=== PATIENT | female | born 1965 | race African-American/Black ===

== ENCOUNTER 2017-06-09 04:22 | Inpatient (IN) | payer MEDICAID ==
[~2017-06-09] VITALS: Ht 149.9 cm; Wt 112.9 kg
[2017-06-09] VITALS (10 sets, daily range): BP systolic 70–147; BP diastolic 43–75
[2017-06-09] MEDS ORDERED: LIPITOR10 MG (04:29)
[2017-06-09] MEDS ORDERED: NORVASC2.5 MG (04:29)
[2017-06-09] MEDS ORDERED: VITAMIN D1000 UNI1 (04:30)
[2017-06-09] MEDS ORDERED: ANTACID325 MG (04:30)
[2017-06-09] MEDS ORDERED: CARVEDILOL12.5 MG (04:30)
[2017-06-09 05:58] LABS: HEMATOCRIT 42.8 % (37.0-47.0); HEMOGLOBIN 13.4 gm/dL (12.0-15.0); MCH 27.1 pg (26.0-34.0); MCHC 31.3 g/dL (28.0-37.0); MCV 86.5 fL (80.0-100.0); MPV 10.3 fl. (7.2-11.1); NUCLEATED RBCS 0 /100WBC; PLATELET COUNT* 228 thou/uL (150-400); RBC 4.95 mil/uL (4.20-5.00); RDW-CV 16.3 % (10.5-14.5); WBC 8.6 thou/uL (4.0-11.0)
[2017-06-09 06:14] LABS: CALCIUM 9.1 mg/dL (8.5-10.1); POTASSIUM 4.9 mmol/L (3.5-5.1)
[2017-06-09 06:18] LABS: ALBUMIN 2.6 g/dL (3.4-5.0); TOTAL BILIRUBIN 0.7 mg/dL (<0.1-1.0); TOTAL PROTEIN 7.5 g/dL (6.4-8.2)
[2017-06-09 06:36] LABS: ABSOLUTE LYMPHOCYTES 1.2 thou/uL (0.8-5.3); ABSOLUTE MONOCYTES 0.5 thou/uL (0.0-1.2); ABSOLUTE NEUTROPHILS 6.9 thou/uL (1.6-8.1); ATYPICAL LYMPHS 8 %
[2017-06-09 06:39] LABS: GIANT PLATELETS OCCASIONAL; LARGE PLATELETS FEW; PLATELET ESTIMATE ADEQUATE
[2017-06-09 06:40] LABS: ANISOCYTOSIS 1+; HYPOCHROMASIA 1+; POLYCHROMASIA 1+; TARGET CELLS 1+
--- NOTE | 2017-06-09 07:37 | NUR ---
pt has given her permission for her cousin, Jaqueline Abernathy and her sister, Yuliet Duran to call and receive any information on the patient throughout her stay.
[2017-06-09 07:38] LABS: PROTIME 9.9 Seconds (9.20-11.50)
--- NOTE | 2017-06-09 08:29 | NUR ---
WHILE FILLING OUT THE SURGERY PRE-OP CHECKLIST AND CHANGING THE PATIENT INTO A GOWN, THE PATIENT REQUESTED TO HAVE HER UNDERWEAR CUT OFF RATHER THAN TO MOVE HER, CAUSING PAIN. THE PATIENT'S UNDERWEAR WAS CUT ON 2 SIDES AND LEFT IN PLACE. AN INCONTINENCE PAD WAS PLACED UNDERNEATH OF THE PATIENT'S BOTTOM THE PATIENT STATED THAT SHE IS INCONTINENT AND WEARS A PAD.
--- NOTE | 2017-06-09 10:40 | NUR ---
1040-RECEIVED PATIENT FROM ER AT THIS TIME. NEPHROLOGY AND PULMONARY COMSULTS CALLED PRIOR TO PATIENTS ARRIVAL. PATIENT IS ALERT AND ORIENTED. PAIN 10/10 IN LLQ. LABORED BREATHING. SAT 100% ON 3L. BP 87/57, PULSE 80. NG CONNECTED TO LIS- NO OUTPUT- PLACEMENT HAS NOT BEEN CONFIRMED BY XRAY- SUCTION OFF FOR NOW UNTIL PLACEMENT CAN BE CONFIRMED. NURSING FIELD REPRESENTATIVE ON UNIT AND NOTIFIED OF PATIENTS STATUS. NURSING FIELD REPRESENTATIVE INFORMED DR. RESENDIZ. I SPOKE WITH NEPHROLOGY WHO ORDERED NS AT 250MLS/HR, TRANSFER TO ICU, CENTRAL LINE PLACEMENT AND WHITTAKER CATHETER.NS INFUSING INTO RIGHT WRIST IV AT 250MLS/HR. WHITTAKER PLACED WITH SMALL RETURN OF YELLOW URINE. NURSING FIELD REPRESENTATIVE SPOKE WITH DR. HAMMONDS WHO ORDERED ABG'S. DR. RESENDIZ REQUESTED PATIENT BE TAKEN TO PACU FOR SURGERY. LEFT MESSAGE FOR PATIENTS SISTER HELADIO PER PATIENTS REQUEST. REPORT TO TARAN IN PACU. ER TO CALL REPORT TO ICU. 1135- PATIENT TRANSFERRED TO PACU
[2017-06-09 11:40] LABS: URINE BILIRUBIN NEGATIVE (Negative); URINE BLOOD TRACE (Negative); URINE CLARITY SL CLOUDY; URINE COLOR YELLOW; URINE GLUCOSE-RANDOM NEGATIVE (Negative); URINE KETONES NEGATIVE (Negative); URINE LEUKOCYTES-REFLEX NEGATIVE (Negative); URINE NITRITE-REFLEX NEGATIVE (Negative); URINE PROTEIN 3+ (Negative); URINE SPECIFIC GRAVITY 1.025 (1.005-1.030); URINE UROBILINOGEN 0.2 E.U./dl (0.2-1.0)
[2017-06-09 11:45] LABS: BE -11.1 mmol/L (-2 to +3); HCO3 15.9 mmol/L (22.0-26.0); PCO2 39.2 mmHg (35.0-45.0); PO2 92.9 mmHg (75.0-100.0)
[2017-06-09 11:46] LABS: SQUAMOUS 4-10 Moderate /LPF (0-3)
[2017-06-09 11:46] LABS: pH 7.225 (7.340-7.450)
[2017-06-09 11:47] LABS: AMORPHOUS URATES Many /LPF (None Seen); BACTERIA-REFLEX 1-9 Few /HPF (None Seen); URINE RBC 3-10 Few /HPF (0-2); URINE WBC-REFLEX 0-5 Rare /HPF (0-5)
[2017-06-09 11:47] LABS: AMP/METHAMP Negative (Negative); BARBITURATES Negative (Negative); BENZODIAZEPINES Negative (Negative); COCAINE Negative (Negative); METHADONE Negative (Negative); OPIATES POSITIVE (Negative); PCP Negative (Negative); THC Negative (Negative)
[2017-06-09 11:48] LABS: COARSE GRANULAR CASTS >10 Many /LPF (None Seen); FINE GRANULAR CASTS >10 Many /LPF (None Seen)
[2017-06-09 12:46] LABS: ABSOLUTE LYMPHOCYTES 0.4 thou/uL (0.8-5.3); ABSOLUTE MONOCYTES 0.8 thou/uL (0.0-1.2); ABSOLUTE NEUTROPHILS 6.1 thou/uL (1.6-8.1); BASOPHILS 0.2 %; HEMATOCRIT 36.7 % (37.0-47.0); HEMOGLOBIN 11.7 gm/dL (12.0-15.0); LYMPHOCYTES 6.1 %; MCH 27.3 pg (26.0-34.0); MCHC 31.9 g/dL (28.0-37.0); MCV 85.6 fL (80.0-100.0); MONOCYTES 11.2 %; MPV 11.1 fl. (7.2-11.1); NUCLEATED RBCS 1 /100WBC; PLATELET COUNT* 209 thou/uL (150-400); POLYS 82.5 %; RBC 4.29 mil/uL (4.20-5.00); RDW-CV 16.4 % (10.5-14.5); WBC 7.3 thou/uL (4.0-11.0)
[2017-06-09 13:11] LABS: CREATININE 5.8 mg/dL (0.6-1.3); POTASSIUM 5.1 mmol/L (3.5-5.1)
[2017-06-09 13:15] LABS: ALBUMIN 1.9 g/dL (3.4-5.0); PHOSPHORUS* 4.6 mg/dL (2.5-4.9); TOTAL BILIRUBIN 1.6 mg/dL (<0.1-1.0); TOTAL PROTEIN 5.7 g/dL (6.4-8.2)
--- NOTE | 2017-06-09 16:09 | EKG ---
[place] [address] ELECTROCARDIOGRAM REPORT Name: WALLY HAYES Room: [address] ADM IN ..#: [id number] Admission: 06/09/17 Attend Phys: Al Francisco, Discharge: Date of : 69 Report #: [id number] THIS REPORT FOR: //name// [facility] ED Test Date: 2017-06-09 Test Time: 04:39:10 Pat Name: WALLY HAYES Department: Room: [facility] Gender: F Landscape Management Technician: HANDY : 1965 Requested By: Louisa Barajas Order Number: [id number] MD: Vito Grove Measurements Intervals [place] Rate: 67 P: 6 RI: 146 QRS: 7 QRSD: 88 T: 172 QT: 414 QTc: 437 Interpretive Statements Sinus rhythm LVH with secondary repolarization abnormality Baseline wander in lead(s) V4,V5 No previous ECG available for comparison Electronically Signed On 06-09-2017 16:09:07 INCIDENT RESPONSE COORDINATOR by Vito Grove [email or web address] <ELECTRONICALLY SIGNED> By: Dennis Grove MD, [facility] 06/09/17 1609 [id number] [id number] Dennis Grove MD, [facility] /EPI
--- NOTE | 2017-06-09 20:02 | NUR ---
PATIENT'S BLOOD PRESSURE IS NOT MAINTAINING, PATIENT NOW REQUIRING 4 PRESSERS MAXED OUT. NG TO LIS, BROWN OUTPUT NOTED. WOUND VAC INTACT. PATIENT ANURIC. LUNGS COARSE AT THE BEGINNING BUT MORE CLEAR TOWARDS END OF SHIFT. FRONT ELEVATOR OPERATOR NOTING SINUS RHYTHM. BOWEL SOUNDS ABSENT. BEDSIDE REPORT GIVEN TO ONCOMING SHIFT.
[2017-06-10] VITALS (32 sets, daily range): BP systolic 75–153; BP diastolic 45–84
[2017-06-10 03:53] LABS: ABSOLUTE LYMPHOCYTES 0.7 thou/uL (0.8-5.3); ABSOLUTE MONOCYTES 0.8 thou/uL (0.0-1.2); ABSOLUTE NEUTROPHILS 14.9 thou/uL (1.6-8.1); BASOPHILS 0.3 %; EOSINOPHILS 0.1 %; HEMATOCRIT 35.8 % (37.0-47.0); HEMOGLOBIN 11.1 gm/dL (12.0-15.0); MCH 26.8 pg (26.0-34.0); MCV 86.6 fL (80.0-100.0); MONOCYTES 4.9 %; MPV 10.5 fl. (7.2-11.1); NUCLEATED RBCS 0 /100WBC; PLATELET COUNT* 224 thou/uL (150-400); POLYS 90.7 %; RBC 4.13 mil/uL (4.20-5.00); RDW-CV 16.4 % (10.5-14.5); WBC 16.5 thou/uL (4.0-11.0)
[2017-06-10 03:54] LABS: URINE BLOOD 2+ (Negative); URINE CLARITY CLEAR; URINE COLOR YELLOW; URINE GLUCOSE-RANDOM NEGATIVE (Negative); URINE KETONES NEGATIVE (Negative); URINE LEUKOCYTES-REFLEX NEGATIVE (Negative); URINE NITRITE-REFLEX NEGATIVE (Negative); URINE PROTEIN 2+ (Negative); URINE SPECIFIC GRAVITY 1.025 (1.005-1.030); URINE UROBILINOGEN 0.2 E.U./dl (0.2-1.0)
[2017-06-10 03:56] LABS: URINE BILIRUBIN 1+ (Negative)
[2017-06-10 03:57] LABS: ICTOTEST (BILI CONFIRMATORY) Negative (Negative)
[2017-06-10 04:22] LABS: ALBUMIN 1.4 g/dL (3.4-5.0); CALCIUM 6.8 mg/dL (8.5-10.1); CREATININE 6.6 mg/dL (0.6-1.3); TOTAL PROTEIN 4.9 g/dL (6.4-8.2)
[2017-06-10 04:25] LABS: BE -16.3 mmol/L (-2 to +3); PCO2 30.8 mmHg (35.0-45.0); PO2 109.8 mmHg (75.0-100.0)
[2017-06-10 04:27] LABS: pH 7.169 (7.340-7.450)
[2017-06-10 04:32] LABS: POTASSIUM 6.2 mmol/L (3.5-5.1)
[2017-06-10 04:58] LABS: BACTERIA-REFLEX >30 Many /HPF (None Seen); COARSE GRANULAR CASTS 0-3 Few /LPF (None Seen); FINE GRANULAR CASTS 0-3 Few /LPF (None Seen); MUCUS 4-6 Moderate strn/LPF (None Seen); SQUAMOUS 0-3 Few /LPF (0-3); URINE WBC-REFLEX 6-15 Few /HPF (0-5); WBC CLUMPS Few (None Seen)
[2017-06-10 04:59] LABS: AMORPHOUS URATES Many /LPF (None Seen)
--- NOTE | 2017-06-10 08:38 | NUR ---
ASSUMED PT CARE AT 1900. PT WAS HYPOTENSIVE AND WAS TITRATED TO MAX DOSE OF LEVOPHED, VASOPRESSIN, EPINEPHRINE, AND DOPAMINE BY 1999. THROUGH THE NIGHT DOPAMINE WAS TITRATED DOWN TO 2MCG/KG/MIN BUT ALL OTHER PRESSORS REMAINED AT MAX DOSE TO MAINTAIN MAP >65 PER ARTERIAL PRESSURE. PT REMAINED AFEBRILE. PT SEDATED ON VENTILATOR, MAINTAINING O2 SAT >92%. MIDLINE ABDOMINAL INCISION WITH WOUND VAC DRAINING SANGUINOUS DRAINAGE, DRESSING INTACT. PT HAS BEEN TURNED Q2HR THROUGHOUT THIS SHIFT EXCEPT EARLY IN THE NIGHT WHEN SHE WAS NOT HEMODYNAMICALLY STABLE ENOUGH TO TOLERATE REPOSITIONING. NEW COLOSTOMY IN LUQ IS DARK RED AND PROTUDING, MINIMAL SANGUINOUS DRAINAGE IN BAG. MULTIPLE ABNORMAL AND CRITICAL LABS WERE COMMUNICATED TO DRS GEM, KULWANT, AND ERASTO THIS AM WITH ORDERS RECEIVED. SPOKE TO PTS SISTER, HELADIO HAYES, THIS AM TO COMMUNICATE PTS CONDITION AND OBTAIN CONSENT FOR PLACEMENT OF TEMPORARY DIALYSIS CATHETER, CONSENT WITNESSED BY GAVIOTA YEUNG RN.
[2017-06-10 10:17] LABS: ALBUMIN 1.4 g/dL (3.4-5.0); CALCIUM 7.2 mg/dL (8.5-10.1); CREATININE 6.9 mg/dL (0.6-1.3); TOTAL PROTEIN 5.2 g/dL (6.4-8.2)
[2017-06-10 10:23] LABS: POTASSIUM 5.1 mmol/L (3.5-5.1)
--- NOTE | 2017-06-10 10:25 | NUR ---
PT HAD EXP LAP YESTERDAY FOR PERFORATED BOWEL, PT HAS WOUND VAC, PLAN TO RETURN TO SURGERY IN A FEW DAYS FOR ANOTHER ABD WASHOUT, POSSIBLE WOUND CLOSURE. PT GETTING TEMPORARY DIALYSIS CATH TODAY TO START DIALYSIS. CASE MGT WILL CONTINUE TO FOLLOW.
[2017-06-10 10:42] LABS: BE -14.2 mmol/L (-2 to +3); HCO3 11.9 mmol/L (22.0-26.0); PCO2 29.3 mmHg (35.0-45.0); PO2 91.9 mmHg (75.0-100.0); pH 7.228 (7.340-7.450)
--- NOTE | 2017-06-10 11:52 | 2DMMODE ---
[place] [address] 2 D/M-MODE ECHOCARDIOGRAM Name: WALLY HAYES Room: [address] IN [facility]#: [id number] Admission: 06/09/17 Attend Phys: Al Gutierrez Discharge: Date of : 69 Date of Service: 06/10/17 1152 Report #: [id number] THIS REPORT FOR: //name// APPROVED REPORT Study performed: 06/10/2017 09:53:29 EXAM: Comprehensive 2D, Doppler, and color-flow Echocardiogram Patient Location: Bedside BSA: 2.03 HR: 82 bpm BP: 114/73 mmHg Other Information Study Quality: Fair Indications Hypotension 2D Dimensions LVEF(%): 76.62 (>50%) IVSd: 8.37 (7-11mm) LVOT Diam: 21.32 (18-24mm) LVDd: 35.11 mm PWd: 9.63 (7-11mm) Ascending Ao: 34.57 (22-36mm) LVDs: 19.53 (25-40mm) Aortic Root: 25.25 mm Hunter's LVEF: 76.62 % Volumes Left Atrial Volume (Systole) LA ESV Index: 17.50 mL/m2 Aortic Valve AoV Peak Michoacano.: 1.19 m/s AO Peak Gr.: 5.69 mmHg LVOT Max P.48 mmHg AO Mean Gr.: 3.15 mmHg LVOT Mean P.10 mmHg LVOT Max V: 0.79 m/s AO V2 VTI: 17.14 cm LVOT Mean V: 0.47 m/s JANIE (VTI): 2.13 cm2 LVOT V1 VTI: 10.22 cm Mitral Valve E/A Ratio: 0.96 MV Decel. Time: 225.84 ms MV E Max Michoacano.: 0.66 m/[place] [address] 2 D/M-MODE ECHOCARDIOGRAM Name: WALLY HAYES Room: [address]#: [id number] Admission: 06/09/17 Attend Phys: Al Gutierrez Discharge: Date of : 69 Date of Service: 06/10/17 1152 Report #: [id number] MV PHT: 65.49 ms MVA (PHT): 3.36 cm2 TDI E/Lateral E': 7.33 E/Medial E': 9.43 Medial E' Michoacano.: 0.07 m/s Lateral E' Michoacano.: 0.09 m/s Pulmonary Valve PV Peak Michoacano.: 1.24 m/s PV Peak Gr.: 6.17 mmHg Tricuspid Valve RAP Estimate: 5.00 mmHg TR Peak Gr.: 35.57 mmHg RVSP: 40.57 mmHg PA Pressure: 40.57 mmHg Left Ventricle The left ventricle is normal size. There is normal LV segmental wall motion. There is normal left ventricular wall thickness. Left ventricular systolic function is normal. The left ventricular ejection fraction is within the normal range. LVEF is 60-65%. The left ventricular diastolic function is normal. Right Ventricle The right ventricle is normal size. The right ventricular systolic function is normal. Atria The left atrium size is normal. The right atrium size is normal. Aortic Valve The aortic valve is normal in structure. No aortic regurgitation is present. There is no aortic valvular stenosis. Mitral Valve The mitral valve is normal in structure. There is no mitral valve regurgitation noted. No evidence of mitral valve stenosis. Tricuspid Valve The tricuspid valve is normal in structure. Trace tricuspid regurgitation. Pulmonic Valve The pulmonary valve is normal in structure. There is no pulmon[place] [address] 2 D/M-MODE ECHOCARDIOGRAM Name: WALLY HAYES Room: [address] IN [facility]#: [id number] Admission: 06/09/17 Attend Phys: Al Gutierrez Discharge: Date of : 69 Date of Service: 06/10/17 1152 Report #: [id number] Great Vessels The aortic root is normal in size. The inferior vena cava is not well visualized. Pericardium There is no pericardial effusion. <Conclusion> Left ventricular systolic function is normal. The left ventricular ejection fraction is within the normal range. <ELECTRONICALLY SIGNED> By: Chilo Angela MD, FACC 06/10/17 1152 1152 115 Chilo Angela MD, FACC /INF
--- NOTE | 2017-06-10 18:47 | NUR ---
ASSUMED CARE OF PATIENT THIS AM WAS ON LEVOPHED, VASOPRESSIN, DOPAMINE AND EPINEPHRINE GTT. SEE TITRATION LOG. REMAINS ON LEVPHED ONLY AT THIS TIME. ART LINE WAS UNUSABLE RESTARTED IN RT WRIST. VAS CATH PLACED IN LT IJ BY DR ACOSTA. TIME OUT DONE PRIOR TO PROCEDURE. PT TOLERATED WELL. WOUND VAC FUNCTIONING WELL.
--- NOTE | 2017-06-10 21:30 | NUR ---
PT AWAKE, ALERT, NODDING HEAD YES/NO FOR SIMPLE QUESTIONS, INCREASED VENTILATOR PRESSURE RETURN, CALLED DR KONG LICENSING SPECIALIST FOR DR CHI UPDATED ON RESTLESSNESS, NEW ORDERS OBTAINED FOR VERSED GTT PER PROTOCOL IV, START DOSAGE AT 3MG/HR, WITH MAX DOSAGE 10MG/HR, WILL FOLLOW ORDERS AND CONTINUE TO MONITOR
[2017-06-11] VITALS (28 sets, daily range): BP systolic 74–197; BP diastolic 40–91
--- NOTE | 2017-06-11 05:00 | NUR ---
REMAINS CRRT DURING NOC, FENTANYL AND VERSED GTT FOR SEDATION EFFECTIVE, PT NODDING HEAD NO WHEN ASKED IF HAVING PAIN THIS AM, VERSED DECREASED DOWN TO 1MG/HR TO MAINTAIN RASS SCORE -1/-2 PER ORDER, NO FURTHER HYPOGLYCEMIA NOTED DURING NOC, D5 0.45% NS CONTINUES TO TRANSFUSE VIA INFUSION PUMP 75CC/HR, DRESSING ABD REMAINS C/D/I, <10CC SEROSANGUINEOUS DRAINAGE NOTED IN LUQ COLOSTOMY BAG, REMAINS OLIGURIC 50CC GAURI URINE WHITTAKER CATHETER, AFEBRILE, NSR TRACING MOCK UP BUILDER, 1:1 RN REMAINS AT BEDSIDE PER CRRT POLICY.
[2017-06-11 06:02] LABS: HCO3 19.7 mmol/L (22.0-26.0); pH 7.369 (7.340-7.450)
[2017-06-11 06:03] LABS: PO2 139.7 mmHg (75.0-100.0)
[2017-06-11 07:06] LABS: HEPATITIS B SURFACE AG Negative (Negative)
--- NOTE | 2017-06-11 07:50 | CON ---
[address] [address] CONSULTATION Name: WALLY HAYES Room: [address] IN [facility]#: [id number] Admission: 06/09/17 Attend Phys: Al Franicsco, Discharge: Date of : 69 Report #: [id number] THIS REPORT FOR: //name// CC: VALERIANO physician/PCP Al Francisco DATE OF SERVICE: 06/10/2017 REQUESTING PHYSICIAN: Al Francisco MD REASON FOR CONSULTATION: Postop ventilator. DISCUSSION: The patient is a 51-year-old woman who presented to the emergency department yesterday. She had pain in her abdomen for the last several days. She had recently been discharged from [facility] where she was treated for hypertensive crisis. Seen in the emergency department, did have some tenderness. Lab did reveal marked elevation in her creatinine and metabolic acidosis. Scans done of her abdomen did reveal changes of bowel obstruction as well as perforation with free air noted. Apparently was placed on the floor. She, however, deteriorated with drop in her blood pressure. Subsequently, she was taken to the operating room. Dr. Stanley operated on her yesterday and was noted to have a perforated bowel (sigmoid) with purulent fluid in her abdominal cavity. Besides washout, a Hima's procedure was done. It was left essentially open with a wound VAC in place. She returned to the intensive care unit on the ventilator. Central line and arterial line have been placed. Initially postop, she did require considerable amount of pressor support, was up to 4 pressors. At the time of my visit this morning, she was down to just dopamine and Levophed. She has been essentially anuric. Renal has been consulted. Dialysis catheter was to be placed. PAST MEDICAL HISTORY: Per the admission records indicate she does have chronic renal failure and hypertension. HOME MEDICATIONS: Apparently were amlodipine, Coreg, sodium bicarbonate twice a day, and vitamin D. SOCIAL HISTORY: She is a nonsmoker. FAMILY HISTORY: Unable to obtain from the patient. REVIEW OF SYSTEMS: Unable to obtain from the patient. PHYSICAL EXAMINATION: GENERAL APPEARANCE: Obese woman. Currently [place]ub[place] [address] CONSULTATION Name: WALLY HAYES Room: [address]#: [id number] Admission: 06/09/17 Attend Phys: Al Francisco, Discharge: Date of : 69 Report #: [id number] saturations are in the high 90s. Also, has an NG tube in place. Right IJ central line and arterial line in place. Some low dose fentanyl infusion going. HEENT: Head is normocephalic. Her eyes do appear fairly prominent, they are taped shut with lubricant. Mucous membranes little dry. NECK: Negative for any JVD. HEART: Regular. It is actually in the 80s. Grade 1/6 systolic murmur. No S3 is heard. LUNGS: Sounds are a little coarse, but generally clear. Excursion is equal. No chest wall abnormalities are noted. ABDOMEN: Obese. Wound VAC in place. Colostomy bag in place. Colby catheter in place with just scant amounts of pale yellow urine. EXTREMITIES: Warm. Pulses are fairly good. NEUROLOGIC: SCDs in place. LABORATORY AND X-RAY FINDINGS: Chest x-ray done this morning does show endotracheal tube in position. She has some atelectatic changes seen in the bases. Arterial blood gas done earlier this morning, she had a pH 7.17, pCO2 of 31, pO2 of 110, bicarbonate of 11 with a saturation of 97%. FIO2 at that time was 70%. She is now down to 60%. Chemistries earlier this morning, sodium 131, potassium 6.2, bicarb of 15, BUN 47, creatinine of 6.6. Total bilirubin 2.0. AST 34. Total protein 4.9 with an albumin of 1.4. Lactic acid 1.5. Coag studies unremarkable. White blood cell count this morning 16,500, hemoglobin 11.1, hematocrit 35.8, and platelets 224,000. HCG was negative. Prealbumin 11.2. One out of two blood cultures sent yesterday are positive for Gram-negative rods. Cultures done on peritoneal fluid are pending. Gram stain did show many white cells, few Gram-negative rods and moderate Gram-positive cocci. Urine culture is pending. IMPRESSION: 1. Postop respiratory failure. She is oxygenating adequately, though she does have increase O2 needs. 2. Septic shock. Status post repair of perforated sigmoid colon with intraabdominal sepsis/peritonitis. Critically ill. However, she is down to 2 pressors from 4. 3. Acute kidney injury superimposed on chronic kidney disease. Unknown what her baseline creatinine is at this time. 4. History of hypertension. 5. Obesity. 6. Protein-calorie malnutrition. 7. Critically ill. Guarded prognosis. RECOMMENDATIONS: 1. Continue ventilatory support. Follow up blood gas pending from this morning, we will make then adjustments as needed. 2. Renal will be seeing. May need dialysis and or filtration given her ongoing acidosis and [place] [address] CONSULTATION Name: WALLY HAYES Room: [address]#: [id number] Admission: 06/09/17 Attend Phys: Al Francisco, Discharge: Date of : 69 Report #: [id number] 3. I will continue the DuoNeb treatments at this time. 4. Continue with broad spectrum antibiotics. 5. No plans for active weaning, though she is more stable. I do note a tentative plan is to have her return to the operating room in several days for additional washout. <ELECTRONICALLY SIGNED> By: Imani Dillard MD 06/11/17 0750 0957 [id number] Dillard MD /nt
--- NOTE | 2017-06-11 07:54 | CON ---
[address] [address] CONSULTATION Name: WALLY HAYES Room: [address] IN [facility]#: [id number] Admission: 06/09/17 Attend Phys: Al Francisco, Discharge: Date of : 69 Report #: [id number] THIS REPORT FOR: //name// CC: VALERIANO physician/PCP Al Francisco DATE OF SERVICE: 06/10/2017 ATTENDING PHYSICIAN: Al Francisco MD. REASON FOR EVALUATION: Septic shock, fecal peritonitis. HISTORY OF PRESENT ILLNESS: Chart reviewed, patient examined. This is a 51-year-old female who is here with some underlying vasculopathy, known hypertension, renal disease, apparently was just discharged from another facility with hypertension and crisis. While there, she developed abdomen related pain. This not only worsened since her discharge, did have associated loose stools and some sweats. She was evaluated and found to be somewhat hemodynamically unstable. CT imaging showed evidence of perforation involving sigmoid diverticulitis, associated free air and underwent emergent surgery, seen postop. She is on pressor support as well as mechanical ventilatory support at this point. Now has associated gram-negative isolated from one of the blood cultures. She has been empirically started on piperacillin-tazobactam as well as metronidazole. Her creatinine is markedly elevated at this point to 6.6 with hyperkalemia. She is to be started on some dialysis. Urinalysis did show moderate pyuria as well. ALLERGIES: None known. CURRENT MEDICATIONS: Include hydrocortisone, pantoprazole, fentanyl, metronidazole, Zosyn. PAST MEDICAL HISTORY: As described above, hypertension, renal disease. SOCIAL HISTORY: Nonsmoker, no ethanol. FAMILY HISTORY: Noncontributory. REVIEW OF SYSTEMS: Not obtainable. PHYSICAL EXAMINATION: GENERAL: She is lying supine. She has multiple tubes in place including ET tube, OG tube, has got a wound VAC in place as well. VITAL SIGNS: Temperature 98.1, pulse 80, respirations 25, blood pressure 114/73. SKIN: Warm, dry[place] [address] CONSULTATION Name: WALLY HAYES Room: [address]#: [id number] Admission: 06/09/17 Attend Phys: Al Francisco, Discharge: Date of : 69 Report #: [id number] HEENT: As noted above. NECK: Supple. LUNGS: A few scattered coarse breath sounds. HEART: Distant, regular. ABDOMEN: Firm, somewhat distended, has a wound VAC in place anteriorly. GENITOURINARY AND RECTAL: Deferred. LABORATORY AND X-RAY DATA: Blood cultures 1/2 with gram-negative rods. Chest x-ray showed some changes in the bases. There is question of pneumonitis versus atelectasis. Urinalysis 6-15 white cells, greater than 30 bacteria. Amylase 150. Electrolytes: Sodium 131, potassium 6.2, chloride 102, bicarbonate is 15, anion gap of 14, BUN and creatinine 47 and 6.6, glucose of 265. LFTs unremarkable with exception total bilirubin of 2.0, albumin 1.4, total protein 4.9. Estimated GFR of 8. Lactic acid of 1.5, prealbumin of 11.2. CBC: White count 16.5, H and H 11.1 and 35.8, platelets of 224. Operative culture is pending. Gram stain showed polymicrobial appearance. ASSESSMENT: Septic shock as a result of colonic perforation involving sigmoid diverticula with diverticulitis. PLAN: We will continue the piperacillin-tazobactam, should give us good coverage, just a matter of supporting her at this point. Will likely need additional surgery based on the available information. Continue to wean off meds as allowed. We will adjust any antibiotics as needed. Certainly at risk for nosocomial related infectious complications, in particular pneumonitis. Thank you, we will follow. <ELECTRONICALLY SIGNED> By: Silverio Schreiber MD 06/11/17 0754 1023 1201Jogarett Schreiber MD /nt
[2017-06-11 09:09] LABS: MCH 68.4 pg (26.0-34.0); MCHC 86.5 g/dL (28.0-37.0); MCV 79.1 fL (80.0-100.0); MPV 9.3 fl. (7.2-11.1); PLATELET COUNT* 278 thou/uL (150-400); RDW-CV 15.5 % (10.5-14.5)
[2017-06-11 09:11] LABS: HEMOGLOBIN 5.9 gm/dL (12.0-15.0)
[2017-06-11 09:12] LABS: HEMATOCRIT 6.8 % (37.0-47.0); RBC 0.86 mil/uL (4.20-5.00)
[2017-06-11 09:23] LABS: SODIUM 132 mmol/L (136-145)
[2017-06-11 09:24] LABS: ANION GAP ND mmol/L (7-16); BUN 32 mg/dL (7-18); CHLORIDE 101 mmol/L (98-107); CO2 ND mmol/L (21-32); POTASSIUM 5.8 mmol/L (3.5-5.1)
[2017-06-11 09:25] LABS: CREATININE 3.6 mg/dL (0.6-1.3); GLUCOSE 79 mg/dL (70-99); SGOT 442 U/L (15-37)
[2017-06-11 09:26] LABS: CALCIUM 7.8 mg/dL (8.5-10.1); MAGNESIUM 1.7 mg/dL (1.8-2.4); TOTAL BILIRUBIN ND mg/dL (<0.1-1.0)
[2017-06-11 09:27] LABS: ALKALINE PHOSPHATASE 54 U/L (46-116)
[2017-06-11 09:29] LABS: SGPT 98 U/L (30-65); TOTAL PROTEIN 6.9 g/dL (6.4-8.2)
[2017-06-11 09:30] LABS: ALBUMIN < 0.6 g/dL (3.4-5.0)
[2017-06-11 09:38] LABS: ABSOLUTE LYMPHOCYTES 2.7 thou/uL (0.8-5.3); ABSOLUTE MONOCYTES 2.1 thou/uL (0.0-1.2); ABSOLUTE NEUTROPHILS 16.2 thou/uL (1.6-8.1); ATYPICAL LYMPHS 2 %; MYELOCYTES 1 %
[2017-06-11 09:39] LABS: PLATELET ESTIMATE ADEQUATE
[2017-06-11 09:40] LABS: TOXIC GRANULATION 1+
[2017-06-11 09:41] LABS: BURR CELLS 1+; HYPOCHROMASIA 2+; LARGE PLATELETS OCCASIONAL; SCHISTOCYTES 1+
[2017-06-11 09:42] LABS: ANISOCYTOSIS 1+; POIKILOCYTOSIS 2+
--- NOTE | 2017-06-11 11:33 | NUR ---
ASSUMED CARE OF PATIENT THIS AM CVVH STOPPED LINE CLOTTED. VS WNL. BLOOD RETURNED. LAB HAVING DIFFICULTY WITH HEMOLIZED SPECIMENS DR RIVERS CONSULTED. SEE HER NOTE. NOW TRANSFUSING 1 UNIT PRBC. HEPARIN HELD THIS AM. CVVH NOT RESTARTED AT THIS TIME PER DR MELCHOR. WILL CONTINUE TO MONITOR.
[2017-06-11 12:54] LABS: BE -10.8 mmol/L (-2 to +3); HCO3 14.9 mmol/L (22.0-26.0); PCO2 32.4 mmHg (35.0-45.0)
[2017-06-11 12:55] LABS: PO2 142.3 mmHg (75.0-100.0); pH 7.281 (7.340-7.450)
[2017-06-11 13:17] LABS: ABSOLUTE BASOPHILS 0.1 thou/uL (0.0-0.2); ABSOLUTE EOSINOPHILS 0.1 thou/uL (0.0-0.7); ABSOLUTE LYMPHOCYTES 1.6 thou/uL (0.8-5.3); ABSOLUTE MONOCYTES 2.8 thou/uL (0.0-1.2); BASOPHILS 0.5 %; EOSINOPHILS 0.3 %; LYMPHOCYTES 6.1 %; MCH 49.6 pg (26.0-34.0); MCHC 56.7 g/dL (28.0-37.0); MCV 87.5 fL (80.0-100.0); MONOCYTES 10.7 %; MPV 9.7 fl. (7.2-11.1); NUCLEATED RBCS 1 /100WBC; PLATELET COUNT* 219 thou/uL (150-400); POLYS 82.4 %; RBC 1.38 mil/uL (4.20-5.00); RDW-CV 17.3 % (10.5-14.5); WBC 26.7 thou/uL (4.0-11.0)
[2017-06-11 13:25] LABS: HEMOGLOBIN 6.8 gm/dL (12.0-15.0)
[2017-06-11 13:49] LABS: DIRECT BILIRUBIN 0.2 mg/dL (<0.1-0.3)
[2017-06-11 13:55] LABS: TOTAL PROTEIN 6.7 g/dL (6.4-8.2)
[2017-06-11 13:57] LABS: ALBUMIN 0.5 g/dL (3.4-5.0)
[2017-06-11 14:13] LABS: TOTAL BILIRUBIN 4.8 mg/dL (<0.1-1.0)
[2017-06-11 16:04] LABS: HEMOGLOBIN 8.2 gm/dL (12.0-15.0); MCH 40.4 pg (26.0-34.0); MCHC 45.9 g/dL (28.0-37.0); MPV 10.7 fl. (7.2-11.1); RBC 2.04 mil/uL (4.20-5.00); RDW-CV 16.1 % (10.5-14.5); WBC 30.6 thou/uL (4.0-11.0)
[2017-06-11 16:06] LABS: HEMATOCRIT 17.9 % (37.0-47.0)
--- NOTE | 2017-06-11 18:40 | NUR ---
PATIENTS BP AND HEART RATE DECREASED RESTARTED LEVO AND DOPAMINE. DR MELCHOR AT BEDSIDE ORDERED CALCIUM GLUCONATE INSULIN AND AMP D50 GIVEN. PATIENT RESTARTED ON CVVH ADJUSTED FLOW RATE CORRECTED LOW EFFLUENT PRESSURE ALARM ALSO ADJUSTED LINES TO REMOVE KINKS. NO TPN AVAILABLE ORDERED. ADDENDUM PRIOR TO ABOVE UNABLE TO OBTAIN BLOOD GLUCOSE PT DIAPHORETIC NURSE CONCERNED ATTEMPTED TO OBTAIN BLOOD GLUCOSE UNABLE TO GET GOOD SPECIMEN FRON FINGER OR ARTLINE. LAB DRAW TOOK ONE HOUR DUE TO HEMOLISIS. PT GIVEN HALF AMP D50 REPORTED TO DR MELCHOR.DPAMINE NOW OFF AND LEVO AT 5MCGS. PT MORE RELAXED EYES VERY DRY APPLIED SALINE GAUZE TO PT EYES. WILL REPORT TONOC NURSE.
[2017-06-11 20:09] LABS: MCH 40.4 pg (26.0-34.0); MCHC 46.4 g/dL (28.0-37.0); MCV 87.1 fL (80.0-100.0); MPV 9.8 fl. (7.2-11.1); RBC 1.7 mil/uL (4.20-5.00); RDW-CV 15.7 % (10.5-14.5); WBC 24.3 thou/uL (4.0-11.0)
[2017-06-11 20:20] LABS: CALCIUM 6.4 mg/dL (8.5-10.1); MAGNESIUM 1.4 mg/dL (1.8-2.4)
[2017-06-11 20:22] LABS: POTASSIUM 3.8 mmol/L (3.5-5.1)
--- NOTE | 2017-06-11 20:32 | NUR ---
LEVOHED GTT TITRATED OFF AT THIS TIME, ARTERIAL B/P 133/75 MAP-94 WITH GOOD PLETH, HR 70
[2017-06-11 20:36] LABS: HEMOGLOBIN 6.9 gm/dL (12.0-15.0)
[2017-06-11 20:37] LABS: HEMATOCRIT 14.8 % (37.0-47.0)
--- NOTE | 2017-06-11 20:45 | NUR ---
CRITICAL HBG 6.9, REQUESTED STAT HBG REDRAW TO VERIFY CRITICAL RESULTS, REDRAWN SERUM HBG 7.5.
[2017-06-11 20:51] LABS: PHOSPHORUS* 4.6 mg/dL (2.5-4.9)
--- NOTE | 2017-06-11 22:27 | NUR ---
HYPOTHERMIC 94.4 AXILLARY, LETHA HUGGER INITIATED, WILL CONTINUE TO MONITOR
[2017-06-11 23:07] LABS: HEMOGLOBIN 6.9 g/dL (11.1-15.9)
[2017-06-12] VITALS (26 sets, daily range): BP systolic 100–136; BP diastolic 63–96
--- NOTE | 2017-06-12 00:15 | NUR ---
THEROMETER UNABLE TO OBTAIN AXILLARY OR ORAL TEMP, REMOVED IN DWELLING CATHETER, REPLACED WITH INDWELLING TEMP PROBE WHITTAKER CATHETER TO MONITOR HYPOTHERMIA, LETHA DWYER REMAINS ON PATIENT, PAGED DR PHAN AT 2359 FOR CORE TEMP 94.5, RECEIVED RETURN CALL, UPDATED HYPOTHERMIC THIS EVENING 94.4 AXILLARY, THERMOMETER UNABLE TO OBTAIN TEMPERTURE, TEMP PROBE PLACED, NO URINE RETURN NOTED WITH NEW WHITTAKER CATHETER PLACED AT THIS TIME, PT HAS BEEN ANURIC-OLIGURIC, BALOON INFLATED 10CC WITHOUT DIFFICULT, TEMP 95.4 CORE WHEN SPOKE WITH DR PHAN ON TELEPHONE, PER DR PHAN CONTINUE LETHA DWYER AND CONTINUE TO MONITOR.
[2017-06-12 00:44] LABS: HEMOGLOBIN 7.5 gm/dL (12.0-15.0); MCH 39.9 pg (26.0-34.0); MCHC 46.7 g/dL (28.0-37.0); MCV 85.5 fL (80.0-100.0); MPV 10.8 fl. (7.2-11.1); RBC 1.89 mil/uL (4.20-5.00); RDW-CV 15.9 % (10.5-14.5); WBC 25.8 thou/uL (4.0-11.0)
[2017-06-12 00:49] LABS: CALCIUM 7.4 mg/dL (8.5-10.1); MAGNESIUM 1.7 mg/dL (1.8-2.4); PHOSPHORUS* 3.8 mg/dL (2.5-4.9)
[2017-06-12 00:54] LABS: HEMATOCRIT 16.1 % (37.0-47.0)
[2017-06-12 04:00] LABS: BE -1.1 mmol/L (-2 to +3); HCO3 24.4 mmol/L (22.0-26.0); PCO2 44.1 mmHg (35.0-45.0); PO2 119.7 mmHg (75.0-100.0)
[2017-06-12 04:43] LABS: HEMOGLOBIN 7.5 gm/dL (12.0-15.0); MCH 38.8 pg (26.0-34.0); MCHC 45.7 g/dL (28.0-37.0); MCV 84.9 fL (80.0-100.0); MPV 10.7 fl. (7.2-11.1); RBC 1.93 mil/uL (4.20-5.00); RDW-CV 16.3 % (10.5-14.5); WBC 28.6 thou/uL (4.0-11.0)
[2017-06-12 05:23] LABS: ALBUMIN 0.9 g/dL (3.4-5.0); ANION GAP 11 mmol/L (7-16); CALCIUM 7.5 mg/dL (8.5-10.1); CHLORIDE 102 mmol/L (98-107); CO2 24 mmol/L (21-32); CREATININE 2.7 mg/dL (0.6-1.3); GLUCOSE 121 mg/dL (70-99); MAGNESIUM 1.7 mg/dL (1.8-2.4); PHOSPHORUS* 3.6 mg/dL (2.5-4.9); SODIUM 137 mmol/L (136-145); TOTAL BILIRUBIN 13.4 mg/dL (<0.1-1.0); TOTAL PROTEIN 5.7 g/dL (6.4-8.2)
[2017-06-12 05:26] LABS: HEMATOCRIT 16.4 % (37.0-47.0)
--- NOTE | 2017-06-12 06:46 | NUR ---
SLOW PROGRESSION TOWARDS GOALS, SEE COMPUTERIZED ASSESSMENT CHARTING FOR FURTHER DETAILS, REMAINS OFF OF VASOPRESSORS DURING NOC, B/P SYSTOLIC ONE-TEENS TO 120S, DYASTOLIC 50'S-60, HR HIGH 60'S TO LOW 80'S NSR TRACING BRICK AND TILE MAKING MACHINE OPERATOR, NO VENTILATOR SETTING CHANGES DURING NOC, LETHA NANDOER IN USE MOST OF NOC RESOLVING HYPOTHERMIA, TEMP 98.1 CORE AT THIS TIME, REMAINS SEDATED ON FENTANYL GTT 100MCG/HR MODERATE SEDATION, CONTINUES ON CRRT FOR ENTIRE SHIFT, ANURIC, <5CC OOZING BLOODY DRAINAGE EMPTIED FROM LUQ COLOSTOMY BAG, TPN INFUSING 40CC/HR VIA INFUSION PUMP. DRESSING ABD REMAINS C/D/I, UPDATED SISTER VIA TELEPHONE POC THIS AM.
[2017-06-12 06:49] LABS: BUN 30 mg/dL (7-18); POTASSIUM 4.3 mmol/L (3.5-5.1); SGOT 847 U/L (15-37)
[2017-06-12 06:50] LABS: SGPT 178 U/L (30-65); TRIGLYCERIDE 196 mg/dL (<150)
[2017-06-12 07:41] LABS: ALKALINE PHOSPHATASE ND U/L (46-116)
[2017-06-12 07:57] LABS: CALCIUM 7.3 mg/dL (8.5-10.1); CREATININE 2.2 mg/dL (0.6-1.3); MAGNESIUM 1.6 mg/dL (1.8-2.4); PHOSPHORUS* 3.1 mg/dL (2.5-4.9)
[2017-06-12 08:03] LABS: APTT 32.4 Seconds (25.0-31.3); INR 1.4; PROTIME 13.4 Seconds (9.20-11.50)
[2017-06-12 08:05] LABS: POTASSIUM 3.9 mmol/L (3.5-5.1)
--- NOTE | 2017-06-12 08:43 | NUR ---
ASSUMED CARE OF PATIENT AFTER RECEIVING BEDSIDE REPORT. PATIENT CURRENTLY ON CRRT, TOLERATING WELL. PATIENT SEDATED AND ON VENTILATOR. WOUND VAC IN PLACE, DARK BLOODY OUTPUT NOTED. PATIENT ADEQUATELY SEDATED ON FENTANYL. PLAN TO RETURN TO OR TODAY, WILL CHECK WITH NEPHROLOGY REGARDING CRRT POSTOP. BEAR HUGGER IN PLACE, PATIENT MAINTAINING ADEQUATE TEMPERATURE. INTELLECTUAL PROPERTY PARALEGAL IN PLACE, NORMAL SINUS RHYTHM NOTED WITH OCCASIONAL PROLONGED P-R INTERVALS. TPN RUNNING, PATIENT TOLERATING WELL. RESTRAINTS IN PLACE FOR SAFETY. WILL CONTINUE TO MONITOR.
--- NOTE | 2017-06-12 10:48 | NUR ---
PT REMAINS ON VENT, ON CRRT. TO RETURN TO O.R. TODAY, POSSIBLE WOUND CLOSURE. NO FAMILY HERE AT THIS TIME. PER NURSING, PT LIVED WITH HER MOTHER AND PROVIDED ASSISTANCE TO HER, MOTHER HAS DEMENTIA. PT HAS MULTIPLE FAMILY MEMBERS WHO HAVE BEEN HERE, CALLING TO CHECK ON HER. NO FAMILY HERE AT THIS TIME. CALLED AND SPOKE WITH SISTER, HELADIO, . HELADIO SAID THAT PT HAS BEEN TO [facility] IN THE PAST AND IS 'GETTING SOME FREE CARE AND MEDS FROM [facility].' HELADIO DOES NOT KNOW IF [facility] HELPED PT START A MEDICAID APPLICATION. PT LIVED WITH MOTHER AND HELPED CARE FOR HER. MOTHER HAD A STROKE SEVERAL YEARS AGO AND HAS SHORT TERM MEMORY LOSS FROM THAT. HELADIO SAID THE MOTHER NEEDS TO BE REMINDED TO TAKE HER MEDS, REMINDED TO DO THINGS, BUT IS ABLE TO BE UP AND ABOUT BY HERSELF. FAMILY IS HELPING TO BE WITH MOTHER NOW. HELADIO PLANS TO CALL THE DOCTOR'S OFFICE ABOUT HOME HEALTH FOR MOTHER, I DISCUSSED PRIVATE DUTY AGENCIES AND E-MAILED HER A PRIVATE DUTY AGENCY LIST. LEFT MY NAME AND PHONE NUMBER WITH SISTER. CASE [facility] WILL CONTINUE TO FOLLOW.
--- NOTE | 2017-06-12 11:44 | NUR ---
PATIENT TAKEN TO SURGERY AT 1115. CRRT STOPPED, BLOOD RETURNED, AND PORTS PACKED WITH HEPARIN. CHEST XRAY TO BE COMPLETED UPON ARRIVAL BACK TO UNIT AND CRRT WILL BE RESTARTED.
--- NOTE | 2017-06-12 13:18 | NUR ---
PATIENT RETURNED FROM OR. NEW WOUND VAC IN PLACE. PATIENT CONTINUES TO BE SEDATED WITH FENTANYL. BLOOD PRESSURE WNL. TEMPERATURE MAINTAINING WITHOUT BEAR HUGGER. CRRT TO BE RESTARTED.
[2017-06-12 13:23] LABS: CALCIUM 7.1 mg/dL (8.5-10.1); CREATININE 2.8 mg/dL (0.6-1.3); MAGNESIUM 1.7 mg/dL (1.8-2.4); POTASSIUM 4.2 mmol/L (3.5-5.1)
[2017-06-12 13:24] LABS: PHOSPHORUS* 3.7 mg/dL (2.5-4.9)
[2017-06-12 14:04] LABS: MCH 35.5 pg (26.0-34.0); MCHC 41.3 g/dL (28.0-37.0); MCV 85.9 fL (80.0-100.0); RBC 1.89 mil/uL (4.20-5.00); RDW-CV 16.4 % (10.5-14.5); WBC 32.1 thou/uL (4.0-11.0)
--- NOTE | 2017-06-12 14:07 | CON ---
[address] [address] CONSULTATION Name: WALLY HAYES Room: [address] IN [facility]#: [id number] Admission: 06/09/17 Attend Phys: Al Francisco, Discharge: Date of : 69 Report #: [id number] THIS REPORT FOR: //name// CC: VALERIANO physician/PCP Al Francisco DATE OF SERVICE: 06/11/2017 REASON FOR CONSULTATION: Anemia. REQUESTING PHYSICIAN: Al Francisco M.D. HISTORY OF PRESENT ILLNESS: The patient is a pleasant 51-year-old woman who was admitted to the hospital with severe abdominal pain. She had a CT scan of abdomen done, which showed perforation of sigmoid, most likely associated with diverticulitis. She underwent surgery. After surgery, she is in intensive care unit, getting treatment for postop care and peritonitis, septic shock. She developed renal failure. She is no CVVHD. She is intubated. On admission, she did not have any hematological abnormalities. She had normal hemoglobin, normal platelets. On 06/10, her CBC showed hemoglobin of 11.1, platelets 224. She is receiving Zosyn and Flagyl, received first Zosyn on . On this morning when the patient had a lab work, she was noticed to have hemolysis. All specimens were hemolyzed. There are various samples taken from venous puncture and arterial puncture, but all of them appear to be hemolyzed. She developed severe anemia. Her hemoglobin 5.9, this could be inaccurate. Hematology consult was requested. The patient is intubated, unable to give me any history. History was taking from nurse. PAST MEDICAL HISTORY: Hypertension, chronic kidney disease. SOCIAL HISTORY: Apparently, does not smoke. This is according to chart review. FAMILY HISTORY: Unable to obtain. REVIEW OF SYSTEMS: Unable to obtain. PHYSICAL EXAMINATION: GENERAL: Reveals female, intubated, sedated. VITAL SIGNS: Blood pressure 130/90, heart rate is 82, temperature 97.6. HEART: Normal S1, S2. LUNGS: Coarse. LOWER EXTREMITIES: No edema. LYMPHATIC: There is no cervical lymphadenopathy. HEMATOLOGIC: There are no obvious signs of bleeding. LABORATORY DATA: Hemoglobin obtained by fingerstick is 5.3, [place] [address] CONSULTATION Name: WALLY HAYES Room: [address]#: [id number] Admission: 06/09/17 Attend Phys: Al Francisco, Discharge: Date of : 69 Report #: [id number] morning 278. Sodium 132, potassium 5.8, creatinine 3.6, BUN 32. Direct bilirubin 2.0. ASSESSMENT AND PLAN: Hemolytic anemia of unclear etiology. I discussed this case with Dr. Antunez. According to pathology reviewed there, there were only +1 schistocytes and CRISSY was apparently negative. I recommend to transfuse 2 units of packed red blood cells. We will type and cross more units, give transfusions as needed. Since the etiology of hemolysis is not clear, I am planning to give 1 dose of Solu-Medrol 120 mg. If she clearly does not have any outer antibodies, we will not give steroids anymore. We will follow her platelets very closely. I am planning to check C6 for the activity, planning to hold dialysis. I discussed this case with Dr. Wright. We will hold dialysis for several hours. We will check H and H after we will hold dialysis. I am planning to ask Dr. Schreiber to change antibiotics, discontinue Zosyn. At this point, most likely cause of hemolysis is probably medication. If she develops hyperkalemia, we will reinitiate hemodialysis again. We will watch platelets very closely to make sure she does not develop thrombocytopenia again. The patient's condition is critical, but we will continue to support with blood transfusion. I am planning to monitor CBC, LDH, LFTs. Thank you very much for allowing me to participate in care of this patient. <ELECTRONICALLY SIGNED> By: Jackie Hylton MD 06/12/17 1407 [id number] [id number] Hylton MD /nt
[2017-06-12 14:10] LABS: HEMATOCRIT 16.3 % (37.0-47.0)
[2017-06-12 14:11] LABS: HEMOGLOBIN 6.7 gm/dL (12.0-15.0)
--- NOTE | 2017-06-12 15:06 | S ---
[place] [address] SURGICAL PATH RPT PROCEDURE Name: WALLY HAYES Room: [address] IN [facility]#: [id number] Admission: 06/09/17 Date of : 69 Discharge: Report #: [id number] Path Case #: [id number] PATHOLOGY REPORT COLLECTION DATE: 06/09/2017 RECEIVED DATE: 06/10/2017 SUBMITTING PHYS: Dr. Melany Stanley OTHER PHYS: Dr. Al Francisco SPECIMEN(S) RECEIVED: A.Sigmoid colon * * * * * * * * * * * * FINAL DIAGNOSIS: Sigmoid colon: - Segment of benign colon with marked diverticular disease including chronic and acute diverticulitis with evidence of perforation including transmural acute inflammation, pericolic abscess associated with vegetable material, and acute serositis. See comment. COMMENT: Per discussion with Dr. Melany Stanley on afternoon of 06/12, the preoperative clinical suspicion, based on imaging studies, was that of perforated small bowel, however an intraoperative finding of perforated sigmoid diverticulitis was found. (GWYN:joe; 06/12/2017) PATHOLOGIST: Clive Antunez M.D. REPORT ELECTRONICALLY SIGNED BY: Clive Antunez M.D. DATE/TIME: 06/12/2017 15:06 * * * * * * * * * * * * GROSS PATHOLOGY: Received in formalin labeled "Wally Hayes, sigmoid colon" and consists of a segment of large intestine measuring 15 cm in length by 1.7 cm in diameter. There is fat and epiploica extending the entire length of specimen. The fat is red-brown with beige exudate identified. The segment is opened longitudinally and the lumen is narrow, measuring 0.8 cm in diameter. The muscularis propria is markedly thickened and ranges from 0.3 cm to 0.8 cm. The mucosa shows increase folds. No mucosal masses are identified. There are several diverticula identified ranging in depth from 0.3 cm to 0.8 cm. An obvious rupture is not identified. Claim Service Representative sections are submitted A1-E6. A1 one surgical margin A2 opposite surgical margin A3-A6 [place] [address] SURGICAL PATH RPT PROCEDURE Name: WALLY HAYES Room: [address] IN [facility]#: [id number] Admission: 06/09/17 Date of : 69 Discharge: Report #: [id number] Path Case #: [id number] (GRIS; 06/11/2017) CLINICAL HISTORY: Abdominal pain, perforated small bowel INITIAL CPT CODE(S): A; 59479 Professional services performed by [facility] at [address] [address] Technical services performed by [facility] at [address] [place] [address], [address], [place] [address]. [facility] [address] [address] PHONE: [phone] DIRECTOR: Chavez Lim M.D. * * * END OF REPORT * * *
[2017-06-12 16:56] LABS: BE -4.8 mmol/L (-2 to +3); HCO3 20.6 mmol/L (22.0-26.0); PCO2 39.4 mmHg (35.0-45.0); PO2 91.1 mmHg (75.0-100.0); pH 7.336 (7.340-7.450)
[2017-06-12 17:27] LABS: HEMATOCRIT 20.5 % (37.0-47.0); HEMOGLOBIN 8.1 gm/dL (12.0-15.0)
[2017-06-12 17:45] LABS: MAGNESIUM 1.6 mg/dL (1.8-2.4)
[2017-06-12 18:01] LABS: CALCIUM 7.1 mg/dL (8.5-10.1); CREATININE 2.1 mg/dL (0.6-1.3); PHOSPHORUS* 3.1 mg/dL (2.5-4.9)
[2017-06-12 19:58] LABS: MAGNESIUM 1.5 mg/dL (1.8-2.4)
[2017-06-12 20:16] LABS: CREATININE 2.2 mg/dL (0.6-1.3); PHOSPHORUS* 2.9 mg/dL (2.5-4.9)
[2017-06-12 20:21] LABS: POTASSIUM 3.6 mmol/L (3.5-5.1)
[2017-06-13] VITALS (24 sets, daily range): BP systolic 101–142; BP diastolic 65–90
[2017-06-13 01:12] LABS: CREATININE 1.9 mg/dL (0.6-1.3); POTASSIUM 4.1 mmol/L (3.5-5.1)
[2017-06-13 01:13] LABS: ALBUMIN 1.2 g/dL (3.4-5.0); CALCIUM 7.4 mg/dL (8.5-10.1); DIRECT BILIRUBIN 8.4 mg/dL (<0.1-0.3); MAGNESIUM 1.7 mg/dL (1.8-2.4); PHOSPHORUS* 2.3 mg/dL (2.5-4.9); TOTAL BILIRUBIN 17.6 mg/dL (<0.1-1.0)
[2017-06-13 04:07] LABS: ABSOLUTE BASOPHILS 0.2 thou/uL (0.0-0.2); ABSOLUTE LYMPHOCYTES 0.6 thou/uL (0.8-5.3); ABSOLUTE NEUTROPHILS 38.1 thou/uL (1.6-8.1); BASOPHILS 0.5 %; EOSINOPHILS 0.1 %; HEMATOCRIT 21.5 % (37.0-47.0); LYMPHOCYTES 1.5 %; MCH 31.6 pg (26.0-34.0); MCHC 37.3 g/dL (28.0-37.0); MCV 84.8 fL (80.0-100.0); MONOCYTES 7.7 %; MPV 10.7 fl. (7.2-11.1); NUCLEATED RBCS 0 /100WBC; PLATELET COUNT* 169 thou/uL (150-400); POLYS 90.2 %; RBC 2.53 mil/uL (4.20-5.00)
[2017-06-13 04:26] LABS: CALCIUM 7.2 mg/dL (8.5-10.1); CREATININE 1.8 mg/dL (0.6-1.3); MAGNESIUM 1.6 mg/dL (1.8-2.4); POTASSIUM 3.9 mmol/L (3.5-5.1)
[2017-06-13 04:56] LABS: ABSOLUTE MONOCYTES 3.2 thou/uL (0.0-1.2); WBC 42.2 thou/uL (4.0-11.0)
--- NOTE | 2017-06-13 06:45 | NUR ---
SLOW PROGRESSION TOWARDS GOALS, SEE COMPUTERIZED ASSESSMENT CHARTING FOR FURTHER DETAILS, FENTANYL 100MCG/HR VIA INFUSION PUMP CONTINUES FOR SEDATION, TPN VIA INFUSION PUMP THROUGH CENTRAL LINE CONTINUES 80CC/HR, NO VENTILATOR SETTING CHANGES DURING NOC BY RT, SCANT AMOUNT BROWN THICK SECRETIONS SUCTIONED VIA INLINE TUBE, COPIOUS AMOUNTS THICK CLEAR/WHITE SECRETIONS VIA ORAL CAVITY, FREQUENT ORAL CARE PROVIDED, MORPHINE 4MG IVP X2 FOR INCREASED GRIMACING, INCREASED RESPERATIONS AND INCREASED PEAK PRESSURE, TOLERATING CRRT ALL SHIFT, LETHA-HUGGER REMAINS IN USE WITH CORE TEMP 98.1 THIS AM, REMAINS ANURIC, NSR TRACING BRAZING FURNACE OPERATOR, SCANT AMOUNT SANGINOUS DRAINAGE WOUND VAC TO MIDLINE ABDOMEN. DRESSING TO ABDOMEN REMAINS C/D/I.
--- NOTE | 2017-06-13 07:37 | NUR ---
ASSUMED CARE OF PATIENT AFTER RECEIVING BEDSIDE REPORT. ASSESSMENT COMPLETED, VSS. PATIENT CONTINUES ON VENTILATOR SEDATED ON FENTANYL. COPIOUS, THICK ORAL SECRETIONS NOTED. SCANT, THICK, BROWN SECRETIONS ON INLINE SUCTIONING. CRRT CONTINUES, ATIENT TOLERATING WEL. BEAR HUGGER IN PLACE TO MAINTAIN TEMPERATURE. WILL CONTINUE TO WORK TOWARDS REDUCING INFECTION AND IMROVING WOUND HEALING. SELF RISING FLOUR MIXER IN PLACE, SINUS RHYTHM NOTED. WILL CONTINUE TO MONITOR.
[2017-06-13 08:09] LABS: BE 1.4 mmol/L (-2 to +3); HCO3 27.1 mmol/L (22.0-26.0); PCO2 49.2 mmHg (35.0-45.0); PO2 96.1 mmHg (75.0-100.0); pH 7.359 (7.340-7.450)
[2017-06-13 08:23] LABS: MAGNESIUM 1.7 mg/dL (1.8-2.4)
[2017-06-13 08:27] LABS: POTASSIUM 3.8 mmol/L (3.5-5.1)
[2017-06-13 08:28] LABS: CALCIUM 7.6 mg/dL (8.5-10.1); CREATININE 1.8 mg/dL (0.6-1.3); PHOSPHORUS* 1.8 mg/dL (2.5-4.9)
[2017-06-13 12:29] LABS: CALCIUM 6.7 mg/dL (8.5-10.1); CREATININE 1.5 mg/dL (0.6-1.3); MAGNESIUM 1.4 mg/dL (1.8-2.4); PHOSPHORUS* 1.2 mg/dL (2.5-4.9)
[2017-06-13 12:30] LABS: POTASSIUM 3.2 mmol/L (3.5-5.1)
[2017-06-13 14:26] LABS: HEMATOCRIT 21.2 % (37.0-47.0); HEMOGLOBIN 7.5 gm/dL (12.0-15.0)
[2017-06-13 16:10] LABS: GLUCOSE 6-P-D 9.9 U/g Hb (4.6-13.5)
[2017-06-13 16:29] LABS: CALCIUM 6.6 mg/dL (8.5-10.1); CREATININE 1.4 mg/dL (0.6-1.3); MAGNESIUM 1.6 mg/dL (1.8-2.4); PHOSPHORUS* 1.1 mg/dL (2.5-4.9)
[2017-06-13 16:31] LABS: POTASSIUM 3.3 mmol/L (3.5-5.1)
--- NOTE | 2017-06-13 18:13 | NUR ---
PATIENT HAD RELATIVELY UNEVENTFUL DAY. PATIENT CONTINUED ON CRRT AND TOLERATED WELL. PATIENT STARTED ON TRICKLE FEEDS, RESIDUAL ONLY 25. ORAL SECRETIONS HAS REDUCED OVER YESTERDAY. PATIENT STILL REQUIRING BEAR HUGGER TO MAINTAIN TEMPERATURE WNL. BLOOD PRESSURE WNL AND SLIGHTLY HYPERTENSIVE NOW. OXYGEN TURNED DOWN TO 30% ON VENTILATOR PER RT. BEDSIDE REPORT TO BE GIVEN TO ONCOMING SHIFT.
[2017-06-13 20:13] LABS: CALCIUM 6.7 mg/dL (8.5-10.1); CREATININE 1.4 mg/dL (0.6-1.3); MAGNESIUM 1.5 mg/dL (1.8-2.4); PHOSPHORUS* 0.9 mg/dL (2.5-4.9); POTASSIUM 3.1 mmol/L (3.5-5.1)
--- NOTE | 2017-06-13 20:34 | NUR ---
CALLED DR WHITLEY BUTTON GRADER FOR DR BLUM, UPDATED POTASSIUM 3.1, PHOS 0.9, AND MAGNESIUM LEVEL 1.6, NEW ORDERS RECEIVED GIVE POTASSIUM PHOS 20MMOL IV NOW X1, MAGNESIUM 2MG IVPB X1 AND CONTINUE TO MONITOR. PT REMAINS ON CONTINUOUS CRRT.
[2017-06-14] VITALS (22 sets, daily range): BP systolic 101–155; BP diastolic 58–92
--- NOTE | 2017-06-14 00:45 | NUR ---
DR MARTINEZ CALLED FOR PT UPDATE, NEW ORDERS RECEIVED FOR SERUM HAPTOGHLOBIN IN AM AND SOLUMEDROL 125MG IVP X1 IF HBG <7 PRETREAMENT FOR X1 UNIT PRBC TRANSFUSION. WILL INITIATE ORDERS.
--- NOTE | 2017-06-14 04:20 | NUR ---
GASTRIC RESIDUAL 580, STOPPED NOVASOURCE RENAL AT 20CC/HR VIA NG, RESTARTED NG TO LIS FOR DECOMPRESSION.
[2017-06-14 05:02] LABS: ABSOLUTE BASOPHILS 0.4 thou/uL (0.0-0.2); ABSOLUTE EOSINOPHILS 0.1 thou/uL (0.0-0.7); ABSOLUTE LYMPHOCYTES 0.9 thou/uL (0.8-5.3); ABSOLUTE NEUTROPHILS 40.5 thou/uL (1.6-8.1); BASOPHILS 0.8 %; EOSINOPHILS 0.3 %; HEMATOCRIT 21.9 % (37.0-47.0); HEMOGLOBIN 7.4 gm/dL (12.0-15.0); LYMPHOCYTES 1.8 %; MCH 28.4 pg (26.0-34.0); MCHC 33.9 g/dL (28.0-37.0); MCV 83.8 fL (80.0-100.0); MONOCYTES 12.6 %; MPV 11.1 fl. (7.2-11.1); NUCLEATED RBCS 0 /100WBC; PLATELET COUNT* 166 thou/uL (150-400); POLYS 84.5 %; RBC 2.62 mil/uL (4.20-5.00); RDW-CV 16.3 % (10.5-14.5)
[2017-06-14 05:03] LABS: BE 1.3 mmol/L (-2 to +3); PCO2 41.4 mmHg (35.0-45.0); PO2 72.9 mmHg (75.0-100.0); pH 7.415 (7.340-7.450)
[2017-06-14 05:20] LABS: CREATININE 1.5 mg/dL (0.6-1.3)
[2017-06-14 05:21] LABS: POTASSIUM 3.9 mmol/L (3.5-5.1)
[2017-06-14 05:41] LABS: WBC 47.9 thou/uL (4.0-11.0)
[2017-06-14 05:46] LABS: DIRECT BILIRUBIN 11.1 mg/dL (<0.1-0.3); TOTAL BILIRUBIN 14.3 mg/dL (<0.1-1.0)
--- NOTE | 2017-06-14 06:26 | NUR ---
SLOW PROGRESSION TOWARDS GOALS, NO CHANGE IN VENTILATOR SETTINGS BY RT DURING NOC, SCANT AMOUNT YELLOW SECRETIONS SUCTIONED OUT OF IN-LINE VIA ET, MODERATE AMOUNT CLEAR SECRETIONS SUCTIONED VIA ORAL CAVITY, DECREASED ORAL SECRETIONS COMPARTED TO 06/13/17 NOC SHIFT, TOLERATING CRRT ALL SHIFT, LETHA-HUGGAR REMAINS IN USE TO MAINTAIN =>96.8 CORE TEMP, NOT TOLERATING TRICKLE NOVASOURCE RENAL TUBE FEEDING AT 20CC/HR VIA TUBE FEEDING PUMP PER NG TUBE, 1100CC GASTRIC RESIDUAL VIA NG LIS AT THIS TIME, SCANT AMOUNT SEROUSANGINOUS DRAINAGE NOTED COLOSTOMY, REMAINS ANURIC, POTASSIUM PHOSPHATE IVPB AND MAGNESIUM IVP ADMINISTERED THIS SHIFT PER ORDER, POTASSIUM SERUM LEVEL FROM 3.1 TO 3.9 THIS AM, AWAITING REPEAT MAGNESIUM AND PHOSPHORUS RESULTS. DRESSING ABDOMEN REMAINS C/D/I. FENTANYL GTT 100MCG/HR EFFECTIVE FOR SEDATION.
[2017-06-14 06:30] LABS: MAGNESIUM 1.8 mg/dL (1.8-2.4); PHOSPHORUS* 1.7 mg/dL (2.5-4.9)
--- NOTE | 2017-06-14 07:24 | NUR ---
ASSUMED CARE OF PATIENT AFTER RECEIVING BEDSIDE REPORT. ASSESSMENT COMPLETED, VSS. PATIENT SEDATED ON VENTILATOR BUT RESPONSIVE TO PAINFUL STIMULI. PATIENT STILL RUNNING CRRT, TOLERATING WELL. PATIENT STILL REQUIRING BEAR HUGGER TO MAINTAIN TEMPERATURE WNL. PATIENT DID NOT TOLERATE TRICKLE FEEDS OVER NIGHT SO NG IS HOOKED UP TO LIS AND IS HAVING OUTPUT. CASTING REPAIRER IN PLACE, SINUS RHYTHM NOTED. WILL CONTINUE TO MONITOR 1:1 PATIENT.
--- NOTE | 2017-06-14 10:04 | NUR ---
PATIENT IS BEING TREATED FOR SEPTIC SHOCK AND PERITONITS, ADDING VANCOMYCIN PER DR. MAURER. PATIENT IS CURRENTLY RECEIVNG CRRT, AND CURRENT LABS INCLUDE WBC=47.9, CR=1.5. PER PHARMACY PROTOCOL, PATIENT WILL RECEIVE A 2G VANCOMYCIN BOLUS, FOLLOWED BY 1G Q12H WHILE RECEIVING CRRT. A TROUGH IS SCHEDULED FOR 06/16 AT 1030 AND PHARMACY WILL FOLLOW.
[2017-06-14 12:31] LABS: HEMATOCRIT 20.9 % (37.0-47.0)
[2017-06-14 12:39] LABS: HEMOGLOBIN 6.8 gm/dL (12.0-15.0)
--- NOTE | 2017-06-14 15:32 | EKG ---
[place] [address] ELECTROCARDIOGRAM REPORT Name: WALLY HAYES Room: [address] ADM IN M.R.#: [id number] Admission: 06/09/17 Attend Phys: Al Francisco, Discharge: Date of : 69 Report #: [id number] THIS REPORT FOR: //name// [facility] Test Date: 2017-06-14 Test Time: 13:49:35 Pat Name: WALLY HAYES Department: Room: [address] Gender: F Asphalt Plant Worker: : 1965 Requested By: Al Francisco Order Number: [id number] King MD: Chilo Angela Measurements Intervals Potter Rate: 80 P: 30 CO: 142 QRS: 9 QRSD: 93 T: 256 QT: 485 QTc: 560 Interpretive Statements Sinus rhythm Nonspecific T abnormalities, diffuse leads Prolonged QT interval Baseline wander in lead(s) V1,V2 Compared to ECG 06/09/2017 04:39:10 t wave changes less prominent Prolonged QT interval now present Left ventricular hypertrophy no longer present Early repolarization no longer present Electronically Signed On 06-14-2017 15:31:52 ARCHITECTURAL DRAFTER by Chilo Angela [email or web address] <ELECTRONICALLY SIGNED> By: Chilo Angela MD, FAC 06/14/17 1531 1349 1349 Chilo Angela MD, FAC /EPI
[2017-06-14 16:17] LABS: HEMATOCRIT 25.5 % (37.0-47.0); HEMOGLOBIN 8.6 gm/dL (12.0-15.0)
--- NOTE | 2017-06-14 18:28 | NUR ---
PATIENT PROGRESSED TOWARDS GOALS TODAY. PATIENT TOLERATED CRRT WELL AND WAS ABLE TO START TAKING FLUID OFF. PATIENT URINATED 20ML OF URINE. PATIENT TOLERATED TURNING WELL. PATIENT MORE RESPONSIVE TO VOICE AND DID SQUEEZE HAND ONE TIME ON COMMAND. TEMPERATURE AND BLOOD PRESSURE MAINTAINING WITHOUT ANY SUPPORTIVE MEASURES. BEDSIDE REPORT TO BE GIVEN TO ONCOMING SHIFT.
[2017-06-14 20:38] LABS: HEMATOCRIT 23.9 % (37.0-47.0); MCH 28.2 pg (26.0-34.0); MCHC 33.5 g/dL (28.0-37.0); MCV 84.4 fL (80.0-100.0); MPV 10.5 fl. (7.2-11.1); RBC 2.83 mil/uL (4.20-5.00); RDW-CV 16.2 % (10.5-14.5); WBC 38.5 thou/uL (4.0-11.0)
[2017-06-14 20:49] LABS: CALCIUM 6.8 mg/dL (8.5-10.1); CREATININE 1.4 mg/dL (0.6-1.3); MAGNESIUM 1.5 mg/dL (1.8-2.4); PHOSPHORUS* 1.9 mg/dL (2.5-4.9); POTASSIUM 3.7 mmol/L (3.5-5.1)
[2017-06-15] VITALS (18 sets, daily range): BP systolic 135–211; BP diastolic 52–109
[2017-06-15 05:36] LABS: HEMATOCRIT 23.4 % (37.0-47.0); MCH 29.4 pg (26.0-34.0); MCHC 34.3 g/dL (28.0-37.0); MCV 85.9 fL (80.0-100.0); MPV 10.5 fl. (7.2-11.1); NUCLEATED RBCS 0 /100WBC; PLATELET COUNT* 124 thou/uL (150-400); RBC 2.73 mil/uL (4.20-5.00); RDW-CV 16.4 % (10.5-14.5); WBC 33.4 thou/uL (4.0-11.0)
[2017-06-15 06:06] LABS: ALBUMIN 1.3 g/dL (3.4-5.0); CALCIUM 6.9 mg/dL (8.5-10.1); CREATININE 1.3 mg/dL (0.6-1.3); MAGNESIUM 1.5 mg/dL (1.8-2.4); TOTAL BILIRUBIN 4.8 mg/dL (<0.1-1.0); TOTAL PROTEIN 4.7 g/dL (6.4-8.2)
[2017-06-15 06:11] LABS: METAMYELOCYTES 8 %
[2017-06-15 06:13] LABS: ABSOLUTE MONOCYTES 2.7 thou/uL (0.0-1.2); ABSOLUTE NEUTROPHILS 29.4 thou/uL (1.6-8.1); ATYPICAL LYMPHS 1 %; BLASTS 1 %; PLATELET ESTIMATE DECREASED
[2017-06-15 06:14] LABS: ANISOCYTOSIS 1+; HYPOCHROMASIA 2+; SCHISTOCYTES Occasional
[2017-06-15 06:22] LABS: POTASSIUM 3.7 mmol/L (3.5-5.1)
--- NOTE | 2017-06-15 06:23 | NUR ---
PT NOT PROGRESSING TOWARD GOALS. PT STILL NOT MAKING URINE. PT BP CONTINUES TO RISE. PT SLEPT THROUGH THE EVENING. THIS NURSE OBSERVED THE PT HAVING TREMORS TO THE RIGHT CATHOLIC.
--- NOTE | 2017-06-15 07:58 | NUR ---
ASSUMED CARE OF PATIENT AFTER RECEIVING BEDSIDE REPORT. ASSESSMENT COMPLETED, VSS. PATIENT IS HYPERTENSIVE THIS MORNING. PATIENT MUCH MORE ALERT AND IS FOLLOWING COMMANDS. PATIENT IS ANSWERING QUESTIONS APPROPRIATELY WITH HEAD NODS AND SHAKES. NG IS HOOKED TO LIS WITH BROWN OUTPUT. CRRT IS CONTINUING TO RUN, PATIENT TOLERATING WEL. SUPERVISOR CAB IN PLACE, SINUS RHYTHM NOTED. METOPROLOL STARTED FOR HYPERTENSION PER DR. PHAN. 1:1 MONITORING. WILL CONTINUE TO MONITOR AND WORK TOWARDS GOALS.
[2017-06-15 09:11] LABS: BE 1.5 mmol/L (-2 to +3); HCO3 25.5 mmol/L (22.0-26.0); PCO2 37.3 mmHg (35.0-45.0); PO2 96.6 mmHg (75.0-100.0); pH 7.452 (7.340-7.450)
[2017-06-16] VITALS (24 sets, daily range): BP systolic 109–172; BP diastolic 57–97
[2017-06-16 04:01] LABS: HEMATOCRIT 24.2 % (37.0-47.0); HEMOGLOBIN 8.3 gm/dL (12.0-15.0); MCH 29.2 pg (26.0-34.0); MCHC 34.2 g/dL (28.0-37.0); MCV 85.3 fL (80.0-100.0); MPV 10.7 fl. (7.2-11.1); RBC 2.84 mil/uL (4.20-5.00); RDW-CV 15.9 % (10.5-14.5)
[2017-06-16 04:13] LABS: WBC 42.9 thou/uL (4.0-11.0)
[2017-06-16 04:17] LABS: CREATININE 1.2 mg/dL (0.6-1.3); MAGNESIUM 1.5 mg/dL (1.8-2.4); POTASSIUM 3.6 mmol/L (3.5-5.1)
[2017-06-16 05:13] LABS: ALBUMIN 1.6 g/dL (3.4-5.0); CALCIUM 7.2 mg/dL (8.5-10.1); TOTAL BILIRUBIN 3.6 mg/dL (<0.1-1.0); TOTAL PROTEIN 4.1 g/dL (6.4-8.2)
--- NOTE | 2017-06-16 05:46 | NUR ---
SLOW PROGRESSION TOWARDS GOALS, TOLERATING AND CONTINUES ON CRRT THROUGHT OUT SHIFT, MAINTAINING TEMP >97 AND <98 CORE TEMP WITHOUT USE OF LETHA-HUGGER DURING NOC, DENIES PAIN OR DISCOMFORT, ABLE TO NOD HEAD YES/NO FOR SIMPLE QUESTIONS, HYDRALAZINE IVP GIVEN Q6H PRN FOR HYPERTENSION, METOPROLOL INCREASED BY DR CRUZ BEGINNING NOC FROM2.5 MG IVP TO 5MG IVP, TPN CONTINUES VIA CENTRAL LINE TO TRANSFUSE BY INFUSION PUMP 80CC/HR, FSBS Q6H WNL, FENTANYL GTT 100MCG/HR VIA INFUSION PUMP ALONG WITH VERSED 3MG IVP GIVEN PRN FOR SEDATION, NSR TRACING FORENSIC DNA ANALYST HR 70'S, MINIMAL SECRETIONS SUCTIONED OUT OF INLINE ET, MINIMAL CLEAR SECRETIONS SUCTIONED ORAL CAVITY, NG TO LIS 175CC GREEN BILE OUT, REMAINS ANURIC, DRESSING ABD REMAINS C/D/I WITHOUT LEAKAGE NOTED TO WOUND VAC.
--- NOTE | 2017-06-16 07:42 | NUR ---
ASSUMED CARE OF PATIENT AFTER RECEIVING BEDSIDE REPORT. ASSESSMENT COMPLETED, VSS. BLOOD PRESSURE MUCH BETTER TODAY. PATIENT RESPONSIVE TO VOICE. PATIENT ANSWERS QUESTIONS APPROPRIATELY WITH HEAD NODS AND SHAKES AND FOLLOWS COMMANDS. CRRT CONTINUES TO RUN, PATIENT TOLERATING WELL. T-TUBE TRIAL PLANNED FOR THIS MORNING. SUMMER INTERN IN PLACE, SINUS RHYTHM NOTED. WILL CONTINUE TO MONITOR.
[2017-06-16 09:25] LABS: BE 1.5 mmol/L (-2 to +3); HCO3 24.5 mmol/L (22.0-26.0); PCO2 32.6 mmHg (35.0-45.0); PO2 94.8 mmHg (75.0-100.0); pH 7.494 (7.340-7.450)
--- NOTE | 2017-06-16 11:10 | NUR ---
VANCOMYCIN PHARMACY TO MANAGE: PATIENT IS BEING TREATED FOR SEPTIC SHOCK AND PERITONITIS. WBC=42.9, SCR=1.2, CRRT, TEMP= 36.1. PATIENT HAS BEEN RECEIVING A MAINTENANCE DOSE OF VANCOMYCIN 1 G IV Q12H WITH A TROUGH GOAL OF 15-20 MCG/ML. A TROUGH WAS DRAWN TODAY WITH A RESULT OF 13 MCG/ML WHICH IS BELOW GOAL. PLAN IS TO INCREASE THE DOSE TO VANCOMYCIN 1.25 G IV Q12H WITH A TROUGH GOAL OF 15-20 MCG/ML. A LEVEL IS ORDERED FOR 06/18 AT 1100. PHARMACY WILL CONTINUE TO FOLLOW AND MONITOR.
[2017-06-16 18:09] LABS: URINE BILIRUBIN NEGATIVE (Negative); URINE BLOOD 3+ (Negative); URINE CLARITY SL CLOUDY; URINE COLOR YELLOW; URINE GLUCOSE-RANDOM NEGATIVE (Negative); URINE KETONES NEGATIVE (Negative); URINE PROTEIN 2+ (Negative); URINE SPECIFIC GRAVITY <= 1.005 (1.005-1.030); URINE UROBILINOGEN 0.2 E.U./dl (0.2-1.0)
[2017-06-16 18:10] LABS: URINE LEUKOCYTES-REFLEX 3+ (Negative); URINE NITRITE-REFLEX POSITIVE (Negative)
[2017-06-16 18:13] LABS: SQUAMOUS 0-3 Few /LPF (0-3); WBC CLUMPS Few (None Seen)
[2017-06-16 18:14] LABS: RENAL EPITHELIAL CELLS 0-3 Few /LPF (None Seen)
[2017-06-16 18:15] LABS: MUCUS 0-3 Light strn/LPF (None Seen); WAXY CAST 0-3 Few /LPF (None Seen)
[2017-06-16 18:16] LABS: AMORPHOUS PHOSPHATES Moderate /LPF (None Seen)
--- NOTE | 2017-06-16 23:29 | NUR ---
MONITOR ALARMING ARTERIAL LINE NOT WORKING, ASSESSED SITE, BLOOD NOTED ON SHEETS, GOWN, AND SITE, ARTERIAL LINE DISLODGED, CHANGED GOWN AND SHEETS, BILAT SOFT WRIST RESTRAINTS CONTINUE TO BE IN USE AND SECURE AT TIME OF INCIDENT, NOTIFIED DR DIAZ HERE ON UNIT TO SEE ANOTHER PATIENT. OKAY TO LEAVE ARTERIAL LINE OUT FOR NOC, DR DIAZ STATES WILL REASSESS SITUATION IN AM TO DECIDE IF NEW ARTERIAL LINE WILL NEED TO BE PLACED.
[2017-06-17] VITALS (11 sets, daily range): BP systolic 94–137; BP diastolic 46–96
[2017-06-17 04:36] LABS: HEMATOCRIT 24.5 % (37.0-47.0); HEMOGLOBIN 8.2 gm/dL (12.0-15.0); MCH 29.1 pg (26.0-34.0); MCHC 33.6 g/dL (28.0-37.0); MCV 86.5 fL (80.0-100.0); MPV 10.7 fl. (7.2-11.1); RBC 2.83 mil/uL (4.20-5.00); RDW-CV 16.3 % (10.5-14.5)
[2017-06-17 05:17] LABS: WBC 41.8 thou/uL (4.0-11.0)
[2017-06-17 05:30] LABS: ALBUMIN 1.4 g/dL (3.4-5.0); CALCIUM 7.3 mg/dL (8.5-10.1); CREATININE 2.4 mg/dL (0.6-1.3); MAGNESIUM 1.5 mg/dL (1.8-2.4); POTASSIUM 3.3 mmol/L (3.5-5.1); TOTAL BILIRUBIN 2.3 mg/dL (<0.1-1.0); TOTAL PROTEIN 4.7 g/dL (6.4-8.2)
--- NOTE | 2017-06-17 06:48 | NUR ---
SLOW PROGRESSION TOWARDS GOALS, NO VENTILATOR CHANGES BY RT DURING NOC, COPIOUS WHITE CLEAR SECRETIONS SUCTIONED ORAL CAVITY AND IN-LINE ET TUBE, TEMP 99.0-100.0 CORE, FAN ON PT TO ASSIST WITH TEMPERATURE CONTROL, FOLLOWING COMMANDS, NODDING HEAD YES/NO FOR SIMPLE QUESTIONS, AGITATED WITH ORAL CARE, EMOTIONAL SUPPORT PROVIDED, TPN CONTINUES TO TRANSFUSE 80CC/HR VIA INFUSION PUMP, NSR TRACING DIRECTOR OF CORPORATE STRATEGY, ANURIC, FENTANYL 75CC/HR VIA INFUSION PUMP FOR SEDATION, DRESSING ABD REMAINS C/D/I, WOUND VAC WITHOUT LEAK.
[2017-06-17 08:52] LABS: BE 0.6 mmol/L (-2 to +3); HCO3 24.5 mmol/L (22.0-26.0); PO2 85.6 mmHg (75.0-100.0)
--- NOTE | 2017-06-17 08:57 | NUR ---
ASSUMED CARE OF PATIENT AFTER RECEIVING BEDSIDE REPORT. ASSESSMENT COMPLETED, VSS. PATIENT FEBRILE. WEANING TRIAL DONE THIS MORNING, ABG WNL FOLLOWING TRIAL. PATIENT FOLLOWING COMMANDS AND APPROPRIATE DURING TRIAL. PATIENT ORIENTED WITH NODDING AND SHAKING HEAD. PATIENT RESTING COMFORTABLY IN BED BUT DOES REPORT ABDOMINAL PAIN. PAIN MEDICATION PROVIDED PER AUG. CLINICAL CARE MANAGER IN PLACE, SINUS RHYTHM NOTED. PATIENT BEING PREPPED FOR HEMODIALYSIS. WILL CONTINUE TO MONITOR.
--- NOTE | 2017-06-17 14:35 | NUR ---
SPOKE WITH SISTER HELADIO AT BEDSIDE. SHE SAID SHE HAS TALKED WITH [employer] ABOUT COMPLETING A MEDICAID APPLICATION AND HAS TALKED WITH [employer] ABOUT APPLYING FOR DISABILITY FOR PATIENT. SHE HAS MY NAME AND PHONE NUMBER IF SHE HAS ANY QUESTIONS. CASE T TO CONTINUE TO FOLLOW.
--- NOTE | 2017-06-17 16:01 | NUR ---
WOUND CARE NOTE: CONSULT RECEIVED FOR BRUISING? DEEP TISSUE INJURY WITH BLISTERS. PATIENT PRESENTS WITH PURPLE/MAROON DISCOLORATION TO THE DISTAL ASPECT OF HER FOREARM. IRREGULARLY SHAPED WITH 3 INTACT SANUINEOUS FILLED BLISTERS. NO DRAINAGE. AREA IS SLIGHTLY MORE FIRM THAN SURROUNDING SKIN. UNSURE OF ETIOLOGY. THERE WAS AN ARTERIAL LINE DISTALLY. RECOMMEND LEAVING OPEN TO AIR UNLESS BLISTERS RUPTURE, THEN PLACE VASELINE GAUZE AND ROLL GAUZE.
--- NOTE | 2017-06-17 19:25 | NUR ---
PATIENT TOLERATED DIALYSIS REMAINS ON VENT. DRESSING CHANGED PACKED WITH GAUZE SURGERY SCHEDULED AT 1500 06/18. CONSENT DONE. SEDATED TO KEEP CALM.
[2017-06-18] VITALS (10 sets, daily range): BP systolic 86–127; BP diastolic 51–80
[2017-06-18 03:12] LABS: HEMATOCRIT 21.6 % (37.0-47.0); HEMOGLOBIN 7.1 gm/dL (12.0-15.0); MCH 28.8 pg (26.0-34.0); MCV 87.4 fL (80.0-100.0); MPV 10.9 fl. (7.2-11.1); RBC 2.47 mil/uL (4.20-5.00); RDW-CV 16.1 % (10.5-14.5); WBC 33.4 thou/uL (4.0-11.0)
[2017-06-18 03:22] LABS: ALBUMIN 1.3 g/dL (3.4-5.0); CALCIUM 6.8 mg/dL (8.5-10.1); MAGNESIUM 1.4 mg/dL (1.8-2.4); POTASSIUM 3.2 mmol/L (3.5-5.1); TOTAL BILIRUBIN 1.9 mg/dL (<0.1-1.0); TOTAL PROTEIN 4.4 g/dL (6.4-8.2)
[2017-06-18 03:26] LABS: CREATININE 3.8 mg/dL (0.6-1.3)
--- NOTE | 2017-06-18 16:18 | NUR ---
PATIENT TO OR. CT OF ABDOMEN AND CHEST DONE. PATIENT TOLERATED WELL.
--- NOTE | 2017-06-18 18:30 | OP ---
[facility] [place] [address] OPERATIVE REPORT Name: WALLY HAYES Room: [address] IN [facility]#: [id number] Admission: 06/09/17 Attend Phys: Al Francisco, Discharge: Date of : 69 Report #: [id number] THIS REPORT FOR: //name// CC: VALERIANO physician/PCP Al Francisco DATE OF SERVICE: 06/12/2017 PREOPERATIVE DIAGNOSES: 1. Perforated diverticulitis. 2. Septic shock. 3. Open abdomen. 4. Protein calorie malnutrition. 5. Severe super-morbid obesity. 6. Chronic renal disease. 7. Multisystem organ failure. 8. Chronic respiratory failure. POSTOPERATIVE DIAGNOSES: 1. Perforated diverticulitis. 2. Septic shock. 3. Open abdomen. 4. Protein calorie malnutrition. 5. Severe super-morbid obesity. 6. Chronic renal disease. 7. Multisystem organ failure. 8. Chronic respiratory failure. PROCEDURE: 1. Re-opening of recent laparotomy area. 2. Peritoneal lavage. 3. Closure of abdominal wall. 4. Placement of wound VAC. ANESTHESIA: GET. SURGEON: Melany Stanley MD COOLING TOWER TECHNICIAN: None. COMPLICATIONS: None. FINDINGS: No hill purulence on this presentation. Small bowel appeared without necrosis or infection at areas of prior concern. DESCRIPTION OF PROCEDURE: The patient was assessed fully with her family [address] [place] [address] OPERATIVE REPORT Name: WALLY HAYES Room: [address] IN [facility]#: [id number] Admission: 06/09/17 Attend Phys: Al Francisco, Discharge: Date of : 69 Report #: [id number] regarding the need to return given open abdomen for washout and possible closure prior to ____ among others. She was taken to the operating room. A timeout was performed, with all in agreement. ABThera wound VAC was removed very carefully from prior placement. I began by irrigating copiously and slowly beginning to take down adhesions between the abdominal wall and small bowel. I continued this dissection process for approximately 30 minutes. I was able to run stent to the small bowel. The 3 areas of prior concern in the small bowel were identified. There was no evidence of necrosis. Appeared to be irritation from the prior likely abscess cavity prior to her non-contained pus. I ran from the ligament of Treitz to the colon and saw no injury. I irrigated it copiously with several liters of warm normal saline. Next, I began my closure. I used PDS from cranial and caudal portions of incision. ____ every several centimeters, I would take a wide [id number] internal retention suture using 0 Prolene. This was able to be done without severe tension on the abdominal wall. The colostomy was identified during this and protected during the closure. I reviewed the colostomy mucosa. It appeared pink and healthy and was patent. I irrigated the wound copiously and then placed a wound VAC, trimmed this first. It did hold good suction. Stoma bag was applied. Sponge, needle and instrument counts were again correct at the end of the case. The patient tolerated well. <ELECTRONICALLY SIGNED> By: Melany Stanley MD 06/18/17 1830 [id number] Stanley MD /nt
--- NOTE | 2017-06-18 18:34 | OP ---
[address] [address] OPERATIVE REPORT Name: WALLY HAYES Room: [address] IN [facility]#: [id number] Admission: 06/09/17 Attend Phys: Al Francisco, Discharge: Date of : 69 Report #: [id number] THIS REPORT FOR: //name// CC: VALERIANO physician/PCP Al Francisco DATE OF SERVICE: 06/09/2017 PREOPERATIVE DIAGNOSES: 1. Perforated bowel. 2. Sigmoid diverticulitis with perforation and Hinchey 3. POSTOPERATIVE DIAGNOSES: 1. Perforated bowel. 2. Sigmoid diverticulitis with perforation and Hinchey 3. SURGEON: Melany Stanley MD. YARN WEIGHER: Garfield Branch DO. PROCEDURES: 1. Exploratory laparotomy. 2. Hima's procedure - sigmoid resection with end colostomy and Hima's pouch. 3. Peritoneal lavage. 4. ABThera wound VAC placement. 5. Splenic flexure takedown. ANESTHESIA: GET. FINDINGS: Purulent peritonitis. SPECIMENS: 1. Wound culture. 2. Sigmoid colon. POSTOPERATIVE PLAN: Return to OR in 2-3 days for potential closure of fascia. DESCRIPTION OF PROCEDURE: Full informed consent was taken preoperatively with the patient including full discussion of risks, benefits, alternatives. She understood risk of bleeding, infection, reoperation, injury to surrounding structures, missed pathology or alternative pathology, anastomotic leak, need for temporary or permanent stoma, hernia abscess, chronic pain and catastrophic complications up to and including cardiopulmonary failure and . The patient understood and wished to proceed. She was taken to the operating room. We prepped and draped in standard sterile supine fashion. Timeout was performed [address] [address] OPERATIVE REPORT Name: WALLY HAYES Room: [address] IN [facility].#: [id number] Admission: 06/09/17 Attend Phys: Al Francisco, Discharge: Date of : 69 Report #: [id number] with all in agreement. Began with midline laparotomy, immediately encountered hill pus within the abdomen. This was cultured, continued suctioning out copious volume of pus. We irrigated with several liters of warm normal saline. There was an abscess cavity in left lower quadrant. This was opened up. I explored the small bowel and ran up from the ligament of Treitz all the way to the cecum. There were 3 areas of bowel which appeared to be inflamed with some chronic separation on top of them. I did not see any perforation or injury at these areas. I milked contents and air passed these areas and there was no evidence of any leak or injury at the small bowel that I could tell. I turned my attention to the sigmoid colon. There was an area of hill perforation with the pus and air when decompressed. Debakey easily slipped through this into the colon confirming perforated diverticulitis. I began my dissection and scored it along the white line of Toldt this up and easily pulled away from the pelvic sidewall. I noticed given that this was really in the left colon or the very proximal sigmoid. I knew that to make an end colostomy, I would need a significant length. I therefore took down the splenic flexure. I opened up in the lesser sac the transverse colon away from the omentum. I continued dissecting until I got to the splenocolic ligament. This was taken down with combination of cautery and . This gave substantial length; therefore, I selected my point of transection beneath the area of perforation. I selected very distal sigmoid colon to the rectum to allow adequate length to allow better dissection for a potential future reversal. This was divided with the TA stapler and a stitch of Prolene was placed through the staple line for her to aid future identification. The LigaSure was used to take down the remaining mesentery just beneath the colon up to the splenic flexure. I got pass a point of my intended transection. Next, I pulled the fascia and dermis medially using Kochers. I made a cruciate in the left upper quadrant within the rectus where I intended the rectus to be based on palpation, used cautery to dissect down. I made a cruciate in the fascia bluntly entered through 3 fingerbreadths. An Singh wound protector was placed through this and the colon brought up through the subcutaneous tissue and fat. Singh was cut and removed. This was amputated to the point of intended colostomy and sent to pathology. Next, I continued my irrigation irrigating several liters of fluid of warm normal saline. Omentum was placed back over the small bowel. I did place a stitch of Prolene in cranial and caudal portions of fascia to prevent additional retraction. The ABThera wound VAC was selected and placed in the abdomen trimming the edges first and closing the skin partially with 0 PDS from cranial and caudal over the ABThera. It did hold good suction. I selected this because I did want to reinspect the small bowel given some severe irritation to make sure this did not progress to full thickness necrosis, prior to definitive abdominal closure as well as to irrigate additionally to best prevent the [address] [address] OPERATIVE REPORT Name: FREDDYWALLY Mary Yamini Room: [address] IN [facility]#: [id number] Admission: 06/09/17 Attend Phys: Al Francisco, Discharge: Date of : 69 Report #: [id number] chances of interloop abscesses. This patient tolerated it well. Sponge, needle, instrument counts were correct at the end of the case. <ELECTRONICALLY SIGNED> By: Melany Stanley MD 06/18/17 1834 [id number] Stanley MD /nt
[2017-06-19] VITALS (23 sets, daily range): BP systolic 68–134; BP diastolic 41–76
[2017-06-19 05:19] LABS: BE -2.9 mmol/L (-2 to +3); HCO3 21.2 mmol/L (22.0-26.0); PCO2 34.2 mmHg (35.0-45.0); PO2 66.2 mmHg (75.0-100.0); pH 7.411 (7.340-7.450)
[2017-06-19 05:59] LABS: MCH 28.4 pg (26.0-34.0); MCHC 32.2 g/dL (28.0-37.0); MCV 88.1 fL (80.0-100.0); MPV 11.2 fl. (7.2-11.1); RBC 2.24 mil/uL (4.20-5.00); RDW-CV 16.7 % (10.5-14.5); WBC 30.9 thou/uL (4.0-11.0)
[2017-06-19 06:09] LABS: HEMATOCRIT 19.8 % (37.0-47.0); HEMOGLOBIN 6.4 gm/dL (12.0-15.0)
[2017-06-19 06:42] LABS: ALBUMIN 1.5 g/dL (3.4-5.0); CALCIUM 7.1 mg/dL (8.5-10.1); CREATININE 4.6 mg/dL (0.6-1.3); MAGNESIUM 1.4 mg/dL (1.8-2.4); POTASSIUM 3.9 mmol/L (3.5-5.1); TOTAL BILIRUBIN 1.5 mg/dL (<0.1-1.0); TOTAL PROTEIN 4.7 g/dL (6.4-8.2)
--- NOTE | 2017-06-19 10:02 | NUR ---
ASSUMED CARE OF PATIENT AFTER RECEIVING BEDSIDE REPORT. ASSESSMENT COMPLETED, VSS. PATIENT FEBRILE. CATHETER FLUSHED PER DR. RESENDIZ, PATIENT PRODUCED 10ML OF URINE. PATIENT SEDATED, WILL WORK TOWARDS GOAL OF STOPPING VERSED. TRICKLE FEEDS TO BE STARTED TO SEE IF PATIENT CAN TOLERATE. WOUND VAC FUNCTIONING WELL. UNIT OF BLOOD TRANSFUSIN. CANDY PACKER IN PLACE, SINUS RHYTHM NOTED. WILL CONTINUE TO MONITOR.
[2017-06-19 11:36] LABS: HEMATOCRIT 25.8 % (37.0-47.0)
[2017-06-19 11:37] LABS: HEMOGLOBIN 8.4 gm/dL (12.0-15.0)
[2017-06-20] VITALS (23 sets, daily range): BP systolic 90–130; BP diastolic 51–75
[2017-06-20 04:09] LABS: HEMATOCRIT 22.6 % (37.0-47.0); HEMOGLOBIN 7.4 gm/dL (12.0-15.0); MCH 28.9 pg (26.0-34.0); MCHC 32.9 g/dL (28.0-37.0); MPV 11.3 fl. (7.2-11.1); NUCLEATED RBCS 0 /100WBC; PLATELET COUNT* 213 thou/uL (150-400); RBC 2.57 mil/uL (4.20-5.00); RDW-CV 15.8 % (10.5-14.5); WBC 29.3 thou/uL (4.0-11.0)
[2017-06-20 04:47] LABS: ALBUMIN 1.5 g/dL (3.4-5.0); CALCIUM 7.5 mg/dL (8.5-10.1); CREATININE 4.8 mg/dL (0.6-1.3); MAGNESIUM 1.6 mg/dL (1.8-2.4); POTASSIUM 3.8 mmol/L (3.5-5.1); TOTAL BILIRUBIN 1.6 mg/dL (<0.1-1.0); TOTAL PROTEIN 5.1 g/dL (6.4-8.2)
[2017-06-20 05:18] LABS: ABSOLUTE LYMPHOCYTES 1.8 thou/uL (0.8-5.3); ABSOLUTE MONOCYTES 1.2 thou/uL (0.0-1.2); ABSOLUTE NEUTROPHILS 26.4 thou/uL (1.6-8.1); ANISOCYTOSIS 1+; PLATELET ESTIMATE ADEQUATE; POIKILOCYTOSIS 1+
[2017-06-20 05:19] LABS: TOXIC GRANULATION Occasional
--- NOTE | 2017-06-20 08:09 | NUR ---
Pt was on TF at 10 ml/hr. Residual check at 1999 yielded 135 mls. TF held, and PEG tube placed on low intermittent suction. Absent bowel sounds. Pt suctioned frequently via ET suction, but also for copious amount of oral secretions. Irrigated guthrie with 50 ml NS. No urine output for shift. VSS, BP 90s-120s/50s-60s. Will continue to monitor.
[2017-06-20 08:42] LABS: BE 0.1 mmol/L (-2 to +3); HCO3 24.6 mmol/L (22.0-26.0); PCO2 39.5 mmHg (35.0-45.0); PO2 69.2 mmHg (75.0-100.0); pH 7.413 (7.340-7.450)
--- NOTE | 2017-06-20 10:01 | NUR ---
VANCOMYCIN PHARMACY TO MANAGE: PATIENT IS BEING TREATED FOR SEPTIC SHOCK AND PERITONITIS. WBC= 29.3, SCR=4.8, RECEIVING DIALYSIS (NO SET SCHEDULE YET), TEMP= 38.1. PATIENT HAS BEEN RECEIVING VANCOMYCIN 1 G AFTER DIALYSIS. A RANDOM WAS DRAWN TODAY WITH A RESULT OF 39 MCG/ML WHICH IS ABOVE GOAL OF 15-20 MCG/ML. PLAN IS TO HOLD DOSE AFTER DIALYSIS TODAY AND DRAW ANOTHER RANDOM LEVEL TOMORROW 06/21 AT 0800. PHARMACY WILL CONTINUE TO FOLLOW AND MONITOR.
--- NOTE | 2017-06-20 11:28 | NUR ---
ASSUMED CARE OF PATIENT AFTER RECEIVING BEDSIDE REPORT. ASSESSMENT COMPLETED. PATIENT REMAINS FEBRILE. NAVA REA TOOK OVER CARE DURING OTHER EVENT IN ICU. RN RESUMED CARE FOLLOWING EVENT. PATIENT ON HEMODIALYSIS AND TOLERATING WELL. PATIENT STARTED ON VERSED GTT TO AIDE IN SEDATION. CARDIAC MONITORING IN PLACE, SINUS RHYTHM NOTED. ANURIC AT THIS TIME. WILL CONTINUE TO MONITOR.
--- NOTE | 2017-06-20 18:40 | NUR ---
PATIENT MORE BRONCHOSPASTIC THROUGHOUT SHIFT. SEDATION INCREASED PER DR. HAMMONDS. PATIENT RESPONSIVE TO INCREASED SEDATION BUT IS STILL STRUGGLING WITH BRONCHOSPASM WHEN STIMULATED. PATIENT REMAINS FEBRILE. PATIENT'S FAMILY VOICED CONCERN ABOUT OVERALL PROGNOSIS, CONCERNS RELAYED TO DR. AGUILAR. BEDSIDE REPORT TO BE GIVEN TO ONCOMING SHIFT.
[2017-06-21] VITALS (22 sets, daily range): BP systolic 103–143; BP diastolic 57–109
[2017-06-21 04:41] LABS: BE 0.6 mmol/L (-2 to +3); HCO3 25.2 mmol/L (22.0-26.0); PCO2 40.6 mmHg (35.0-45.0); PO2 70.6 mmHg (75.0-100.0); pH 7.411 (7.340-7.450)
[2017-06-21 05:39] LABS: HEMATOCRIT 21.2 % (37.0-47.0); MCH 28.4 pg (26.0-34.0); MCHC 31.6 g/dL (28.0-37.0); MCV 89.9 fL (80.0-100.0); MPV 11.2 fl. (7.2-11.1); RBC 2.36 mil/uL (4.20-5.00); RDW-CV 16.2 % (10.5-14.5); WBC 20.4 thou/uL (4.0-11.0)
[2017-06-21 05:52] LABS: HEMOGLOBIN 6.7 gm/dL (12.0-15.0)
[2017-06-21 05:53] LABS: ALBUMIN 1.4 g/dL (3.4-5.0); CALCIUM 7.6 mg/dL (8.5-10.1); CREATININE 4.6 mg/dL (0.6-1.3); MAGNESIUM 1.6 mg/dL (1.8-2.4); POTASSIUM 4.1 mmol/L (3.5-5.1); TOTAL BILIRUBIN 1.4 mg/dL (<0.1-1.0); TOTAL PROTEIN 5.1 g/dL (6.4-8.2)
--- NOTE | 2017-06-21 09:16 | NUR ---
VANCOMYCIN PHARMACY TO MANAGE: PATIENT IS BEING TREATED FOR SEPTIC SHOCK AND PERITONITIS. WBC=20.4, SCR=4.6, DIALYSIS (NO SET SCHEDULE), TEMP=38.4. DOSING HAS BEEN HELD FOR 24 HOURS DUE TO HIGH RANDOM LEVEL OF 39 MCG/ML ON 06/20. A 48 HOUR RANDOM LEVEL WAS DRAWN TODAY WITH A RESULT OF 28 MCG/ML WHICH IS STILL ABOVE GOAL OF 15-20 MCG/ML. PLAN IS TO HOLD DOSING UNTIL LEVEL IS LESS THAN 20 MCG/ML THEN WILL RESUME DOSING. LEVEL IS ORDERED FOR 06/22 AT 0800. PHARMACY WILL CONTINUE TO FOLLOW AND MONITOR.
--- NOTE | 2017-06-21 12:41 | NUR ---
NURSING ASKED EARLIER ABOUT LTAC FOR PT, SHE WILL NEED TRACH. PT IS SELF PAY, PT'S FAMILY HAS APPLIED FOR MEDICAID FOR HER, WILL CONTACT LTACS NEXT WEEK TO SEE HOW FAR ALONG IN THE MEDICAID APPLICATION THE PT NEEDS TO BE BEFORE THEY COULD ACCEPT HER. PT REMAINS ON VENT, HAS BEEN TOLERATING HEMODIALYSIS, WILL TRY TRICKLE TUBE FEEDS AGAIN TODAY.
--- NOTE | 2017-06-21 12:45 | NUR ---
WOUND NURSE: PATIENT SEEN FOR FOLLOW UP ASSESSMENT OF LEFT FOREARM LESION. PRESENTS A T SHAPED RUPTURED BULLA AND THE AFFECTED AREA MEASURING 8.5 X 8.5 CM AND IS CLOSED WITH LOOSE LAYER OF PURPLISH EPIDERMIS, BUT DOES HAVE AN ERODED AREA MEASURING 1.5 X 1.5 X 0.1 CM. EXPOSED TISSUE UNDERNEATH PRESENTS VERY PALE -- NEARLY WHITE IN COLOR. THERE IS A SMALL AMOUNT OF SEROUS DRAINAGE NOTED FROM THE WOUND. CLEANSED WITH WOUND CLEANSER AND GAUZE. APPLIED OPTIFOAM GENTLE AG TO THE LESION, THEN WRAPED WITH 3 INCH CONFORMING ROLL GAUZE, THEN SECURED WITH PAPER TAPE. PLAN FOR DRESSING TO BE CHANGED EVERY 3 TO 4 DAYS UNTILL HEALED. PATIENT WAS NOT RESONSIVE AT TIME OF THE ASSESSMENT.
[2017-06-21 18:33] LABS: HEMOGLOBIN 8.1 gm/dL (12.0-15.0)
[2017-06-22] VITALS (24 sets, daily range): BP systolic 93–1132; BP diastolic 42–102
--- NOTE | 2017-06-22 00:47 | NUR ---
PT RECIEVED BATH, HAIR WASHED AND BRAIDED. ALL DRESSING CHANGED. DURING BATH NOTICED SOME SKIN RUBS(ABRASION) UNDER BOTH BREASTS. PIC TAKEN AND INTRA DRY PLACED IN THOSE AREAS. SCOLOPINE PATCH PLACED BEHIND R EAR FOR SECRETIONS.
--- NOTE | 2017-06-22 00:51 | NUR ---
CHECKED RESIDUAL FROM TUBE FEEDING AMT WAS 360ML. TURNED OFF FEEDING X2 HRS. WILL RESTART FEEDING AT 0230
[2017-06-22 03:31] LABS: ALBUMIN 1.3 g/dL (3.4-5.0); CALCIUM 7.7 mg/dL (8.5-10.1); POTASSIUM 4.4 mmol/L (3.5-5.1); TOTAL BILIRUBIN 1.3 mg/dL (<0.1-1.0); TOTAL PROTEIN 5.1 g/dL (6.4-8.2)
[2017-06-22 03:33] LABS: CREATININE 6.4 mg/dL (0.6-1.3)
--- NOTE | 2017-06-22 04:28 | NUR ---
MINIMAL PROGRESSION TOWARDS GOALS. ASSESSMENT AND VS OBTAINED, SEE CHARTING. FIRER LOW PRESSURE ON AND TRACING SR. PT REMAINS ON VENT ON ORDERED SETTINGS. PT HAS HAD ALOT OF SECRETIONS UNTIL THE SCOPOLOMINE PATCH WAS PLACED. WASH CLOTH PLACED OVER EYES DUE TO THE SCLERA EDEMA. DROPS HAVE BEEN PLACED IN EYES Q2H.NG AT 59CM AND HAS NOVA SOURCE RENAL RUNNING AT 10ML AN HR. TURNED IT OFF FOR A HIGH RESIDUAL. AND STARTED BACK UP AT 0400. MAX TEMP 102.0, ASKED PLACED BEHIND NECK. L TEMP DIALYSIS DRESSING CHANGED. R TUNNELED TICC LINE R SUBCLAVIAN DRESSING WAS CHANGED. PT REMAINS ON VERSED AND FENTANYL GTTS.
--- NOTE | 2017-06-22 05:33 | NUR ---
NG PLACED TO 64CM. CONFIRMED WITH KUB
--- NOTE | 2017-06-22 09:25 | NUR ---
PATIENT RECEIVING VANCOMYCIN FOR THE TREATMENT OF SEPTIC SHOCK AND PERITONITIS PER DR. MAURER. A RANDOM LEVEL ON 06/20 YIELDED A RESULT OF 39, SO DOSING WAS HELD. ANOTHER RANDOM LEVEL DRAWN 06/21 WAS 28, AND DOSING CONTINUED TO BE HELD. THE LEVEL DRAWN 06/22 WAS 22. ALTHOUGH STILL ABOVE THE GOAL RANGE OF 15-20 MCG/ML, VANCOMYCIN WILL BE RESUMED AT A LOWER DOSE OF 500MG DAILY. THE PATIENT IS STILL RECEIVING DIALYSIS WITH NO PLANNED SCHEDULE. A TROUGH HAS BEEN SCHEDULED FOR 06/25 PRIOR TO DIALYSIS. PHARMACY WILL CONTINUE TO FOLLOW AND ADJUST NECESSARY.
--- NOTE | 2017-06-22 15:41 | NUR ---
TUBE FEEDING STOPPED DUE TO EXCESSIVE RESIDUALS. TPN STOPPED PER NEPHROLOGY UNTIL DIALYSIS IS RESUMED. TEMP DIALYSIS CATHETER EXCHANGED OUT AT NOON TODAY TO RESUME DIALYSIS TODAY.
--- NOTE | 2017-06-22 18:32 | NUR ---
PT TOLERATED DIALYSIS WITHOUT DIFFICULTY TODAY. WILL PLAN FOR ANOTHER SESSION TOMORROW. PT UNABLE TO COMPLETE WEANING TRIAL TODAY. WILL ATTEMPT A SEDATION VACATION AGAIN IN THE MORNING BUT SHE IS NOT TOLERATING AT THIS TIME.
--- NOTE | 2017-06-22 19:08 | NUR ---
assumed patient care at 1900. Report received from day nurse. Labs, IV meds and plan of care reviewed.
[2017-06-23] VITALS (19 sets, daily range): BP systolic 99–141; BP diastolic 46–83
--- NOTE | 2017-06-23 00:01 | NUR ---
PATIENT REMAINS SEDATED, ON VENTILATOR. SKIN CARE PROVIDED. ORAL CARE PROVIDED. REMAINS ON INTERMITTENT SUCTION. NURSING ASSESSMENT COMPLETED DOCUMENTED. REPORT GIVEN TO JEAN RN AT 0010
--- NOTE | 2017-06-23 00:30 | NUR ---
RESUMED CARE OF PT. PT WAS PLACED ON A SPECIALTY BED THAT GIVES THE PT MORE SUPPORT AND IS ABLE TO TURN PT.
[2017-06-23 04:27] LABS: MCH 30.2 pg (26.0-34.0); MCHC 34.2 g/dL (28.0-37.0); MCV 88.3 fL (80.0-100.0); MPV 10.3 fl. (7.2-11.1); RBC 2.25 mil/uL (4.20-5.00); RDW-CV 15.4 % (10.5-14.5); WBC 10.1 thou/uL (4.0-11.0)
[2017-06-23 04:31] LABS: BE -1.2 mmol/L (-2 to +3); HCO3 23.2 mmol/L (22.0-26.0); PCO2 37.4 mmHg (35.0-45.0); PO2 65.5 mmHg (75.0-100.0); pH 7.411 (7.340-7.450)
[2017-06-23 04:35] LABS: HEMATOCRIT 19.8 % (37.0-47.0); HEMOGLOBIN 6.8 gm/dL (12.0-15.0)
[2017-06-23 04:42] LABS: ALBUMIN 1.2 g/dL (3.4-5.0); CALCIUM 7.7 mg/dL (8.5-10.1); CREATININE 5.7 mg/dL (0.6-1.3); MAGNESIUM 1.5 mg/dL (1.8-2.4); POTASSIUM 4.1 mmol/L (3.5-5.1); TOTAL BILIRUBIN 1.1 mg/dL (<0.1-1.0); TOTAL PROTEIN 4.9 g/dL (6.4-8.2)
--- NOTE | 2017-06-23 05:35 | NUR ---
MINIMAL PROGRESSION TOWARDS GOALS. ASSESSMENT AND VS OBTAINED, SEE CHARTING. BLIND AIDE ON AND TRACING SR. PT REMAINS SEDATED WITH ORDERED MEDS. SEE CHARTING FOR VENT SETTINGS. THERE HAVE BEEN LESS SECRETIONS SINCE PLACING THAT SCOPOLAMINE PATCH. PT REMAINS VERY EDEMATOUS AND IS RECIEVING HEMODIALYSIS. URINE OUT PUT WAS 15 ML OF BROWN COLORED URINE. HBG WAS 6.8 RECIEVED ORDERS FOR I UNIT TO BE TRANSFUSED. AWAITING LAB TO CALL. PT WAS PLACED IN A SPECIALTY BED AND HAS BEEN TURNED EVERY TWO HOURS. PV WAS LACED IN R HAND FOR THE TRANSFUSION SINCE THE CENTRAL LINE IS DBL LUMEN
--- NOTE | 2017-06-23 13:06 | NUR ---
ASSUMED CARE OF PATIENT THIS AM ON DIALYSIS ONE UNIT PRBCS INFUSED. SEDATION OFF AT THIS TTIME FOR TIRAL.
--- NOTE | 2017-06-23 19:27 | NUR ---
PATIENT DID NOT TOLERATE WEANING TRIAL AFTER 2 HOURS OFF SEDATION. RESP RATE INCREASED. PLACED BACK ON VENT PROGRESSING SLOWLY.
[2017-06-24] VITALS (17 sets, daily range): BP systolic 112–139; BP diastolic 54–78
--- NOTE | 2017-06-24 00:10 | NUR ---
GIVEN PT BATH AND NOTICED THAT THE BINDER HAD MADE MORE ABRASION LIKE SORES ON THE PT'S SIDE ABD AND ON HER LOWER BACK. ALL NEW AND OLD WOUNDS PIC WERE TAKEN, SEE CHART FOR NEW WOUNDS
--- NOTE | 2017-06-24 04:14 | NUR ---
FENTANYL AND VERSED GTTS TURNED OFF FOR SEDATION TRIALS.
--- NOTE | 2017-06-24 05:01 | NUR ---
WOUND NOTE- WOUND OTHER 1- UNDERNEATH L BREAST. CAUSED FROM THE RUBBING OF THE ABD BINDER. CLEANED WITH WOUND CLEANSER AND INTRA DRY PLACED. WOUND OTHER 2-UNDERNEATH R BREAST. CAUSED FROM THE RUBBING OF THE ABD BINDER. CLEANED WITH WOUND CLEANSER AND INTR DRY PLACED. WOUND OTHER 3- L FOREARM. WAS CAUSED FROM THE BP CUFF, VASALINE GAUZE AND GAUZE WRAPPED AROUND FOREARM WOUND OTHER 4- L FOREARM/HAND. CAUSED FROM THE BP CUFF. VASALINE GAUZE AND GAUZE WRAPPED AROUND IT. WOUND OTHER 5- R SIDE OF ABD. CAUSED FROM THE FRICTION OF THE ABD BINDER CLEANED WITH WOUND CLEANSER AND LENY. WOUND OTHER 6- SKIN TEAR ON THE L SIDE OF NECK FROM THE TEGADERM PLACED OVER THE DIALYSIS PORT. WOUND CLEANSER AND 2X2 GAUZE TAPED OVER IT. WOUND PRESSURE 1- MID BACK. CAUSED FROM THE FRICTION FROM THE ABD BINDER. CLEANED WITH WOUND CLEANSER AND PLACED AN ISLAND DRESSING
--- NOTE | 2017-06-24 05:46 | NUR ---
ASSESSMENT AND VS OBTAINED, SEE CHARTING. SURVEY WORKER ON AND TRACING SR. WHEN PT CARE IS BEING DONE PT'S RESP WILL JUMP UP INTO THE HIGH 40'S. PT DOES HAVE SOME BRONCHO SPASMS AND RT HAS AN ORDER FOR LIDOCAINE Q3H. PT REMAINED SEDATED ON FENTANYL AND VERSED GTT FOR SEDATION UNTIL 0400 FOR A SEDATION VACATION AND WEANING TRIAL. VENT SETTINGS REMAIN ORDERED. NOVASOURCE RENAL INFUSING INTO THE NG AT 10ML/HR. EARLIER IN THE SHIFT THE RESIDUAL WAS 185, TUBE FEEDIG WAS STOPPED FOR 2HOURS AND RESTARTED. WET WASH CLOTH KEPT ON PT'S EYES TO HELP KEEP THE EDEMA FROM DRYING UP. WOUND VAC CANISTER WAS REPLACED. COLOSTOMY WAS FLUSHED. NOTED ALL WOUNDS AND PICS TAKEN.
--- NOTE | 2017-06-24 06:33 | NUR ---
CHECKED RESIDUAL AT THERE WAS 250ML. TUBE FEEDING STOPPED AT THIS TIME. WILL DISCUSS WITH
[2017-06-24 08:30] LABS: CALCIUM 7.5 mg/dL (8.5-10.1); CREATININE 5.1 mg/dL (0.6-1.3); PHOSPHORUS* 3.5 mg/dL (2.5-4.9); POTASSIUM 3.7 mmol/L (3.5-5.1)
--- NOTE | 2017-06-24 10:14 | NUR ---
PATIENT CARE ASSUMED AT 0700. PATIENT REMAINS ON VENTILATOR. SEDATION OFF UPON ASSUMING CARE. PER RECREATION FACILITIES SUPERVISOR REPORT, NO TRIAL WAS COMPLETED THIS AM, PATIENT WAS UNABLE TO FOLLOW COMMANDS. NEPHROLOGY DOES NOT WANT TO DIALYZE PATIENT TODAY AFTER LABS COMPLETED. PER SURGERY PATIENT WILL HAVE CT ABDOMEN PELVIS WITHOUT CONTRAST TODAY. FAMILY UPDATED ON PLAN OF CARE AND STATES THEY WILL SEE PATIENT TODAY. WILL CONTINUE WITH CURRENT PLAN OF CARE.
--- NOTE | 2017-06-24 17:43 | NUR ---
PATIENT REMAINED VENTED WITH NO SEDATION THROUGHOUT SHIFT. ALL REFLEXES INTACT, BUT DOES NOT MAKE ANY PURPOSEFUL SPONTANEOUS MOVEMENT. VITALS REMAINED WNL ON VENT AT 30% FIO2. IN ANTONY BED, TURNED Q2H. NOTED SKIN BREAKDOWN FROM ABDOMINAL BINDER. DRESSINGS C/D/I. INNER DRI IN BILATERAL BREASTS. TPN INFUSING PER AUG. RESIDUALS FROM NG REMAINED HIGH THROGHOUT SHIFT, TUBE FEEDING CONTUING TO BE HELD. CT HEAD/CHEST/ABD/PEVLIS COMPLETED TODAY. SEE RESULTS. EEG COMPLETED PER NEUROLOGY PATIENT HAS BEEN OFF SEDATION. NEPHROLOGY DECIDED NOT TO DIALYZE TODAY, BUT PATIENT WILL RESUME TX TOMORROW. ONLY 10ML URINE OUTPUT NOTED THIS SHIFT.
[2017-06-25] VITALS (16 sets, daily range): BP systolic 115–168; BP diastolic 60–94
[2017-06-25 03:07] LABS: HEMATOCRIT 25.2 % (37.0-47.0); HEMOGLOBIN 8.7 gm/dL (12.0-15.0); MCH 30.4 pg (26.0-34.0); MCHC 34.5 g/dL (28.0-37.0); MCV 88.1 fL (80.0-100.0); MPV 9.9 fl. (7.2-11.1); RBC 2.86 mil/uL (4.20-5.00); RDW-CV 15.3 % (10.5-14.5); WBC 9.1 thou/uL (4.0-11.0)
[2017-06-25 03:17] LABS: ALBUMIN 1.4 g/dL (3.4-5.0); MAGNESIUM 1.7 mg/dL (1.8-2.4); POTASSIUM 3.5 mmol/L (3.5-5.1); TOTAL PROTEIN 5.3 g/dL (6.4-8.2)
[2017-06-25 03:20] LABS: CREATININE 6.8 mg/dL (0.6-1.3)
--- NOTE | 2017-06-25 06:36 | NUR ---
PT MINIMALLY RESPONSIVE, NO SEDATION GIVEN THIS SHIFT. PT WILL GRIMACE TO PAINFUL STIMULI BUT EXHIBITS NO PURPOSEFUL MOVEMENT. VSS. SCLERAL AND CONJUNCTIVAL EDEMA TREATED WITH FREQUENT EYE OINTMENT APPLICATIONS. COLOSTOMY PRODUCING DARK GREEN/BROWN LIQUID STOOL, STOMA PROTRUDING AND APPROPRIATE. MIDLINE ABDOMINAL INCISION WITH WOUND VAC DRESSING INTACT, MINIMAL OUTPUT. COMPLETE BED BATH GIVEN AND WOUND CARE PROVIDED TO ALL WOUNDS. PT TURNED Q2HR THROUGHOUT THE SHIFT WITH USE OF BARIATRIC BED WITH TURN ASSIST. TPN INFUSING ORDERED.
--- NOTE | 2017-06-25 09:21 | NUR ---
RE:PHARMACY TO MANAGE VANCOMYCIN (ACUTE POST OP RESPIRITORY FAILURE DAY 17, SEPTIC SHOCK, PNEUMONITIS) LABS: WBC=9.1, SCR=6.8, TMAX=37.6. PATIENT IS CURRENTLY RECIEVING VANCOMYCIN 500MG DAILY AFTER DIALYSIS. DIALYSIS SCHEUDLE HAS NOT BEEN DETERMINED AT THIS TIME. VANCOMYCIN LEVEL PRIOR TO TODAYS DIALYSIS WAS 20MCG/ML. NO CHANGES WILL BE MADE AT THIS TIME. ANOTHER LEVEL WILL BE DRAWN 06/28/17 PRIOR TO DIALYSIS D/T PREVIOUS HIGH LEVELS AND DIALYSIS SCHEDULE NOT YET DETERMINED. PHARMACY WILL CONTINUE TO FOLLOW. THANK YOU.
--- NOTE | 2017-06-25 11:00 | NUR ---
PT REMAINS ON VENT, TPN, NO SEDATION SINCE YESTERDAY. PT NEEDS A TRACH. PER NURSING, DR. GILL ROUNDED THIS WEEKEND BUT WILL DISCUSS WITH DR. RESENDIZ. NO FAMILY IN THE ROOM AT THIS TIME. CASE MGT TO CONTINUE TO FOLLOW.
[2017-06-26] VITALS (24 sets, daily range): BP systolic 119–166; BP diastolic 63–103
[2017-06-26 04:20] LABS: BE 1.2 mmol/L (-2 to +3); HCO3 24.8 mmol/L (22.0-26.0); PCO2 35.1 mmHg (35.0-45.0); PO2 88.8 mmHg (75.0-100.0); pH 7.467 (7.340-7.450)
[2017-06-26 05:31] LABS: HEMATOCRIT 24.3 % (37.0-47.0); HEMOGLOBIN 8.3 gm/dL (12.0-15.0); MCH 30.1 pg (26.0-34.0); MCHC 34.1 g/dL (28.0-37.0); MCV 88.3 fL (80.0-100.0); MPV 10.2 fl. (7.2-11.1); RBC 2.75 mil/uL (4.20-5.00); RDW-CV 15.5 % (10.5-14.5); WBC 7.5 thou/uL (4.0-11.0)
[2017-06-26 05:37] LABS: ALBUMIN 1.3 g/dL (3.4-5.0); CALCIUM 7.8 mg/dL (8.5-10.1); CREATININE 5.9 mg/dL (0.6-1.3); MAGNESIUM 1.7 mg/dL (1.8-2.4); POTASSIUM 3.4 mmol/L (3.5-5.1); TOTAL BILIRUBIN 0.9 mg/dL (<0.1-1.0); TOTAL PROTEIN 5.3 g/dL (6.4-8.2)
--- NOTE | 2017-06-26 08:16 | NUR ---
PATIENT CARE ASSUMED AT 0700. DIALYSIS NURSE PRESENT TO HOOK PATIENT UP TO HEMODIAYLSIS UPON ASSUMING CARE. TRACING NSR ON LEAD APPLICATIONS DEVELOPER. NORMOTENSIVE UPON ASSUMING CARE, BUT BPS SLIGHTLY ELEVATED NOW PATIENT IS BECOMING RESTLESS. NOTED TO HAVE BEEN OFF SEDATION SINCE 06/24/17 AT 0400. FENTANYL GTT STARTED AT 25 MCG/HR TO ATTEMPT TO PROMOTE COMFORT. CURRENTLY 99.7 DEGREES FARENHEIT CORE TEMP. HOLDING MEDICATIONS UNTIL AFTER DIALYSIS. PATIENT TO HAVE TRACH AND PEG PLACED TODAY PER SURGERY. SISTER CALLED AND UPDATED ON PLAN OF CARE BY [facility] NURSE. CONSENTS OBTAINED WITH NOC AND DAY SHIFT NURSE AT THAT TIME. WILL CONTINUE WITH CURRENT PLAN OF CARE.
--- NOTE | 2017-06-26 09:11 | EEG ---
[address] [address] EEG STUDY REPORT Name: WALLY HAYES Room: [address] IN [facility]#: [id number] Admission: 06/09/17 Attend Phys: Al Francisco, Discharge: Date of : 69 Report #: [id number] THIS REPORT FOR: //name// CC: VALERIANO physician/PCP Al Francisco DATE OF SERVICE: 06/24/2017 This patient is being evaluated for unresponsiveness. EEG was done by placing the electrodes by standard 10/20 system of electrode placement. Both referential and sequential montages were used for recording. Background activity in this patient's EEG is about 7 Hz and 30 microvolts. It is a slow activity throughout the record. Photic stimulation was unremarkable. Throughout the record, no active epileptiform activity was noticed. IMPRESSION: This is an abnormal EEG, which would be consistent with the diagnosis of encephalopathy. No active epileptiform activity was noticed. Finding is nonspecific, therefore clinical correlation is recommended. Thank you very much for this referral. <ELECTRONICALLY SIGNED> By: Tnony Rose MD 06/26/17 0911 1731 [id number] Rose MD /nt
--- NOTE | 2017-06-26 09:11 | CON ---
[address] [address] CONSULTATION Name: WALLY HAYES Room: [address] IN [facility]#: [id number] Admission: 06/09/17 Attend Phys: Al Francisco, Discharge: Date of : 69 Report #: [id number] THIS REPORT FOR: //name// CC: VALERIANO physician/PCP Al Francisco DATE OF SERVICE: 06/23/2017 HISTORY OF PRESENT ILLNESS: This is a 51-year-old female patient who was partly seen yesterday and partly seen today. She was referred to evaluate the patient for any neurological etiology for the patient's altered mental status. I talked to the nurses looking after this patient and looks like this patient is admitted with massive sepsis. She is being followed by multiple physicians and she is still febrile. She also has run into multiple metabolic disturbances with a GFR of only 5.7. Last hemoglobin was 6.8. She needs to be sedated because otherwise she becomes restless. REVIEW OF SYSTEMS: Pretty extensive in this patient. As I understand, this patient has sepsis from GI symptoms and she has continued to be critically ill. I reviewed part of the notes, which is in the chart, but I do not have all the history in this patient because I cannot talk to anybody. She had a kidney problem. She had a dialysis catheter put in yesterday as I understand. Nobody is here to provide any history, but the record indicates she does have a history of hypertension. Record indicate past medical history is also positive for renal disease. SOCIAL HISTORY: She has no tobacco or alcohol abuse. PHYSICAL EXAMINATION: Is very limited. She has no response of any kind, but she is sedated. Her pupils are pinpoint and nonreactive. Reflexes are absent. She had no meningeal sign. The best I can tell, she is an obese individual. It is not possible to tell about other examination, she is intubated. Nurses tell me that she had been pretty unstable. IMPRESSION: This patient appeared to be very encephalopathic because of multiple systemic problems. I do not know how much workup is possible in this patient because nurses tell me she has been unstable. I will talk to you and it will be desirable to get a CAT scan done sometime in this patient if she is stable. RECOMMENDATIONS: I will get an EEG done and then only address further question in this patient after talking to you to see if further workup is even [place] [address] CONSULTATION Name: WALLY HAYES Room: [address]#: [id number] Admission: 06/09/17 Attend Phys: Al Francisco, Discharge: Date of : 69 Report #: [id number] Thank you very much for this referral. <ELECTRONICALLY SIGNED> By: Tonny Rose MD 06/26/17 0911 1702 [id number] kaushal Linder
--- NOTE | 2017-06-26 10:00 | NUR ---
SPOKE WITH PETER AT [facility], THEY ARE UNABLE TO TAKE ANY PTS THAT ARE MEDICAID PENDING, AND PER THEIR CORPORATE OFFICE ARE VERY LIMITED IN THE NUMBER OF ACTIVE MEDICAID PTS THEY CAN ACCEPT EACH MONTH, 'OUR FEW MEDICAID SPOTS ARE ALMOST ALWAYS TAKEN UP BY PTS THAT ARE AT [facility], SINCE THAT IS WHERE WE ARE LOCATED.' SPOKE WITH ISABEL AT [facility], SHE SAID THEY ARE UNABLE TO ACCEPT ANY MEDICAID PENDING PTS. ONCE PT'S MEDICAID IS ACTIVE, WE CAN SEND A REFERRAL. SHE DIDN'T KNOW IF THEY HAD THE ABILITY TO PLACE A PEG TUBE AT [facility] OR IF ONE WOULD HAVE TO BE PLACED BEFORE THEY COULD ACCEPT A PT. SHE WILL CHECK AND CALL ME BACK. NURSING NOTIFIED. PT IS TO HAVE A TRACH PLACED TODAY. PT IS GETTING HEMODIALYSIS NOW.
--- NOTE | 2017-06-26 11:42 | NUR ---
PATIENT COMPLETED DIALYSIS AT 1050. ALL MORNING MEDICATIONS ADMINISTERED. 2GM MAGNESIUM NOTED AND ADMINISTERED PER NEPHROLOGY. ORDERS TO DISCONTINUE WHITTAKER NOTED, WILL DISCONTINUE AFTER SURGERY. PATIENT HAS COPIOUS SECRETIONS. SUCTIONED FREQUENTLY THIS MORNING BY NURSING. ABLE TO DECREASE TEMPERATURE TO 99.7, BUT HAS INCREASED AGAIN TO 100.4. FAN IN PLACE WITH MINIMAL SHEETS. TPN INFUSING PER ORDERS. FENTANYL GTT STARTED FOR INCREASED RESTLESSNESS AT 50 MCG/HR. NOW CALM, BUT HAS FREQUENT COUGH. AWAITING LIDOCAINE FROM PHARMACY FOR ET TUBE. RT NOTIFIED. WILL CONTINUE WITH PLAN OF CARE.
--- NOTE | 2017-06-26 12:59 | OP ---
[address] [address] OPERATIVE REPORT Name: WALLY HAYES Room: [address] IN [facility]#: [id number] Admission: 06/09/17 Attend Phys: Al Francisco, Discharge: Date of : 69 Report #: [id number] THIS REPORT FOR: //name// CC: [facility] physician/PCP Al Francisco DATE OF SERVICE: 06/18/2017 POSTOPERATIVE DIAGNOSES: 1. Perforated diverticulitis. 2. Septic shock. 3. Multisystem organ failure. 4. Respiratory failure. 5. Super morbid obesity - body mass index 60. 6. Open abdomen - fascial dehiscence. POSTOPERATIVE DIAGNOSES: 1. Perforated diverticulitis. 2. Septic shock. 3. Multisystem organ failure. 4. Respiratory failure. 5. Super morbid obesity - body mass index 60. 6. Open abdomen - fascial dehiscence. PROCEDURE: Reopening of recent laparotomy with fascial closure and placement of biologic mesh as well as superficial wound VAC. SURGEON: Melany Stanley MD. LOGISTIC SPECIALIST: Sheng Cespedes D.O. ESTIMATED BLOOD LOSS: 15. COMPLICATIONS: None. SPECIMENS: Abdominal fluid culture. COMPLICATIONS: None. ANESTHESIA: GET. INDICATIONS: This is a 51-year-old female who had delayed presentation to our ER at [facility] with perforated diverticulitis, already in septic shock, multisystem organ failure at the time of arrival. She was taken emergently into the OR for Hima's procedure, she was left open with plans for return to the OR for abdominal repeat washout and reexploration. We were close to taking her [address] [address] OPERATIVE REPORT Name: FREDDYWALLY Yamini Room: [address] IN [facility].#: [id number] Admission: 06/09/17 Attend Phys: Al Francisco, Discharge: Date of : 69 Report #: [id number] off the vent and upon viewing her wound and fascia given her super morbid obesity and very poor wound healing, I chose to do tightened closure and placed biologic mesh prior to extubation to decrease chances of long-term chronic hernia or abdominal evisceration. She was taken to the OR. A timeout was performed with all in agreement, we prepped and draped in standard sterile fashion. I began by irrigating the wound copiously with warm normal saline. Some stitches were noted to have a split in the middle and knots were intact. I used scissors to remove these and extend cranially. I left the bottom portion intact. Omentum was replaced back down given that this was approximately 2 weeks following her prior surgery, I did not wish to run the bowel and risk fistula creation. Fluid appeared serosanguineous, culture was taken; however, we suctioned out all 4 quadrants and only returned clear fluid. I irrigated again with warm normal saline and suctioned back clear fluid. Next, viewing her muscle layers again given her BMI of 60, I did have some concerns about long-term hernia formation; therefore, we did close the superior portion with standard looped 0 PDS; however, in addition, I placed internal retention sutures with a bolster at two places through the fascia, this cannot be placed through the skin externally as she had too much adipose tissue here for a full-thickness stitch placement using the largest needle size available. After closing the fascia, which did come together without tension, I did select 10 x 16 biologic mesh. This was anchored every 2 cm portion around the incision in overlay fashion. Subcutaneous tissue and fat had to be cleared away from the fascia prior to performing this using cautery, and of course, the smooth side was down, inspected and appeared to lay down nicely. We irrigated the wound copiously. VAC sponge was trimmed to fit and achieved good suction. Stoma was protected during this portion of the procedure. Digital exam through the stoma was patent. A stoma bag was applied. Sponge, needle, instrument counts were correct at the end of the case. The patient tolerated well. POSTOPERATIVE PLAN: Internal retention sutures to stay in place; however, bolsters to be trimmed off in 1 week. There was an opening left on the sidewall where these were still exposed for access at the bedside. I did discuss with family the possibility that the patient would not tolerate bedside removal and that she could need sedation or a trip to the OR for that portion. However, I anticipated we can remove these two bolsters at bedside. <ELECTRONICALLY SIGNED> By: Melany Stanley MD 06/26/17 1259 [id number] Juno Stanley MD /leticia
--- NOTE | 2017-06-26 13:36 | NUR ---
PATIENT AWAITING PACU STAFF TO TRANSPORT HER TO PRE-OP. REPORT GIVEN TO NAVA BLISS. ALL QUESTIONS ANSWERED.
--- NOTE | 2017-06-26 15:44 | NUR ---
PATIENT TO SURGERY FAMILY IN WAITING RM REPORT GIVEN TO OR CREW AND DR SAUNDERS.
--- NOTE | 2017-06-26 17:32 | NUR ---
ASSUMED CARE OF PATIENT RETURNED FROM OR. TRACH SITE DRY PT CALM AFTER SEDATION WILL CONTINUE TO MONITOR.
[2017-06-27] VITALS (17 sets, daily range): BP systolic 123–144; BP diastolic 69–92
[2017-06-27 03:22] LABS: HEMOGLOBIN 7.9 gm/dL (12.0-15.0); MCH 30.7 pg (26.0-34.0); MCHC 34.6 g/dL (28.0-37.0); MCV 88.8 fL (80.0-100.0); MPV 9.8 fl. (7.2-11.1); RBC 2.59 mil/uL (4.20-5.00); RDW-CV 15.8 % (10.5-14.5); WBC 8.2 thou/uL (4.0-11.0)
[2017-06-27 03:34] LABS: ALBUMIN 1.4 g/dL (3.4-5.0); CALCIUM 7.8 mg/dL (8.5-10.1); MAGNESIUM 1.9 mg/dL (1.8-2.4); POTASSIUM 3.5 mmol/L (3.5-5.1); TOTAL PROTEIN 5.4 g/dL (6.4-8.2)
--- NOTE | 2017-06-27 19:31 | NUR ---
patient remains on vent, gave report to noc nurse.
[2017-06-28] VITALS (24 sets, daily range): BP systolic 99–131; BP diastolic 52–78
[2017-06-28 02:08] LABS: ADENOVIRUS Negative (Negative); INFLUENZA A Negative (Negative); INFLUENZA B Negative (Negative); METAPNEUMOVIRUS Negative (Negative); PARAINFLUENZA 1 Negative (Negative); PARAINFLUENZA 2 Negative (Negative); PARAINFLUENZA 3 Negative (Negative); RHINOVIRUS Negative (Negative); RSV A Negative (Negative); RSV B Negative (Negative)
[2017-06-28 05:23] LABS: HEMATOCRIT 22.2 % (37.0-47.0); HEMOGLOBIN 7.8 gm/dL (12.0-15.0); MCH 30.8 pg (26.0-34.0); MCHC 34.9 g/dL (28.0-37.0); MCV 88.3 fL (80.0-100.0); MPV 10.4 fl. (7.2-11.1); RBC 2.52 mil/uL (4.20-5.00); RDW-CV 15.9 % (10.5-14.5)
[2017-06-28 05:45] LABS: CALCIUM 7.7 mg/dL (8.5-10.1); CREATININE 4.4 mg/dL (0.6-1.3); MAGNESIUM 1.9 mg/dL (1.8-2.4); POTASSIUM 3.6 mmol/L (3.5-5.1)
--- NOTE | 2017-06-28 07:45 | NUR ---
PT REMIANS VENTED AND ON SEDATION MEDS. TUBE FEEDING INFUSING AT 10 ML/HR.WOUND VAC IN USE. SURGERY HAD PREVIOUSLY ROUNDED ON PT. DIALYSIS NURSE IN ROOM PT TO RECIEVE DIALYSIS.
--- NOTE | 2017-06-28 08:08 | NUR ---
VANCOMYCIN PHARMACY TO MANAGE: PATIENT IS BEING TREATED FOR INTRA-ABDOMINAL SEPSIS AND PNEUMONITIS. WBC= 13, SCR= 4.4, ON DIALYSIS, AND TEMP=38.3. PATIENT HAS BEEN RECEIVING A MAINTENANCE DOSE OF VANCOMYCIN 500 MG AFTER DIALYSIS. A LEVEL WAS DRAWN APPROPRIATELY WITH A RESULT OF 19 MCG/ML WHICH IS WITHIN GOAL OF 15-20 MCG/ML. PLAN IS TO CONTINUE WITH CURRENT DOSE OF VANCOMYCIN 500 MG IV AFTER DIALYSIS. PHARMACY WILL CONTINUE TO FOLLOW AND MONITOR.
--- NOTE | 2017-06-28 10:30 | NUR ---
Pt remains on vent, getting hemodialysis. Pt not a candidate yet for LTAC due to her self pay status. Medicaid application has been turned in, will check with [employer] next week to check on progress of Medicaid application.
--- NOTE | 2017-06-28 19:00 | NUR ---
PT TURNED THROUGH SHIFT. PT TUBE FEEDING TURNED UP TO 30 ML.THREE FAMILY MEMBERS HERE TO SEE PT.PLASTIC VAPOR LOCK REMAINS IN USE OVER PTS EYES AND FOREHEAD. SRUGERY HERE TWICE AND CHANGED ABD DRAIN SPONGE. PT REMAINS ANURIC. PT DIALIZED EARLIER WITH 3 LITERS REMOVED. PT NOT PROGRESSING TOWARDS GOALS.
[2017-06-29] VITALS (15 sets, daily range): BP systolic 124–166; BP diastolic 70–92
[2017-06-29 05:57] LABS: HEMATOCRIT 22.1 % (37.0-47.0); HEMOGLOBIN 7.4 gm/dL (12.0-15.0); MCH 29.8 pg (26.0-34.0); MCHC 33.4 g/dL (28.0-37.0); MCV 89.3 fL (80.0-100.0); MPV 10.6 fl. (7.2-11.1); RBC 2.47 mil/uL (4.20-5.00); RDW-CV 15.8 % (10.5-14.5); WBC 14.8 thou/uL (4.0-11.0)
[2017-06-29 06:30] LABS: ALBUMIN 2.1 g/dL (3.4-5.0); CALCIUM 7.9 mg/dL (8.5-10.1); CREATININE 4.1 mg/dL (0.6-1.3); POTASSIUM 4.4 mmol/L (3.5-5.1); TOTAL BILIRUBIN 0.9 mg/dL (<0.1-1.0); TOTAL PROTEIN 6.2 g/dL (6.4-8.2)
--- NOTE | 2017-06-29 08:47 | NUR ---
PT REMAINS SEDATED ON VENTILATOR. TRACHEOSTOMY SUTURES IN PLACE, SEROSANGUINOUS DRAINAGE GENTLY CLEANED. COPIOUS ORAL AND NASAL SECRETIONS. COMPLETE BED BATH GIVEN AND ALL DRESSINGS CHANGED, WOUND CARE PROVIDED. TPN INFUSING ORDERED. VSS. TF RESIDUALS AT 2000, 0000, AND 0400 REMAINED 360ML. TF WAS TURNED OFF AT 2000 AND RESIDUAL WAS DISCARDED AFTER 0400 CHECK, NG FLUSHED WITH 30ML WATER FOR PATENCY. DR PHAN ON UNIT EARLY THIS AM AND NOTIFIED, ORDER RECEIVED. TF REMAINS OFF AT THIS TIME. BEDSIDE REPORT GIVEN TO ONCOMING NURSE.
--- NOTE | 2017-06-29 17:53 | NUR ---
MINIMAL PROGRESSION TOWARDS GOALS. ASSESSMENT AND VS OBTAINED, SEE CHARTING. MARKET RESEARCH COORDINATOR ON AND TRACING SR. ORDERED VENT SETTINGS. PT REMAINS SEDATED WITH FENTANYL AND VERSED. TRACH 8.0 SHILEY WAS CHANGED AND AREA AND CLEANED. COLOSTOMY HAD A GOOD OUT PUT SEE I AND O.
--- NOTE | 2017-06-29 18:03 | NUR ---
TRICKLE FEEDS OF NOVASOURCE RENAL STATED AT A RATE OF 10ML/HR.
[2017-06-30] VITALS (15 sets, daily range): BP systolic 138–164; BP diastolic 78–97
--- NOTE | 2017-06-30 07:36 | NUR ---
PATIENT SLOWLY PROGRESSING TOWARDS. REMAINS SR. BP, RR, O2 WNL. PT HAS CONTINUES LARGE AMOUNTS OF SECRETIONS, SUCTIONED FREQUENTLY. NG CAME OUT AROUND 0200. PLACED NEW ONE AND CONFIRMED PLACEMENT IN RIGHT NARE TAPED AT 60. TRICKLE FEEDS RUNNING @ 10 TOLERATING WELL. SEDATED ON VERSED, FENTANYL. TPN RUNNING. RECEIVED FULL BATH AND BED CHANGE. TRACHEOSTOMY WAS CLEANED AND CHANGED. WILL CONTINUE TO MONITOR CLOSELY. BED IN LOWEST POSITION. ORAL CARE GIVEN Q2H AND FREQUENT SUCTIONING ADMINISTERED.
--- NOTE | 2017-06-30 08:50 | NUR ---
PATIENT CARE ASSUMED AT 0700. PATIENT SEDATED ON VENTILATOR VIA TRACH. TRACING NSR ON MONITOR. VITAL SIGNS WNL. AFEBRILE. REVIEW ASSESSMENT FOR MORE INFORMATION. GOALS FOR TODAY ARE TO MAINTAIN NORMAL VITAL SIGNS, MAINTAIN AIRWAY, MAINTAIN HEMODYNAMIC STABILITY, PASSIVE RANGE OF MOTION, MAINTAIN SKIN INTEGRITY, MONITOR WOUND VAC AND PROMOTE WOUND HEALING, MANAGE INTAKE AND OUTPUT, MONITOR LABS, AND INCREASE NUTRITION PER TUBE FEEDINGS.
[2017-06-30 09:58] LABS: HEMATOCRIT 21.8 % (37.0-47.0); HEMOGLOBIN 7.2 gm/dL (12.0-15.0); MCH 29.6 pg (26.0-34.0); MCV 89.6 fL (80.0-100.0); MPV 10.8 fl. (7.2-11.1); RBC 2.43 mil/uL (4.20-5.00); RDW-CV 15.7 % (10.5-14.5); WBC 16.9 thou/uL (4.0-11.0)
[2017-06-30 10:05] LABS: CALCIUM 7.6 mg/dL (8.5-10.1); CREATININE 3.9 mg/dL (0.6-1.3); MAGNESIUM 1.8 mg/dL (1.8-2.4)
--- NOTE | 2017-06-30 17:40 | NUR ---
PATIENT SLOWLY PROGRESSING TOWARDS GOALS. VENT SETTINGS CHANGED BY DR CHI. INCREASED TIDAL VOLUME TO 550 IN ATTEMPT TO DECREASE RESPIRATIONS. PATIENT RESPIRATIONS HAVE BEEN IN 20S THROUGHOUT REMAINDER OF SHIFT. O2 AT 100%. SEDATION BEING WEANED OFF PER PULMONOLGY. ORDERS TO WEAN OFF VERSED TODAY, BUT TO KEEP FENTANYL UNTIL REASSESSED BY PULMONOLOGY TOMORROW. TRACH INNER CANNULA AND TIES CHANGED THIS SHFIT. PATIENT HAD COPIOUS SECRETIONS REQURING FREQUENT SUCTIONING THROUGHOUT SHIFT. NO DIALYSIS TODER PER NEPHROLOGY. NO URINE OUTPUT THIS SHIFT. TRICKLE FEEDS HELD FOR 4 HOURS FOR RESIDUAL OF 200. LAST RESIDUAL 145, TUBE FEEDINGS RESTARTED AT 10 ML/HR. REMAINS ON TPN. BLOOD SUGARS HAVE BEEN ELEVATED THIS SHIFT. INCREASED INSULIN SLIDING SCALE TO MODERATE DOSE. MAY REQUIRE FURTHER INCREASE ON NEXT DOSE. PATIENT OTHERWISE HAD NO CHANGE IN ASSESSMENT. FAMILY UPDATED ON PLAN OF CARE TODAY.
[2017-07-01] VITALS (20 sets, daily range): BP systolic 112–165; BP diastolic 62–99
[2017-07-01 03:59] LABS: CALCIUM 8.1 mg/dL (8.5-10.1); CREATININE 5.5 mg/dL (0.6-1.3); MAGNESIUM 1.9 mg/dL (1.8-2.4); PHOSPHORUS* 4.1 mg/dL (2.5-4.9)
--- NOTE | 2017-07-01 05:47 | NUR ---
PATIENT HAD MINIMAL PROGRESSION DURING SHIFT. HEMODYNAMICALLY STABLE HR, RR, BP ALL WNL. NSR. CONTINUES TO HAVE EXTENSIVE SECRETIONS, CONSISTENT ORAL CARE GIVEN. FULL BED BATH AND LINENS CHANGE DONE. PT ON FENTANYL GTT, TPN. TUBE FEEDS WHERE STOPPED D/T INCREASE IN RESIDUAL. WILL CONTINUE TO MONITOR CLOSELY.
--- NOTE | 2017-07-01 08:52 | NUR ---
4277 ASSUMED CARE OF PATIENT. SEE DOCUMENTED ASSESSMENT AND WOUND DOCUMENTATION. PT ON VENT WITH FENTANYL ONLY SEDATION. BRISK WITHDRAWAL TO PAIN.
--- NOTE | 2017-07-01 10:25 | NUR ---
ABDOMINAL DRESSING CHANGED BY SURGERY AND RECONNECTED TO WOUND VAC
--- NOTE | 2017-07-01 13:52 | NUR ---
PATIENT NOW ON HEMODIALYSIS
--- NOTE | 2017-07-01 17:20 | NUR ---
PATIENT PROGRESSING TOWARDS GOALS. WOUND VAC DRESSING CHANGED TODATY. WOUND CARE CHARTED. FENTANYL TITRATED DOWN TO 75 MCG/HOUR. PATIENT LESS RESTLESS AFTER HEMODIALYSIS WHICH REMOVED 3LITERS FLUID. TRICKLE FEEDS RESUMED. SPOKE WITH SISTER ON PHONE.
[2017-07-02] VITALS (21 sets, daily range): BP systolic 110–156; BP diastolic 9–90
[2017-07-02 04:33] LABS: HEMATOCRIT 22.5 % (37.0-47.0); HEMOGLOBIN 7.5 gm/dL (12.0-15.0); MCH 29.5 pg (26.0-34.0); MCHC 33.6 g/dL (28.0-37.0); MCV 87.9 fL (80.0-100.0); MPV 10.5 fl. (7.2-11.1); NUCLEATED RBCS 0 /100WBC; RBC 2.56 mil/uL (4.20-5.00); RDW-CV 14.9 % (10.5-14.5); WBC 14.5 thou/uL (4.0-11.0)
[2017-07-02 04:42] LABS: PLATELET COUNT* 339 thou/uL (150-400)
[2017-07-02 05:00] LABS: ALBUMIN 2.1 g/dL (3.4-5.0); CALCIUM 7.9 mg/dL (8.5-10.1); MAGNESIUM 1.9 mg/dL (1.8-2.4); PHOSPHORUS* 4.9 mg/dL (2.5-4.9); POTASSIUM 3.8 mmol/L (3.5-5.1); TOTAL BILIRUBIN 0.8 mg/dL (<0.1-1.0); TOTAL PROTEIN 5.3 g/dL (6.4-8.2)
[2017-07-02 05:11] LABS: CREATININE 6.8 mg/dL (0.6-1.3)
[2017-07-02 05:23] LABS: ABSOLUTE LYMPHOCYTES 1.2 thou/uL (0.8-5.3); ABSOLUTE MONOCYTES 1.2 thou/uL (0.0-1.2); ABSOLUTE NEUTROPHILS 12.2 thou/uL (1.6-8.1); ANISOCYTOSIS 1+; PLATELET ESTIMATE ADEQUATE; POIKILOCYTOSIS 1+
--- NOTE | 2017-07-02 06:50 | NUR ---
PT. PROGRESSING TOWARDS GOALS. TRACH REMAINS IN PLACE WITH VENT. TUBE FEEDING REMAINS AT 10CC/HR, LAST RESIDUAL 15CC. SINUS RHYTHM. COMPLETE BED BATH GIVEN, WILL CONTINUE TO MONITOR.
--- NOTE | 2017-07-02 08:34 | NUR ---
4064 ASSUMED CARE OF PATIENT. PLEASE SEE DOCUMENTED ASSESSMENT. PT IS RESTFUL ON VENT BUT ROUSES EASILY. LOCALIZES PAIN. DOES NOT FOLLOW COMMANDS BUT CLOSES MOUTH ABRUPTLY WHEN ASKED TO OPEN IT WIDE.
--- NOTE | 2017-07-02 17:11 | NUR ---
SPOKE WITH SISTER HELADIO AT BEDSIDE EARLIER, SHE HAD QUESTIONS ON PAPERWORK SHE GOT FROM [employer] ON PT'S DISABILITY APPLICATION. WILL CALL [employer] TOMORROW TO SEE IF THEY CAN ASSIST WITH COMPLETION OF APPLICATION.
--- NOTE | 2017-07-02 18:29 | NUR ---
MINIMAL PROGRESSION TOWARDS GOALS. REMAINS ON FANTANYL GTT FOR PAIN CONTROL. TUBE FEEDING ADVANCED TO 40 ML/HOUR. WOUND CARE CHARTED. SISTER VISITED AND SPOKE WITH LOCKSTITCH SLEEVE SETTER. CHE IS FOR VENT WEANING TRIAL TOMORROW
[2017-07-03] VITALS (17 sets, daily range): BP systolic 97–153; BP diastolic 43–93
[2017-07-03 04:15] LABS: HEMATOCRIT 22.3 % (37.0-47.0); HEMOGLOBIN 7.6 gm/dL (12.0-15.0); MCH 29.9 pg (26.0-34.0); MCHC 34.2 g/dL (28.0-37.0); MCV 87.3 fL (80.0-100.0); MPV 9.9 fl. (7.2-11.1); RBC 2.56 mil/uL (4.20-5.00); WBC 19.3 thou/uL (4.0-11.0)
[2017-07-03 04:27] LABS: CALCIUM 8.4 mg/dL (8.5-10.1); CREATININE 8.1 mg/dL (0.6-1.3); MAGNESIUM 1.9 mg/dL (1.8-2.4); POTASSIUM 4.2 mmol/L (3.5-5.1)
--- NOTE | 2017-07-03 05:25 | NUR ---
PATIENT SLOWLY PROGRESSING. CURRENTLY RR, HR, BP, O2 ARE WNL. TURNED OFF TUBE FEEDS @ 22OO D/T RESIDUALS OVER 500. RESTARTED FEEDS AROUND 0400. TPN IS D/C. FENTANYL WAS TITRATED UP D/T INCREASE AGGITATION AND CONTINUOUS BREATHING OVER VENT, RR 30-40'S, TACHYCARDIC. WILL CONTINE TO TITRATE SEDATION DOWN FOR WEANING TRIAL IN A.M. PT HAD URINE OUTPUT AROUND 200. AFEBRILE, COMPLETE BATH GIVEN W/ BEDDING SHEETS CHANGED. CONTINUOUS POSITIONAL CHANGES AND ORAL CARE GIVEN. WILL CONTINUE TO MONITOR CLOSELY.
--- NOTE | 2017-07-03 07:55 | NUR ---
ASSUMED CARE OF PATIENT AFTER RECEIVING BEDSIDE REPORT. ASSESSMENT COMPLETED, VSS. PATIENT RESTING COMFORTABLY IN BED. NOC RN ATTEMPTED TO TITRATE SEDATION DOWN BUT PATIENT DID NOT TOLERATE TITRATION. DIALYSIS BEGINNING THIS AM. PATIENT CURRENTLY ON MENSES. TRACKWALKER IN PLACE, SINUS RHYTHM NOTED. WILL CONTINUE TO MONITOR.
[2017-07-03 09:41] LABS: URINE BILIRUBIN NEGATIVE (Negative); URINE BLOOD 3+ (Negative); URINE CLARITY CLEAR; URINE COLOR YELLOW; URINE GLUCOSE-RANDOM NEGATIVE (Negative); URINE KETONES NEGATIVE (Negative); URINE LEUKOCYTES-REFLEX 1+ (Negative); URINE NITRITE-REFLEX NEGATIVE (Negative); URINE PROTEIN 2+ (Negative); URINE UROBILINOGEN 0.2 E.U./dl (0.2-1.0)
[2017-07-03 09:50] LABS: BACTERIA-REFLEX 1-9 Few /HPF (None Seen); COARSE GRANULAR CASTS 0-3 Few /LPF (None Seen); CRYSTALS None Seen /LPF (None Seen); HYALINE CASTS 0-3 Few /LPF (None Seen); MUCUS 0-3 Light strn/LPF (None Seen); SQUAMOUS 0-3 Few /LPF (0-3); URINE RBC 3-10 Few /HPF (0-2); URINE WBC-REFLEX 0-5 Rare /HPF (0-5)
--- NOTE | 2017-07-03 10:47 | OP ---
[facility] [address] [place] [address] OPERATIVE REPORT Name: WALLY HAYES Room: [address] IN [facility]#: [id number] Admission: 06/09/17 Attend Phys: Al Francisco, Discharge: Date of : 69 Report #: [id number] THIS REPORT FOR: //name// CC: [facility] physician/PCP Al Francisco DICTATED BY: Garfield Branch DO DATE OF SERVICE: 06/26/2017 DICTATED BY: This is Dr. Garfield Branch dictating for Dr. Melany Stanley. PREOPERATIVE DIAGNOSES: Sepsis; Hinchey III perforated diverticulitis, status post Hima's with ostomy, status post abdominal washout and wound VAC; acute renal failure and prolonged intubation, requiring tracheostomy. POSTOPERATIVE DIAGNOSES: Sepsis; Hinchey III perforated diverticulitis, status post Hima's with ostomy, status post abdominal washout and wound VAC; acute renal failure and prolonged intubation, requiring tracheostomy. SURGEON: Melany Stanley M.D. and Heidi Gaston DO. ASSISTANTS: Garfield Branch DO, PGY-1. OPERATION PERFORMED: Tracheostomy, removal of retention sutures and wound VAC placement. ANESTHESIA: General and local. ESTIMATED BLOOD LOSS: 3 mL. SPECIMENS: No specimens removed. COMPLICATIONS. No complications. TECHNIQUE AND PROCEDURE PERFORMED: Open tracheostomy. DESCRIPTION OF PROCEDURE: After informed consent was obtained from the patient's family, they were made aware of procedure, alternatives, risks and possible complications, were fully discussed prior to surgery. The patient's family voiced understanding of these risks and agreed to proceed with surgery. The patient was taken directly from the ICU to the operating room. The patient was then transferred to the OR table, placed in supine position with shoulder roll. SCDs were in place and the neck was prepped and draped in sterile fashion. Timeout was performed prior to incision. A vertical incision was then made inferior to the thyroid cartilage in the avascular [place] [address] OPERATIVE REPORT Name: WALLY HAYES Room: [address] IN [facility]#: [id number] Admission: 06/09/17 Attend Phys: Al Francisco, Discharge: Date of : 69 Report #: [id number] until the isthmus of the thyroid was located. The isthmus was then ligated and tied off and retracted superolaterally. Next, using continued blunt dissection with peanuts and finger, fibrous tissue was displaced allowing proper visualization of the cricoid cartilage. Next, thyroid hook was used to elevate the trachea in order to make a transverse incision along the third and fourth rings of the cricoid cartilage. [place] were then used to extend the incision inferiorly and 2-0 Prolene stay sutures were placed on the left and right sides of the trachea. Next, tracheal extension work instructor was introduced and tracheostomy incision increased to make room for the 8 regular trach tube. Then the endotracheal tube balloon was deflated. This was done prior to making the tracheal incision. At this time, we visualized the deflated balloon and endotracheal tube, which was slowly removed by anesthesia. Once the endotracheal tube was above the laryngeal folds, we advanced the 8 regular tracheostomy tube into the trachea. Balloon was inflated and reattached to ventilator. At this time, tidal volumes were found to be the same as what they were previously before removing the endotracheal tube. The trach tube was then sutured in four places using 0 silk and skin incision was closed using 0 Prolene and 0 silk sutures. Trach tube was then fastened in place using the collar provided in the kit. Chest x-ray was then ordered to verify proper placement in that there was no complication from the procedure. Next, we turned our attention to the abdomen. The wound VAC was removed and retention sutures were removed as well. There was no note of any infection or complication from the wound VAC or abdominal incision or biologic mesh. Wound VAC was replaced with a new one and placed to suction. The patient tolerated this procedure well and was transferred back to the ICU in guarded, but stable condition. <ELECTRONICALLY SIGNED> By: Melany Stanley MD 07/03/17 1047 [id number] Juno Stanley MD /leticia
--- NOTE | 2017-07-03 17:27 | NUR ---
PATIENT TOLERATED HEMODYALISIS WELL TODAY. PATIENT STILL PRODUCING COPIOUS, THICK SECRETIONS. PATIENT AFEBRILE. NO MAJOR CHANGES IN STATUS FROM THIS MORNING. BEDSIDE REPORT TO BE GIVEN TO ONCOMING SHIFT.
[2017-07-04] VITALS (20 sets, daily range): BP systolic 96–150; BP diastolic 49–85
[2017-07-04 05:30] LABS: MCHC 33.6 g/dL (28.0-37.0); MCV 86.3 fL (80.0-100.0); MPV 9.9 fl. (7.2-11.1); RBC 2.17 mil/uL (4.20-5.00); RDW-CV 14.7 % (10.5-14.5); WBC 17.1 thou/uL (4.0-11.0)
[2017-07-04 05:33] LABS: HEMATOCRIT 18.7 % (37.0-47.0); HEMOGLOBIN 6.3 gm/dL (12.0-15.0)
[2017-07-04 05:47] LABS: ALBUMIN 1.9 g/dL (3.4-5.0); CALCIUM 8.5 mg/dL (8.5-10.1); MAGNESIUM 1.9 mg/dL (1.8-2.4); POTASSIUM 3.9 mmol/L (3.5-5.1); TOTAL BILIRUBIN 0.7 mg/dL (<0.1-1.0); TOTAL PROTEIN 5.3 g/dL (6.4-8.2)
[2017-07-04 05:50] LABS: CREATININE 6.2 mg/dL (0.6-1.3)
--- NOTE | 2017-07-04 06:30 | NUR ---
PATIENT IS CURRENTLY HEMODYNAMICALLY STABLE. BP HAVE BEEN RUNNING LOW. CRITICAL H &H. WAS PAGED BUT HAS NOT CALLED BACK. PT CONTINUES TO HAVE LARGE SECRETIONS. FULL BED BATH GIVEN AND WOUND DRESSING CHANGES DONE. WOUNDS ARE HEALING. OSTOMY BAG WAS CLEANED AND CHANGED. HELD BP MEDICATION D/T LOW BP. MOVED PT TO LOW DOSE INSULIN. TOLERATED TUBE FEEDS WELL WILL CONTINUE TO INCREASE TO MEET GOALS. WILL CONTINUE TO MONITOR CLOSELY.
[2017-07-04 07:36] LABS: HEMATOCRIT 18.4 % (37.0-47.0); HEMOGLOBIN 6.3 gm/dL (12.0-15.0)
--- NOTE | 2017-07-04 07:46 | NUR ---
ASSUMED CARE OF PATIENT AFTER RECEIVING BEDSIDE REPORT. ASSESSMENT COMPLETED, VSS. PATIENT NOTED TO HAVE CRITICAL HEMOGLOBIN, ACTIVE BLEEDING PROTOCOL ORDERED. BLOOD TRANSFUSION WILL BE ADMINISTERED WHEN READY. PATIENT IS NOTED TO BE ON MENSES AND BLOODY OUTPUT NOTED IN WOUND VAC. TEACHERS' ASSISTANT IN PLACE, SINUS RHYTHM NOTED. WILL CONTINUE TO MONITOR.
[2017-07-04 15:52] LABS: HEMATOCRIT 26.1 % (37.0-47.0)
[2017-07-04 15:53] LABS: HEMOGLOBIN 8.9 gm/dL (12.0-15.0)
--- NOTE | 2017-07-04 18:08 | NUR ---
PATIENT RESTING COMFORTABLY IN BED. PATIENT TOLERATED DIALYSIS WELL. PATIENT NOTED TO HAVE SEIZURE LIKE ACTIVITY. DR. AGUILAR NOTIFIED, EEG OBTAINED. PATIENT AFEBRILE THIS SHIFT. DIALYSIS CATHETER IS NO LONGER FUNCTIONAL. IR ORDER OBTAINED. BEDSIDE REPORT TO BE GIVEN TO ONCOMING SHIFT.
[2017-07-05] VITALS (12 sets, daily range): BP systolic 87–125; BP diastolic 44–98
[2017-07-05 04:15] LABS: HEMATOCRIT 24.1 % (37.0-47.0); HEMOGLOBIN 8.3 gm/dL (12.0-15.0); MCH 29.6 pg (26.0-34.0); MCHC 34.5 g/dL (28.0-37.0); MPV 9.8 fl. (7.2-11.1); RBC 2.81 mil/uL (4.20-5.00); RDW-CV 14.8 % (10.5-14.5); WBC 18.2 thou/uL (4.0-11.0)
[2017-07-05 04:39] LABS: ALBUMIN 2.2 g/dL (3.4-5.0); CALCIUM 8.8 mg/dL (8.5-10.1); CREATININE 5.8 mg/dL (0.6-1.3); MAGNESIUM 2.1 mg/dL (1.8-2.4); POTASSIUM 4.3 mmol/L (3.5-5.1); TOTAL BILIRUBIN 0.9 mg/dL (<0.1-1.0); TOTAL PROTEIN 6.1 g/dL (6.4-8.2)
--- NOTE | 2017-07-05 18:48 | NUR ---
PATIENT LINE CHANGED AND AND DIALYSIS CATH CHANGED. DIALYSIS DONE. TRACH CARE DONE. REMOVED TEMP DIALYSIS CATH. DISCUSSED WITH PT SISTER TO COME IN AM TO SEE PHHYSICIANS, PROGRESSING
--- NOTE | 2017-07-05 20:00 | NUR ---
INITAL ASSESMENT COMPLETED AT 1900. PT NON RESPONSIVE, CONTINUED ON VENTILATOR PER TRACHEOSTOMY. PT ON SPECIALTY BED WITH AUTO ROTATION. ORAL CARE DONE. NO SIGNS OF PAIN OR DISCOMFORT.
[2017-07-06] VITALS (18 sets, daily range): BP systolic 93–173; BP diastolic 48–130
[2017-07-06 06:22] LABS: HEMATOCRIT 21.6 % (37.0-47.0); HEMOGLOBIN 7.3 gm/dL (12.0-15.0); MCH 29.7 pg (26.0-34.0); MCHC 33.8 g/dL (28.0-37.0); MCV 87.9 fL (80.0-100.0); MPV 9.4 fl. (7.2-11.1); RBC 2.46 mil/uL (4.20-5.00); RDW-CV 14.8 % (10.5-14.5); WBC 11.8 thou/uL (4.0-11.0)
[2017-07-06 06:27] LABS: CREATININE 4.9 mg/dL (0.6-1.3); POTASSIUM 3.7 mmol/L (3.5-5.1)
[2017-07-07] VITALS (16 sets, daily range): BP systolic 106–173; BP diastolic 64–105
[2017-07-07 03:45] LABS: HEMATOCRIT 25.3 % (37.0-47.0); HEMOGLOBIN 8.5 gm/dL (12.0-15.0); MCH 29.3 pg (26.0-34.0); MCHC 33.6 g/dL (28.0-37.0); MCV 87.3 fL (80.0-100.0); MPV 9.3 fl. (7.2-11.1); NUCLEATED RBCS 0 /100WBC; PLATELET COUNT* 317 thou/uL (150-400); RDW-CV 14.9 % (10.5-14.5); WBC 13.7 thou/uL (4.0-11.0)
[2017-07-07 04:19] LABS: ALBUMIN 2.2 g/dL (3.4-5.0); CALCIUM 9.1 mg/dL (8.5-10.1); CREATININE 4.2 mg/dL (0.6-1.3); MAGNESIUM 1.9 mg/dL (1.8-2.4); PHOSPHORUS* 4.4 mg/dL (2.5-4.9); POTASSIUM 3.9 mmol/L (3.5-5.1); TOTAL BILIRUBIN 0.9 mg/dL (<0.1-1.0); TOTAL PROTEIN 6.3 g/dL (6.4-8.2)
[2017-07-07 06:25] LABS: ABSOLUTE LYMPHOCYTES 0.8 thou/uL (0.8-5.3); ABSOLUTE MONOCYTES 1.2 thou/uL (0.0-1.2); ABSOLUTE NEUTROPHILS 11.6 thou/uL (1.6-8.1); PLATELET ESTIMATE ADEQUATE
[2017-07-07 06:26] LABS: ANISOCYTOSIS 1+
[2017-07-07 13:18] LABS: BE 2.4 mmol/L (-2 to +3); HCO3 26.3 mmol/L (22.0-26.0); PCO2 38.3 mmHg (35.0-45.0); PO2 92.2 mmHg (75.0-100.0); pH 7.454 (7.340-7.450)
[2017-07-07 14:53] LABS: URINE BLOOD 3+ (Negative); URINE CLARITY CLOUDY; URINE COLOR BROWN; URINE GLUCOSE-RANDOM NEGATIVE (Negative); URINE KETONES TRACE (Negative); URINE PROTEIN 3+ (Negative)
[2017-07-07 15:02] LABS: ICTOTEST (BILI CONFIRMATORY) Negative (Negative); URINE BILIRUBIN 2+ (Negative); URINE LEUKOCYTES-REFLEX 3+ (Negative); URINE NITRITE-REFLEX POSITIVE (Negative)
[2017-07-07 15:27] LABS: SQUAMOUS 0-3 Few /LPF (0-3)
[2017-07-07 15:28] LABS: CASTS None Seen /LPF (None Seen); CRYSTALS None Seen /LPF (None Seen); URINE RBC >20 Many /HPF (0-2); URINE WBC-REFLEX >25 Many /HPF (0-5); YEAST-REFLEX Present (None Seen)
--- NOTE | 2017-07-07 18:46 | NUR ---
PATIENT REMAINS ON VENT APPEARS TO RESPOND SMILES WHEN GIVEN TRACH CARE, CONTINUES TO COUGH TRACH CARE DONE. SMALL AMOUNTS OF SECRETIONS.
[2017-07-08] VITALS (22 sets, daily range): BP systolic 97–135; BP diastolic 54–90
[2017-07-08 04:16] LABS: MCH 29.8 pg (26.0-34.0); MCHC 33.3 g/dL (28.0-37.0); MCV 89.5 fL (80.0-100.0); MPV 9.8 fl. (7.2-11.1); RBC 2.69 mil/uL (4.20-5.00); RDW-CV 14.8 % (10.5-14.5); WBC 15.1 thou/uL (4.0-11.0)
[2017-07-08 04:32] LABS: ALBUMIN 2.2 g/dL (3.4-5.0); CALCIUM 9.1 mg/dL (8.5-10.1); PHOSPHORUS* 4.4 mg/dL (2.5-4.9); POTASSIUM 4.5 mmol/L (3.5-5.1)
[2017-07-08 04:47] LABS: CREATININE 6.8 mg/dL (0.6-1.3)
--- NOTE | 2017-07-08 07:41 | NUR ---
ASSUMED CARE OF PATIENT AFTER RECIEVING BEDSIDE REPORT. ASSESSMENT COMPLETED, VSS. PATIENT RESTING IN BED. PATIENT FOLLOWS COMMANDS DURING ORAL CARE BUT NO OTHER PURPOSEFUL MOVEMENTS NOTED. PATIENT IS FEBRILE. LUNG SOUNDS ARE WORSE THAN PREVIOUS ASSESSMENT A FEW DAYS AGO. HIDE GRADER IN PLACE, SINUS RHYTHM NOTED. BED ALARM ON. WILL CONTINUE TO MONITOR.
--- NOTE | 2017-07-08 18:00 | NUR ---
PATIENT DID WELL THROUGHOUT SHIFT WITH LITTLE ADANCEMENT TOWARDS GOALS. PATIENT BEGAN COUGHING THIS AFTERNOON AND CONTINUED TO COUGH OFF AND ON DESPITE MEDICATIONS, SUCTIONING, AND TRACH CARE. PATIENT TOLERATED DIALYSIS WELL. PATIENT FEBRILE THIS MORNING BUT AFEBRILE AT PRESENT. PATIENT TO CT, TOLERATED WELL. DOBHOFF HAD TO BE REPLACED THIS SHIFT. BEDSIDE REPORT TO BE GIVEN TO ONCOMING SHIFT.
[2017-07-09] VITALS (24 sets, daily range): BP systolic 79–120; BP diastolic 46–74
[2017-07-09 05:12] LABS: HEMATOCRIT 24.4 % (37.0-47.0); HEMOGLOBIN 8.3 gm/dL (12.0-15.0); MCH 29.8 pg (26.0-34.0); MCHC 33.8 g/dL (28.0-37.0); MCV 88.1 fL (80.0-100.0); MPV 9.9 fl. (7.2-11.1); RBC 2.77 mil/uL (4.20-5.00); RDW-CV 14.7 % (10.5-14.5); WBC 19.4 thou/uL (4.0-11.0)
[2017-07-09 05:24] LABS: MAGNESIUM 1.9 mg/dL (1.8-2.4); PHOSPHORUS* 3.7 mg/dL (2.5-4.9); POTASSIUM 3.9 mmol/L (3.5-5.1)
[2017-07-09 05:33] LABS: CREATININE 4.8 mg/dL (0.6-1.3)
--- NOTE | 2017-07-09 07:17 | NUR ---
ASSUMED CARE OF PATIENT AFTER RECEIVING BEDSIDE REPORT. ASSESSMENT COMPLETED, VSS. PATIENT RESTING COMFORTABLY IN BED WITH NOTICBLY LESS COUGHING THAN PREVIOUS SHIFT. WILL WORK TOWARDS A GOAL OF BEING MORE ALERT AND INCREASING ACTIVITY. SURVEILLANCE CAMERA TECHNICIAN IN PLACE, SINUS RHYTHM NOTED. BED ALARM ON. WILL CONTINUE TO MONITOR.
--- NOTE | 2017-07-09 17:36 | NUR ---
PATIENT DID WELL WITH A REDUCTION IN COUGHING TODAY. PATIENT WAS PLACED BACK ON FENTANYL GTT, TOLERATING WELL. PATIENT STILL ARROUSABLE TO NAME AND TOUCH. PATIENT HAD ONE EPISODE OF EMESIS TODAY, ZOFRAN GIVEN PER MAR. PATIENT HAD 30ML OF URINE OUTPUT TODAY. NO DIALYSIS TODAY BUT WILL DIALYZE TOMORROW. BEDSIDE REPORT TO BE GIVEN TO ONCOMING SHIFT.
[2017-07-10] VITALS (15 sets, daily range): BP systolic 83–113; BP diastolic 40–77
[2017-07-10 04:13] LABS: HEMATOCRIT 24.5 % (37.0-47.0); HEMOGLOBIN 8.1 gm/dL (12.0-15.0); MCH 29.3 pg (26.0-34.0); MCHC 32.9 g/dL (28.0-37.0); MPV 9.8 fl. (7.2-11.1); RBC 2.75 mil/uL (4.20-5.00); RDW-CV 14.7 % (10.5-14.5); WBC 15.2 thou/uL (4.0-11.0)
[2017-07-10 04:21] LABS: ALBUMIN 1.9 g/dL (3.4-5.0); CALCIUM 9.3 mg/dL (8.5-10.1); MAGNESIUM 2.1 mg/dL (1.8-2.4); PHOSPHORUS* 4.6 mg/dL (2.5-4.9); POTASSIUM 4.1 mmol/L (3.5-5.1)
[2017-07-10 04:23] LABS: CREATININE 6.6 mg/dL (0.6-1.3)
--- NOTE | 2017-07-10 10:30 | NUR ---
PT REMAINS ON VENT IN ICU. NO FAMILY HERE AT THIS TIME. ASSISTED SISTER IN COMPLETING ONE [employer] APPLICATION FORM LAST WEEK, DR. AGUILAR SIGNED A PHYSICIAN STATEMENT FOR [employer] ON SATURDAY AND THAT WAS LEFT IN THE ROOM FOR THE SISTER TO TANNING SALON ATTENDANT. CONTINUE TO CHECK WITH [employer] ON PROGRESS OF MEDICAID APPLICATION/ APPROVAL.
--- NOTE | 2017-07-10 19:12 | NUR ---
PATIENT STILL COUGHING TOLERATED DIALYSIS. CHANGED OSTOMY GASKET. PROGRESSING
[2017-07-11] VITALS (19 sets, daily range): BP systolic 81–146; BP diastolic 40–89
--- NOTE | 2017-07-11 07:36 | NUR ---
ASSUMED CARE OF PATIENT AFTER RECEIVING BEDSIDE REPORT. ASSESSMENT COMPLETED, VSS. PATIENT DOES NOT APPEAR IN ANY DISTRESS. PATIENT WILL OPEN EYES AND MOUTH TO COMMAND BUT NO OTHER PURPOSEFUL MOVEMENTS. WILL CONTINUE TO WORK TOWARDS FINDING PLACEMENT. HAT FINISHING MATERIALS PREPARER IN PLACE, SINUS RHYTHM NOTED. WILL CONTINUE TO MONITOR.
[2017-07-11 22:09] LABS: HEPATITIS B SURFACE AG Negative (Negative)
[2017-07-12] VITALS (21 sets, daily range): BP systolic 92–134; BP diastolic 53–97
[2017-07-12 04:37] LABS: HEMATOCRIT 22.5 % (37.0-47.0); HEMOGLOBIN 7.6 gm/dL (12.0-15.0); MCHC 33.9 g/dL (28.0-37.0); MCV 88.6 fL (80.0-100.0); MPV 10.2 fl. (7.2-11.1); RBC 2.54 mil/uL (4.20-5.00); RDW-CV 14.6 % (10.5-14.5); WBC 12.3 thou/uL (4.0-11.0)
[2017-07-12 04:50] LABS: CALCIUM 9.1 mg/dL (8.5-10.1); CREATININE 5.9 mg/dL (0.6-1.3); POTASSIUM 4.3 mmol/L (3.5-5.1)
--- NOTE | 2017-07-12 05:43 | NUR ---
PT PROGRESSING TOWARD GOALS. PT REMAINS IN STABLE CONDITION, HEMODYNAMICALLY STABLE. PT CONTINUES TO HAVE COUGHING FITS WITH COPIOUS AMOUNTS OF MUCUS COMING FROM THE TRACH SITE.
--- NOTE | 2017-07-12 07:46 | NUR ---
ASSUMED CARE OF PATIENT AFTER RECEIVING BEDSIDE REPORT. ASSESSMENT COMPLETED, VSS. PATIENT RESTING COMFORTABLY IN BED. T-TUBE TRIAL PLANNED FOR 0900. VERY LITTLE URINE NOTED BUT LESS BLOODY THAN YESTERDAY. TUBE FEEDING RUNNING, PATIENT TOLERATING WELL. GARAGE CONSTRUCTION EQUIPMENT MECHANIC IN PLACE, SINUS RHYTHM NOTED. WILL CONTINUE TO MONITOR.
--- NOTE | 2017-07-12 17:41 | NUR ---
PATIENT RESTED WELL THROUGHOUT SHIFT. PATIENT DID NOT COUGH MUCH PREVIOUSLY SHIFTS. PATIENT TOLERATED PASSIVE ROM WELL. PATIENT DOES GRIMACE WITH MOVEMENT AND TURNING. ADEQUATE OUTPUT IN COLOSTOMY. URINE OUTPUT REMAINS LOW. BEDSIDE REPORT TO BE GIVEN TO ONCOMING SHIFT.
[2017-07-13] VITALS (14 sets, daily range): BP systolic 91–129; BP diastolic 44–79
--- NOTE | 2017-07-13 04:55 | NUR ---
PATIENT SLOWLY PROGRESSING TOWARDS GOALS. NO ACUTE CHANGES OVER NIGHT. ON FENTANYL GTT. PT ABLE TO FOLLOW COMMANDS, OPENS EYES AND MOUTH WHEN ASKED. ORAL CARE AND POSITIONAL CHANGES DONE CONSISTENTLY. BP RUNNING ON THE LOWER END. NSR, O2 100. FULL BED BATH GIVEN. WILL CONTINUE TO MONITOR CLOSELY.
[2017-07-13 05:38] LABS: HEMATOCRIT 20.6 % (37.0-47.0); MCH 29.9 pg (26.0-34.0); MCV 88.1 fL (80.0-100.0); RBC 2.33 mil/uL (4.20-5.00); RDW-CV 14.4 % (10.5-14.5); WBC 9.8 thou/uL (4.0-11.0)
[2017-07-13 05:58] LABS: ALBUMIN 1.8 g/dL (3.4-5.0); CALCIUM 9.2 mg/dL (8.5-10.1); MAGNESIUM 2.2 mg/dL (1.8-2.4); POTASSIUM 4.7 mmol/L (3.5-5.1); TOTAL BILIRUBIN 1.2 mg/dL (<0.1-1.0); TOTAL PROTEIN 5.8 g/dL (6.4-8.2)
[2017-07-13 05:59] LABS: CREATININE 7.4 mg/dL (0.6-1.3)
--- NOTE | 2017-07-13 18:02 | NUR ---
PATIENT SLOWLY PROGRESSING TOWARDS GOALS. VENT RATE SETTING DECREASED TO 12 BY RT THIS SHIFT. PATIENT TOLERATING WELL. FENTANYL TITRATED TO 50 MCG/HR THIS SHIFT. MORE ALERT AND REPSONSIVE. FOLLOWS COMMANDS, ATTEMPTS TO MOUTH WORDS. BUT APPEARS COMFORTABLE, COUGHING DECREASED THIS SHIFT. COPIOUS ORAL SECRETIONS, BUT SEEMS LESS THIS SHIFT. REQUIRES FREQUENT SUCTION, BUT LESS IN THE LAST 4 HOURS. [place]HOU[place] AYAN CARE GIVEN THIS SHIFT. CATHETER FLUSHED WITH 10ML PER ORDERS. 60 ML OUTPUT SUBTRACT 10 FOR FLUSH = 50ML URINE OUTPUT. DIALYSIS COMPLETED TODAY WITH 2L FLUID OFF, BLOOD TRANSFUSED DURING DIALYSIS PER DR BLUM. PENDING LAB DRAW FOR POST H&H AT THIS TIME. FAIMLY PRESENT AND UPDATED BY SURGEONS TODAY. WOUND VAC REMAINS IN PLACE FUNCTIONING ADEQUATELY. COLOSTOMY REMAINS IN PLACE, STOMA RED, MODERATE LIQUID STOOL. NO CARES REQUIRED. DRESSINGS CHANGED PER ORDERS, REFER TO CHARTING. NEW INNER DRI PLACED TODAY IN BILATERAL BREASTS FOR MOISTURE. NO NEW CONCERNS AT THIS TIME.
[2017-07-13 19:11] LABS: HEMATOCRIT 24.3 % (37.0-47.0); HEMOGLOBIN 8.4 gm/dL (12.0-15.0)
[2017-07-14] VITALS (25 sets, daily range): BP systolic 72–133; BP diastolic 31–80
--- NOTE | 2017-07-14 00:15 | NUR ---
PT IS HYPOTENSIVE, SEE VS. PT WAS ON R SIDE, PLACED PT SEMI FOWLERS NO CHANGE. PLACED BP CUFF ON L LOWER ARM AND BP IS STILL HYPOTENSIVE. PAGED DR CRUZ. RECIEVED ORDERS FOR NS 1000 ML W/O, 2 BLD CX AND LACTIC ACID. PT IS A DIALYSIS PT NEPRO, DR WAN WAS PAGED. AWAITING FOR A CALL BACK
--- NOTE | 2017-07-14 01:16 | NUR ---
SPOKE WITH DR WAN AND SHE WAS OK WITH DR LUANN BERG.
[2017-07-14 01:29] LABS: HEMATOCRIT 24.7 % (37.0-47.0); HEMOGLOBIN 8.4 gm/dL (12.0-15.0); MCH 30.2 pg (26.0-34.0); MCHC 34.1 g/dL (28.0-37.0); MCV 88.6 fL (80.0-100.0); MPV 9.6 fl. (7.2-11.1); NUCLEATED RBCS 0 /100WBC; PLATELET COUNT* 158 thou/uL (150-400); RBC 2.79 mil/uL (4.20-5.00); RDW-CV 14.1 % (10.5-14.5); WBC 9.5 thou/uL (4.0-11.0)
[2017-07-14 01:37] LABS: ALBUMIN 1.9 g/dL (3.4-5.0); CALCIUM 9.1 mg/dL (8.5-10.1); MAGNESIUM 1.9 mg/dL (1.8-2.4); PHOSPHORUS* 3.8 mg/dL (2.5-4.9); POTASSIUM 3.9 mmol/L (3.5-5.1); TOTAL BILIRUBIN 1.3 mg/dL (<0.1-1.0); TOTAL PROTEIN 6.2 g/dL (6.4-8.2)
[2017-07-14 01:39] LABS: CREATININE 4.4 mg/dL (0.6-1.3)
--- NOTE | 2017-07-14 03:15 | NUR ---
PT'S BP CONTINUES TO LOW AFTER THE NS BOLUS. STARTED LEVOPHED, SEE MED TITRATION FOR RATES.
[2017-07-14 03:30] LABS: ABSOLUTE LYMPHOCYTES 0.7 thou/uL (0.8-5.3); ABSOLUTE MONOCYTES 0.8 thou/uL (0.0-1.2); ABSOLUTE NEUTROPHILS 8.1 thou/uL (1.6-8.1); PLATELET ESTIMATE ADEQUATE
[2017-07-14 03:31] LABS: ANISOCYTOSIS 1+; TOXIC GRANULATION 1+
--- NOTE | 2017-07-14 06:38 | NUR ---
MINIMAL PROGRESSION TOWARDS GOALS. ASSESSMENT AND VS OBTAINED, SEE CHARTING. CUTTER HOT KNIFE ON AND TRACING SR/ST. BP SOFT STARTED AROUND 0000 RECIEVED ORDERS FOR LEVOPHED, SEE MED TITRATION FOR SETTINGS. HAVE TURNED OFF THE LEVOPHED TWICE AND BOTH TIMWS PT'S BP HAS DROPPED 80/40 MAP 50. PT HAS BEEN POSITIONED WITH WEDGES. TRACH CARE WAS DONE. PT HAS A LOT OF THICK CLEAR SECRETIONS. PT DID FOLLOW COMMANDS AND TRACE WITH HER EYES.
[2017-07-14 09:17] LABS: BE -2.1 mmol/L (-2 to +3); HCO3 20.1 mmol/L (22.0-26.0); PCO2 25.3 mmHg (35.0-45.0); pH 7.519 (7.340-7.450)
--- NOTE | 2017-07-14 18:58 | NUR ---
PT ALERT AND TRACING WITH HER EYES. SHE IS FOLLOWING COMMANDS AND TRYING TO ANSWER QUESTIONS. FENTANYL DRIP TURNED DOWN TO 25MCG/HOUR. PT DOES NOT COMPLAIN OF ANY PAIN WHEN ASKED. ASSESSMENT CHARTED. VSS. LEVOPHED DRIP TURNED OFF EARLY THIS MORNING. Q2H TURNS TO MAINTAIN SKIN INTEGRITY. TUBE FEEDINGS GOING WELL.
[2017-07-15] VITALS (21 sets, daily range): BP systolic 118–160; BP diastolic 63–110
[2017-07-15 04:01] LABS: ABSOLUTE LYMPHOCYTES 0.8 thou/uL (0.8-5.3); ABSOLUTE MONOCYTES 0.7 thou/uL (0.0-1.2); ABSOLUTE NEUTROPHILS 4.7 thou/uL (1.6-8.1); BASOPHILS 0.3 %; HEMATOCRIT 20.5 % (37.0-47.0); HEMOGLOBIN 7.1 gm/dL (12.0-15.0); LYMPHOCYTES 12.4 %; MCH 30.7 pg (26.0-34.0); MCHC 34.7 g/dL (28.0-37.0); MCV 88.4 fL (80.0-100.0); MONOCYTES 11.2 %; MPV 8.7 fl. (7.2-11.1); NUCLEATED RBCS 0 /100WBC; PLATELET COUNT* 173 thou/uL (150-400); POLYS 76.1 %; RBC 2.32 mil/uL (4.20-5.00); RDW-CV 14.3 % (10.5-14.5); WBC 6.1 thou/uL (4.0-11.0)
[2017-07-15 04:16] LABS: CALCIUM 9.1 mg/dL (8.5-10.1); PHOSPHORUS* 3.5 mg/dL (2.5-4.9); POTASSIUM 3.4 mmol/L (3.5-5.1)
[2017-07-15 04:18] LABS: CREATININE 5.9 mg/dL (0.6-1.3)
--- NOTE | 2017-07-15 05:53 | NUR ---
PROGRESSION TOWARDS GOALS. ASSESSMENT AND VS OBTAINED, SEE CHART. BUSINESS DEVELOPMENT RECRUITER ON AND TRACING SR. 8 SHILEY WAS CHANGED AND CLEANED THERE WAS A LOT OF SECRETIONS FROM IT. PT REMAINS ON VENT AT ORDERED SETTINGS.DOBOFF REMAINS IN AND NOVASOURSE RENAL INFUSING AT 50ML/HR WITH NO RESIDUALS TONIGHT. PT IS VERY ALERT, TRACKS YOU YOU WALK BY. PT ALSO TRIES TO SPEAK. PICS OF ALL WOUNDS WERE DONE.
--- NOTE | 2017-07-15 10:10 | NUR ---
INTERDISICPLINARY ROUNDS: PT REMAINS ON VENT BUT SEDAITON OFF PER NAVA CANALES. SHE ASKED ABOUT CM CHECKING WITH PT RE: DPOA. CM MET WITH PT, SHE HAD JUST BEEN SUCTIONED. PT NOT ABLE TO MOUTH OR NOD HEAD TO QUESTIONS. NOT APPROPRIATE TO COMPLETE DPOA AT THIS TIME. WILL FOLLOW
[2017-07-15 12:32] LABS: URINE BLOOD 3+ (Negative); URINE CLARITY SL CLOUDY; URINE COLOR YELLOW; URINE GLUCOSE-RANDOM NEGATIVE (Negative); URINE KETONES TRACE (Negative); URINE NITRITE-REFLEX NEGATIVE (Negative); URINE PROTEIN 3+ (Negative); URINE SPECIFIC GRAVITY 1.025 (1.005-1.030); URINE UROBILINOGEN 0.2 E.U./dl (0.2-1.0)
[2017-07-15 12:35] LABS: URINE BILIRUBIN 1+ (Negative); URINE LEUKOCYTES-REFLEX 2+ (Negative)
[2017-07-15 12:36] LABS: ICTOTEST (BILI CONFIRMATORY) Positive (Negative)
[2017-07-15 12:38] LABS: BACTERIA-REFLEX >30 Many /HPF (None Seen); CASTS None Seen /LPF (None Seen); CRYSTALS None Seen /LPF (None Seen); MUCUS 0-3 Light strn/LPF (None Seen); SQUAMOUS 0-3 Few /LPF (0-3); URINE WBC-REFLEX >25 Many /HPF (0-5); YEAST-REFLEX Present (None Seen)
[2017-07-15 14:03] LABS: HEMATOCRIT 25.2 % (37.0-47.0); HEMOGLOBIN 8.7 gm/dL (12.0-15.0)
--- NOTE | 2017-07-15 18:55 | NUR ---
PATIENT OFF ALL SEDATION TODAY. PATIENT HAD T-TUBE TRIAL FOR ONE HOUR. PATIENT DID WELL. PATIENT COMPLAINED OF PAIN AT TRACH SITE AND LEFT ARM. PRN FENTANYL GIVEN FOR PAIN CONTROL. PATIENT VERY APPORPRIATE AND ORIENTED. BEDSIDE REPORT TO BE GIVEN TO ONCOMING SHIFT.
[2017-07-16] VITALS (15 sets, daily range): BP systolic 123–151; BP diastolic 68–106
[2017-07-16 04:59] LABS: ABSOLUTE LYMPHOCYTES 0.8 thou/uL (0.8-5.3); ABSOLUTE MONOCYTES 0.8 thou/uL (0.0-1.2); ABSOLUTE NEUTROPHILS 5.6 thou/uL (1.6-8.1); BASOPHILS 0.3 %; HEMATOCRIT 24.2 % (37.0-47.0); HEMOGLOBIN 8.1 gm/dL (12.0-15.0); LYMPHOCYTES 10.8 %; MCH 29.5 pg (26.0-34.0); MCHC 33.4 g/dL (28.0-37.0); MCV 88.4 fL (80.0-100.0); MONOCYTES 10.8 %; MPV 8.2 fl. (7.2-11.1); NUCLEATED RBCS 0 /100WBC; PLATELET COUNT* 209 thou/uL (150-400); POLYS 78.1 %; RBC 2.74 mil/uL (4.20-5.00); RDW-CV 14.4 % (10.5-14.5); WBC 7.1 thou/uL (4.0-11.0)
[2017-07-16 05:20] LABS: ALBUMIN 3.5 g/dL (3.4-5.0); CALCIUM 9.5 mg/dL (8.5-10.1); CREATININE 6.8 mg/dL (0.6-1.3); PHOSPHORUS* 2.8 mg/dL (2.5-4.9); POTASSIUM 3.2 mmol/L (3.5-5.1); TOTAL BILIRUBIN 1.2 mg/dL (<0.1-1.0); TOTAL PROTEIN 6.4 g/dL (6.4-8.2)
--- NOTE | 2017-07-16 06:17 | NUR ---
SLOW PROGRESSION TOWARDS GOALS, SEE COMPUTERIZED ASSESSMENT DOCUMENTATION FOR FURTHER DETAILS, FENTANYL 50MCG IVP GIVEN X1 FOR GRIMACING AND SHAKING HEAD YES, WHEN ASKED IF HAVING PAIN AND WANTED PAIN MEDICATION, FENTANYL EFFECTIVE PER PT NOTED PT DECREASED GRIMACING AND NODS HEAD NO, WHEN REASSESSED FOR PAIN, NO CHANGE IN VENTILATOR SETTINGS BY RT DURING SHIFT, TRACH CARE DONE, NEW TRACH TIE APPLIED, TOLERATING TUBE FEEDING 50CC/HR VIA TUBE FEEDING PUMP AND DOBHOFF PER ORDER, WHITTAKER CATHETER PATENT TO DD, IRRIGATED WHITTAKER CATHETER PER ORDER X1 60CC STERILE SALINE, BED IN LOW AND LOCKED POSITON.
--- NOTE | 2017-07-16 10:20 | NUR ---
CARE ASSUMED AT 0700. PATIENT VERY ALERT. ABLE TO APPROPRIATELY SHAKE HEAD YES/NO TO QUESTIONS. WEANING TRIAL THIS AM PER RESPIRATORY. TRIALS CHANGED TO BID BY DR LAKE. PATIENT CARE TRANSFERED TO NAVA LENTZ AT 1020.
--- NOTE | 2017-07-16 18:40 | NUR ---
ASSUMED CARE OF PT AROUND 1200. ASSESSMENT CHARTED. AFEBRILE. SMALL URINE OUTPUT. TUBE FEEDINGS INFUSING. TOLERATED TRIAL WELL TODAY. FAMILY UPDATED ON PLAN OF CARE.
[2017-07-17] VITALS (13 sets, daily range): BP systolic 122–162; BP diastolic 71–100
[2017-07-17 06:05] LABS: HEMOGLOBIN 8.5 gm/dL (12.0-15.0); MCH 30.2 pg (26.0-34.0); MCHC 34.2 g/dL (28.0-37.0); MCV 88.2 fL (80.0-100.0); MPV 7.9 fl. (7.2-11.1); NUCLEATED RBCS 0 /100WBC; PLATELET COUNT* 281 thou/uL (150-400); RBC 2.83 mil/uL (4.20-5.00); WBC 7.8 thou/uL (4.0-11.0)
[2017-07-17 06:16] LABS: ALBUMIN 3.7 g/dL (3.4-5.0); CALCIUM 9.5 mg/dL (8.5-10.1); MAGNESIUM 1.9 mg/dL (1.8-2.4); POTASSIUM 3.6 mmol/L (3.5-5.1); TOTAL PROTEIN 6.9 g/dL (6.4-8.2)
[2017-07-17 06:17] LABS: CREATININE 3.8 mg/dL (0.6-1.3)
[2017-07-17 07:14] LABS: ABSOLUTE LYMPHOCYTES 0.5 thou/uL (0.8-5.3); ABSOLUTE MONOCYTES 0.9 thou/uL (0.0-1.2); ABSOLUTE NEUTROPHILS 6.4 thou/uL (1.6-8.1); PLATELET ESTIMATE ADEQUATE
--- NOTE | 2017-07-17 18:06 | NUR ---
PT SOMEWHAT PROGRESSING TOWARDS GOALS. LOW OUTPUT. VITALS STABLE. TOLERATED TTT TODAY. FAMILY UPDATED ON PLAN OF CARE.
--- NOTE | 2017-07-17 20:00 | NUR ---
ASSESSMENT AND VS OBTAINED, SEE CHARTING. ERISA ATTORNEY ON AND TRACING SR. TOOK OFF RESTRAINTS TO WATCH PT AND SEE IF SHE COULD PULL ON ANYTHING.
[2017-07-18] VITALS (21 sets, daily range): BP systolic 103–145; BP diastolic 65–97
--- NOTE | 2017-07-18 01:42 | NUR ---
GAVE PT A BATH. THE DRESSING ON HER BACK WAS FROM SATURDAY NIGHT WHEN I GAVE HER A BATH. ALL WOUNDS CLEANED AND REDRESSED. PT HAS A LOT OF FLAKING OF THE SKIN. PT ALSO, HAS A PIN POINT RASH ON BODY.
[2017-07-18 02:55] LABS: ABSOLUTE LYMPHOCYTES 0.9 thou/uL (0.8-5.3); ABSOLUTE MONOCYTES 1.2 thou/uL (0.0-1.2); ABSOLUTE NEUTROPHILS 5.3 thou/uL (1.6-8.1); BASOPHILS 0.4 %; HEMATOCRIT 24.4 % (37.0-47.0); HEMOGLOBIN 8.3 gm/dL (12.0-15.0); LYMPHOCYTES 12.6 %; MCH 30.7 pg (26.0-34.0); MCHC 34.1 g/dL (28.0-37.0); MONOCYTES 16.1 %; MPV 8.3 fl. (7.2-11.1); NUCLEATED RBCS 0 /100WBC; PLATELET COUNT* 310 thou/uL (150-400); POLYS 70.9 %; RBC 2.71 mil/uL (4.20-5.00); RDW-CV 13.9 % (10.5-14.5); WBC 7.5 thou/uL (4.0-11.0)
[2017-07-18 03:21] LABS: ALBUMIN 3.4 g/dL (3.4-5.0); CALCIUM 9.6 mg/dL (8.5-10.1); POTASSIUM 3.7 mmol/L (3.5-5.1); TOTAL BILIRUBIN 1.1 mg/dL (<0.1-1.0); TOTAL PROTEIN 6.6 g/dL (6.4-8.2)
[2017-07-18 03:23] LABS: CREATININE 5.1 mg/dL (0.6-1.3)
--- NOTE | 2017-07-18 06:18 | NUR ---
ASSUMED PATIENT CARE AT 0300. VITAL SIGNS REMAIN STABLE. MEDICATIONS GIVEN PER ORDER. WHITTAKER CATH IN PLACE AND DRAING SMALL AMOUNTS OF VERY DARK YELLOW URINE. NO SIGNS OF PAIN OR DISTRESS NOTED. IV PATENT TO MEDICATION ADMINISTRATION. TUBE FEEDING RUNNING PER ORDER. SPOKE WITH SISTER ON THE PHONE THIS AM. STATES THAT SHE WILL BE UP HERE TODAY AND SHE IS CURIOUS ABOUT HOW THE WEANING TRIALS ARE GOING.
--- NOTE | 2017-07-18 07:48 | NUR ---
ASSUMED CARE OF PATIENT AFTER RECEIVING BEDSIDE REPORT. PATIENT IS RESTING COMFORTABLY. PATIENT DENIES COMPLAINTS AND CONCERNS. PATIENT IS OUT OF RESTRAINTS AND APPROPRIATE. PATIENT AFEBRILE. FRANCHISE BROKER IN PLACE, SINUS RHYTHM NOTED. WILL CONTINUE TO MONITOR.
--- NOTE | 2017-07-18 20:26 | NUR ---
PATIENT PULLED OUT DARCIE AT APPROX 1845. NEW ONE PLACED TO BE 65 AT LIP. CONFIRMED PLACEMENT WITH X-RAY. TUBE EEDING RESTARTED.
[2017-07-19] VITALS (20 sets, daily range): BP systolic 113–146; BP diastolic 67–95
[2017-07-19 04:25] LABS: ABSOLUTE LYMPHOCYTES 1.1 thou/uL (0.8-5.3); ABSOLUTE MONOCYTES 1.3 thou/uL (0.0-1.2); ABSOLUTE NEUTROPHILS 5.5 thou/uL (1.6-8.1); BASOPHILS 0.2 %; HEMATOCRIT 25.7 % (37.0-47.0); HEMOGLOBIN 8.6 gm/dL (12.0-15.0); LYMPHOCYTES 13.9 %; MCH 30.3 pg (26.0-34.0); MCHC 33.4 g/dL (28.0-37.0); MCV 90.8 fL (80.0-100.0); MONOCYTES 16.3 %; MPV 8.3 fl. (7.2-11.1); NUCLEATED RBCS 0 /100WBC; PLATELET COUNT* 380 thou/uL (150-400); POLYS 69.6 %; RBC 2.83 mil/uL (4.20-5.00); RDW-CV 14.5 % (10.5-14.5); WBC 7.8 thou/uL (4.0-11.0)
[2017-07-19 04:33] LABS: ALBUMIN 3.3 g/dL (3.4-5.0); CALCIUM 9.5 mg/dL (8.5-10.1); POTASSIUM 4.3 mmol/L (3.5-5.1); TOTAL BILIRUBIN 0.9 mg/dL (<0.1-1.0); TOTAL PROTEIN 6.7 g/dL (6.4-8.2)
[2017-07-19 05:02] LABS: CREATININE 3.8 mg/dL (0.6-1.3)
--- NOTE | 2017-07-19 06:40 | NUR ---
ASSUMED PATIENT CARE AT 1900. ALETA CARLI CHAN PLACED. 65M AT LIP. PATIENT ALERT TO SELF, PLACE AND SITUATION. ABLE TO MANAGE SUCTION INDEPENDENTLY. BATH GIVEN. NO COMPLAINTS OF PAIN. SINCE MANAGING OWN SUCTION, TRACH HAS NOT DISCONNECTED MUCH. VITAL SIGNS REMAIN STABLE THROUGH THE NIGHT. SKIN UNDER BREASTS HAS HEALED. WOUND VAC INTACT. DRESSING TO INCISION C/D/I. DRESSING ON BILATERAL BUTTOCKS C/D/I. MEDICATIONS GIVEN PER AUG. BED TURNS PATIENT.
--- NOTE | 2017-07-19 08:04 | NUR ---
ASSUMED CARE OF PATIENT AFTER RECEIVING BEDSIDE REPORT. ASSESSMENT COMPLETED, VSS. PATIENT IS MUCH MORE ALERT AND ORIENTED TODAY. PATIENT ABLE TO COMMUNICATE AND PERFORM SOME SELF CARE. PATIENT ADVISED TO DO ACTIVE ROM IN BED. WEANING TRIAL THIS MORNING. PATIENT DENIES CONCERNS OR COMPLAINTS. COAL PIPELINE OPERATOR IN PLACE, SINUS RHYTHM NOTED. CALL LIGHT WITHIN REACH, USE REINFORCED. WILL CONTINUE TO MONITOR.
--- NOTE | 2017-07-19 11:00 | NUR ---
PT REMAINS ON VENT. IS MUCH MORE ALERT, FOLLOWING COMMANDS, ABLE TO ORALLY SUCTION HERSELF. PT RECEIVED PAIN MEDICATION EARLIER, DR HIGUERA DOING WOUND VAC CHANGE. SPOKE WITH SISTER ON THE PHONE, SHE WILL BE HERE THIS AFTERNOON. DISCUSSED WITH NURSING, WILL SEE IF PT IS ALERT ENOUGH TO SIGN A POWER OF MEAT PUMPER FOR HEALTH CARE WHEN SISTER IS HERE.
--- NOTE | 2017-07-19 11:20 | NUR ---
Nutrition: TF stock is ordered. Will be delivered Saturday, 07/22. Novasource Renal ready to hang can be substituted for Novasource Renal in 237mL cartons, and decanted into feeding bag until new stock arrives Saturday.
--- NOTE | 2017-07-19 17:06 | NUR ---
NURSE AND I SPOKE WITH PT. PT ALERT AND ABLE TO ANSWER YES/NO QUESTIONS, ABLE TO IDENTIFY HER SISTER WHO IS IN THE ROOM, AND ABLE TO CONFIRM THAT SHE WANTS HER SISTER TO BE HER DPOA FOR HEALTH CARE. ADVANCE DIRECTIVE COMPLETED, PT ABLE TO MAKE AN X FOR HER NAME AND WITNESSED BY TWO NURSES. COPY PLACED ON THE CHART, ORIGINAL AND ADDITIONAL COPIES GIVEN TO THE SISTER.
--- NOTE | 2017-07-19 17:39 | NUR ---
PATIENT PROGRESSING WELL TOWARDS GOALS. PATIENT PARTICIPATED IN OCCUPATIONAL THERAPY. PATIENT REMAINED ON SIMV THROUGHOUT SHIFT AND TOLERATED WELL. PATIENT COMPLETED 45 MINUTE WEANING TRIAL, TOLERATED WELL BUT WAS TACHYPNEIC. PATIENT WAS AFEBROLE THROUGHOUT SHIFT. WHITTAKER CATHETER WAS REMOVED PER SURGERY. PATIENT MORE ALERT AND BETTER AT COMMUNICATION TODAY. WILL GIVE ONCOMING SHIFT BEDSIDE REPORT.
[2017-07-20] VITALS (22 sets, daily range): BP systolic 92–130; BP diastolic 47–88
[2017-07-20 03:15] LABS: ABSOLUTE LYMPHOCYTES 1.2 thou/uL (0.8-5.3); NUCLEATED RBCS 0 /100WBC
[2017-07-20 03:23] LABS: ALBUMIN 3.3 g/dL (3.4-5.0); POTASSIUM 4.7 mmol/L (3.5-5.1); TOTAL BILIRUBIN 1.1 mg/dL (<0.1-1.0); TOTAL PROTEIN 6.8 g/dL (6.4-8.2)
[2017-07-20 03:30] LABS: CREATININE 5.5 mg/dL (0.6-1.3)
[2017-07-20 03:35] LABS: ABSOLUTE MONOCYTES 1.6 thou/uL (0.0-1.2); ABSOLUTE NEUTROPHILS 7.6 thou/uL (1.6-8.1); BASOPHILS 0.2 %; HEMATOCRIT 25.7 % (37.0-47.0); HEMOGLOBIN 8.7 gm/dL (12.0-15.0); LYMPHOCYTES 11.8 %; MCH 30.6 pg (26.0-34.0); MCHC 33.8 g/dL (28.0-37.0); MCV 90.5 fL (80.0-100.0); MONOCYTES 15.3 %; MPV 8.2 fl. (7.2-11.1); PLATELET COUNT* 404 thou/uL (150-400); POLYS 72.7 %; RBC 2.83 mil/uL (4.20-5.00); RDW-CV 14.7 % (10.5-14.5); WBC 10.4 thou/uL (4.0-11.0)
[2017-07-20 06:22] LABS: URINE BLOOD 3+ (Negative); URINE CLARITY TURBID; URINE COLOR BROWN; URINE GLUCOSE-RANDOM 1+ (Negative); URINE KETONES 1+ (Negative); URINE PROTEIN 3+ (Negative); URINE SPECIFIC GRAVITY 1.015 (1.005-1.030)
[2017-07-20 06:32] LABS: URINE BILIRUBIN 3+ (Negative); URINE LEUKOCYTES-REFLEX 3+ (Negative); URINE NITRITE-REFLEX POSITIVE (Negative)
[2017-07-20 06:34] LABS: ICTOTEST (BILI CONFIRMATORY) Negative (Negative)
[2017-07-20 06:38] LABS: CASTS None Seen /LPF (None Seen); CRYSTALS None Seen /LPF (None Seen); SQUAMOUS 0-3 Few /LPF (0-3); URINE RBC >20 Many /HPF (0-2); URINE WBC-REFLEX >25 Many /HPF (0-5)
--- NOTE | 2017-07-20 07:17 | NUR ---
PROGRESSING TOWARD GOALS. PT REMAINS STABLE ON VENT, O2 SAT >90%. SHILEY, DRESSING, AND TRACH TIES CHANGED, SITE HEALING WELL. COLOSTOMY DRAINING LIGHT BROWN LIQUID STOOL, STOMA PROTRUDING APPROPRIATELY. WOUND VAC TO MID ABDOMIN INTACT. COMPLETE BED BATH GIVEN AND DRESSINGS TO BACK AND BUTTOCK CHANGED, WOUND CARE PROVIDED. TUBE FEED INFUSING AT 50ML/HR ORDERED, RESIDUALS 0ML Q4HR THROUGH THE NIGHT. NO WHITTAKER, PT VOIDED SMALL UNMEASURABLE AMOUNT INTO BEDDING PRIOR TO BATH. PT WAS STRAIGHT CATHED AT 0600 TO OBTAIN URINE SPECIMEN ORDERED. PT FOLLOWS COMMANDS AND IS ABLE TO SUCTION AND SWAB HER OWN MOUTH WITH MINIMAL ASSISTANCE. CALL LIGHT WITHIN REACH.
--- NOTE | 2017-07-20 07:38 | NUR ---
ASSUMED CARE OF PATIENT AFTER RECEIVING BEDSIDE REPORT. PATIENT IS RESTING COMFORTABLY IN BED. PATIENT DENIES COMPLAINTS AND CONCERNS. NO CHANGES NOTED. PATIENT PLACED ON SIMV MODE FOR DAYSHIFT. RETAIL EVENT ASSISTANT IN PLACE, SINUS RHYTHM NOTED. WILL CONTINUE WORKING TOWARDS GOALS OF INCREASED MOVEMENT AND DECREASED DEPENEDENCY OF VENTILATOR. WILL CONTINUE TO MONITOR.
--- NOTE | 2017-07-20 17:37 | NUR ---
PATIENT TOLERATED SIMV FOR 5 HOURS. PATIENT WAS TOO WORN OUT TO COMPLETE FULL SHIFT. PATIENT WAS UNABLE TO PARTICIPATE IN PT DUE TO EXHAUSTION. PATIENT RESTED COMFORTABLY BACK ON AC MODE. PATIENT FEBRILE THIS EVENING, TYLENOL PROVIDED. BEDSIDE REPORT TO BE GIVEN TO ONCOMING SHIFT.
[2017-07-21] VITALS (25 sets, daily range): BP systolic 72–135; BP diastolic 45–85
[2017-07-21 05:37] LABS: HEMOGLOBIN 7.8 gm/dL (12.0-15.0); MCH 30.2 pg (26.0-34.0); MCHC 33.7 g/dL (28.0-37.0); MCV 89.5 fL (80.0-100.0); MPV 8.4 fl. (7.2-11.1); NUCLEATED RBCS 0 /100WBC; PLATELET COUNT* 383 thou/uL (150-400); RBC 2.57 mil/uL (4.20-5.00); RDW-CV 14.8 % (10.5-14.5); WBC 12.5 thou/uL (4.0-11.0)
[2017-07-21 06:04] LABS: CALCIUM 9.4 mg/dL (8.5-10.1); POTASSIUM 4.6 mmol/L (3.5-5.1); TOTAL BILIRUBIN 0.9 mg/dL (<0.1-1.0); TOTAL PROTEIN 6.7 g/dL (6.4-8.2)
[2017-07-21 06:05] LABS: CREATININE 3.9 mg/dL (0.6-1.3)
--- NOTE | 2017-07-21 06:43 | NUR ---
PT NOT PROGRESSING TOWARD GOALS. PT WAS PLACED ON LEVO DURING THE EVENING FOR LOW BP. PT RUNNING A TEMP OF 102. TEMP IS CURRING RUNNING 100.1
--- NOTE | 2017-07-21 07:16 | NUR ---
ASSUMED CARE OF PATIENT AFTER RECEIVING BEDSIDE REPORT. PATIENT RESTING COMFORTABLY IN BED. PATIENT DENIES COMPLAINTS AND CONCERNS. PATIENT MORE ALERT TODAY. GOAL IS TO GO LONGER ON SIMV MODE AND PARTICIPATE IN THERAPIES. PATIENT TOLERATING TUBE FEEDING. SUPERVISOR SLEEPING BAG DEPARTMENT NOTED INCREASED GAS IN COLOSTOMY POUCH. PATIENT ON LEVOPHED. DAY RN STOPPED AT BEGINNING OF SHIFT. AIR BRAKE OPERATOR ON, SINUS RHYTHM NOTED. CALL LIGHT WITHIN REACH, USE REINFORCED. WILL CONTINUE TO MONITOR.
[2017-07-21 07:34] LABS: ABSOLUTE LYMPHOCYTES 0.4 thou/uL (0.8-5.3); ABSOLUTE MONOCYTES 0.5 thou/uL (0.0-1.2); ABSOLUTE NEUTROPHILS 11.6 thou/uL (1.6-8.1); METAMYELOCYTES 2 %; PLATELET ESTIMATE ADEQUATE
[2017-07-21 15:22] LABS: HEMATOCRIT 24.8 % (37.0-47.0); HEMOGLOBIN 8.4 gm/dL (12.0-15.0)
--- NOTE | 2017-07-21 18:05 | NUR ---
PATIENT WAS VERY TIRED TODAY STILL. PATIENT TO CT FOR CT OF THE HEAD. PATIENT TOLERATED WELL. PATIENT REAMINED AFEBRILE THROUGHOUT SHIFT. PATIENT REMAINED ANURIC TODAY WITH THE INITIAL BLADDER SCAN SHOWING >234 BUT WHEN STRAIGHT CATHED THERE WAS NO URINE BACK, THE 1800 BLADDER SCAN SHOWED NO URINE. PATIENT RECEIVED ONE UNIT OF BLOOD FOR SYMPTOMATIC ANEMIA, PATIENT'S BLOOD PRESSURE RETURNED BACK TO NORMAL LIMITS WITH THAT UNIT. BEDSIDE REPORT TO BE GIVEN TO ONCOMING SHIFT.
[2017-07-22] VITALS (15 sets, daily range): BP systolic 98–123; BP diastolic 41–80
[2017-07-22 04:54] LABS: ABSOLUTE BASOPHILS 0.2 thou/uL (0.0-0.2); ABSOLUTE LYMPHOCYTES 1.2 thou/uL (0.8-5.3); ABSOLUTE MONOCYTES 1.2 thou/uL (0.0-1.2); ABSOLUTE NEUTROPHILS 8.9 thou/uL (1.6-8.1); BASOPHILS 1.7 %; HEMATOCRIT 26.5 % (37.0-47.0); HEMOGLOBIN 8.8 gm/dL (12.0-15.0); LYMPHOCYTES 10.7 %; MCH 28.9 pg (26.0-34.0); MCHC 33.4 g/dL (28.0-37.0); MCV 86.4 fL (80.0-100.0); MONOCYTES 10.3 %; MPV 8.3 fl. (7.2-11.1); NUCLEATED RBCS 0 /100WBC; PLATELET COUNT* 342 thou/uL (150-400); POLYS 77.3 %; RBC 3.06 mil/uL (4.20-5.00); RDW-CV 14.4 % (10.5-14.5); WBC 11.5 thou/uL (4.0-11.0)
[2017-07-22 05:18] LABS: ALBUMIN 2.9 g/dL (3.4-5.0); CALCIUM 9.6 mg/dL (8.5-10.1); POTASSIUM 4.7 mmol/L (3.5-5.1); TOTAL PROTEIN 6.6 g/dL (6.4-8.2)
[2017-07-22 05:20] LABS: CREATININE 5.4 mg/dL (0.6-1.3)
--- NOTE | 2017-07-22 07:00 | NUR ---
PT REMAINS STABLE ON VENT. PT HAS DENIED PAIN THIS SHIFT BY SHAKING HER HEAD WHEN ASKED. VSS. COMPLETE BED BATH GIVEN, WOUND CARE PROVIDED AND DRESSING CHANGED. PT IS TOLERATING TUBE FEED WITH Q4HR RESIDUALS NO >15ML. NO STRAIGHT CATH DONE THIS SHIFT Q6HR BLADDER SCAN DID NOT EXCEED 40ML. PT HAS BEEN TURNED Q2HR THROUGHOUT THE SHIFT. CALL LIGHT WITHIN REACH.
--- NOTE | 2017-07-22 09:58 | NUR ---
PATIENT CARE ASSUMED AT 0700. PATIENT AWAKE UPON ENTERING ROOM. REFER TO ASSESSMENT AND VITALS. PLACED ON SIMV WITH PRESSURE SUPPORT BY RT ON DAY SHIFT TOLERATED. PATIENT AT THIS TIME TOELRATING SETTING. WILL CONTINUE WITH CURRENT PLAN OF CARE.
--- NOTE | 2017-07-22 18:25 | NUR ---
PATIENT REMAINS STABLE AT THIS TIME. REFER TO ASSESSMENT AND VITALS. COARSE LUNG SOUNDS THIS MORNING IMPROVED. NOW DIMINISHED THROUGHOUT. SATS 100% THROUGHOUT SHIFT. TOLERATED SIMV MODE ALL DAY. 1 HOUR CPAP TRIAL THIS AFTERNOON, PATIENT ALSO TOLERATED WELL. PATIENT WORKED WITH PT, SAT ON EDGE OF BED FOR 3.5 MINUTES AND THEN BECAME WORN OUT. SURGEONS CHANGED WOUND VAC DRESSING TODAY. OSTOMY 2 PIECE APPLIANCE CHANGED AT THAT TIME. INNER TRACH CANNULA CHANGED PER ORDERS. DURING SURGEON VISIT AT LATER TIME, OUTER CANNULA OUT FROM SKIN ABOUT 1 INCH. SURGEONS MANIPULATED AND TIGHTENED TRACH TIES. AFTER 30 MINUTES, OUTERCANNULA OUT FROM SKIN ABOUT 1 INCH WELL. ADJUSTED TIES ONE MORE TIME WITH HELP FROM RT, AND HAS REMAINED IN PLACE SINCE. PATIENT SHAKES HEAD NO TO PAIN. SHAKES HEAD NO TO FURTHER NEEDS AT THIS TIME.
[2017-07-23] VITALS (17 sets, daily range): BP systolic 95–142; BP diastolic 52–98
[2017-07-23 04:52] LABS: ALBUMIN 2.8 g/dL (3.4-5.0); CALCIUM 9.3 mg/dL (8.5-10.1); PHOSPHORUS* 5.1 mg/dL (2.5-4.9); POTASSIUM 4.4 mmol/L (3.5-5.1)
[2017-07-23 04:53] LABS: CREATININE 6.7 mg/dL (0.6-1.3)
--- NOTE | 2017-07-23 06:52 | NUR ---
ON 07/16/17 AT 0400 AND 0600 PT CARES PROVIDED INCLUIDING: PT MOUTH SWABBED, SUCTIONED, WITH CHAP STICK TO BILAT LIPS APPLIED, REPOSITIONED FOR COMFORT AND TO PREVENT SKIN BREAKDOWN, AND BILAT WRIST RESTRAINTS CHECKED AND REPOSITIONED PER POLICY
--- NOTE | 2017-07-23 07:19 | NUR ---
PT REMAINS STABLE, NO SIGNIFICANT CHANGES IN CONDITION THIS SHIFT. TF INFUSING AT 50ML/HR, TOLERATING WELL. COMPLETE BED BATH GIVEN, DRESSINGS WERE C/D/I FROM 07/22 AND WERE LEFT IN PLACE. SHILEY AND TRACH DRESSING REPLACED. PT IS ALERT AND COOPERATIVE, FOLLOWS COMMANDS AND ABLE TO COMMUNICATE VIA NODDING AND SHAKING HEAD. TURNED Q2HR THROUGHOUT THE SHIFT. PT SUCTIONS MOUTH INDEPENDENTLY. CALL LIGHT WITHIN REACH.
--- NOTE | 2017-07-23 07:38 | NUR ---
4244 assumed care of patient. see documented assessment.titrated to room air with sat of 91%
--- NOTE | 2017-07-23 12:00 | NUR ---
[employer] CONTINUES TO FOLLOW TO ASSIST WITH MEDICAID APPLICATION. CHELA FROM [employer] HERE TODAY TO HAVE PATIENT SIGN SOME ADDITIONAL FORMS, AUTHORIZING [employer] TO WORK ON PT'S BEHALF. PT ALERT AND ABLE TO MAKE A JORGE ON THE FORMS FOR HER SIGNATURE.
--- NOTE | 2017-07-23 13:40 | NUR ---
RE: VANCOMYCIN DOSING. SPOKE WITH DR. MAURER DR. LEVIN HAD RESTARTED VANCOMYCIN OVER THE WEEKEND & PHARMACY HAD SIGNED OFF DOSING DUE TO EARLY ADJUSTMENT. PT RECEIVING DIALYSIS TREATMENT TODAY, HAD VANCOMYCIN LEVEL OF 32 (DRAWN PRIOR TO DOSING TODAY). DR. MAURER STATES PHARMACY TO CONTINUE DOSING. WILL HOLD DOSE UNTIL AFTER NEXT DIALYSIS TREATMENT. WILL DRAW REPEAT VANCOMYCIN LEVEL PRIOR TO ANY DIALYSIS (IF APPLICABLE) ON 07/26/17. WILL FOLLOW. THANK YOU.
--- NOTE | 2017-07-23 16:20 | NUR ---
DOBHOFF FLUSHES WITH DIFFICULTY. ABLE TO HEAR AIR IN ABD WITH BOLUS..WILL CONTINUE TO FLUSH.TF ON HOLD RIGHT NOW
--- NOTE | 2017-07-23 17:36 | NUR ---
BLADDER SCANNED FOR ZERO ML. HAVE CHANGED AYAN PAD FOR SMALL AMOUNT LIQUID,NO BLOOD
--- NOTE | 2017-07-23 18:07 | NUR ---
PATIENT IS PROGRESSING TOWARDS GOALS. DIALYZED TODAY. DANGLED AT EDGE OF BED WITH THERAPY. ON SIMV PER VENT AND NOW ON SECOND WEANING TRIAL. DOBHOFF REPLACED AND RESULTS OF KUB PENDING
[2017-07-24] VITALS (20 sets, daily range): BP systolic 97–147; BP diastolic 42–99
[2017-07-24 04:30] LABS: HEMATOCRIT 24.6 % (37.0-47.0); HEMOGLOBIN 8.6 gm/dL (12.0-15.0); MCH 30.4 pg (26.0-34.0); MCHC 35.2 g/dL (28.0-37.0); MCV 86.3 fL (80.0-100.0); MPV 8.7 fl. (7.2-11.1); RBC 2.85 mil/uL (4.20-5.00); RDW-CV 14.5 % (10.5-14.5); WBC 10.6 thou/uL (4.0-11.0)
[2017-07-24 04:39] LABS: CALCIUM 9.7 mg/dL (8.5-10.1); MAGNESIUM 1.9 mg/dL (1.8-2.4)
[2017-07-24 04:43] LABS: CREATININE 4.1 mg/dL (0.6-1.3)
--- NOTE | 2017-07-24 09:09 | NUR ---
ASSUMED CARE OF PATIENT AFTER RECEIVING BEDSIDE REPORT. PATIENT APPROPRIATE BUT WITHDRAWN. FOUR H AGENT IN PLACE, SINUS RHYTHM NOTED. PATIENT REMAINS ANURIC. BED ALARM ON. CALL LIGHT WITHIN REACH, USE REINFORCED. ACTIVE ROM ENCOURAGED. WILL CONTINUE TO MONITOR
--- NOTE | 2017-07-24 17:47 | NUR ---
PATIENT RESTED OFF AND ON THROUGHOUT SHIFT. PATIENT ABLE TO SIT AT THE SIDE OF THE BED WITH THERAPY. PATIENT VISIBLY FRUSTRATED TODAY. PATIENT DENIES PAIN OR CONCERNS. PATIENT REMAINS ANURIC. PATIENT CONTINUES TO SLOWLY PROGRESS TOWARDS GOALS. BEDSIDE REPORT TO BE GIVEN TO ONCOMING SHIFT.
--- NOTE | 2017-07-24 21:12 | NUR ---
PT. TRIALING RIGHT NOW, TOLERATING WELL.
--- NOTE | 2017-07-24 21:53 | NUR ---
CALL SENT OUT TO DR. RABAGO REGARDING PT'S PROGRESSION TOWARDS GOALS. PT. HAS DONE WELL ON ALL TRIALS. RT, FAUSTO, DISCUSSED WITH DR. RABAGO OPTION OF TRACH SHIELD [employer] DEAN AND VENTILATOR PRN. DR. RABAGO AGREED. PT. ON TRACH SHIELD 40% AT THIS TIME.
[2017-07-24 22:51] LABS: BE 2.2 mmol/L (-2 to +3); HCO3 26.9 mmol/L (22.0-26.0); PCO2 42.6 mmHg (35.0-45.0); pH 7.419 (7.340-7.450)
[2017-07-24 22:52] LABS: PO2 155.7 mmHg (75.0-100.0)
[2017-07-25] VITALS (18 sets, daily range): BP systolic 108–171; BP diastolic 69–97
--- NOTE | 2017-07-25 01:29 | NUR ---
PT PLACED ON TS AT 2140 ON 07/25/[address] RABAGO. ABG WAS DRAWN 1 HOUR AFTER BEING ON TS PT ABG NORMAL DECREASED FIO2 TO 35% . PT TO GO BACK ON VENT IF PT VITALS START TO DETERIATE.
--- NOTE | 2017-07-25 03:22 | NUR ---
PT. TOLERATING TRACH SHIELD WELL. VITAL SIGNS IMPROVED. RESPIRATORY RATE DECREASED, NOW WITHIN NORMAL LIMITS. WILL CONTINUE TO MONITOR.
[2017-07-25 04:28] LABS: ALBUMIN 2.8 g/dL (3.4-5.0); CALCIUM 9.6 mg/dL (8.5-10.1); POTASSIUM 3.8 mmol/L (3.5-5.1); TOTAL BILIRUBIN 0.9 mg/dL (<0.1-1.0); TOTAL PROTEIN 6.7 g/dL (6.4-8.2)
[2017-07-25 04:43] LABS: CREATININE 5.5 mg/dL (0.6-1.3)
--- NOTE | 2017-07-25 11:18 | NUR ---
PT NOW ON TRACH SHIELD AND DOING WELL. PT REMAINS ALERT. PT WORKING WITH P.T. AND O.T., HAS BEEN ABLE TO SIT ON SIDE OF BED.
--- NOTE | 2017-07-26 00:32 | NUR ---
PATIENT TRANSFERED TO UNIT FROM ICU. TRANSFERRED IN BED, HOB AT 30 DEGREES, TF RUNNING AT 50 ML PER HOUR. ON AIR MATTRESS, RECEIVED PATIENT WITH DRESSING TO BACK, DRSG CHANGED. PATIENT TRACH SUCTIONED BY RESP. TURN EVERY 2 HOURS, CONT. OXYGEN AT 28 PERCENT. WILL CONT. TO MONITOR AIRWAY. NO NON-VERBAL INDICATORS OF PAIN. WILL PROCEED WITH CURRENT PLAN OF CARE AT THIS TIME.
[2017-07-26 04:00] VITALS: BP 140/116
[2017-07-26 05:33] LABS: ABSOLUTE LYMPHOCYTES 1.3 thou/uL (0.8-5.3); ABSOLUTE MONOCYTES 1.4 thou/uL (0.0-1.2); ABSOLUTE NEUTROPHILS 9.7 thou/uL (1.6-8.1); BASOPHILS 0.3 %; HEMATOCRIT 24.9 % (37.0-47.0); HEMOGLOBIN 8.6 gm/dL (12.0-15.0); LYMPHOCYTES 10.7 %; MCH 30.9 pg (26.0-34.0); MCHC 34.7 g/dL (28.0-37.0); MCV 88.9 fL (80.0-100.0); MPV 9.5 fl. (7.2-11.1); NUCLEATED RBCS 0 /100WBC; PLATELET COUNT* 328 thou/uL (150-400); RDW-CV 14.2 % (10.5-14.5); WBC 12.4 thou/uL (4.0-11.0)
[2017-07-26 06:01] LABS: CALCIUM 9.9 mg/dL (8.5-10.1); POTASSIUM 3.9 mmol/L (3.5-5.1); TOTAL BILIRUBIN 0.8 mg/dL (<0.1-1.0); TOTAL PROTEIN 7.1 g/dL (6.4-8.2)
[2017-07-26 06:06] LABS: CREATININE 3.6 mg/dL (0.6-1.3)
[2017-07-26 08:00] VITALS: BP 116/72
[2017-07-26 12:01] VITALS: BP 112/72
--- NOTE | 2017-07-26 14:35 | NUR ---
ASSUMED CARE OF PT AT 0730. PT RESTING IN BED. PT ALERT AND AWAKE. PT RESPONDS TO YES/NO QUESTIONS BY NODDING HEAD. PT IN CONTACT ISOLATION FOR VRE IN URINE. PT TRACING SR ON THE SASH FINISHER. TRACH SHIELD IN PLACE-28% 02. CONTINUOUS PULSE OX IN PLACE-100% SATURATION. PT SUCTIONED THROUGHOUT SHIFT FOR COMFORT. PT HAS COUGH WITH CLEAR THICK SPUTUM. PT SUCTIONS MOUTH PRN FOR COMFORT WHEN COUGHING. OSTOMY TO DEPENDENT DRAINAGE WITH LIGHT BROWN STOOL. PT BLADDER SCANNED WITH 118. NO NEED TO STRAIGHT CATH AT THIS TIME. DOBHOFF IN PLACE WITH NOVASOURCE RUNNING AT 50ML/HR. PT IS DIALYSIS PT. DIALYSIS CATHETER IN PLACE TO RIGHT CHEST. RIGHT SUBCLAVIAN TRIPLE LUMEN CVC IN PLACE SL. WOUND VAC IN PLACE TO ABDOMEN- MIDLINE. PT GOAL FOR TODAY IS TO WORK WITH PT AND OT, INCREASE STRENGTH AND ENDURANCE AND MONITOR OXYGENATION. AM ASSESSMENT CHARTED. MEDICATIONS PER MAR CRUSHED AND ADMINISTERED PER DOBHOFF. PT REPOSITIONED EVERY 2 HOURS FOR COMFORT. PT IN BARIATRIC BED. HOURLY ROUNDING OBSERVED. BED IN LOW POSITION. BED ALARM IN PLACE. FALL PRECAUTIONS IN PLACE. CALL LIGHT WITHIN REACH. WILL CONTINUE PLAN OF CARE.
[2017-07-26 15:30] VITALS: BP 111/77
--- NOTE | 2017-07-26 18:32 | NUR ---
NO ACUTE CHANGES THROUGHOUT SHIFT. REFER TO CHARTING. PT GOT TO EDGE OF BED WITH PHYSICAL AND OCCUPATIONAL THERAPY TODAY. TOLERATED FAIR. PT CONTINUES TO BE ALERT AND AWAKE THROUGHOUT SHIFT. PT NODS WHEN ASKED YES/NO QUESTIONS. FAMILY AT BEDSIDE THROGUHOUT SHIFT. PT CONTINUES TO TRACE SR ON THE PLASTIC SURGERY TECHNICIAN. TRACH SHIELD IN PLACE. CONTINUOUS PULSE OX IN PLACE. SAT 100%. PT SUCTIONED THROUGHOUT SHIFT. PT IN CONTACT ISOLATION FOR VRE IN URINE. PT OLIGURIC. DIALYSIS PT. PT BLADDER SCANNED Q6H. LAST BLADDER SCANNED AT 1800 WITH 135. OSTOMY TO DEPENDET DRAINAGE. DOBHOFF WITH NOVA SOURCE INFUSING AT 50ML/HR. WOUND VAC IN PLACE. PT HAD TEMPERATURE OF 100.0 THIS AFTERNOON. TYLENOL GIVEN PER TUBE. RE CHECK 98.7. PT SLOWLY PROGRESSING TOWARDS GOALS. MEDICATIONS PER MAR CRUSHED AND ADMINISTERED PER DOBHOFF. PT REPOSITIONED EVERY 2 HOURS FOR COMFORT. HOURLY ROUNDING OBSERVED. BED IN LOW POSITION. BED ALARM IN PLACE. FALL PRECAUTIONS IN PLACE. CALL LIGHT WITHIN REACH. WILL CONTINUE PLAN OF CARE.
[2017-07-26 20:00] VITALS: BP 126/87
[2017-07-27 00:19] VITALS: BP 130/78
[2017-07-27 04:29] VITALS: BP 129/77
--- NOTE | 2017-07-27 05:29 | NUR ---
PT CARE ASSUMED AFTER REPORT. ASSESSMENT COMPLETE. SR/BBB ON MONITOR. TRACH WITH O2. PT SUCTIONS SELF.CONTINUOUS PULSE OX. COLOSTOMY WITH LIQUID STOOL. NG TUBE WITH CONTINUOUS FEEDING. MEDICATIONS GIVEN PER NG TUBE. DIALYSIS PORT WITH DRESSING C/D/I. R CHEST ACCESS FLUSHING AND DRAWS BLOOD WELL. WOUND VAC TO MIDLINE ABD INCISION. CONTACT PRECAUTIONS IN PLACE. PT UNABLE TO VERBALIZE OR WRITE NEEDS. CAN SHAKE HER HEAD YES AND NO. DENIES PAIN. CALL LIGHT IN REACH. BED IN LOWEST POSITION. SLOW TO PROGRESS TOWARDS GOALS.
[2017-07-27 06:38] LABS: CALCIUM 9.5 mg/dL (8.5-10.1); PHOSPHORUS* 5.1 mg/dL (2.5-4.9); POTASSIUM 4.2 mmol/L (3.5-5.1)
[2017-07-27 06:39] LABS: CREATININE 5.2 mg/dL (0.6-1.3)
[2017-07-27 08:30] VITALS: BP 163/93
[2017-07-27 11:18] LABS: HCO3 25.3 mmol/L (22.0-26.0); PCO2 39.1 mmHg (35.0-45.0); PO2 99.8 mmHg (75.0-100.0); pH 7.429 (7.340-7.450)
--- NOTE | 2017-07-27 18:21 | NUR ---
ASSUMED PT CARE AT 0700 PT IS ALERT AND ORIENTED PT HAS A TRACH CAN NOT TALK USES BODY LANGUAGE TO COMMUNICATE PT SHOWS NO SIGNS OF PAIN PT IS ON A TRACH SHIELD NO SIGNS OF SOA, PT IS BED REST PT ON BARIATRIC BED TURNED Q 2 HOURS, PT IS SR ON THE MONITOR PT WENT TO DIALYSIS AROUND NOON, PT CAME BACK FROM DIALYSIS AROUND 1600 PT BLADDER SCANNED PT ON CONTINOUS TUBE FEEDINGS THROUGH NASAL GASTRIC TUBE PT HAS WOUND VAC ON AT 125, PT IS NPO, PT HAS COLOSTOMY, PT HAS PICC LINE AND RIGHT CHEST PORT FOR DIALYSIS, WILL CONTINUE TO MONITOR
[2017-07-27 19:40] VITALS: BP 136/89
[2017-07-28 00:13] VITALS: BP 127/89
[2017-07-28 04:03] VITALS: BP 132/77
--- NOTE | 2017-07-28 04:42 | NUR ---
ASSUMED CARE AT 1940, ASSESSMENT CHARTED. PATIENT RESTING IN BED. NON-VERBAL, ABLE TO SHAKE HEAD YES/NO TO MAKE NEEDS KNOWN. RT AT BEDSIDE DOING TRACH CARES. PATIENT TURNED AND REPOSITIONED IN BED WITH WEDGES. REMAINS NPO. ORAL CARE Q2H. REFUSING SCD'S. BED ALARM ON. WILL MONITOR.
--- NOTE | 2017-07-28 06:00 | NUR ---
PATIENT BLADDER SCANNED AT 0600, SHOWING 348ML URINE. UNABLE TO STRAIGHT CATH. ABLE TO PLACE WHITTAKER TO DD, LIGHT YELLOW URINE NOTED OUT WITH LARGE AMOUNTS OF SEDIMENT. DR. CRUZ NOTIFIED, ORDERS OKAY TO LEAVE WHITTAKER TO DD TO SEND A UA. REPORT GIVEN TO ONCOMING NURSE. WILL MONITOR.
[2017-07-28 09:00] VITALS: BP 103/69
--- NOTE | 2017-07-28 13:39 | NUR ---
ASSUMED PT CARE AT 0700 PT IS ALERT AND ORIENTED X 4 PT DENIES PAIN OR SOA PT IS ON TRACH SHIELD PT HAS CONTINOUS PULSE OX SATS ARE ABOVE 90, PT IS ON A BARIATRIC BED, PT HAS A NG TUBE WITH CONTINOUS TUBE FEEDING, PT IS SR ON THE MONITOR, PT HAS A WHITTAKER PT IS BLADDER SCANNED Q 6 HOURS PT WORKED WITH PHYSICAL THERAPY SAT ON SIDE OF THE BED PT HAS WOUND VAC AT 125, PT HAS WOUND ON THE LEFT BACK SIDE HAS DRESSING IN PLACE, PT HAS COLOSTOMY WITH GOOD OUTPUT, SURGERY SAW PT NO INTERVENTION AT THIS TIME ORDERED FOR PT TO SEE SPEECH FOR TALKING TRACH EVALUATION, PT IS TURNED Q 2 HOURS WILL CONTINUE TO MONITOR
[2017-07-28 15:36] LABS: URINE BLOOD 3+ (Negative); URINE CLARITY SL CLOUDY; URINE COLOR YELLOW; URINE GLUCOSE-RANDOM NEGATIVE (Negative); URINE KETONES TRACE (Negative); URINE LEUKOCYTES-REFLEX TRACE (Negative); URINE NITRITE-REFLEX NEGATIVE (Negative); URINE PROTEIN 3+ (Negative); URINE UROBILINOGEN 0.2 E.U./dl (0.2-1.0)
[2017-07-28 15:38] LABS: ICTOTEST (BILI CONFIRMATORY) Negative (Negative); URINE BILIRUBIN 2+ (Negative)
[2017-07-28 15:40] LABS: CASTS None Seen /LPF (None Seen); CRYSTALS None Seen /LPF (None Seen); SQUAMOUS NONE SEEN /LPF (0-3)
[2017-07-28 15:41] LABS: URINE RBC >20 Many /HPF (0-2); URINE WBC-REFLEX >25 Many /HPF (0-5)
[2017-07-28 15:42] LABS: BACTERIA-REFLEX 1-9 Few /HPF (None Seen)
[2017-07-28 16:00] VITALS: BP 112/76
[2017-07-28 20:00] VITALS: BP 147/83
[2017-07-29 00:15] VITALS: BP 117/82
[2017-07-29 04:00] VITALS: BP 129/90
--- NOTE | 2017-07-29 05:18 | NUR ---
ASSUMED CARE AT 1999, ASSESSMENT CHARTED. PATIENT NON-VERBAL, RESTING IN BED. PATIENT TURNED AND REPOSITIONED IN BED Q2H WITH WEDGES, REFUSING TO ELEVATE HEELS OFF BED. REMAINS NPO, ORAL CARE Q2H. REMAINS IN ISOLATION FOR VRE URINE. BED ALARM ON. CALL LIGHT WITHIN REACH, ENCOURAGED TO CALL FOR NEEDS.
[2017-07-29 07:58] VITALS: BP 125/85
--- NOTE | 2017-07-29 08:14 | NUR ---
REPORT GIVEN TO ONCOMING NURSE.
--- NOTE | 2017-07-29 09:31 | NUR ---
Spoke with Elfego at [facility], Pt's MAHIN hipolito is currently with the [facility] for their review. Per Elfego, the state is requesting more information concerning Pt's disability, [facility] to continue to work with Pt and family to provided needed information. Following.
--- NOTE | 2017-07-29 10:15 | NUR ---
ASSUMED CARE OF PT THIS AM AROUND 714- CARDIAC MONIOTR IN PLACE ORDERED, TRACING SR- UPON ASSESSMENT PT NOTED TO BE RESTING IN BED, EYES OPENED- REPONDS BY SHAKING HEAD YES OR NO, NON-VERBAL WITH NOTED TRACH IN PLACE- PT ALERT- WHITTAKER IN PLACE D/D CLEAR GAURI URINE, OLIGURIA NOTED-COLOSTOLY NOTED TO LLQ WITH SOFT YELLOW STOOL NOTED- BED REST IN PLACE WITH Q 2HOUR TURNS- LOW AIR LOSS MATTRESS NOTED INDICATED- VSS, O2 SAT 98% WITH TRACH MASK IN PLACE AT 5L-28%; CONTINUIOUS PULSE OX IN PLACE INDICATED- ABDOMEN FIRM/ROUND/NON-TEDNER, BS ACTIVE- WOUND VAC IN PLACE TO MID ABDOMEN PRESCRIBED- RIGHT UPPER CHEST DOUBLE LUMEN PICC NOTED INTACT- DIALYSIS PORT NOTED TO RIGHT UPPER CHEST WELL, DRESSING C/D/I- IV DIFLUCAN GIVEN THIS AM, NO ADVERSE REACTIONS TO NOTE- BS MONITORED ORDERED-TF IN PLACE AND INFUSING PER DUBHOFF PRESCIBED AT 50ML/HR, PT TOLERATING WELL- DRESSING IN PLACE TO LEFT SIDE- INNER DRY TO BREST AND ABDOMINAL FOLDS INDICATED- PT/OT IN WORKING WITH PT THIS AM, PT TOLERATING WELL- PT DENIES ANY C/O PAIN/DISCOMFORT AT THIS TIME- CALL LIGHT AND PERSOANL BELONGINGS WITH IN REACH- HOURLY ROUNDS IN PLACE R/T SAFETY/NEEDS- ALL NEEDS MET AT THIS TIME- WCTM
[2017-07-29 12:02] VITALS: BP 131/94
[2017-07-29 16:55] LABS: BE 2.3 mmol/L (-2 to +3); HCO3 26.7 mmol/L (22.0-26.0); PCO2 40.5 mmHg (35.0-45.0); PO2 89.4 mmHg (75.0-100.0); pH 7.437 (7.340-7.450)
--- NOTE | 2017-07-29 17:14 | NUR ---
PHYSICAIN HERE TO CHANGE WOUND VAC THIS SHIFT, WITH FEW SUTURES REPORTED TO BE PLACED TO UPPER WOUND AND LOWER WOUND WITH VAC REPLACED- ORDERS NOTED FOR PT TO BE TRANSFERED TO ROOM 305- REPORT CALLED TO JUDE RN AT 1627 WITH ALL QUESTIONS AND CONCERNS ADDRESSED PRIOR TO D/C-TRACH INNER CANULA CHANGED WITH DRESSING CHANGE PRIOR TO TRANSFER, AREA CLEANED INDICATED- PT TRANSFERED WITH BELONGINGS TO ROOM 205- PT SET UP WITH CALL LIGHT AND PERSONAL BELONGINGS WTIH IN REACH- TF IN PLACE AND RUNNING INDICATED-SUCTION IN PLACE- PT TRANSFERED TO ROOM 305 WITH NO PROBLEMS NOTED @ 1720
--- NOTE | 2017-07-29 19:32 | NUR ---
PATIENT CAME UP FROM TELE THIS AFTERNOON. VITAL SIGNS STABLE ON 5 LITERS OF OXYGEN THROUGH TRACH SHIELD. CONTINOUS PULSE OXIMETER IN PLACE. PATIENT SUCTIONS MOUTH WITH YANKER. CALL LIGHT IS IN REACH, TRYING TO COMMUNICATE NEEEDS IS DIFFICULT SINCE PATIENT IS NON VERBAL DUE TO TRACH. PICTURE PAPERS TAKEN IN ROOM TO TRY AND HELP.
[2017-07-29 20:00] VITALS: BP 135/83
[2017-07-29 23:37] VITALS: BP 124/82
[2017-07-30 04:00] VITALS: BP 128/78
--- NOTE | 2017-07-30 04:49 | NUR ---
THIS NURSE ASSUMES CAR OF PT 07/29/17 AT 1930, PT IS ALERT, NONVERBAL, DOES SHAKE HEAD TO INDICATE YES OR NO ANSWERS, PT DENIES PAIN THROUGHOUT THIS SHIFT, PTS LUNGS CTA, PT DOES HAVE PRODUCTIVE COUTH WITH THICK WHITE SECRETIONS, ENDOTRACHEAL SUCTIONING NEEDED INTERMITTENTLY, WND VAC TO ABD IN TACT WITH NO LEAKAGE NOTED, PT CONTINUES TO RECEIVE TUBE FEEDING TOLERATES WELLL, PT IS WEAK X ALL EXTREMITIES, NEW SKIN TEAR TO LEFT UPPER ABD NOTED, AREA CLENSED AND DRESSING APPLIED, PT RESTING IN BED WITH EYES CLOSED, SATS 100 % ON 5L PER TRACH SHIELD, PT PROGRESSING TOWARDS GOALS
[2017-07-30 05:00] LABS: ALBUMIN 3.1 g/dL (3.4-5.0); CALCIUM 10.2 mg/dL (8.5-10.1); POTASSIUM 4.4 mmol/L (3.5-5.1); TOTAL BILIRUBIN 0.9 mg/dL (<0.1-1.0); TOTAL PROTEIN 7.6 g/dL (6.4-8.2)
[2017-07-30 05:03] LABS: HEMATOCRIT 24.3 % (37.0-47.0); HEMOGLOBIN 8.3 gm/dL (12.0-15.0); MCH 30.4 pg (26.0-34.0); MCHC 34.3 g/dL (28.0-37.0); MCV 88.6 fL (80.0-100.0); MPV 9.2 fl. (7.2-11.1); RBC 2.74 mil/uL (4.20-5.00); RDW-CV 14.6 % (10.5-14.5); WBC 13.1 thou/uL (4.0-11.0)
[2017-07-30 08:00] VITALS: BP 110/64
[2017-07-30 08:44] VITALS: BP 121/67
[2017-07-30 15:10] VITALS: BP 110/64
[2017-07-31] VITALS (7 sets, daily range): BP systolic 108–166; BP diastolic 60–80
--- NOTE | 2017-07-31 18:02 | NUR ---
PATIENT RESTING IN BED. PATIENT DENIES ANY CURRENT NEEDS. PATIENT HAD TRACH CARE THIS AM WITH INNER CANNULA CHANGE AND DEEP SUCTION X 1. PATIENT HAS PRODUCTIVE COUGH WITH COPIOUS WHITE MUCOUS THROUGH TRACH SITE. SUCTION AT BEDSIDE. PATIENT IS NPO WITH TUBE FEED AT 50ML/HR, NEW BAG AND TUBING HUNG THIS AFTERNOON. PATIENT WORKED WITH PT/OT THIS AFTERNOON. CALL LIGHT WITHIN REACH. WILL CONTINUE TO MONITOR.
[2017-08-01] VITALS: BP 116/75
[2017-08-01 04:18] VITALS: BP 120/71
[2017-08-01 04:40] LABS: HEMATOCRIT 23.2 % (37.0-47.0); HEMOGLOBIN 7.9 gm/dL (12.0-15.0); MCH 29.9 pg (26.0-34.0); MCHC 33.9 g/dL (28.0-37.0); MCV 88.3 fL (80.0-100.0); MPV 8.7 fl. (7.2-11.1); RBC 2.62 mil/uL (4.20-5.00); RDW-CV 14.2 % (10.5-14.5); WBC 12.8 thou/uL (4.0-11.0)
[2017-08-01 04:47] LABS: CALCIUM 10.1 mg/dL (8.5-10.1); CREATININE 6.2 mg/dL (0.6-1.3); MAGNESIUM 2.2 mg/dL (1.8-2.4); POTASSIUM 4.1 mmol/L (3.5-5.1)
--- NOTE | 2017-08-01 05:43 | NUR ---
PT SLEPT ON AND OFF THIS SHIFT. ASSESSMENT DOCUMENTED. MEDS GIVEN PER E-MAR. TICC PATENT, DOBB DUSTIN PATENT, FEEDING INFUSING AND WATER BOLUSES GIVEN. PT TURNED Q2H, AND REQUESTED BY PT. TRACH CARE DONE. ORAL CARE GIVEN. NO CONCERNS AT THIS TIME, WILL CONTINUE TO MONITOR.
[2017-08-01 08:35] VITALS: BP 125/85
--- NOTE | 2017-08-01 15:04 | NUR ---
MALDONADO spoke with Jeanie from [employer] who provided update that Medicaid status is still pending and that they have expidited the application...the latest was still that they were reviewing/receiving the most recently requested medical records regarding pt disability. MALDONADO called and spoke with Michelle from [facility] and she explained that they still will not consider acceptance prior to pt's Medicaid being active. MALDONADO faxed referral/initial information to fax number [phone] for review/pending to at least begin the process of referral. SW also to provide info to [facility] who also cannot accept until Medicaid status is active. SW to continue to follow to assist with safe dc planning.
[2017-08-01 15:55] VITALS: BP 113/63
--- NOTE | 2017-08-01 17:32 | NUR ---
PATIENT HAS BEEN ALERT TODAY, UNABLE TO DETERMINE ORIENTATION. PATIENT HAS NO COMPLAINTS OF PAIN TODAY. DOBHOFF TUBE WAS CLOGGED THIS MORNING SO NO MEDS WERE GIVEN THIS MORNING. VITAL SIGNS HAVE BEEN STABLE WITH 5 LITERS OF OXYGEN THROUGH TRACH SHIELD. CALL LIGHT IS IN REACH AND FREQUENT CHECKS. WILL CONTINUE TO MONITOR.
[2017-08-01 19:50] VITALS: BP 107/70
[2017-08-02] VITALS (7 sets, daily range): BP systolic 104–137; BP diastolic 66–75
[2017-08-02 04:10] LABS: CALCIUM 10.1 mg/dL (8.5-10.1)
[2017-08-02 04:12] LABS: CREATININE 4.2 mg/dL (0.6-1.3)
--- NOTE | 2017-08-02 05:11 | NUR ---
PT SLEPT ON AND OFF THORUGH NIGHT. ASSESSMENT DOCUMENTED. MEDS GIVEN PER E-MAR. DOBB DUSTIN PATENT, TUBE FEEDING RUNNING. ORAL CARE DONE. SUBCLAVIAN LINE PATENT. PT REPOSITIONED THROUGH SHIFT. TRACH CARE DONE. PT HAD NO REPORTS OF PAIN. NO CONCERNS AT THIS TIME, WILL CONTINUE TO MONITOR.
--- NOTE | 2017-08-02 14:47 | NUR ---
ASSUMED CARES OF PT AT BEDSIDE REPORT AT 0700. PT IN BED, BED IN LOW AND LOCKED POSITION, BED ALARM ON FOR FALL PRECAUTION SAFETY. FALL PRECAUTIONS IN PLACE. CALL BUTTON AND PERSONAL ITEMS IN REACH. PT ALERT, DROWSEY BUT RESPONDS WITH NODDING HEAD AND HAND GESTURES. PT RESPONDS APPROPRIATELY TO NURSE QUESTIONS. VSS ON 5L TRACH SHIELD, AFEBRILE, SKIN DRY BUT INTACT. AIR BED FUNCTIONING. LCTAB/DIMINISHED, HRRR PER AUSCULTATION. ABD MIDLINE INCISION INTACT, WOUND VAC IN PLACE AND WORKING NEEDED. MEPILEX DRESSINGS VIEWED AND ONE CHANGED R/T SEEPING. LOTION APPLIED TO SKIN. TICC AND DIALYSIS CATH ON RIGHT SIDE PATENT WITH FLUIDS INFUSING. TUBE FEEDING IN PLACE AT 50 ML HR. HOURLY ROUNDING AND Q2 TURNS CONTINUE, ACCU CHECKS CONTINUE. DOBHOFF PATENT WITH FEEDING INFUSING. TRACH SHIELD IN PLACE, OCC. SUCTION OF SPUTUM COUGHED UP REQUIRED. BATH GIVEN PER NURSING STUDENTS AND INSTRUCTOR. COLOSTOMY PATENT, LIGHT BROWN/YELLOW FECES/SOFT PRESENT. SHALLOW RESPIRATIONS, NON LABORED. SPUTUM WHITE, FOAMY, MINIMAL. PT STABLE AT THIS TIME, CARES CONTINUE. WILL CONTINUE TO MONITOR PT PROGRESS AND STATUS. PULSES WNL RADIAL AND PEDAL.
--- NOTE | 2017-08-02 20:34 | NUR ---
REPORT TO COMBINATION WELDER APPRENTICE FOR CONTINUED CARES. PT REMAINS STABLE. NG TUBE FEEDING CONTINUES. FALL PRECAUTIONS REMAIN IN PLACE. HOURLY ROUNDING, ACCU CHECKS AND Q2 TURNS COMPLETED. PT PROGRESSING TOWARDS GOAL.
[2017-08-03 00:05] VITALS: BP 133/81
[2017-08-03 03:56] VITALS: BP 116/78
[2017-08-03 04:50] LABS: CALCIUM 10.3 mg/dL (8.5-10.1); MAGNESIUM 2.3 mg/dL (1.8-2.4); POTASSIUM 4.3 mmol/L (3.5-5.1)
[2017-08-03 04:51] LABS: CREATININE 5.9 mg/dL (0.6-1.3)
--- NOTE | 2017-08-03 07:43 | NUR ---
PT SLEPT ON AND OFF THIS SHIFT. ASSESSMENT DOCUMENTED. MEDS GIVEN PER E-AUG. SUBCLAVIAN LINE PATENT. ORAL CARE AND TRACH CARE DONE THIS SHIFT. PT REPORTED NO PAIN. TUBE FEEDING RUNNING. WOUND VAC IN PLACE. NO ACUTE EVENTS THIS SHIFT.
[2017-08-03 08:30] VITALS: BP 108/76
[2017-08-03 12:12] VITALS: BP 121/77
[2017-08-03 16:00] VITALS: BP 109/72
--- NOTE | 2017-08-03 17:09 | NUR ---
ASSUMED CARES OF PT AT 0700. PT IN BED, BED IN LOW AND LOCKED POSITION, CALL BUTTON AND PERSONAL ITEMS IN PT REACH. WOUND VAC IN PLACE AND ACTIVE, TRACH CLEANED AND DRESSING CHANGED, COLOSTOMY PATENT WITH LIGHT BROWN/YELLOW BOWEL, SOFT. TUBE FEED INFUSING AT 50 ML/HR. MEDS ADMINISTERED TROUGH NG. MIDLINE SURGICAL WOUND WELL APPROXIMATED, NO S/S OF INFECTION. DRESSINGS/MEPILEX CHANGED ON BACK WOUNDS, NO S/S OF INFECTION. SKIN LOTIONED TWO TIMES THIS SHIFT. DIALYSIS REMOVED 2L THIS MORNING. HOURLY ROUNDING, ACCU CHECKS AND Q2 TURNS COMPLETED. TICC LINE PATENT TO FLUSH AND BLOOD DRAW. VSS ON 5L O2 TRACH SHIELD. PT PROGRESSING TOWARDS GOAL. PAIN MED GIVEN AND PT NODS TO INDICATE PAIN MED HELPED, PRESENTLY PT STATES SHE IS NOT IN PAIN WITH WORD SHEETS AND POINTING. WILL CONTINUE TO MONITOR PT STATUS.
[2017-08-03 20:00] VITALS: BP 120/75
--- NOTE | 2017-08-03 20:19 | NUR ---
PT REMAINS STABLE AT SHIFT CHANGE, REPORT TO POKER ROOM MANAGER FOR CONTINUED CARES. PT AWAKE AT 1900, SEMI HATHAWAY POSITION WATCHING TV. HANDS AND FEET HAD LARGE AMOUNTS OF LOTION APPLIED WITH HAND AND FEET MASSAGE PER NURSE X2 THIS SHIFT. SKIN VISUALLY LOOKS BETTER. PT PROGRESSING TOWARDS GOAL.
[2017-08-04 00:29] VITALS: BP 80/48
[2017-08-04 03:57] LABS: HEMATOCRIT 24.6 % (37.0-47.0); HEMOGLOBIN 8.4 gm/dL (12.0-15.0); MCH 30.5 pg (26.0-34.0); MCHC 34.4 g/dL (28.0-37.0); MCV 88.9 fL (80.0-100.0); MPV 8.7 fl. (7.2-11.1); RBC 2.76 mil/uL (4.20-5.00); RDW-CV 14.4 % (10.5-14.5); WBC 12.8 thou/uL (4.0-11.0)
[2017-08-04 04:03] VITALS: BP 97/60
[2017-08-04 04:08] LABS: CALCIUM 10.4 mg/dL (8.5-10.1); MAGNESIUM 2.2 mg/dL (1.8-2.4); POTASSIUM 4.1 mmol/L (3.5-5.1)
[2017-08-04 04:09] LABS: CREATININE 4.5 mg/dL (0.6-1.3)
--- NOTE | 2017-08-04 05:04 | NUR ---
UP MOST OF THE NIGHT, NEW IV PLACED TICC LINE WAS OUT AT START OF THE NIGHT, TRACH CARE DONE, PT TURNED PER COMFORT, WOUND VAC AND COLOSTOMY INTACT, TUBE FEEDING RUNNING, PRN PAIN MEDICATION GIVEN LAST NIGHT FOR GENERAL PAIN, CALL LIGHT IN REACH, USES PAPERS TO COMMUNICATE, WILL CONTINUE TO MONITOR
[2017-08-04 08:00] VITALS: BP 112/71
[2017-08-04 12:16] VITALS: BP 84/53
[2017-08-04 15:15] VITALS: BP 112/69
--- NOTE | 2017-08-04 18:58 | NUR ---
RESUMED CARE THIS AM. A/O X 3, COMMUNICATES USING ALPHABET, TURNED FREQUENTLY SIDE TO SIDE, PHOTO OF WOUNDS IN CHART. TRACH CARE PERFORMED, SKIN CARE PROVIDED, KAYLEY MEDS AND TF WITHOUT COMPLAINT. CALL LIGHT IN REACH, CONT POC.
[2017-08-04 20:30] VITALS: BP 114/72
[2017-08-05] VITALS: BP 88/56
[2017-08-05 03:36] VITALS: BP 103/57
--- NOTE | 2017-08-05 05:22 | NUR ---
PT SLEPT ON AND OFF THROUGH NIGHT. ASSESSMENT DOCUMENTED. MEDS GIVEN PER PER E-MAR. PT REPORTED PAIN IN HER LEFT TOE/LEG, PAIN MEDS GIVEN PER E-MAR WITH RELEIF. TRACH CARE DONE THIS SHIFT. TUBE FEED RUNNING.
[2017-08-05 06:12] LABS: CALCIUM 10.5 mg/dL (8.5-10.1); POTASSIUM 5.1 mmol/L (3.5-5.1)
[2017-08-05 06:13] LABS: CREATININE 6.4 mg/dL (0.6-1.3)
[2017-08-05 08:00] VITALS: BP 98/58
[2017-08-05 12:00] VITALS: BP 153/72
[2017-08-05 16:00] VITALS: BP 116/72
--- NOTE | 2017-08-05 20:02 | NUR ---
I ASSUMED CARE OF THE PATIENT AT 0700. SHE IS ALERT AND ORIENTED X4, BUT IS NON VERBAL D/T A TRACH. BED IS IN THE LOW LOCKED POSITION AND CALL LIGHT IS IN REACH. HOURLY ROUNDING WAS COMPLETED, PATIENT NEEDS WERE MET, AND PAIN WAS DENIED. WOUNDVAC WAS CHANGED BY MARLON AT THE BEDSIDE. ISOLATION WAS MAINTAINED FOR VRE IN THE URINE. SHE DID NOT PRODUCE URINE TODAY AND HAD A FULL COLOSTOMY BAG THAT WAS CHANGED. FAMILY CAME TO VISIT. TUBE FEEDINGS WERE CONTINUES AND MEDS WERE GIVEN PER PEG TUBE. SHE IS SR/ST ON THE MONITOR. PATIENT WAS SUCTIONED NEEDED DURING THE SHIFT. DIALYSIS IS SCHEDULED . WILL CONTINUE TO MONITOR. PATIENT WAS ALSO TURNED EVERY TWO HOURS.
[2017-08-05 20:45] VITALS: BP 123/70
[2017-08-06] VITALS: BP 94/60
[2017-08-06 04:00] VITALS: BP 106/69
[2017-08-06 07:30] VITALS: BP 109/75
--- NOTE | 2017-08-06 08:14 | NUR ---
PT SLEPT ON AND OFF THROUGH NIGHT. ASSESSMENT DOCUMENTED. MEDS GIVEN PER E-AUG. PT REPORTED NO PAIN. IV PATENT. EAGLE CLOGGED THIS AM, TRIED UNCLOGGING WITH STACEY WITH NO SUCCESS. ASKED RESIDENT FOR ORDERS FOR MEDS TO UNCLOG, AWAITING ORDERS. PATIENT TURNED Q2H. PT INCONTINENT OF URINE SEVERAL TIMES THIS SHIFT. TRACH CARE DONE. COLOSTOMY BAG CHANGED THIS SHIFT. REPORT GIVEN TO ONCOMING RN.
--- NOTE | 2017-08-06 16:02 | NUR ---
PATIENT HAD DIALYSIS THIS AM, 2.5L REMOVED. PATIENT BP 87/53 AND HR 117 AFTERWARDS, DR. AGUILAR NOTIFIED BUT NO NEW ORDERS RECEIVED. TRACH CARE PERFORMED BY STUDENT AND INSTRUCTED. DRESSINGS CHANGED TO LEFT SIDE OF ABD/BACK. TURN Q2. TUBE FEEDING REMAINS INFUSING, TUBE FEEDING ON HOLD FOR SHORT TIME THIS AM DUE TO TUBE CLOGGING. COMMERCIAL CRABBER REMAINS IN PLACE. WOUND VAC TO ABD DRAINING WITHOUT DIFFICULTY.
[2017-08-07] VITALS: BP 115/71
[2017-08-07 02:07] LABS: HEPATITIS B SURFACE AG Negative (Negative)
[2017-08-07 04:00] VITALS: BP 107/57
--- NOTE | 2017-08-07 05:33 | NUR ---
PATIENT SLEPT OFF AND ON THROUGH THE NIGHT. TUBE FEEDING CONTINUE AT 50 ML/HR. PATIENT HAD NO COMPLAINTS OF PAIN. PATIENT WAS TURNED EVERY TWO HOURS. WILL CONTINUE TO MONITOR.
[2017-08-07 07:36] VITALS: BP 107/75
[2017-08-07 11:46] VITALS: BP 127/72
[2017-08-07 11:53] VITALS: BP 111/76
[2017-08-07 14:48] VITALS: BP 100/59
--- NOTE | 2017-08-07 17:06 | NUR ---
PATIENT UP TO CHAIR VIA LAISHA LIFT FOR APPROX 4 HOURS, WORKED WITH PT. TUBE FEEDING REMAINS INFUSING AT 50MLS/HR WITHOUT DIFFICULTY. SPOKE WITH DR. RABAGO THIS AM AND PLANS TO REMOVE TRACH AND REPLACE WITH SMALLER SIZE FOR SPEAKING VALVE TRAINING. FAMILY AND PATIENT INFORMED OF PLAN OF CARE. TRACH SUCTIONED TIMES 1 THIS SHIFT PER PATIENT REQUEST. TURNED Q2, PATIENT REFUSES PILLOW UNDER HEELS AT TIMES. MEPILEX REPLACED TO BACK PER PROTOCOL.
[2017-08-08 00:30] VITALS: BP 122/81
[2017-08-08 02:06] LABS: KAPPA FREE LIGHT CHAINS 246.3 mg/L (3.3-19.4); LAMBDA FREE LIGHT CHAINS 213.7 mg/L (5.7-26.3)
[2017-08-08 04:07] VITALS: BP 131/76
--- NOTE | 2017-08-08 05:59 | NUR ---
PATIENT AWAKE OFF AND ON DURING THIS SHIFT. PT WATCHING TV WHILE AWAKE. PT USES CALL LIGHT APPROPRIATELY AND IS ABLE TO USE FLIP CHART TO MAKE NEEDS KNOWN. PT WITH TESSIO CATH IN RT UPPER CHEST. PT HAS PATENT SALINE LOCK IN LT FOREARM. PT WITH TWO PIECE COLOSTOMY BAG, INTACT, WITH MINIMAL THICK LIGHT BROWN STOOL. PT HAS WOUND VAC RUNNING AT 125; BLACK GRANULATED DSG ON MIDLINE INCISION INTACT. PT WITH DOBHOFF IN RT NARE WITH FEEDINGS AT 50ML/HR. PT TOLERATING WELL. PT WITH TRACH AT 5LITERS OF O2. PT ABLE TO SUCTION HERSELF PRN. DSG AROUND TRACH AND INNER CANNULA CHANGED AT BEGINNING OF SHIFT. PT TURNED Q2H AND MORE OFTEN IF PATIENT CALLS. PT SR ON OBJECTIVE C DEVELOPER. FREQUENTLY USED ITEMS AND CALL LIGHT WITHIN REACH. SIDERAILS UPX4. PT REMAINS IN CONATACT ISOLATION. WILL CONTINUE TO MONITOR.
[2017-08-08 08:10] LABS: M-SPIKE Not Observed g/dL (Not Observed)
[2017-08-08 08:17] LABS: CALCIUM 10.4 mg/dL (8.5-10.1); CREATININE 5.1 mg/dL (0.6-1.3); MAGNESIUM 2.5 mg/dL (1.8-2.4); POTASSIUM 3.7 mmol/L (3.5-5.1)
--- NOTE | 2017-08-08 15:20 | NUR ---
CHECKED WITH [facility] RE: MEDICAID STATUS. IS STILL PENDING
[2017-08-08 15:41] VITALS: BP 105/58
--- NOTE | 2017-08-08 18:09 | NUR ---
PATIENT HAS BEEN ALERT AND ORIENTED TODAY, VERY PLEASANT. HAD ISSUES WITH TUBE FEEDING TODAY BUT WAS ABLE TO RESOLVE. ABDOMINAL INCISION SUTURED SHUT TODAY AT BEDSIDE. PATIENT HAD SOME COMPLAINTS OF PAIN THAT WAS CONTROLLED WELL WITH IV AND ORAL PAIN MEDICAIONS. VITAL SIGNS STABLE ON 5 LITERS OF OXYGEN THROUGH TRACH MASK. BED BATH AND SKIN GIVEN THIS EVENING. PATIENT WILL NEED TUBE FEEDING SHUT OFF IN THE MORNING FOR TRACH CHANGES. WILL PASS ON IN REPORT. CALL LIGHT IS IN REACH, WILL CONTINUE TO MONITOR.
[2017-08-09 00:23] VITALS: BP 108/89
[2017-08-09 04:30] LABS: HEMATOCRIT 27.7 % (37.0-47.0); HEMOGLOBIN 9.4 gm/dL (12.0-15.0); MCH 30.1 pg (26.0-34.0); MCHC 33.7 g/dL (28.0-37.0); MCV 89.3 fL (80.0-100.0); MPV 9.1 fl. (7.2-11.1); RBC 3.11 mil/uL (4.20-5.00); RDW-CV 15.2 % (10.5-14.5); WBC 19.3 thou/uL (4.0-11.0)
[2017-08-09 05:03] LABS: ALBUMIN 3.6 g/dL (3.4-5.0); CALCIUM 11.2 mg/dL (8.5-10.1); CREATININE 4.7 mg/dL (0.6-1.3); MAGNESIUM 2.4 mg/dL (1.8-2.4); POTASSIUM 4.4 mmol/L (3.5-5.1); TOTAL BILIRUBIN 0.8 mg/dL (<0.1-1.0); TOTAL PROTEIN 9.2 g/dL (6.4-8.2)
--- NOTE | 2017-08-09 06:21 | NUR ---
PATIENT SLEPT OFF AND ON DURING THIS SHIFT. PT REPOSITIONED Q2H PER PROTOCAL AND MORE FREQUENTLY PER PT REQUEST. PT WITH TRACH SHIELD WITH 5LITERS OF O2. PT WITH SUCTION NEARBY IF NEEDED. RT IN ROOM THIS AM AND DEEP SUCTIONED PT. PT WITH WOUND VAC TO MIDLINE; DSG C/D/I. PT INCONTINENT OF SMALL AMOUNT OF URINE X1. PT WITH COLOSTOMY WITH MINIMAL AMOUNT OF LIGHT BROWN STOOL OUT. COLOSTOMY C/D/I. FEEDINGS THROUGH DOBHOFF STOPPED AT [address] ORDER. DOBHOFF FLUSHED WITH WARM WATER. FREQUENTLY USED ITEMS AND CALL LIGHT WITHIN REACH. SIDERAILS UPX4. PT REMAINS IN ISOLATION. WILL CONTINUE TO MONITOR.
[2017-08-09 07:50] VITALS: BP 118/79
[2017-08-09 08:18] VITALS: BP 118/79
[2017-08-09 15:40] VITALS: BP 70/43
--- NOTE | 2017-08-09 18:17 | NUR ---
PATIENT IS ALERT TODAY VERY PLEASANT. HAS APPEARED UNCOMFORTABLE THIS AFTERNOON, PAIN MEDICATION GIVEN. TRACH CHANGED BY PROVIDER TODAY AND SPEECH WORKED WITH PATIENT WITH SPEAKING VALVE. BLOOD PRESSURE LOW THIS EVENING SO A BOLUS IS RUNNING NOW. FEEDING IS GOING AT 50 AN HOUR. COLOSTOMY IS DRAINING WELL. IV IN LEFT HAND WORKS WELL. CALL LIGHT IS IN REACH, WILL CONTINUE TO MONITOR.
[2017-08-09 20:04] VITALS: BP 83/48
[2017-08-10] VITALS: BP 92/60
[2017-08-10 05:31] LABS: HEMATOCRIT 23.1 % (37.0-47.0); MCHC 34.5 g/dL (28.0-37.0); MPV 9.3 fl. (7.2-11.1); NUCLEATED RBCS 0 /100WBC; PLATELET COUNT* 358 thou/uL (150-400); RBC 2.57 mil/uL (4.20-5.00); RDW-CV 15.1 % (10.5-14.5); WBC 15.1 thou/uL (4.0-11.0)
--- NOTE | 2017-08-10 05:55 | NUR ---
PATIENT SLEPT PART OF THE NIGHT. TUBE FEEDING REMAINS AT 50 ML/HR. PATIENT HAD NO COMPLAINTS OF PAIN. IV REMAINS SALINE LOCKED. BP IS BETTER AFTER BOLUS WAS GIVEN YESTERDAY. PATIENT HAS BEEN TURNED ABOUT EVERY TWO HOURS. WILL CONTINUE TO MONITOR.
[2017-08-10 06:14] LABS: ALBUMIN 3.1 g/dL (3.4-5.0); ALKALINE PHOSPHATASE 260 U/L (46-116); ANION GAP 17 mmol/L (7-16); BUN 81 mg/dL (7-18); CALCIUM 10.6 mg/dL (8.5-10.1); CHLORIDE 92 mmol/L (98-107); CHOLESTEROL 200 mg/dL (<200); CO2 26 mmol/L (21-32); GLUCOSE 129 mg/dL (70-99); HDL CHOLESTEROL 37 mg/dL (>40); MAGNESIUM 2.2 mg/dL (1.8-2.4); SGOT 21 U/L (15-37); SGPT 49 U/L (30-65); SODIUM 135 mmol/L (136-145); TC:HDL 5.4 Ratio (Not establshd); TOTAL BILIRUBIN 0.7 mg/dL (<0.1-1.0); TOTAL PROTEIN 8.1 g/dL (6.4-8.2); TRIGLYCERIDE 473 mg/dL (<150); VLDL 95 mg/dL (<40)
[2017-08-10 06:22] LABS: CREATININE 6.4 mg/dL (0.6-1.3); SERUM ASSESSMENT Gross Lipemia
[2017-08-10 06:23] LABS: LDL CHOLESTEROL ND mg/dL (<100)
[2017-08-10 06:42] LABS: ABSOLUTE LYMPHOCYTES 0.8 thou/uL (0.8-5.3); ABSOLUTE NEUTROPHILS 12.4 thou/uL (1.6-8.1); ANISOCYTOSIS 1+; HYPOCHROMASIA 2+; PLATELET ESTIMATE INCREASED
[2017-08-10 07:30] VITALS: BP 105/61
[2017-08-10 16:20] VITALS: BP 87/55
--- NOTE | 2017-08-10 17:38 | NUR ---
PATIENT A&OX4, ON 5L O2 VIA TRACHE MASK, IV LEFT WRIST SALINE LOCK. UP TO CHAIR WITH THERAPY, USING LAISHA LIFT. C/O HEADACHE, MEDICATION GIVEN. FEEDING TUBE RUNNING AT THIS TIME. NO OTHER CONCERNS AT THIS TIME. APPROPRIATE AND COOPORATIVE WITH CARE.
[2017-08-11] VITALS: BP 111/57
[2017-08-11 05:19] LABS: ALBUMIN 4.1 g/dL (3.4-5.0); CALCIUM 10.9 mg/dL (8.5-10.1); POTASSIUM 4.3 mmol/L (3.5-5.1); TOTAL BILIRUBIN 0.8 mg/dL (<0.1-1.0); TOTAL PROTEIN 8.5 g/dL (6.4-8.2)
[2017-08-11 05:20] LABS: CREATININE 3.8 mg/dL (0.6-1.3)
--- NOTE | 2017-08-11 05:59 | NUR ---
PATIENT SLEPT PART OF THE NIGHT. IV REMAINS SALINE LOCKED. INNER CANNULA WAS CHANGED AND TRACH CARE WAS DONE THIS MORNING. PATIENT HAD NO COMPLAINTS OF PAIN. TUBE FEEDING CONTINUES AT 50 ML/HR. WILL CONTINUE TO MONITOR.
[2017-08-11 07:45] VITALS: BP 113/65
--- NOTE | 2017-08-11 16:14 | NUR ---
PATIENT A&O TO SELF. ABLE TO ANSWER QUESTIONS APPROPRIATELY AND CALL OUT APPROPRATELY. ON 5L O2 VIA TRACH MASK. SUCTIONING Q2-4 HOURS. IV LEFT HAND SALINE LOCK. COLOSTOMY IN PLACE. TUBE FEEDING CHANGED TODAY, X RAY PLACEMENT GOOD. TRACH CANULA CHANGED TODAY. NO C/O PAIN/N/V. NO OTHER CONCERS AT THIS TIME. APPROPRATE AND COOPORATIVE WITH CARE.
[2017-08-11 16:34] VITALS: BP 81/47
[2017-08-11 23:37] VITALS: BP 88/65
--- NOTE | 2017-08-12 05:33 | NUR ---
PATIENT SLEPT PART OF THE NIGHT. IV REMAINS SALINE LOCKED. PATIENT WAS SUCTIONED NEEDED. WOUND VAC DRESSING WAS REINFORCED AND REMAINS INPLACE. TUBE FEEDING CONTINUES AT 50 ML/HR/. PATIENT WAS REPOSITIONED FREQUENTLY THIS SHIFT. WILL CONTINUE TO MONITOR.
[2017-08-12 05:53] LABS: ALBUMIN 3.7 g/dL (3.4-5.0); CALCIUM 10.5 mg/dL (8.5-10.1); POTASSIUM 4.4 mmol/L (3.5-5.1); TOTAL BILIRUBIN 0.8 mg/dL (<0.1-1.0); TOTAL PROTEIN 7.8 g/dL (6.4-8.2)
[2017-08-12 12:14] VITALS: BP 86/49
[2017-08-12 16:10] VITALS: BP 108/68
--- NOTE | 2017-08-12 17:29 | NUR ---
PATIENT HAS BEEN ALERT TODAY AND PLEASANT. ABLE TO HAVE SPEAKING VALVE ON TRACH WITH 3 LITERS OF OXYGEN RUNNING THROUGH NASAL CANNULA. SPEAKS WELL THROUGH VALVE. WAS ABLE TO HAVE WOUND VAC REMOVED TODAY BY SURGERY, INCISION IS HEALING WELL. VITAL SIGNS STABLE, BLOOD PRESSURE IS A LITTLE LOW SO MEDS HELD. CALL LIGHT IS IN REACH, WILL CONTINUE TO MONITOR.
[2017-08-13] VITALS: BP 117/77
--- NOTE | 2017-08-13 04:20 | NUR ---
PATIENT SLEPT WELL DURING THIS SHIFT; PT ALSO WATCHED TV. PT WITH SPEAK VALVE AND ABLE TO MAKE NEEDS KNOWN. PT WITH O2 @ 3 LITERS PER NASAL CANNULA; SATS AT 100%. PT REFUSED TURNS ON OCCASSION; EDUCATION GIVEN ON IMPORTANCE OF TURNING. PT WITH MEPILEX ON LOWER BACK FOR SKIN BREAKDOWN. PT ALSO HAS AN AREA OF BREAKDOWN ON BUTTOCKS. PT WITH MIDLINE ABDOMINAL INCISION COVERED WITH ABD'S. BOTTOM OF INCISION WITH ONE INCH AREA OF BLOOD; AREA REINFORCED WITH 4X4'S AND TAPE. COLOSTOMY BAG CHANGED DURING THIS SHIFT. STOMA IS PINK AND PROTRUDING APPOX 1/2" AND SKIN IMMEDIATELY SURROUNDING STOMA SLIGHTLY PINK. PT WITH VERY SOFT UNFORMED YELLOW/BROWN STOOL. PT DENIES PAIN ON THIS SHIFT. DOBHOFF IN LT NARE WITH NEW STAT LOCK PLACED. FEEDINGS INFUSING AT 50ML/HR. SALINE LOCK IN LT WRIST PATENT. FREQUENTLY USED ITEMS AND CALL LIGHT WITHIN REACH. SIDERAILS UP X4. PT REMAINS IN CONTACT ISOLATION. WILL CONTINUE TO MONITOR.
[2017-08-13 04:47] LABS: HEMOGLOBIN 7.9 gm/dL (12.0-15.0); MCH 30.8 pg (26.0-34.0); MCHC 34.3 g/dL (28.0-37.0); MCV 89.7 fL (80.0-100.0); MPV 9.1 fl. (7.2-11.1); NUCLEATED RBCS 0 /100WBC; PLATELET COUNT* 347 thou/uL (150-400); RBC 2.57 mil/uL (4.20-5.00); RDW-CV 15.4 % (10.5-14.5); WBC 14.1 thou/uL (4.0-11.0)
[2017-08-13 05:05] LABS: ALBUMIN 3.2 g/dL (3.4-5.0); CALCIUM 10.8 mg/dL (8.5-10.1); POTASSIUM 4.1 mmol/L (3.5-5.1); TOTAL BILIRUBIN 0.8 mg/dL (<0.1-1.0); TOTAL PROTEIN 7.5 g/dL (6.4-8.2)
[2017-08-13 05:06] LABS: CREATININE 7.7 mg/dL (0.6-1.3)
[2017-08-13 06:10] LABS: ABSOLUTE EOSINOPHILS 0.1 thou/uL (0.0-0.7); ABSOLUTE LYMPHOCYTES 1.4 thou/uL (0.8-5.3); ABSOLUTE MONOCYTES 0.6 thou/uL (0.0-1.2); ANISOCYTOSIS 1+; PLATELET ESTIMATE ADEQUATE; POIKILOCYTOSIS 1+; POLYCHROMASIA 1+
[2017-08-13 11:20] VITALS: BP 107/61
--- NOTE | 2017-08-13 12:06 | NUR ---
MALDONADO called and faxed referral to [facility] [phone] f [phone] to explore the possibility of pt being able to transition to LTC facility with dialysis located in the facility. [facility] option continues to be pending as Medicaid is pending. MALDONADO called pt sister Yuliet to discuss possible dc options and Yuliet was in the middle of another call at the moment and she said she would return SW call later. SW to continue to follow to assist with safe dc planning.
[2017-08-13 12:30] VITALS: BP 111/69
[2017-08-13 15:58] VITALS: BP 99/71
--- NOTE | 2017-08-13 18:47 | NUR ---
PATIENT RESTING IN BED. PATIENT HAS TOLERATED [facility] CHOPPED DIET AND THIN LIQUIDS. DOBHOFF REMOVED AND TUBE FEEDING STOPPED. PATIENT IS ON ROOM AIR. PATIENT HAS TRACH WITH SPEAKING VALVE AND IS COMMUNICATING WELL. PATIENT IS SLOW TO ANSWER QUESTIONS BUT IS ALERT AND ORIENTED. PATIENT ABDOMINAL WOUND DEHISCIENCED THIS AFTERNOON. DR RESENDIZ NOTIFIED AND STITCHES REMOVED AND WET TO DRY DRESSING PLACED. PATIENT GIVEN PAIN PILL X 1 THIS AFTERNOON AFTER DRESSING CHANGE. PATIENT DENIES ANY NEEDS AT THIS TIME. CALL LIGHT WITHIN REACH. WILL CONTINUE TO MONITOR.
[2017-08-14] VITALS: BP 91/57
[2017-08-14 07:40] VITALS: BP 113/62
--- NOTE | 2017-08-14 11:22 | NUR ---
SW followed up with [facility] admissions who rejected referral due to the inability to meet the needs of trach care at their facility. SW to continue to follow up with Medicaid pending status, and [facility] as well as consider [facility].
[2017-08-14 17:02] VITALS: BP 98/64
--- NOTE | 2017-08-14 20:03 | NUR ---
PATIENT RESTING IN BED. PATIENT WAS UP TO CHAIR THIS AFTERNOON WITH THERAPY. PATIENT WAS UP WITH MAX ASSIST OF 2 WITH GAIT BELT. PATIENT HAS BEEN TOLERATING REGULAR DIET BUT HAS POOR APPETITE. PATIENT HAS WOUND VAC ON TO ABDOMINAL WOUND. PATIENT DENIES ANY NEEDS AT THIS TIME. CALL LIGHT WITHIN REACH. WILL CONTINUE TO MONITOR.
[2017-08-14 21:00] VITALS: BP 103/51
[2017-08-15 03:59] LABS: HEMATOCRIT 27.3 % (37.0-47.0); HEMOGLOBIN 9.2 gm/dL (12.0-15.0); MCH 30.1 pg (26.0-34.0); MCHC 33.8 g/dL (28.0-37.0); MCV 89.1 fL (80.0-100.0); MPV 9.2 fl. (7.2-11.1); RBC 3.07 mil/uL (4.20-5.00); RDW-CV 15.6 % (10.5-14.5); WBC 16.2 thou/uL (4.0-11.0)
[2017-08-15 04:04] LABS: CALCIUM 10.8 mg/dL (8.5-10.1); CREATININE 6.8 mg/dL (0.6-1.3); MAGNESIUM 2.3 mg/dL (1.8-2.4); POTASSIUM 4.2 mmol/L (3.5-5.1)
--- NOTE | 2017-08-15 05:43 | NUR ---
PATIENT AWAKE FIRST HALF OF THE NIGHT THEN SLEPT MORE TOWARDS MORNING. PT WITH WOUND VAC OVER MIDLINE INCISION. WOUND VAC DSG INTACT WITH NO AIR LEAKS. PT HAS ABDOMINAL BINDER BUT IS REFUSING TO WEAR IT. ENCOURAGEMENT AND EDUCATION GIVEN ON IT'S IMPORTANCE. PT HAS COLOSTOMY WITH YELLOW/BROWN OUTPUT; INTACT. PT WITH SPEAK VALVE IN TRACH. PT ABLE TO MAKE NEEDS KNOWN. PT'S SPEAK VALVE REMOVED AT HS AND WILL BE PUT BACK IN WHEN SHE WAKES. PT OFFERED TO BE REPOSITOINED Q2H BUT WOULD REFUSE AT TIMES. FREQUENTLY USED ITEMS AND CALL LIGHT WITHIN REACH. SIDERAILS UPX4. PT REMAINS IN CONTACT ISOLATION. WILL CONTINUE TO MONITOR.
--- NOTE | 2017-08-15 11:53 | NUR ---
PATIENT JUST FINISHED DIALYSIS IN ROOM. PATIENT STATES HAVING ABDOMINAL AND CHEST PAIN. VITALS CHARTED. DR AGUILAR NOTIFIED OF CHEST PAIN FOR FURTHER ORDERS. SPOKE WITH DR AGUILAR AND ORDERS NOTED FOR EKG AND SERIAL TROPONINS.
[2017-08-15 11:56] VITALS: BP 100/64
[2017-08-15 16:00] VITALS: BP 101/58
--- NOTE | 2017-08-15 16:30 | NUR ---
MALDONADO called and followed up with [facility] who still has the referral that MALDONADO sent on 08/01 however the answer remains that they are unable to accept prior to pt Medicaid approval. No response yet from Medicaid or [employer] who continues to help check status and process Medicaid application. MALDONADO spoke with pt sister Yuliet yesterday and she reported that she worked to provide pt certificate which should arrive today. MALDONADO sent referral to [facility] and received call back from [facility] who said that they are considering the referral and will visit pt on site tomorrow. MALDONADO to continue to follow to assist with finalizing safe dc plans.
--- NOTE | 2017-08-15 17:19 | EKG ---
[place] [address] ELECTROCARDIOGRAM REPORT Name: WALLY HAYES Room: [address] ADM IN .R.#: [id number] Admission: 06/09/17 Attend Phys: Al Francisco, Discharge: Date of : 69 Report #: [id number] THIS REPORT FOR: //name// [facility] Test Date: 2017-08-15 Test Time: 12:18:00 Pat Name: WALLY HAYES Department: Room: [address] Gender: F Electrolysis Investigator: MAIRA : [id number] Requested By: Jonathan Crump Order Number: [id number] King MD: Ernesto Espinal Measurements Intervals Clarence Rate: 115 P: 35 AL: 126 QRS: -10 QRSD: 114 T: 143 QT: 350 QTc: 484 Interpretive Statements Sinus tachycardia LVH with IVCD and secondary repol abnrm Borderline prolonged QT interval Compared to ECG 06/14/2017 13:49:35 Intraventricular conduction delay now present Left ventricular hypertrophy now present Early repolarization now present Sinus rhythm no longer present T-wave abnormality no longer present Electronically Signed On 08-15-2017 17:18:59 MANAGER INTEL by Ernesto Espinal [email or web address] <ELECTRONICALLY SIGNED> By: Ernesto Espinal MD, FACC 08/15/17 1718 1218 1218 Ernesto Espinal MD, FACC /EPI
--- NOTE | 2017-08-15 18:26 | NUR ---
PT HAD HEMODIALYSIS COMPLETED AND RAN FOR 3 HOURS. PT C/O NAUSEA DURING DIALYSIS, BREAKFAST HELD. PT C/O PAIN IN ABDOMEN AND CHEST THAT WAS SHARP ON A SCALE OF 5/10. DOCTOR NOTIFIED OF CHEST PAIN, STAT EKG ORDERED, NEGATIVE FINDINGS. LABS DRAWN, TROPONIN <0.06. PORTABLE CHEST X-RAY ORDERED FOR 08/16/17. TRACH CARE PROVIDED, NEW CANNULA INSERTED, DEEP SUCTIONED, PT HANDLED SUCIONING WELL. GOOD COUGH EFFORT AFTER SUCTIONING. NEW STRAP FOR TRACH APPLIED, AROUND TRACH CLEANED WITH SOAP AND WATER, PHOEBE SPONGE APPLIED. PT APPLY TO BREATHE AND SPEAK WITH EASE AFTER CARE. PT HAD WHITE, THICK MUCUS AROUND OLD CANNULA AND MINIMAL MUCUS WITH DEEP SUCTIONING. 2 PASSES MADE WITH SUCTIONING. PT HAS A WOUND VAC, KEPT IN PLACE. PT REFUSED ABD BINDER. MEPIPLEX ADDED TO TWO WOUNDS ON THE LEFT HIP AND THE RIGHT BUTTOCK WOUND OPEN TO AIR. COLOSTOMY INTACT WITH MODERATE LIGHT BROWN AND LOOSE DRAINAGE. POWER WENT OUT AND BED HAD LOST SOME AIR, PLUGS WERE MOVED AROUND TO FIX THIS ISSUE, PT IS ON Q2 TURN BUT REFUSES, PREFERS TO HAVE PILLOWS OR WEDGES TO CHANGE POSITION. FALL RISK PRECAUTIONS IN PLACE. WILL CONTINUE TO MONITOR.
--- NOTE | 2017-08-15 19:02 | NUR ---
I HAVE READ AND REVIEWED THE DOCUMENTATION BY BLANCA BRIDGES, STUDENT NURSE AND AGREE WITH THE ABOVE DOCUMENTATION AND INTERVENTIONS.
[2017-08-15 19:30] VITALS: BP 84/60
[2017-08-16] VITALS: BP 92/56
--- NOTE | 2017-08-16 06:52 | NUR ---
PT AWAKE MOST OF SHIFT. ASSESSMENT DOCUMENTED. MEDS GIVEN PER E-AUG. IV PATENT. NO REPORTS OF PAIN OR NAUSEA. PT REPOSITIONED THROUGH SHIFT. WOUND VAC IN PLACE. TRACH SIGHT CLEAN. COLOSTOMY DRAINING ADEQUETLY. NO CONCERNS AT THIS TIME.
[2017-08-16 08:14] VITALS: BP 98/63
--- NOTE | 2017-08-16 11:31 | NUR ---
MALDONADO followed up with Martha who was helping in admission at [facility] yesterday and she still plans to visit pt today. MALDONADO reported to Martha that pt has had trach for at least 6 weeks which was criteria to be met. MALDONADO also shared that pt needed the wound vac to be placed again. Pt possibly not medically ready to dc today according to team. MALDONADO called and left a message with Jeanie from [facility] [phone] to inquire if all they and Medicaid are waiting on is the certificate. MALDONADO spoke with pt sister Yuliet and provided update about pending status of [facility] and Yuliet shared that she still has not received the certificate and she plans to track whether or not it is lost in the mail. MALDONADO to continue to follow to assist with safe dc planning.
--- NOTE | 2017-08-16 17:58 | NUR ---
PT IS ALERT AND ORIENTED X 4. PT C/O OF PAIN ON RT SIDE OF ABDOMEN, RELEIVED WITH HYDROCODONE AND REPOSITIONING WITH TWO PILLOWS ON RT SIDE. PT UP WUITH LAISHA LIFT TO CHAIR FOR A WHILE. TRACH CHANGED, PT HANDLED WELL. NO SUCTIONING NEEDED. [facility] CAME AND RECEIVED INFORMATION ON PT FOR POSSIBLE LOCATION IN THEIR FACILITY. WILL DISCUSS WITH CASE MANAGEMENT ABOUT PROGRESS. WOUND ON ABDOMEN CHANGED BY SURGICAL TEAM. WOUND VAC IN PLACE. PICTURES OF WOUND TAKEN. CULTURE RETRIEVED FROM WOUND. SOME BACTERIA SHOWED ON WOUND CULTURE, CIPROFLOXACIN PO WAS ORDERED. AND ADMINISTERED. COLOSTOMY INTACT. FALL RISK PRECAUTIONS IN PLACE. WILL CONTINUE TO MONITOR.
--- NOTE | 2017-08-16 18:48 | NUR ---
I HAVE READ AND REVIEWED THE DOCUMENTATION BY BLANCA BRIDGES, STUDENT NURSE AND AGREE WITH THE ABOVE DOCUMENTATION AND DOCUMENTED INTERVENTIONS.
[2017-08-16 20:00] VITALS: BP 108/55
--- NOTE | 2017-08-17 05:05 | NUR ---
PT SLEPT AT INTERVALS DURING THE NIGHT, TRACH CARE DONE, COLOSTOMY IN PLACE, TURNED PER PT REQUEST/COMFORT, REFUSES SOME TURNS, USES SPEAKING VALVE, PRN PAIN MED ONE TIME, CALL LIGHT IN REACH, WILL CONTINUE TO MONITOR
[2017-08-17 08:00] VITALS: BP 98/56
[2017-08-17 09:19] LABS: CALCIUM 9.8 mg/dL (8.5-10.1); MAGNESIUM 2.2 mg/dL (1.8-2.4); PHOSPHORUS* 4.2 mg/dL (2.5-4.9); POTASSIUM 3.5 mmol/L (3.5-5.1)
[2017-08-17 09:20] LABS: CREATININE 4.3 mg/dL (0.6-1.3)
--- NOTE | 2017-08-17 16:01 | NUR ---
PATIENT HAD DIALYSIS THIS AM. ORDERS FOR PATIENT TO HAVE MIDODRINE PRIOR TO DIAYLSIS ON FROM DR. KING. PRN VICODIN GIVEN FOR PAIN IN FEET. PATIENT REFUSING TO TURN SIDE TO SIDE, REQUESTS PILLOWS TO BE PLACED UNDER BOTH HIPS. PATIENT C/O BURNING AND ITCHING IN VAGINAL AREA, ONE TIME DOSE OF FLUCONAZOLE GIVEN PER ORDERS. FAMILY HERE AT BEDSIDE. PATIENT TOOK PILLS AND DIET IN WITHOUT DIFFICULTY. WOUND VAC REMAINS IN PLACE TO ABD MIDLINE, DRAINING WITHOUT DIFFICULTY.
[2017-08-17 18:00] VITALS: BP 106/65
[2017-08-17 19:45] VITALS: BP 101/64
--- NOTE | 2017-08-18 05:16 | NUR ---
PT SLEPT AT INTERVALS DURING THE NIGHT, IV SALINE LOCKED, ROOM AIR, TRACH CARE DONE, TURNED PER COMFORT, REFUSES MOST TURNS, COLOSTOMY IN PLACE, DIALYSIS CATH INTACT, DENIED PAIN, CALL LIGHT IN REACH, WILL CONTINUE TO MONITOR
[2017-08-18 08:00] VITALS: BP 98/54
[2017-08-18 15:38] VITALS: BP 100/64
--- NOTE | 2017-08-18 16:12 | NUR ---
PATIENT REFUSING TO TURN THIS SHIFT, PILLOWS PLACED UNDER PATIENT HIPS NEFTALI PER PATIENT REQUEST. MEPILEX TO BACK WOUND CHANGED AND PHOTO TAKEN PER PROTOCOL. PATIENT EATING ROUGHLY 25 TO 50% OF MEALS. DR. NICHOLSON CONSULTED FOR TOE NAILS, PATIENT WAS SEEN THIS AM AND TOE NAILS CUT.
--- NOTE | 2017-08-18 20:00 | NUR ---
INNER CANULA CHANGED AND TRACH CARE PER RT
[2017-08-19 01:00] VITALS: BP 95/59
[2017-08-19 04:14] LABS: ALBUMIN 2.9 g/dL (3.4-5.0); POTASSIUM 4.1 mmol/L (3.5-5.1)
--- NOTE | 2017-08-19 05:16 | NUR ---
PT AWAKE AND DIFFICULTY GETTING COMFORTABLE, CO ITCHING TO BACK. TURNED AND REPOSITIONED FOR COMFORT, LOTION APPLIED TO BODY, BACK MASSAGED FOR COMFORT. COLOSTOMY WITH OUTPUT BROWN MUSHY STOOL. RT TX GIVEN ORDERED. AM LABS DRAWN. ABLE TO USE CALL LITE AND MAKE NEEDS KNOWN. TAKES PILLS WHOLE WITH WATER, SPEAKING VALVE ON. NO IV. REMAINS ON BARIATRIC AIR BED. WOUND VAC ON AND OPERATING TO ABDOMEN. R CHEST TESSIO INTACT. MEPILEX CDI TO LBACK. REMAINS ON CONTACT ISOLATION.
[2017-08-19 08:25] VITALS: BP 88/54
--- NOTE | 2017-08-19 10:32 | NUR ---
SW received message back from Jeanie Carmona with [employer] stating that pt's Medicaid application is still pending. SW to continue to follow up with safe dc planning; placement possible at [facility], their admissions to follow up with SW, otherwise, continuing to wait on Medicaid to be active and then possibility for [facility].
[2017-08-19 10:58] LABS: HEMATOCRIT 23.2 % (37.0-47.0); HEMOGLOBIN 7.6 gm/dL (12.0-15.0); MCH 30.1 pg (26.0-34.0); MCHC 32.9 g/dL (28.0-37.0); MCV 91.5 fL (80.0-100.0); MPV 8.8 fl. (7.2-11.1); NUCLEATED RBCS 0 /100WBC; PLATELET COUNT* 301 thou/uL (150-400); RBC 2.54 mil/uL (4.20-5.00); RDW-CV 16.5 % (10.5-14.5)
[2017-08-19 11:14] LABS: ABSOLUTE LYMPHOCYTES 1.9 thou/uL (0.8-5.3); ABSOLUTE MONOCYTES 1.2 thou/uL (0.0-1.2); ABSOLUTE NEUTROPHILS 7.9 thou/uL (1.6-8.1); PLATELET ESTIMATE ADEQUATE
[2017-08-19 11:15] LABS: ANISOCYTOSIS 1+; HYPOCHROMASIA 2+
[2017-08-19 16:00] VITALS: BP 107/70
--- NOTE | 2017-08-19 19:22 | NUR ---
PATIENT HAS BEEN A/O X 4 THIS SHIFT. MEDICATED FOR PAIN X 1 TODAY WITH WOUND VAC CHANGE BY SURGERY. PATIENT CONTINUES WITH TRACH WITH SPEAKING VALVE IN PLACE. PATIENT'S APPETITE SLOWLY IMPROVING, OFFERED SUPPLEMENTS. PATIENT CONTINUES ON ORAL ANTIBIOTICS. HAD VEIN MAPPING COMPLETED THIS SHIFT, VASC CONSULT NOTED. PATIENT REFUSING MOST TURNS, WILL ALLOW PILLOWS UNDER LEFT/RIGHT BUTTOCKS WHILE IN BED. REFUSING TO HAVE HEELS ELEVATED. PATIENT'S COLOSTOMY INTACT WITH SOFT BROWN STOOL. PATIENT INCONTINENT OF URINE X 1 THIS SHIFT. REMAINS IN ISOLATION. CALL LIGHT WITHIN REACH. WILL CONTINUE WITH PLAN OF CARE.
[2017-08-19 23:49] VITALS: BP 113/58
--- NOTE | 2017-08-20 05:49 | NUR ---
PT SLEPT FAIRLY WELL OVERNIGHT. RECEIVED MELATONIN AT HS AND BENADRYL FOR ITCHING WITH GOOD RESULT. INCONTINENT SMALL AMOUNT OF URINE. WOUND VAC TO ABD ON AND OPERATING. TRACHEOSTOMY WITH SPEAKING VALVE. R CHEST TESSIO-TO HAVE DIALYSIS THIS MORNING. NO IV ACCESS. ABLE TO USE CALL LITE AND MAKE NEEDS KNOWN. REMAINS ON CONTACT ISOLATION. COLOSTOMY WITH BROWN MUSHY BM. NO LABS THIS MORNING. REMAINS ON BARIATRIC AIR BED. RT TX GIVEN ORDERED. TAKES PILLS WHOLE WITH WATER. PO ABX GIVEN.
[2017-08-20 07:45] VITALS: BP 96/53
--- NOTE | 2017-08-20 14:05 | NUR ---
MALDONADO received call from Anastasia at [facility] who said referral is pending due to continuation of pending Medicaid status. MALDONADO called and spoke with Bonny from admissions at [facility] who said that they are still considering but would not be able to meet needs of trach right now so they would most likely be able to move referral to next step in process if pt trach was removed. MALDONADO faxed updated information to [facility]. MALDONADO called pt sister Yuliet to provide update and ask about whereabouts of pt certificate however Yuliet did not answer so SW left message requesting call back. SW to continue to follow to assist with safe dc planning.
[2017-08-20 16:00] VITALS: BP 95/61
--- NOTE | 2017-08-20 16:33 | NUR ---
PATIENT REPOSITIONED IN BED THIS SHIFT. DIALYSIS THIS AM. NO COMPLAINTS OF PAIN. TRACH CANNULA CHANGED PER PROTOCOL. PT WORKED WITH PATIENT TODAY. WOUND VAC REMAINS IN PLACE TO ABD, NO DIFFICULTY NOTED WHILE DRAINING.
[2017-08-21 00:21] VITALS: BP 109/66
--- NOTE | 2017-08-21 05:50 | NUR ---
PT SLEPT WELL AFTER RECEIVING MELATONIN AT HS. COLOSTOMY WITH MUSHY BROWN STOOL. R TESSIO. TRACH WITH SPEAKING VALVE. ROOM AIR, RT TX GIVEN ORDERED. NO LABS THIS MORNING. ON BARIATRIC AIR BED, TURNED AND REPOSITIONED PT WOULD ALLOW. ABD WOUND VAC ON AND OPERATING. REMAINS ON CONTACT ISOLATION. CM ASSISTING WITH INSURANCE. ABLE TO USE CALL LITE AND MAKE NEEDS KNOWN.
[2017-08-21 08:00] VITALS: BP 118/72
[2017-08-21 16:51] VITALS: BP 111/55
--- NOTE | 2017-08-21 17:27 | NUR ---
RECEIVED CALL FROM [facility]. SHE STATED THAT THEY COULD NOT ACCEPT PT WITH A 'NEW' TRACH REMOVAL. SUGGESTED WE CONSIDER LTAC
--- NOTE | 2017-08-21 18:03 | NUR ---
RESUMED CARE THIS AM. A/O X 4, DENIES PAIN, DEPENDENT ON STAFF FOR BED MOBILITY, TRANSFERS, MOST ADL, ABLE TO FEED SELF WITH SETUP. UP TO CHAIR FOR 2.5 HOURS THIS AFTERNOON, MAKING SLOW PROGRESS TOWARD GOALS. TRACH CARE COMPLETE WITH RT ASSIST, COLOSTOMY WITH SOFT BROWN STOOL, WOUND VAC SECURE, SEROSANGUINOUS DRAINAGE IN SMALL AMT. INCONTINENT OF URINE, KAYLEY DIET WELL, COMPLIANT WITH CARES AND MEDICATION. TURNED FREQUENTLY THROUGHOUT THE SHIFT, CALL LIGHT IN REACH, CONT POC.
[2017-08-22] VITALS: BP 107/57
[2017-08-22 05:11] LABS: ALBUMIN 2.7 g/dL (3.4-5.0); CALCIUM 9.9 mg/dL (8.5-10.1); CREATININE 6.2 mg/dL (0.6-1.3); PHOSPHORUS* 2.8 mg/dL (2.5-4.9); POTASSIUM 4.3 mmol/L (3.5-5.1)
[2017-08-22 05:17] LABS: CALCIUM 9.7 mg/dL (8.5-10.1); CREATININE 6.4 mg/dL (0.6-1.3); MAGNESIUM 1.9 mg/dL (1.8-2.4); POTASSIUM 4.5 mmol/L (3.5-5.1)
--- NOTE | 2017-08-22 06:12 | NUR ---
PATIENT SLEPT PART OF THE NIGHT. PATIENT WAS SUCTIONED ONCE THIS MORNING AND TRACH CARE WAS DONE AND INNER CANNULA WAS CHANGED. PATIENT WAS REPOSTIONED NEEDED PER REQUEST. PATIENT HAD NO COMPLAINTS OF PAIN. WILL CONTINUE TO MONITOR.
[2017-08-22 07:30] VITALS: BP 102/64
--- NOTE | 2017-08-22 16:15 | NUR ---
SURGERY REMOVED TRACH THIS AFTERNOON MEPILEX PLACED OVER STOMA AND CHANGED WOUND VAC DRESSING, SUTURED UP WOUND TO ABD MIDLINE. COLOSTOMY BAG CHANGED THIS SHIFT. DIALYSIS THIS AM. PATIENT REPOSITIONED WITH PILLOWS, REFUSED TURNING. PATIENT TO HAVE DIALYSIS FISTULA PLACED NEXT SATURDAY.
[2017-08-22 16:22] VITALS: BP 91/57
[2017-08-22 20:00] VITALS: BP 116/69
[2017-08-22 23:44] VITALS: BP 114/61
--- NOTE | 2017-08-23 05:06 | NUR ---
PT SLEPT SOUNDLY MOST OF THE NIGHT, COLOSTOMY IN PLACE, DRESSING OVER TRACH SITE, ROOM AIR, ADJUSTED IN BED PER COMFORT, CALL LIGHT IN REACH, CALL LIGHT IN REACH, WILL CONTINUE TO MONITOR
[2017-08-23 07:55] VITALS: BP 106/65
--- NOTE | 2017-08-23 16:14 | NUR ---
PATIENT A&OX4, ROOM AIR, NO IV ACCESS. Q2 TURN. C/O PAIN IN BOTTOM, RELIEF WITH MEDICATION. NO OTHER CONCERNS AT THIS TIME. EATING ORALLY WITH NO ISSUES. APPROPRIATE AND COOPORATIVE WITH CARE.
[2017-08-23 20:00] VITALS: BP 118/67
--- NOTE | 2017-08-24 06:12 | NUR ---
ASSUMED PATIENT CARE AT 1900. PATIENT ALERT AND ORIENTED TIMES FOUR. TRACH SITE COVERED WITH MEPILEX AT THIS TIME. NO IV SITE. WHITTAKER CATH PATENT TO DEPENDENT DRAINAGE. COLOSTOMY SITE PINK AND WELL FORMED. OSTOMY DRAINING WELL. SKIN INTACT. WOUND VAC IN PLACE OVER MIDLINE INCISION. NO COMPLAINTS OF PAIN OR DISCOMFORT NOTED AT THIS TIME. HOURLY ROUNDING AND SALES ASSOCIATE FISHING COMPLETED DOCUMENTED. FALL RISK AND RIGHT ARM PRECAUTIONS IN PLACE.
[2017-08-24 07:30] VITALS: BP 111/75
[2017-08-24 11:36] LABS: ALBUMIN 2.6 g/dL (3.4-5.0); CALCIUM 10.5 mg/dL (8.5-10.1); CREATININE 6.4 mg/dL (0.6-1.3); POTASSIUM 4.3 mmol/L (3.5-5.1); TOTAL BILIRUBIN 0.7 mg/dL (<0.1-1.0)
--- NOTE | 2017-08-24 16:11 | NUR ---
PATIENT A&OX4, ROOM AIR, NO IV ACCESS AT THIS TIME. PATIENT WORKING WITH THERAPY WITH TRANSFERS AND AMBULATION. USING LAISHA LIFT FOR TRANSFERS AT THIS TIME. NO C/O PAIN/N/V. DIALYSIS TODAY, TOOK 1L OFF. NO OTHER CONCERNS AT THIS TIME. APPROPRIATE AND COOPORATIVE WITH CARE.
[2017-08-24 23:31] VITALS: BP 106/64
--- NOTE | 2017-08-25 05:25 | NUR ---
PATIENT SLEPT PART OF THE NIGHT. PATIENT VOICED NO COMPLAINTS OF PAIN. WOUND VAC REMAINS INTACT TO ABDOMEN. PATIENT WAS GIVEN MELATONIN AND BEDADRYL FOR SLEEP. WILL CONTINUE TO MONITOR.
[2017-08-25 07:35] VITALS: BP 119/72
--- NOTE | 2017-08-25 16:07 | NUR ---
PATIENT A&OX4, ROOM AIR, NO IV ACCESS AT THIS TIME. UP WITH THERAPY WITH MAX ASSISTX2-3. NURSING USING LAISHA LIFT FOR TRANSFERS. NO C/O PAIN/N/V. NO OTHER CONCERNS AT THIS TIME. APPROPRAITE AND COOPORATIVE WITH CARE.
[2017-08-25 16:27] VITALS: BP 111/70
[2017-08-26 00:05] VITALS: BP 131/75
--- NOTE | 2017-08-26 06:09 | NUR ---
PATIENT SLEPT MOST OF THE NIGHT. WOUND VAC REMAINS INTACT TO ABDOMEN. PATIENT HAS NO COMPLAINTS OF PAIN. WILL CONTINUE TO MONITOR.
[2017-08-26 08:40] VITALS: BP 107/62
--- NOTE | 2017-08-26 13:52 | NUR ---
SW received message from [employer]'s Jeanie [employer] that was unable to be opened and message was sent back from of issue and asking to relay information differently so we could receive communication. SW called [employer] and left a message on Jeanie's voicemail since she did not answer. SW called [employer] main line again and asked to speak with someone and no one was available so again a message was left requesting a call back. SW to fax updated information to [facility] and [facility] and SW will follow up with their admissions by phone. SW called [facility] and spoke with Veronica in admissions who stated that they do not have any LTC beds available and even if so, referral could not be accepted due to they are unable to accept [place] medicaid, being in [place]. SW to continue to follow to assist with safe dc planning; pending a placement acceptance.
[2017-08-26 16:00] VITALS: BP 125/71
--- NOTE | 2017-08-26 19:27 | NUR ---
PATIENT HAS BEEN A/O X 4 THIS SHIFT. HAS DENIED PAIN. RIGHT TESSIO IN PLACE, RIGHT LIMB ALERT FOR FISTULA CREATION ON SATURDAY. WOUND VAC IN PLACE TO MIDLINE ABDOMEN, NO ALARMS NOTED THIS SHIFT. PATIENT TURNED WHEN ALLOWED, REFUSED TO HAVE HEELS ELEVATED. BATH COMPLETED THIS SHIFT AND ROUTINE SKIN CARE COMPLETED. COLOSTOMY INTACT HAS SOFT, MUSHY STOOL. NO URINE OUTPUT THIS SHIFT. APPETITE FAIR. UPDATED SISTER ON PLAN OF CARE. REMAINS IN CONTACT ISOLATION. HOURLY ROUNDING COMPLETED. CALL LIGHT WITHIN REACH. WILL CONTINUE WITH PLAN OF CARE.
[2017-08-26 23:55] VITALS: BP 115/76
[2017-08-27 00:03] VITALS: BP 115/76
[2017-08-27 04:47] LABS: INR 1.1; PROTIME 10.7 Seconds (9.20-11.50)
[2017-08-27 04:56] LABS: HEMATOCRIT 24.1 % (37.0-47.0); MCH 29.3 pg (26.0-34.0); MCHC 33.1 g/dL (28.0-37.0); MCV 88.4 fL (80.0-100.0); MPV 7.5 fl. (7.2-11.1); RBC 2.73 mil/uL (4.20-5.00); RDW-CV 17.2 % (10.5-14.5); WBC 8.1 thou/uL (4.0-11.0)
[2017-08-27 05:02] LABS: ALBUMIN 2.4 g/dL (3.4-5.0); CALCIUM 10.5 mg/dL (8.5-10.1); POTASSIUM 4.4 mmol/L (3.5-5.1); TOTAL BILIRUBIN 0.7 mg/dL (<0.1-1.0); TOTAL PROTEIN 6.6 g/dL (6.4-8.2)
--- NOTE | 2017-08-27 05:30 | NUR ---
PT SLEPT WELL AFTER RECEIVING HS SLEEP MED. COLOSTOMY WITH MUSHY BROWN STOOL. WOUND VAC ON AND OPERATING TO ABD. R CHEST TESSIO. R LIMB ALERT, TO HAVE AV FISTULA PLACED THIS AFTERNOON. HAS BEEN NPO SINCE MIDNIGHT FOR FISTULA SURGERY. AM LABS DRAWN. LWRIST MICHAEL IV. TO HAVE DIALYSIS THIS MORNING AT BEDSIDE. PT ASSISTED TO TURN AND REPOSITION SHE WOULD ALLOW OVERNIGHT. REMAINS BARIATRIC AIR BED. ABLE TO USE CALL LITE AND MAKE NEEDS KNOWN. REMAINS ON CONTACT ISOLATION FOR VRE.
[2017-08-27 07:25] VITALS: BP 108/69
--- NOTE | 2017-08-27 13:19 | NUR ---
PATIENT TAKEN TO PACU AT THIS TIME VIA BED. CHART SENT WITH PACU PERSONNEL.
[2017-08-27 17:30] VITALS: BP 102/68
--- NOTE | 2017-08-27 18:32 | NUR ---
PATIENT RETURNED FROM SURGERY AT 1730. RIGHT LIMB ALERT REMAINS IN PLACE. PATIENT DENIES PAIN. RIGHT FISTULA SITE ASSESSED WITH RECOVERY NURSE. VITALS STABLE. CAPNO IN PLACE ON ROOM AIR. FAMILY AT [facility]. HAD DIALYSIS THIS AM PRIOR TO SURGERY, REMOVED 700ML OFF. RIGHT TESSIO REMAINS IN PLACE. REMAINS IN CONTACT ISOLATION. CALL LIGHT WITHIN REACH. WILL CONTINUE WITH PLAN OF CARE.
[2017-08-27 20:00] VITALS: BP 108/60
--- NOTE | 2017-08-27 23:00 | NUR ---
ASSUMED CARE OF PT FROM GHAZAL VICK. PT INCONTINET SMALL AMOUNT URINE, AYAN CARE GIVEN AND BARRIER CREAM APPLIED. REPOSITIONED FOR COMFORT. R AV FISTULA WITH +BRUIT THRILL, R ARM ELEVATED ON PILLOW. CAPNO MONITOR ON AND OPERATING WITHOUT ALARM. WOUND VAC ON AND OPERATING TO ABDOMEN. SCDS ON BLE. LWRIST SL IV. PT REQUESTING MELATONIN AND BENADRYL FOR SLEEP. MEPILEX CDI TO TRACH SITE, BUTTOCK AND BACK. ABLE TO USE CALL LITE AND MAKE NEEDS KNOWN. REMAINS ON CONTACT ISOLATION.
[2017-08-28] VITALS: BP 116/72
--- NOTE | 2017-08-28 05:54 | NUR ---
PT SLEPT WELL AFTER SLEEP MEDS. CAPNO ON AND OPERATING, ALARMING FEW TIMES DUE TO CANNULA OUT OF POSITION. R ARM ELEVATED ON PILLOW, AV FISTUAL +_BRUIT THRILL. DENIES NEED FOR PAIN MED. TURNED AND REPOSITIONED PT WOULD ALLOW. WOUND VAC ON AND OPERATING ABD INCISION. CALL LITE IN EASY REACH.
[2017-08-28 07:45] VITALS: BP 116/75
--- NOTE | 2017-08-28 11:13 | NUR ---
MALDONADO followed up with Bonny at [facility] who explained that the guidance adviser is still too concerned about pt care after trach removal even though trach has been removed for a while now and the pt does not have any complications from the removal. MALDONADO questioned how long a pt would need to have trach removed before considering acceptance and Bonny plans to try to find answer. Martha with [facility] also aware of referral and assisting with possible acceptance to [facility]. MALDONADO sent referral info to [facility] to begin process of pt being accepted for dialysis as well. MALDONADO called and spoke with Cathie at [facility] who said that they are still reviewing updated information that MALDONADO sent yesterday and that they would call back with their decision. MALDONADO to continue to follow to assist with safe dc planning/placement.
[2017-08-28 15:14] VITALS: BP 98/56
--- NOTE | 2017-08-28 16:23 | NUR ---
PATIENT WOUND VAC DRESSING CHANGED THIS AM BY SURGERY. PATIENT SAT UP ON SIDE OF BED WITH OT TODAY AND WASHED UP. PATIENT ONLY ABLE TO SIT UP ON SIDE OF BED FOR SHORT PERIOD OF TIME BEFORE BECOMING FATIGUED. DRESSING CHANGED TO OLD TRACH SITE. PATIENT REPOSITIONED WITH PILLOWS UNDER NEFTALI HIPS, PATIENT REFUSES TO TURN SIDE TO SIDE EVERY 2 HOURS. MEPILEX REPLACED TO LEFT SIDE OF BACK.
[2017-08-29] VITALS: BP 102/58
--- NOTE | 2017-08-29 06:29 | NUR ---
PATIENT SLEPT MOST OF THE NIGHT. WOUND VAC REMAINS TO ABDOMEN. PATIENT HAD NO COMPLAINTS OF PAIN. WILL CONTINUE TO MONITOR.
[2017-08-29 07:45] VITALS: BP 89/47
[2017-08-29 09:09] LABS: HEMATOCRIT 24.3 % (37.0-47.0); HEMOGLOBIN 7.7 gm/dL (12.0-15.0)
--- NOTE | 2017-08-29 09:18 | NUR ---
SW spoke with pt sister Yuliet yesterday who confirmed that she received pt's certificate and that she took the certificate by hand to the [employer] last week. [facility] admissions called back and denied the referral again and stated that they would not meet pt needs with recent trach removal and wound vac. SW received call from Nita at [facility] stating that she received email from Tony Mohan stating that they had already denied referral again; SW sent more information to [facility] and noted for [facility] to continue considering referral for dialysis and that SW sources (Martha from [facility]) mentioned that the referral could still be under consideration. Medicaid status continues to be pending. SW to continue to follow to assist with safe dc planning.
[2017-08-29 09:23] LABS: ALBUMIN 2.2 g/dL (3.4-5.0); CALCIUM 8.9 mg/dL (8.5-10.1); MAGNESIUM 1.9 mg/dL (1.8-2.4); PHOSPHORUS* 1.9 mg/dL (2.5-4.9)
[2017-08-29 09:24] LABS: CREATININE 4.9 mg/dL (0.6-1.3)
[2017-08-29 10:34] LABS: % SATURATION 14 % (20-39); IRON 20 ug/dL (50-175)
[2017-08-29 16:02] VITALS: BP 94/37
[2017-08-29 16:11] LABS: eGFR IF AFRICAN AMERICAN 11 (>59)
--- NOTE | 2017-08-29 16:14 | NUR ---
PATIENT HAD DIALYSIS THIS AM. DR. PHAN AWARE OF LOW BP'S THIS SHIFT, NO NEW ORDERS RECEIVED. PATIENT SAT UP IN RECLINER THIS AFTERNOON FOR APPROX AN HOUR THEN REQUESTED TO GO BACK TO BED. PRN VICODIN GIVEN X 1 THIS AM FOR ABD PAIN, GOOD RELIEF NOTED. FAMILY AT BEDSIDE THIS EVENING.
[2017-08-29 18:07] LABS: PARATHYROID HORMONE 80 pg/mL (15-65)
[2017-08-29 23:41] VITALS: BP 101/58
[2017-08-30 09:00] VITALS: BP 101/58
--- NOTE | 2017-08-30 10:54 | NUR ---
Pt Medicaid is now active. MALDONADO called and spoke with Anastasia at [facility] and SW faxed updated information to fax [phone]. Anastasia indicated that since pt does not have IV Abx anymore, trach removed, and wound healing, that pt may not meet LTAC criteria but that Anastasia would still review referral and submit to Medicaid for approval. If Medicaid approves LTAC, then [facility] does have a bed available and Anastasia said that would be a possibility for admission. MALDONADO called and spoke with [facility] admissions, Bonny, who and MALDONADO provided updated information. Bonny said that [facility] still denies referral and that the wet press tender is adamant that she will not approve due to pt level of care needed, wanting trach removed for at least 6 months, wound care, and ming lift needed. [facility] also denied referral again. MALDONADO will continue to follow to assist with safe dc planning and placement pending response from LTAC, MALDONADO will send more referrals to LTCs with dialysis centers nearby if pt deemed able to be transported as needed.
[2017-08-30 16:25] VITALS: BP 96/50
--- NOTE | 2017-08-30 17:32 | NUR ---
ASSUMED CARES OF PT AT 0700. PT IN BED, BED IN LOW AND LOCKED POSITION. CALL BUTTON AND PERSONAL ITEMS IN PT REACH. PT A&O X4, HRRR PER AUSCULTATION, LCTAB, DIMINISHED. HOURLY ROUNDING CONTINUES. WOUND VAC IN PLACE MIDLINE ABDOMENT. PT UP WITH TWO MAX ASSIST/LAISHA LIFT. Q2 TURNS CONTINUE. COLOSTOMY PATENT, SOFT, BROWN BOWEL PRESENT. RIGHT UE FISTULA DEVELOPING, THRILL AND BRUIT PRESENT. HEALING WELL, ROHAN, WELL APPROXIMATED. SKIN PEELING ON FEET AND HANDS, PT PICKS IT OFF. PT PROGRESSING TOWARDS GOAL. WILL CONTINUE TO MONITOR PT STATUS AND PROGRESS. AFEBRILE, PERRLA. PT PRESENTLY IN BED WATCHING TV, UP IN CHAIR 1 1/2 HOURS THIS SHIFT.
--- NOTE | 2017-08-30 17:53 | NUR ---
MALDONADO followed up with Anastasia at [facility] beginning at 9:30 am and throughout the day provided needed updated information for referral. Anastasia and the auth team at [facility] discussed with Medicaid whose nurse reviewer could not automatically authorize and had to send to the [employer]. If peer to peer, MALDONADO provided Dr Foss's name and number for peer to peer call to continue to try to auth LTAC admission. Anastasia reported to SW that this would be Saturday and that they would accept pt and had beds available if Medicaid would approve. Even with the wound and wound vac, they were not certain if pt would meet all the criteria needed for LTAC. SW to continue to follow to assist with safe dc planning and finalizing placement.
[2017-08-30 20:00] VITALS: BP 106/53
--- NOTE | 2017-08-30 20:24 | NUR ---
REPORT TO SUPERVISOR ENGINE REPAIR FOR CONTINUED CARES. PT REMAINS STABLE. HOURLY ROUNDS AND Q2 TURNS COMPLETED. CONTACT PRECAUTIONS REMAIN IN PLACE. PT A&O X4, PRESENTLY WATCHING TV FROM BED. BED IN LOW AND LOCKED POSITION. PT PROGRESSING TOWARDS GOAL. CALL BUTTON AND PERSONAL ITEMS IN PT REACH.
[2017-08-31 07:30] VITALS: BP 121/72
--- NOTE | 2017-08-31 08:03 | NUR ---
NOC UNEVENTFUL PATIENT CONTINUES TOWARDS GOALS OF DISCHARGE UTILIZED CALL LIGHT APPROPRIATLEY WITHOUT S/X OF ACUTE PAIN,SOA, N/V DISTRESS CONTINUES ISOLATION PRECAUTIONS REPORT GIVEN TO ONCOMING RN
--- NOTE | 2017-08-31 16:00 | NUR ---
ASSUMED CARE AT 0730. ALERT ORIENTED X 3. HX OF BOWEL PERFORATION SEPSIS AND WOUND VAC TO MIDLINE INCISION. WOUND VAC FUNCTIONING WELL WITH DRAINAGE NOTED IN CANNISTER. COLOSTOMY PATENT WITH YELLOW SOFT STOOL IN APPLIANCE. HAS BRUITRT. ARM FOR DIALYSIS IT IS NEW. ALSO HAS JUGULAR IV FOR DIALYSIS. WILL HAVE DIALYSIS AT 1830 THIS EVENING. CINDY. REMOVED WOUND VAC THIS 1200 AND REPLACED WITH ABD TO MIDLINE INCISION. PT. TAKES MEDS WITHOUT DIFFICULTY WITH WATER FEEDS SELF WITH SET UP. IN CONTACT ISOLATION FOR HX OF PSEUDOMONAS. USES CALL LIGHT APPROPRIATELY FOR ASSIST. MEDICATED WITH PRN MED THIS AFTERNOON FOR ABDOMINAL PAIN RATES A 5 ON PAIN SCALE.
[2017-08-31 16:13] VITALS: BP 115/51
--- NOTE | 2017-08-31 18:59 | NUR ---
PT. TO DIALYSIS PER BED AT 1855. DRESSING REMAINS DRY AND INTACT ABDOMINAL INCISION. COLOSTOMY EMPTIED X 1 MOD SOFT STOOL YELLOW COLOR.
--- NOTE | 2017-08-31 22:05 | NUR ---
AT SHIFT START PATIENT AT DIALYSIS RECEIVING TREATMENT ASSESSMENT ET MEDICATION MANAGEMENT TO OCCUR UPON RETURN TO UNIT.
[2017-08-31 23:09] VITALS: BP 101/70
--- NOTE | 2017-09-01 04:52 | NUR ---
ASSUMED CARE OF PATIENT AT 1900 THE PATIENT O2 SAT MAINTAINED ON RA CONTINUES TO BE BED REST ABD DRESSING C/D/I OSTOMY IN PLACE ROUTINE ET PRN REGIMEN CONTINUES TO BE EFFECTIVE FOR SX MANAGEMENT RECEIVED PRN HYDROCODONE X 1 THIS SHIFT SAFETY INTERVENTIONS CONTINUE BED LOWERED WHEELS LOCKED CALL LIGHT IN REACH SIDE RAILS UP REPORT TO BE GIVEN TO ONCOMING NAVA
[2017-09-01 09:30] VITALS: BP 107/61
[2017-09-01 15:10] LABS: HEPATITIS B SURFACE AG Negative (Negative)
--- NOTE | 2017-09-01 15:49 | NUR ---
NURSE WENT IN TO CHANGE PT DRESSING ON ABDOMIN AND FOUND ABDOMIN WOUND TO BE , SURTURES STRETCHED. SURGERY/DR. MARC CALLED, STATED IT WAS THAT WAY WHEN SHE CAME IN [place]ARLY THIS MORNING AND TO DRESS IT WET TO DRY LOOSLY AND APPLY NEW ABD PAD WITH PAPER TAPE. PICTURES WERE TAKEN. FAMILY EXPRESSED CONCERN ABOUT TRANSFER OF PT, LOCATION, FACILITY AND TIME OF TRANSFER. CASE MANAGEMENT TO BE NOTIFIED OF FAMILY CONCERNS PERTAINING TO D/C POSSIBLY TOMORROW.
[2017-09-01 16:07] VITALS: BP 110/53
--- NOTE | 2017-09-01 20:15 | NUR ---
ASSUMED CARES OF PT AT 0700. PT IN BED, BED IN LOW LOCKED POSITION. FALL PRECAUTIONS IN PLACE. CALL BUTTON AND PERSONAL ITEMS IN PT REACH. PT A&O X3, OCC. CONFUSED. HRRR PER AUSCULTATION, LCTAB, VSS ON RA. COLOSTOMY PATENT WITH PASTY ORANGE BROWN BOWEL, OUTPUT WNL. OLIGURIA, DIALYSIS PT WITH NEW RUE AV FISTULA DEVELOPING, BRUIT AND THRILL PRESENT. HOURLY ROUNDING AND Q2 TURNS COMPLETED. LEFT WRIST IV PATENT TO FLUSH, SALINE LOCKED. RIGHT SUBCLAVIAN LINE FOR DIALYSIS IN PLACE. AFEBRILE, PERRLA. PT PROGRESSING TOWARDS GOAL, POSSIBLE D/C TOMORROW TO LTC PENDING INSURANCE. REPORT TO SECURITY INCIDENT RESPONSE ENGINEER FOR CONTINUED CARES. WOUND PICTURES TAKEN AND DRESSINGS CHANGED. SURGERY NOTIFIED ABOUT PT ABD WOUND AND SUTURES STRETCHED. SURGERY CONSULT STATED THEY SAW ABDOMEN THIS MORNING AND JUST TO PLACE A WET TO DRY DRESSING IN PLACE W/O REMOVING SUTURES, LEAVE WHAT IS THERE IN PLACE AND COVER WITH A ABD PAD AND PAPER TAPE.
[2017-09-01 20:45] VITALS: BP 115/75
--- NOTE | 2017-09-02 05:51 | NUR ---
PT SLEPT ON AND OFF THIS SHIFT. ASSESSMENT DOCUMENTED. MEDS GIVEN PER E-AUG. IV PATENT. DRESSING ON ABD CHANGED 2X THIS SHIFT. DRESSING ON COCCYX CHANGED THIS SHIFT. NO REPORTS OF PAIN. PT REPOSTIONED A COUPLE TIMES THIS SHIFT. PT BATHED TONIGHT. WILL CONTINUE WITH PLAN OF CARE.
--- NOTE | 2017-09-02 14:29 | NUR ---
MALDONADO received call from Anastasia at [facility] requesting updated information to which MALDONADO faxed information. Anastasia accepted referral and stated that Medicaid approved pt for LTAC. Anastasia sent message to MALDONADO that pt can be accepted anytime after 3:00 and that pt will be in room 306. MALDONADO informed nursing to call report to [phone]. MALDONADO called pt sister and provided specific information regarding dc today and she is in agreement with plan as well as pt. MALDONADO completed transfer form and ambulance form and placed originals in chart; copies ready to go with the pt. Chart was copied and to go with pt to [facility].
[2017-09-02] MEDS ORDERED: ARTIFICIAL TEAR15 M1 OPHTHALMIC (14:54)
[2017-09-02] MEDS ORDERED: ASPIR 8181 MG PO (14:55)
[2017-09-02] MEDS ORDERED: DULCOLAX5 MG PO (14:56)
[2017-09-02] MEDS ORDERED: CEFAZOLIN2 GM/1001 IV (14:58)
[2017-09-02] MEDS ORDERED: BENADRYL25 MG PO (14:59)
[2017-09-02] MEDS ORDERED: COLACE100 MG PO (15:01)
[2017-09-02] MEDS ORDERED: DUONEB 2.5-0.5 M3 ML INH ×2 (15:03→15:04)
[2017-09-02] MEDS ORDERED: EPOGEN10000 UNIT SUBQ (15:06)
[2017-09-02] MEDS ORDERED: GLUCAGON HCL1 MG IM (15:07)
[2017-09-02] MEDS ORDERED: GLUCOSE BITS1 GM PO (15:09)
[2017-09-02] MEDS ORDERED: GLUCOSE GEL38 GM PO (15:12)
[2017-09-02] MEDS ORDERED: HEPARIN SO5000 UNIT4 SUBQ (15:14)
[2017-09-02] MEDS ORDERED: NORCO 5-325 TA1 EACH PO (15:15)
[2017-09-02] MEDS ORDERED: MELATONIN5 M1 PO (15:16)
[2017-09-02] MEDS ORDERED: MIRALAX17 GM PO ×2 (15:17)
[2017-09-02] MEDS ORDERED: NEPHROCAPS SOFT1 CAP PO (15:19)
[2017-09-02] MEDS ORDERED: MIDODRINE HCL 55 M1 PO (15:23)
[2017-09-02] MEDS ORDERED: PHENERGAN 25 MG25 M1 PO (15:25)
[2017-09-02] MEDS ORDERED: PROMETHAZINE/C118 ML PO (15:27)
[2017-09-02] MEDS ORDERED: ROBITUSSIN100 MG/53 PO (15:28)
[2017-09-02] MEDS ORDERED: TUMS PO (15:29)
[2017-09-02] MEDS ORDERED: TYLENOL325 MG PO (15:31)
[2017-09-02] MEDS ORDERED: B12INJ IM (15:32)
[2017-09-02] MEDS ORDERED: VITAMIN D1000 UNI1 PO (15:33)
[2017-09-02] MEDS ORDERED: ZINC CHELATE50 MG PO (15:34)
[2017-09-02] MEDS ORDERED: ONDANSETRON HCL4 M2 IV (15:35)
[2017-09-02 15:37] VITALS: BP 115/75
--- NOTE | 2017-09-02 18:48 | NUR ---
RESUMED CARE THIS AM. MEDS AND CARES PROVIDED, COMPLIANT WITH CARE. DISCOMFORT MANAGED WELL WITH MEDICATION/REPOSITIONING. PATIENT UP TO CHAIR FOR LUNCH, WORKED MINIMALLY WITH THERAPY. DISCHARGE CONFIRMED WITH CASE MANAGEMENT AND PHYSICIAN, PATIENT DISCHARGED THIS AFTERNOON TO [facility]. PATIENT LEFT VIA GURNEY UNDER CARE OF [facility] PARAMEDICS, REPORT GIVEN TO RECEIVING NURSE.
--- NOTE | 2017-09-04 08:58 | OP ---
[address] [address] OPERATIVE REPORT Name: WALLY HAYES Room: [address]#: [id number] Admission: 06/09/17 Attend Phys: Al Francisco, Discharge: 09/02/17 Date of : 69 Report #: [id number] THIS REPORT FOR: //name// CC: VALERIANO physician/PCP Al Francisco DATE OF SERVICE: 08/27/2017 PREOPERATIVE DIAGNOSIS: Acute renal failure requiring hemodialysis, transition to ____ end-stage renal disease and permanent dialysis. POSTOPERATIVE DIAGNOSIS: Acute renal failure requiring hemodialysis transition to ____ end-stage renal disease and permanent dialysis. OPERATION: Creation of right brachiocephalic arteriovenous fistula. SURGEON: Robin Perez DO SQL DATA ARCHITECT: None. ANESTHESIA: LMA. ESTIMATED BLOOD LOSS: 25 mL. FLUIDS: 300 crystalloid. URINE OUTPUT: None. SPECIMENS: None. COMPLICATIONS: None. FINDINGS: The right cephalic vein at the elbow was noted to be small, dilated up to 3 mm with coronary dilators. The right brachial artery was small as well, probably 3-1/2 to 4 mm in diameter. She had radial and ulnar artery Doppler signals that augmented with fistula compression now. CLINICAL HISTORY: The patient is a 52-year-old woman who underwent repair of a perforated diverticulitis. She had a complicated hospital course. She had acute kidney injury with ATN and this progressed to end-stage renal disease. She has recovered from. She is currently dialyzing through a tunneled dialysis catheter, is in need of a long-term access. Vein mapping suggested, the right cephalic vein was marginal, but the best option was for autogenous access. DESCRIPTION OF PROCEDURE: After informed consent was obtained, the patient was taken to the operating room and placed on the OR [place] [address] OPERATIVE REPORT Name: FREDDYWALLY Mary Kc Room: [address]#: [id number] Admission: 06/09/17 Attend Phys: Al Francisco, Discharge: 09/02/17 Date of : 69 Report #: [id number] was administered LMA anesthesia by the Anesthesia team. Right upper extremity was prepped and draped in the usual sterile fashion. Full timeout was performed identifying correct patient and procedure. Next, a transverse incision was made just proximal and antecubital fossa after infiltrating the skin and subcutaneous tissues with local anesthetic. Dissection was carried down through skin and subcutaneous tissues, both sharply and with electrocautery. Cephalic vein was identified and circumferentially mobilized and controlled with Silastic vessel loop. I then dissected out the brachial artery and controlled this circumferentially proximally and distally with Silastic vessel loops in Apple fashion. I then administered 6000 units of intravenous heparin, this was allowed to circulate for 3 minutes. I then occluded the brachial artery proximally and distally, made an arteriotomy with an 11 blade and extended with Apple scissors. I transected the cephalic veins distally, ligated the stump with a 2-0 silk tie. I then tailored the vein curry, flushed the vein with heparinized saline and marked to prevent axial rotation. I then serially dilated and only dilated up to 3 mm with the coronary dilator. I then performed end-to-side anastomosis with running 7-0 Prolene suture. Prior to completion of the suture line, the artery was allowed to fore and backbleed. I then flushed the anastomosis with heparinized saline, completed the suture line and restored flow, first up the fistula and then distally to the hand. She really had no appreciable radial and ulnar artery Doppler signals, but it became multiphasic with fistula compression. I was concerned she may have ____. I was also concerned that the vein small may not mature as well as with the brachial artery being small, I am not sure this will mature into a good working access for. At this point, I then partially reversed the heparin with 30 mg protamine. Once hemostasis was ensured, the wound was closed in layers. It was cleansed with antibiotic solution and then closed in layers with 3-0 Vicryl and 4-0 Monocryl on skin and Dermabond was applied. All sponge, sharp and instrument counts reported correct x 2. She tolerated the procedure well and was transferred back to recovery room in stable condition. <ELECTRONICALLY SIGNED> By: Rod Colmenares DO 09/04/17 0858 [id number] Perez DO /nt
--- NOTE | 2017-10-03 15:28 | CON ---
[address] [address] CONSULTATION Name: WALLY HAYES Room: [address]#: [id number] Admission: 06/09/17 Attend Phys: Al Francisco, Discharge: 09/02/17 Date of : 69 Report #: [id number] THIS REPORT FOR: //name// CC: VALERIANO physician/PCP Al Francisco DATE OF SERVICE: 06/09/2017 REQUESTING PHYSICIAN: Al Francisco MD REASON FOR CONSULTATION: Acute kidney injury. HISTORY OF PRESENT ILLNESS: The patient is a 51-year-old female who presents to the hospital with complaints of abdominal pain. Pain was located in the left lower quadrant that started approximately 3 days prior to admission. She apparently was at [facility] and was discharged 3 days ago. When she came to [facility], she had vomiting, diarrhea, and back pain. She was diagnosed with acute abdomen and was taken to the OR and had perforated bowel. She underwent exploratory laparotomy, Hima's procedure, extensive LENY, abdominal wash out, sigmoid colon resection, and end colostomy associated with perforated diverticulitis. Now, she is in intensive care unit, anuric, and her potassium is going up at 6.2, creatinine is 6.6. Again she is anuric and she will need to be on dialysis. PAST MEDICAL HISTORY: Includes morbid obesity and uncontrolled hypertension. SOCIAL HISTORY: No current tobacco or alcohol abuse. FAMILY HISTORY: Noncontributory. REVIEW OF SYSTEMS: The patient had abdominal pain as described earlier, diarrhea, vomiting. Now she is intubated and sedated in intensive care unit. PHYSICAL EXAMINATION: GENERAL: She is in intensive care unit intubated and sedated. She is on 2 pressors. VITAL SIGNS: Her blood pressure was as low as 69/49 yesterday, now is 114/73, heart rate is 82, temperature 36.7 Celsius. HEENT: Pupils round. NECK: Fatty. LUNGS: Decreased air movements, but no crackles from anterior. CARDIOVASCULAR: Regular rate. ABDOMEN: Distended. Drainage is in place. Colostomy bag in place. LOWER EXTREMITIES: +1 [place] [address] CONSULTATION Name: WALLY HAYES Room: [address]#: [id number] Admission: 06/09/17 Attend Phys: Al Francisco, Discharge: 09/02/17 Date of : 69 Report #: [id number] LABORATORY DATA: Serum sodium 132, potassium 5.1, chloride 101, carbon dioxide 17. BUN 49, creatinine 6.9, glucose is 115, her albumin is 1.4. Calcium level 7.2 with adjusted one is normal. Hemoglobin is 11.1, white count 16.5. ASSESSMENT: A 51-year-old female with perforated diverticulitis, peritonitis, acute kidney injury. The patient is also hyperkalemic, anuric, acidotic. PLAN: Emergent dialysis. We are trying to get dialysis line placed and as soon as it is accomplished, the patient will be started on TURBINE ENGINEER. Thank you very much for asking my opinion on acute kidney injury. <ELECTRONICALLY SIGNED> By: Ramon Payan MD 10/03/17 [phone] [id number] Payan MD /nt
== END 2017-09-02 16:00 | DRG 3 ==
LOC: M.ERS 04:22 → M.TBA-ER 09:00 → M.3W 09:00 → M.ICU 09:00 → M.ORTHSURG 10:02 → M.ICU 12:23 → M.2W 07-25 23:41 → M.3W 07-29 17:07
PROVIDERS: Emergency Medicine; Internal Medicine; Internal Medicine Critical Care Medicine; Internal Medicine Hematology & Oncology; Internal Medicine Infectious Disease; Internal Medicine Nephrology; Internal Medicine Pulmonary Disease; Psychiatry & Neurology Neuromuscular Medicine; Registered Nurse; Specialist; Surgery; ADMIT Family Medicine
PROC: 0DTN0ZZ Resection of Sigmoid Colon, Open Approach (ICD-10-PCS; principal; 2017-06-09)
PROC: B548ZZA Ultrasonography of Superior Vena Cava, Guidance (ICD-10-PCS; 2017-06-09)
PROC: 02HV33Z Insertion of Infusion Device into Superior Vena Cava, Percutaneous Approach (ICD-10-PCS; 2017-06-09)
PROC: 5A1955Z Respiratory Ventilation, Greater than 96 Consecutive Hours (ICD-10-PCS; 2017-06-09)
PROC: 0D1L0Z4 Bypass Transverse Colon to Cutaneous, Open Approach (ICD-10-PCS; 2017-06-09)
PROC: 05HN33Z Insertion of Infusion Device into Left Internal Jugular Vein, Percutaneous Approach (ICD-10-PCS; 2017-06-10)
PROC: B544ZZA Ultrasonography of Left Jugular Veins, Guidance (ICD-10-PCS; 2017-06-10)
PROC: 5A1D90Z Performance of Urinary Filtration, Continuous, Greater than 18 hours Per Day (ICD-10-PCS; 2017-06-10)
PROC: 30243N1 Transfusion of Nonautologous Red Blood Cells into Central Vein, Percutaneous Approach (ICD-10-PCS; 2017-06-11)
PROC: 0WJP0ZZ Inspection of Gastrointestinal Tract, Open Approach (ICD-10-PCS; 2017-06-12)
PROC: 5A1D90Z Performance of Urinary Filtration, Continuous, Greater than 18 hours Per Day (ICD-10-PCS; 2017-06-12)
PROC: 5A1D90Z Performance of Urinary Filtration, Continuous, Greater than 18 hours Per Day (ICD-10-PCS; 2017-06-13)
PROC: 5A1D90Z Performance of Urinary Filtration, Continuous, Greater than 18 hours Per Day (ICD-10-PCS; 2017-06-16)
PROC: 0WUF0JZ Supplement Abdominal Wall with Synthetic Substitute, Open Approach (ICD-10-PCS; 2017-06-18)
PROC: 3E1M38Z Irrigation of Peritoneal Cavity using Irrigating Substance, Percutaneous Approach (ICD-10-PCS; 2017-06-18)
PROC: B5181ZA Fluoroscopy of Superior Vena Cava using Low Osmolar Contrast, Guidance (ICD-10-PCS; 2017-06-22)
PROC: 02PYX3Z Removal of Infusion Device from Great Vessel, External Approach (ICD-10-PCS; 2017-06-22)
PROC: 02HV33Z Insertion of Infusion Device into Superior Vena Cava, Percutaneous Approach (ICD-10-PCS; 2017-06-22)
PROC: 02PYX3Z Removal of Infusion Device from Great Vessel, External Approach (ICD-10-PCS; 2017-06-25)
PROC: B5181ZA Fluoroscopy of Superior Vena Cava using Low Osmolar Contrast, Guidance (ICD-10-PCS; 2017-06-25)
PROC: 02HV33Z Insertion of Infusion Device into Superior Vena Cava, Percutaneous Approach (ICD-10-PCS; 2017-06-25)
PROC: 5A1D70Z Performance of Urinary Filtration, Intermittent, Less than 6 Hours Per Day (ICD-10-PCS; 2017-06-25)
PROC: 0B110F4 Bypass Trachea to Cutaneous with Tracheostomy Device, Open Approach (ICD-10-PCS; 2017-06-26)
PROC: 5A1D70Z Performance of Urinary Filtration, Intermittent, Less than 6 Hours Per Day (ICD-10-PCS; 2017-07-03)
PROC: 5A1D70Z Performance of Urinary Filtration, Intermittent, Less than 6 Hours Per Day (ICD-10-PCS; 2017-07-04)
PROC: 5A1D70Z Performance of Urinary Filtration, Intermittent, Less than 6 Hours Per Day (ICD-10-PCS; 2017-07-04)
PROC: B548ZZA Ultrasonography of Superior Vena Cava, Guidance (ICD-10-PCS; 2017-07-05)
PROC: B5181ZA Fluoroscopy of Superior Vena Cava using Low Osmolar Contrast, Guidance (ICD-10-PCS; 2017-07-05)
PROC: 02HV33Z Insertion of Infusion Device into Superior Vena Cava, Percutaneous Approach (ICD-10-PCS; 2017-07-05)
PROC: 5A1D70Z Performance of Urinary Filtration, Intermittent, Less than 6 Hours Per Day (ICD-10-PCS; 2017-07-05)
PROC: 5A1D70Z Performance of Urinary Filtration, Intermittent, Less than 6 Hours Per Day (ICD-10-PCS; 2017-07-10)
PROC: 5A1D70Z Performance of Urinary Filtration, Intermittent, Less than 6 Hours Per Day (ICD-10-PCS; 2017-07-18)
PROC: 5A1D70Z Performance of Urinary Filtration, Intermittent, Less than 6 Hours Per Day (ICD-10-PCS; 2017-07-23)
PROC: 5A1D70Z Performance of Urinary Filtration, Intermittent, Less than 6 Hours Per Day (ICD-10-PCS; 2017-07-25)
PROC: 5A1D70Z Performance of Urinary Filtration, Intermittent, Less than 6 Hours Per Day (ICD-10-PCS; 2017-07-26)
PROC: 5A1D70Z Performance of Urinary Filtration, Intermittent, Less than 6 Hours Per Day (ICD-10-PCS; 2017-07-27)
PROC: 5A1D70Z Performance of Urinary Filtration, Intermittent, Less than 6 Hours Per Day (ICD-10-PCS; 2017-08-01)
PROC: 5A1D70Z Performance of Urinary Filtration, Intermittent, Less than 6 Hours Per Day (ICD-10-PCS; 2017-08-06)
PROC: 5A1D70Z Performance of Urinary Filtration, Intermittent, Less than 6 Hours Per Day (ICD-10-PCS; 2017-08-08)
PROC: 5A1D70Z Performance of Urinary Filtration, Intermittent, Less than 6 Hours Per Day (ICD-10-PCS; 2017-08-13)
PROC: 5A1D70Z Performance of Urinary Filtration, Intermittent, Less than 6 Hours Per Day (ICD-10-PCS; 2017-08-15)
PROC: 5A1D70Z Performance of Urinary Filtration, Intermittent, Less than 6 Hours Per Day (ICD-10-PCS; 2017-08-17)
PROC: 5A1D70Z Performance of Urinary Filtration, Intermittent, Less than 6 Hours Per Day (ICD-10-PCS; 2017-08-20)
PROC: 5A1D70Z Performance of Urinary Filtration, Intermittent, Less than 6 Hours Per Day (ICD-10-PCS; 2017-08-20)
PROC: 5A1D70Z Performance of Urinary Filtration, Intermittent, Less than 6 Hours Per Day (ICD-10-PCS; 2017-08-22)
PROC: 03170ZD Bypass Right Brachial Artery to Upper Arm Vein, Open Approach (ICD-10-PCS; 2017-08-27)
PROC: 5A1D70Z Performance of Urinary Filtration, Intermittent, Less than 6 Hours Per Day (ICD-10-PCS; 2017-08-27)
PROC: 5A1D70Z Performance of Urinary Filtration, Intermittent, Less than 6 Hours Per Day (ICD-10-PCS; 2017-08-29)
DX: A41.50 Gram-negative sepsis, unspecified (principal); R65.21 Severe sepsis with septic shock; N17.0 Acute kidney failure with tubular necrosis; K72.00 Acute and subacute hepatic failure without coma; E43 Unspecified severe protein-calorie malnutrition; J96.21 Acute and chronic respiratory failure with hypoxia; G93.40 Encephalopathy, unspecified; J95.821 Acute postprocedural respiratory failure; J15.6 Pneumonia due to other Gram-negative bacteria; N18.6 End stage renal disease; K57.20 Diverticulitis of large intestine with perforation and abscess without bleeding; D58.9 Hereditary hemolytic anemia, unspecified; Z68.43 Body mass index [BMI] 50.0-59.9, adult; K56.609 Unspecified intestinal obstruction, unspecified as to partial versus complete obstruction; D74.9 Methemoglobinemia, unspecified; K56.7 Ileus, unspecified; N39.0 Urinary tract infection, site not specified; T81.30XA Disruption of wound, unspecified, initial encounter; T82.41XA Breakdown (mechanical) of vascular dialysis catheter, initial encounter; E87.1 Hypo-osmolality and hyponatremia; I12.0 Hypertensive chronic kidney disease with stage 5 chronic kidney disease or end stage renal disease; N25.81 Secondary hyperparathyroidism of renal origin; E87.5 Hyperkalemia; E66.01 Morbid (severe) obesity due to excess calories; T50.995A Adverse effect of other drugs, medicaments and biological substances, initial encounter; Y92.89 Other specified places as the place of occurrence of the external cause; E83.51 Hypocalcemia; E83.42 Hypomagnesemia; D72.823 Leukemoid reaction; E83.39 Other disorders of phosphorus metabolism; D69.6 Thrombocytopenia, unspecified; B96.5 Pseudomonas (aeruginosa) (mallei) (pseudomallei) as the cause of diseases classified elsewhere; Z16.30 Resistance to unspecified antimicrobial drugs; Y83.8 Other surgical procedures as the cause of abnormal reaction of the patient, or of later complication, without mention of misadventure at the time of the procedure; J32.9 Chronic sinusitis, unspecified; B37.9 Candidiasis, unspecified; Z82.49 Family history of ischemic heart disease and other diseases of the circulatory system; R13.10 Dysphagia, unspecified; J40 Bronchitis, not specified as acute or chronic

== ENCOUNTER 2019-03-12 08:47 | Inpatient (IN) | payer MEDICAID ==
[~2019-03-12] VITALS: Ht 149.9 cm; Wt 97.1 kg
--- NOTE | ~2019-03-12 | CON ---
[address] [address] CONSULTATION Name: WALLY HAYES Room: [address] IN [facility]#: [id number] Admission: 03/12/19 Attend Phys: Kunal Karimi Discharge: Date of : 69 Report #: [id number] THIS REPORT FOR: //name// CC: VALERIANO physician/PCP Jimmy Foss DATE OF SERVICE: 03/13/2019 NEPHROLOGY CONSULTATION REFERRING PHYSICIAN: Jimmy Foss DO REASON FOR NEPHROLOGY CONSULTATION: End-stage renal disease for maintenance hemodialysis. REASON FOR ADMISSION: Left lower quadrant abdominal pain, history of parastomal hernia. HISTORY OF PRESENT ILLNESS: This is a 53-year-old female with past medical history of end-stage renal disease, on hemodialysis every Saturday, and Saturday, missed her dialysis yesterday, history of diverticulitis with history of septal perforation and colostomy in 2017, who came in with left lower quadrant abdominal pain. She came to the ER. She did not go for her dialysis. Not reporting any nausea, vomiting, diarrhea or dysuria. She still makes urine. She goes to [facility] under the care of Dr. Wright. Her pain is improving. Abdominal CT scan did not reveal any obstruction. Surgery is following her. She is getting antibiotics for enteritis. ALLERGIES: No known allergies. REVIEW OF SYSTEMS: As mentioned in history of present illness, otherwise 10-point review of systems is negative. HOME MEDICATIONS: Include aspirin, bisacodyl, B complex, calcium carbonate, vitamin B12, cholecalciferol. PAST MEDICAL AND SURGICAL HISTORY: Hypertension; end-stage renal disease, on hemodialysis every Saturday, and Saturday; history of colostomy; diverticulitis; right foot drop; left ovarian cyst removal. FAMILY HISTORY: Mom had history of hypertension and stroke and decreased kidney function. SOCIAL HISTORY: She does not smoke or take alcohol or use illicit drugs. PHYSICAL EXAMINATION: [place] [address] CONSULTATION Name: WALLY HAYES Room: [address]#: [id number] Admission: 03/12/19 Attend Phys: Kunal Karimi Discharge: Date of : 69 Report #: [id number] VITAL SIGNS: Blood pressure is 148/85, temperature 36.8, pulse rate 74, respiratory rate 18 and pulse ox she is on room air saturating at 99%. GENERAL: She is in her bed lying down comfortably, awake, alert, oriented x 3. HEENT: Atraumatic, normocephalic and normal conjunctivae. Ears, nose, and throat: Mucous membranes are moist. NECK: There is no JVD. CHEST: Bilaterally clear to auscultation anteriorly. No crackles or wheezing. CARDIOVASCULAR: S1, S2 normal. No murmurs or rubs. ABDOMEN: Soft, nondistended and she has a colostomy present with stool in it in mostly left lower quadrant. EXTREMITIES: There is no edema. DIALYSIS ACCESS: She has a left arm AV graft with good bruit. NEUROLOGICAL FUNCTION: Generalized weakness, but otherwise gross neurological function is intact. PSYCHIATRIC: Mood seems to be normal. LABORATORY DATA: Hemoglobin 11.1, sodium is 139, potassium is 4.2. Other labs were reviewed. IMAGING: Abdominal pelvic CT scan and chest x-ray were reviewed. ASSESSMENT: 1. End-stage renal disease, on hemodialysis every Saturday, and Saturday, missed dialysis on . 2. Left lower quadrant abdominal pain and history of parastomal hernia and ventral hernia, being treated for enteritis right now, Surgery and primary team following. We will defer to them. 3. History of gallstones. 4. Anemia of chronic kidney disease. PLAN: 1. Since she missed her dialysis yesterday, we will dialysis today and again tomorrow. 2. Hemoglobin is currently at goal. There is no need for Epogen. 2. Antibiotic treatment for enteritis as per primary team. Thank you for this consultation. We will continue to follow for dialysis needs. By: [id number] Song MD /nt
[~2019-03-12 08:47] MED LIST: ANTACID325 MG; ARTIFICIAL TEAR15 M1 OPHTHALMIC; ASPIR 8181 MG PO; B12INJ IM; BENADRYL25 MG PO; CARVEDILOL12.5 MG; CEFAZOLIN2 GM/1001 IV; COLACE100 MG PO; DULCOLAX5 MG PO; DUONEB 2.5-0.5 M3 ML INH; EPOGEN10000 UNIT SUBQ; GLUCAGON HCL1 MG IM; GLUCOSE BITS1 GM PO; GLUCOSE GEL38 GM PO; HEPARIN SO5000 UNIT4 SUBQ; LIPITOR10 MG; MELATONIN5 M1 PO; MIDODRINE HCL 55 M1 PO; MIRALAX17 GM PO; NEPHROCAPS SOFT1 CAP PO; NORCO 5-325 TA1 EACH PO; NORVASC2.5 MG; ONDANSETRON HCL4 M2 IV; PHENERGAN 25 MG25 M1 PO; PROMETHAZINE/C118 ML PO; ROBITUSSIN100 MG/53 PO; TUMS PO; TYLENOL325 MG PO; VITAMIN D1000 UNI1; VITAMIN D1000 UNI1 PO; ZINC CHELATE50 MG PO
[2019-03-12 08:57] VITALS: BP 131/89
[2019-03-12] MEDS ORDERED: [UNRECOGNIZED DRUG - OTHER] (09:06)
[2019-03-12 09:38] LABS: HEMATOCRIT 32.5 % (37.0-47.0); HEMOGLOBIN 11.1 gm/dL (12.0-15.0); MCH 31.3 pg (26.0-34.0); MCHC 34.1 g/dL (28.0-37.0); MCV 91.8 fL (80.0-100.0); MPV 8.9 fl. (7.2-11.1); NUCLEATED RBCS 0 /100WBC; PLATELET COUNT* 218 thou/uL (150-400); RBC 3.54 mil/uL (4.20-5.00); RDW-CV 16.5 % (10.5-14.5); WBC 9.8 thou/uL (4.0-11.0)
[2019-03-12 09:41] LABS: ANION GAP 13 mmol/L (7-16); BUN 43 mg/dL (7-18); CALCIUM 9.3 mg/dL (8.5-10.1); CHLORIDE 98 mmol/L (98-107); CO2 28 mmol/L (21-32); CREATININE 11.8 mg/dL (0.6-1.3); GLUCOSE 92 mg/dL (70-99); POTASSIUM 4.2 mmol/L (3.5-5.1); SODIUM 139 mmol/L (136-145)
[2019-03-12 09:51] LABS: ALBUMIN 3.5 g/dL (3.4-5.0); ALKALINE PHOSPHATASE 112 U/L (46-116); NT-PRO BRAIN NAT PEPTIDE 963 pg/mL (<300); SGOT 10 U/L (15-37); SGPT 18 U/L (30-65); TOTAL BILIRUBIN 0.5 mg/dL (<0.1-1.0); TOTAL PROTEIN 7.3 g/dL (6.4-8.2); TROPONIN-I LEVEL <0.06 ng/mL (<0.06)
--- NOTE | 2019-03-12 09:59 | NUR ---
LIMB ALERT PLACED ON PATIENT'S LEFT ARM SHE HAS A FISTULA PLACED FOR DIALYSIS.
[2019-03-12 10:05] LABS: ABSOLUTE LYMPHOCYTES 2.5 thou/uL (0.8-5.3); ABSOLUTE MONOCYTES 0.2 thou/uL (0.0-1.2); ABSOLUTE NEUTROPHILS 7.2 thou/uL (1.6-8.1); PLATELET ESTIMATE ADEQUATE
--- NOTE | 2019-03-12 10:12 | NUR ---
KRISTEN NOTIFIED UPON PT RETURN FROM CT. PT CONNECTED TO WIRELESS TEAM MEMBER SHE WAS PRIOR TO GOING TO CT.
[2019-03-12 15:20] VITALS: BP 125/69
[2019-03-12 17:56] VITALS: BP 127/81
--- NOTE | 2019-03-12 18:05 | NUR ---
ADMISSION: 53 Y/O FEMALE ADMITTED TO 108 FROM ER PER CART W/ ER STAFF PRESENT. PATIENT REPORTS THAT LLQ PAIN STARTED LAST NOC AND HAS NOT GOTTEN ANY BETTER. STATES THAT THIS IS NEW PAIN FOR HER. COLOSTOMY NOTED WNL, SOFT BROWN STOOL NOTED IN OSTOMY BAG. IV CATH SITE NOTED WNL, 20GA SL TO RT HAND. PATIENT PLEASANT AND COOPERATIVE W/ ASSESS AND CARES. ORIENTED TO AND CALL LIGHT, POC REVIEWED. PATIENT STATES MISSING DIALYSIS TODAY. DIALYSIS SHUNT NOTED IN UPPER LEFT ARM, NOTED WNL, +BRUIT NOTED. PATIENT STATES LAST MEAL WAS 8PM LAST NOC. PATIENT STATES SHE URINATES TWICE DAILY. PATIENT STATES DIALYSIS DAYS ARE TUES, THURS, SAT. RESTING IN BED CURRENTLY, CALL LIGHT IN REACH. TV REMOTE IN HAND. DENIES NURSING NEEDS AT THIS TIME. STATES ABD PAIN 5/10, DENIES NEEDS FOR PHARM PAIN INTERVENTION. ~TJRN
--- NOTE | 2019-03-12 18:06 | EKG ---
[place] [address] ELECTROCARDIOGRAM REPORT Name: WALLY HAYES Room: [place] [address] ADM IN [facility]#: [id number] Admission: 03/12/19 Attend Phys: Kunal Karimi Discharge: Date of : 69 Report #: [id number] THIS REPORT FOR: //name// [facility] ED Test Date: 2019-03-12 Test Time: 09:50:17 Pat Name: WALLY HAYES Department: Room: [facility] Gender: F Adult Remedial Education Instructor: BRIGIDA : 1965 Requested By: Cristina Bills Order Number: [id number] MD: Vito Grove Measurements Intervals [place] Rate: 72 P: 22 [place]: 168 QRS: -16 QRSD: 90 T: 142 QT: 430 QTc: 471 Interpretive Statements Sinus rhythm Probable LVH with secondary repol abnrm Compared to ECG 08/15/2017 12:18:00 Sinus tachycardia no longer present Intraventricular conduction delay no longer present Electronically Signed On 03-12-2019 18:05:55 CDT by Vito Grove [email or web address] <ELECTRONICALLY SIGNED> By: Dennis Grove MD, [facility] 03/12/19 1805 0950 0950 Dennis Grove MD, [facility] /EPI
[2019-03-12 19:50] VITALS: BP 155/85
[2019-03-13 03:28] LABS: URINE BILIRUBIN NEGATIVE (Negative); URINE BLOOD TRACE (Negative); URINE CLARITY CLEAR; URINE COLOR YELLOW; URINE GLUCOSE-RANDOM NEGATIVE (Negative); URINE KETONES NEGATIVE (Negative); URINE LEUKOCYTES-REFLEX NEGATIVE (Negative); URINE NITRITE-REFLEX NEGATIVE (Negative); URINE PROTEIN 2+ (Negative); URINE UROBILINOGEN 0.2 E.U./dl (0.2-1.0)
[2019-03-13 04:10] LABS: SQUAMOUS >10 Many /LPF (0-3); TRANSITIONAL EPITHEL CELL 0-3 Few /LPF (None Seen); URINE WBC-REFLEX 6-15 Few /HPF (0-5)
[2019-03-13 04:11] LABS: BACTERIA-REFLEX >30 Many /HPF (None Seen); MUCUS 4-6 Moderate strn/LPF (None Seen)
[2019-03-13 04:16] LABS: CASTS None Seen /LPF (None Seen); CRYSTALS None Seen /LPF (None Seen)
--- NOTE | 2019-03-13 06:09 | NUR ---
PT ALERT AND ORIENTED. VSS ON RA. ASSESSMENT DOCUMENTED. UA SAMPLE SENT TO LAB. RESULTS AVAILABLE. INTERNAL PORT BRUIT HEARD, THRILL FELT. PT USES WALKER C/O OF RT FOOT DRAG. DIALYSIS ON , AND SATURDAY. PT DID NOT HAVE HER DIALYSIS YESTERDAY. SPOKE WITH DIALYSIS NURSE THIS AM. DIALYSIS NURSE TO COMMUNICATE TO DR THAT PT DIDN'T HAVE DIALYSIS YESTERDAY. PT TO POSSIBLE HAVE ONE TODAY. WINDER OPERATOR IS 11.8. PT ON CLEAR LIQUID DIET. CALL LIGHT WITHIN REACH. HOURLY ROUNDINGS MADE. WILL CONTINUE TO MONITOR.
[2019-03-13 07:40] VITALS: BP 142/85
--- NOTE | 2019-03-13 11:06 | NUR ---
SW met with pt to complete initial assessment, introduce self, and SW role. Pt alert, oriented. Pt lives at home with family support; pt sister is pt caregiver. Pt has RW. Pt does not have hx with HH nurse. Pt has hx of [facility]. Pt is not certain of any dc needs at this time. SW to continue to follow to assist with safe dc planning.
[2019-03-13 16:00] VITALS: BP 138/78
--- NOTE | 2019-03-13 17:17 | NUR ---
PT REMAINED ALERT AND ORIENTED. PT RESTING IN ROOM. IV ABX ORDERED, WILL ADMINISTER ONCE RETURNED FROM DIALYSIS. FALL RISK PRECAUTIONS IN PLACE. BRUIT AND THRILL PRESENT. HOURLY ROUNDING COMPLETED. WILL CONTINUE TO MONITOR.
--- NOTE | 2019-03-13 19:03 | NUR ---
PT RETURNED FROM DIALYSIS MEDS GIVEN ORDERED. FALL RISK PRECAUTIONS IN PLACE. HOURLY ROUNDING COMPLETED. WILL CONTINUE TO MONITOR.
[2019-03-13 19:30] VITALS: BP 110/62
[2019-03-14 04:32] LABS: HEMATOCRIT 30.1 % (37.0-47.0); HEMOGLOBIN 10.1 gm/dL (12.0-15.0); MCH 30.8 pg (26.0-34.0); MCHC 33.5 g/dL (28.0-37.0); MCV 92.1 fL (80.0-100.0); MPV 9.4 fl. (7.2-11.1); RBC 3.27 mil/uL (4.20-5.00); RDW-CV 16.5 % (10.5-14.5); WBC 8.7 thou/uL (4.0-11.0)
[2019-03-14 04:49] LABS: CALCIUM 9.1 mg/dL (8.5-10.1); CREATININE 11.7 mg/dL (0.6-1.3); PHOSPHORUS* 6.2 mg/dL (2.5-4.9); POTASSIUM 4.1 mmol/L (3.5-5.1)
--- NOTE | 2019-03-14 06:47 | NUR ---
PT ALERT AND ORIENTED. VSS ON RA. PT SLEPT MOST OF SHIFT. IV ABX PER EMAR. RH IV SL. PT HAD HEMODIALYSIS YESTERDAY, TO UNDERGO ANOTHER DIALYSIS TODAY. STOOL IN COLOSTOMY FORMED. PT HAS SUPPLIES BROUGHT FROM HOME TO CHANGE COLOSTOMY BAG. PT DENIES PAIN THIS SHIFT. CALL LIGHT WITHIN REACH. HOURLY ROUNDINGS MADE. WILL CONTINUE TO MONITOR.
[2019-03-14 07:15] VITALS: BP 118/64
[2019-03-14] MEDS ORDERED: AUGMENTIN 875-1 EACH PO (09:53)
[2019-03-14 10:02] VITALS: BP 118/64
[2019-03-14] MEDS ORDERED: OXYCODONE HCL 55 MG PO (10:10)
--- NOTE | 2019-03-14 17:29 | NUR ---
PT REMAINED ALERT AND ORIENTED. PT AT DIALYSIS AT THIS TIME. PT HAS DISCHARGE ORDERS. WILL DISCHARGE ONCE RETURNED FROM DIALYSIS. FALL RISK PRECAUTIONS IN PLACE. HOURLY ROUNDING COMPLETED. WILL CONTINUE TO MONITOR.
[2019-03-14 18:53] VITALS: BP 118/64
--- NOTE | 2019-03-14 18:55 | NUR ---
PT GIVEN DISCHARGE INFORMATION, CARE NOTES, AND PRESCRIPTIONS. IV REMOVED. PT BELONGINGS GATHERED. FALL RISK PRECAUTIONS IN PLACE. HOURLY ROUNDING COMPLETED. PT LEFT VIA WHEELCHAIR WITH NURSING STAFF TO HOME.
== END 2019-03-14 18:58 | disposition home or self-care (01) | DRG 393 ==
LOC: M.ERS 08:47 → M.ORTHSURG 11:19 → M.TBA-ER 11:19 → M.ORTHSURG 18:05
PROVIDERS: Personal Emergency Response Attendant; Surgery; ADMIT Internal Medicine
PROC: 5A1D70Z Performance of Urinary Filtration, Intermittent, Less than 6 Hours Per Day (ICD-10-PCS; principal; 2019-03-13)
DX: K43.5 Parastomal hernia without obstruction or gangrene (principal); N18.6 End stage renal disease; N39.0 Urinary tract infection, site not specified; I12.0 Hypertensive chronic kidney disease with stage 5 chronic kidney disease or end stage renal disease; K80.20 Calculus of gallbladder without cholecystitis without obstruction; K52.9 Noninfective gastroenteritis and colitis, unspecified; D63.1 Anemia in chronic kidney disease; E66.9 Obesity, unspecified; K43.9 Ventral hernia without obstruction or gangrene; E83.39 Other disorders of phosphorus metabolism; E55.9 Vitamin D deficiency, unspecified; D64.9 Anemia, unspecified; Z68.41 Body mass index [BMI] 40.0-44.9, adult; Z84.1 Family history of disorders of kidney and ureter; Z86.73 Personal history of transient ischemic attack (TIA), and cerebral infarction without residual deficits; Z99.2 Dependence on renal dialysis; Z79.82 Long term (current) use of aspirin; Z79.899 Other long term (current) drug therapy; Z82.49 Family history of ischemic heart disease and other diseases of the circulatory system; Z82.3 Family history of stroke; Z93.3 Colostomy status

== ENCOUNTER 2019-04-30 10:05 | Inpatient (IN) | payer MEDICARE, MEDICAID ==
[~2019-04-30] VITALS: Ht 149.9 cm; Wt 90.7 kg
--- NOTE | ~2019-04-30 | CON ---
[address] [address] CONSULTATION Name: WALLY HAYES Room: [address] IN [facility]#: [id number] Admission: 04/30/19 Attend Phys: Jonathan Crump MD Discharge: Date of : 69 Report #: [id number] THIS REPORT FOR: //name// CC: CALDERON ARIAS Jonathan Crump DATE OF SERVICE: 05/01/2019 REQUESTING PHYSICIAN: Jonathan Crump MD. REASON FOR CONSULTATION: Assist in providing chronic dialysis. HISTORY OF PRESENT ILLNESS: The patient is a 53-year-old lady. Medical history is significant for end-stage renal disease, hypertension, history of diverticulitis that was complicated by some microperforation, requiring sigmoidectomy and Hima pouch formation in the past. She presents with complaints of lower abdominal pain, some chills, nausea and vomiting. She was supposed to get her dialysis yesterday, but did not go to the unit because of the above-mentioned complaints. PAST MEDICAL HISTORY: As I mentioned earlier. SOCIAL HISTORY: She does not smoke cigarettes and does not drink alcohol. FAMILY HISTORY: Noncontributory. MEDICATIONS: Prior to admission, reviewed. REVIEW OF SYSTEMS: Positive for abdominal pain, discomfort, nausea and vomiting. She states that she feels a little better today after she was started on antibiotics. PHYSICAL EXAMINATION: GENERAL: Awake, alert and oriented. VITAL SIGNS: Blood pressure 121/69, heart rate 88, afebrile. HEENT: Pupils are round. NECK: Fatty. LUNGS: Clear. CARDIOVASCULAR EXAMINATION: Regular rate. ABDOMEN: Obese, somewhat distended and mildly tender. She has a colostomy bag. EXTREMITIES: Lower extremities with some edema. She has left upper arm AV graft. ASSESSMENT: 1. [place] [address] CONSULTATION Name: WALLY HAYES Room: [address]#: [id number] Admission: 04/30/19 Attend Phys: Jonathan Crump MD Discharge: Date of : 69 Report #: [id number] 2. Diverticulitis with microperforations and microabscesses. 3. History of sigmoidectomy, Hima pouch and biologic mesh. 4. Obesity. 5. Hypertension. PLAN: Continue antibiotics. From my standpoint, she will get dialysis today and tomorrow. Follow her labs. Thank you very much for asking my assistance with management of the patient. By: [id number] Payan MD /nt
[~2019-04-30 10:05] MED LIST changes: +AUGMENTIN 875-1 EACH PO; +OXYCODONE HCL 55 MG PO; +[UNRECOGNIZED DRUG - OTHER]
[2019-04-30 10:13] VITALS: BP 122/73
[2019-04-30] MEDS ORDERED: VITAMIN C500 M2 PO (10:16)
[2019-04-30] MEDS ORDERED: AURYXIA PO (10:17)
[2019-04-30] MEDS ORDERED: MIACALCIN200 UNIT/1 NASAL (10:17)
[2019-04-30] MEDS ORDERED: TRIPHROCAPS SOFT1 MG PO (10:18)
[2019-04-30] MEDS ORDERED: SENSIPAR60 MG PO (10:18)
[2019-04-30] MEDS ORDERED: DULCOLAX STOOL100 M1 PO (10:18)
[2019-04-30] MEDS ORDERED: LASIX 80 MG TAB80 MG PO (10:18)
[2019-04-30 11:04] LABS: ABSOLUTE BASOPHILS 0.1 thou/uL (0.0-0.2); ABSOLUTE EOSINOPHILS 0.2 thou/uL (0.0-0.7); ABSOLUTE LYMPHOCYTES 1.4 thou/uL (0.8-5.3); ABSOLUTE MONOCYTES 0.8 thou/uL (0.0-1.2); BASOPHILS 1.4 %; EOSINOPHILS 1.6 %; HEMATOCRIT 30.3 % (37.0-47.0); HEMOGLOBIN 10.3 gm/dL (12.0-15.0); LYMPHOCYTES 14.4 %; MCH 32.1 pg (26.0-34.0); MCHC 33.9 g/dL (28.0-37.0); MCV 94.7 fL (80.0-100.0); MONOCYTES 8.2 %; MPV 8.9 fl. (7.2-11.1); NUCLEATED RBCS 0 /100WBC; PLATELET COUNT* 201 thou/uL (150-400); POLYS 74.4 %; RDW-CV 16.5 % (10.5-14.5); WBC 9.4 thou/uL (4.0-11.0)
[2019-04-30 11:13] LABS: CALCIUM 8.3 mg/dL (8.5-10.1); CREATININE 12.2 mg/dL (0.6-1.3); POTASSIUM 3.6 mmol/L (3.5-5.1)
[2019-04-30 11:18] LABS: ALBUMIN 3.5 g/dL (3.4-5.0); TOTAL BILIRUBIN 0.5 mg/dL (<0.1-1.0)
[2019-04-30 13:04] LABS: URINE BILIRUBIN NEGATIVE (Negative); URINE BLOOD TRACE (Negative); URINE CLARITY CLEAR; URINE COLOR YELLOW; URINE GLUCOSE-RANDOM NEGATIVE (Negative); URINE KETONES NEGATIVE (Negative); URINE LEUKOCYTES-REFLEX TRACE (Negative); URINE NITRITE-REFLEX NEGATIVE (Negative); URINE PROTEIN 2+ (Negative); URINE SPECIFIC GRAVITY 1.015 (1.005-1.030); URINE UROBILINOGEN 0.2 E.U./dl (0.2-1.0)
[2019-04-30 13:15] LABS: SQUAMOUS >10 Many /LPF (0-3)
[2019-04-30 13:23] LABS: BACTERIA-REFLEX >30 Many /HPF (None Seen); CASTS None Seen /LPF (None Seen); CRYSTALS None Seen /LPF (None Seen); MUCUS 0-3 Light strn/LPF (None Seen); URINE RBC 0-2 Rare /HPF (0-2); URINE WBC-REFLEX 6-15 Few /HPF (0-5)
--- NOTE | 2019-04-30 15:22 | EKG ---
[place] [address] ELECTROCARDIOGRAM REPORT Name: WALLY HAYES Room: [place] [address] ADM IN [facility].#: [id number] Admission: 04/30/19 Attend Phys: Jonathan Crump MD Discharge: Date of : 69 Report #: [id number] THIS REPORT FOR: //name// [facility] ED Test Date: 2019-04-30 Test Time: 10:41:43 Pat Name: WALLY HAYES Department: Room: [facility] Gender: F Librarian Specialist: ADOLFO : 1965 Requested By: Jr Tompkins Order Number: [id number] MD: Ernesto Espinal Measurements Intervals [place] Rate: 78 P: 11 NM: 177 QRS: -20 QRSD: 93 T: 125 QT: 436 QTc: 497 Interpretive Statements Sinus rhythm with secondary repolarization abnormality Nonspecific T-wave inversion in the lateral leads Borderline prolonged QT interval Compared to ECG 03/12/2019 09:50:17 Low QRS voltage now present Electronically Signed On 04-30-2019 15:22:40 CDT by Ernesto Espinal [email or web address] <ELECTRONICALLY SIGNED> By: Ernesto Espinal MD, FACC 04/30/19 1522 1041 1041 Ernesto Espinal MD, FACC /EPI
[2019-04-30 15:37] VITALS: BP 124/62
[2019-04-30 15:45] VITALS: BP 117/64
[2019-04-30] MEDS ORDERED: CALCIUM ACETAT667 MG PO (16:25)
--- NOTE | 2019-04-30 17:36 | NUR ---
RECEIVED REPORT AND ASSUMED CARE OF PT @ 2374.PT IS A/O X4,VSS.IV PATENT WITH IVF INFUSING PER ORDERS.C/O PAIN IN ABDOMEN ONLY WHEN COUGHING.PT ON CLEAR LIQUID DIET.NEPHROLOGY PLANS FOR DIALYSIS TOMORROW.SURGERY SAW PT ON THE FLOOR-REFER TO NOTE.PT INFORMED OF PLAN OF CARE AND COMMUNICATES UNDERSTANDING.HOURLY ROUNDING COMPLETED.CALL LIGHT AND FALL PRECAUTIONS IN PLACE.WILL CONTINUE TO MONITOR FOR DURATION OF SHIFT.
[2019-04-30 20:00] VITALS: BP 113/67
[2019-05-01 04:41] LABS: ABSOLUTE NEUTROPHILS 5.8 thou/uL (1.6-8.1)
[2019-05-01 04:42] LABS: ABSOLUTE EOSINOPHILS 0.2 thou/uL (0.0-0.7); ABSOLUTE LYMPHOCYTES 0.7 thou/uL (0.8-5.3); ABSOLUTE MONOCYTES 0.5 thou/uL (0.0-1.2); BASOPHILS 0.3 %; EOSINOPHILS 2.3 %; HEMATOCRIT 30.4 % (37.0-47.0); LYMPHOCYTES 10.4 %; MCH 31.5 pg (26.0-34.0); MCV 95.4 fL (80.0-100.0); MONOCYTES 6.8 %; MPV 9.5 fl. (7.2-11.1); NUCLEATED RBCS 0 /100WBC; PLATELET COUNT* 179 thou/uL (150-400); POLYS 80.2 %; RBC 3.18 mil/uL (4.20-5.00); RDW-CV 16.9 % (10.5-14.5); WBC 7.2 thou/uL (4.0-11.0)
[2019-05-01 04:56] LABS: CALCIUM 8.4 mg/dL (8.5-10.1); POTASSIUM 3.7 mmol/L (3.5-5.1)
[2019-05-01 04:58] LABS: CREATININE 13.4 mg/dL (0.6-1.3)
--- NOTE | 2019-05-01 06:25 | NUR ---
PT. PROGRESSING TOWARDS GOALS. LOW GRADE TEMP OF 100.4, TYLENOL GIVEN. PT. TO HAVE DIALYSIS TODAY. ROOM AIR. IVF DC'D. UP STAND BY ASSIST WITH WALKER. CALL LIGHT REMAINS IN REACH, WILL CONTINUE TO MONITOR.
[2019-05-01 10:49] VITALS: BP 121/69
--- NOTE | 2019-05-01 16:30 | NUR ---
Pt known to MALDONADO/NURA from previous hospitalizations. Pt lives at home with family support. Pt has RW. Pt hs hx of [facility]. No hx of HH RN. Pt sister Yuliet supportive and is main contact. SW to continue to follow to assist with safe dc planning.
[2019-05-01 17:13] VITALS: BP 117/52
--- NOTE | 2019-05-01 18:53 | NUR ---
PATIENT TOLERATED DIALYSIS ALERT DENIES ABDM PAIN.
[2019-05-01 20:50] VITALS: BP 114/67
--- NOTE | 2019-05-01 23:31 | NUR ---
PT'S TEMP AT 2049 102.2 ORALLY. RESULT CALLED TO DR PHAN. ORDERS RECIEVED FOR BLOOD CULTURES AND CHEST XRAY.
[2019-05-02 05:06] LABS: HEMATOCRIT 30.2 % (37.0-47.0); HEMOGLOBIN 10.2 gm/dL (12.0-15.0); MCH 32.1 pg (26.0-34.0); MCHC 33.6 g/dL (28.0-37.0); MCV 95.4 fL (80.0-100.0); MPV 9.5 fl. (7.2-11.1); RBC 3.17 mil/uL (4.20-5.00); RDW-CV 16.6 % (10.5-14.5); WBC 7.6 thou/uL (4.0-11.0)
[2019-05-02 05:20] LABS: CALCIUM 9.2 mg/dL (8.5-10.1); MAGNESIUM 1.9 mg/dL (1.8-2.4); POTASSIUM 3.6 mmol/L (3.5-5.1)
[2019-05-02 05:23] LABS: CREATININE 9.1 mg/dL (0.6-1.3)
[2019-05-02 08:00] VITALS: BP 115/68
[2019-05-02 19:20] VITALS: BP 111/57
--- NOTE | 2019-05-02 19:37 | NUR ---
I ASSUMED CARE OF THE PATIENT AT 0700. SHE IS ALERT AND ORIENTED X4 AND IS UP WITH STAND BY ASSIST. SHE WALKED TO THE SHOWER ROOM AND HAD A FULL BATH. LINENS WERE CHANGED. BED IS IN THE LOW LOCKED POSITION AND CALL LIGHT IS IN REACH. HOURLY ROUNDING WAS COMPLETED AND PATIENT NEEDS ARE MET. PAIN IS DENIED. PATIENT HAD A FULL LIQUID DIET, WAS NPO FOR CT AND HAD ORAL CONTRAST. SHE WENT TO DIALYSIS AND HAD 2000 ML REMOVED. SURGERY WAS CONTACTED IN REGARDS TO CT RESULTS. WILL CONTINUE TO MONITOR.
[2019-05-03] VITALS: BP 110/70
[2019-05-03 04:36] LABS: HEMOGLOBIN 10.5 gm/dL (12.0-15.0); NUCLEATED RBCS 0 /100WBC; WBC 7.2 thou/uL (4.0-11.0)
[2019-05-03 04:38] LABS: ABSOLUTE EOSINOPHILS 0.4 thou/uL (0.0-0.7); ABSOLUTE LYMPHOCYTES 0.8 thou/uL (0.8-5.3); ABSOLUTE MONOCYTES 0.7 thou/uL (0.0-1.2); ABSOLUTE NEUTROPHILS 5.3 thou/uL (1.6-8.1); BASOPHILS 0.5 %; EOSINOPHILS 5.1 %; HEMATOCRIT 31.1 % (37.0-47.0); LYMPHOCYTES 11.5 %; MCH 32.5 pg (26.0-34.0); MCHC 33.8 g/dL (28.0-37.0); MCV 96.2 fL (80.0-100.0); MONOCYTES 9.8 %; MPV 9.7 fl. (7.2-11.1); PLATELET COUNT* 225 thou/uL (150-400); POLYS 73.1 %; RBC 3.23 mil/uL (4.20-5.00); RDW-CV 16.7 % (10.5-14.5)
[2019-05-03 04:56] LABS: CALCIUM 9.4 mg/dL (8.5-10.1); MAGNESIUM 1.9 mg/dL (1.8-2.4)
[2019-05-03 05:08] LABS: CREATININE 7.3 mg/dL (0.6-1.3)
[2019-05-03 09:00] VITALS: BP 103/62
--- NOTE | 2019-05-03 14:16 | NUR ---
ASSUMED CARE OF PT AROUND 0730 THIS AM. REFER TO ASSESSMENT. REPORTS THAT PAIN IS INTERMITTENT ONLY WHEN SHE COUGHS AND DOESN'T REQUEST ANTYHING FOR PAIN MANAGEMENT. PT TO BE NPO AFTER MIDNIGHT TONIGHT FOR IR'S PROCEDURE TOMORROW. PT TOLERATING CLEAR LIQUID DIET THIS SHIFT. NO OTHER CONCERNS AT THIS TIME. CLWR. WCTM.
[2019-05-03 15:49] VITALS: BP 128/78
[2019-05-03 20:30] VITALS: BP 127/81
[2019-05-04 04:50] LABS: INR 1.1; PROTIME 10.8 Seconds (9.20-11.50)
[2019-05-04 04:51] LABS: HEMATOCRIT 30.1 % (37.0-47.0); MCH 32.1 pg (26.0-34.0); MCHC 33.1 g/dL (28.0-37.0); MCV 96.9 fL (80.0-100.0); MPV 9.6 fl. (7.2-11.1); RBC 3.11 mil/uL (4.20-5.00); RDW-CV 16.5 % (10.5-14.5); WBC 6.2 thou/uL (4.0-11.0)
[2019-05-04 05:03] LABS: ALBUMIN 2.8 g/dL (3.4-5.0); POTASSIUM 3.7 mmol/L (3.5-5.1); TOTAL BILIRUBIN 0.6 mg/dL (<0.1-1.0); TOTAL PROTEIN 6.5 g/dL (6.4-8.2)
[2019-05-04 05:04] LABS: CREATININE 9.7 mg/dL (0.6-1.3)
--- NOTE | 2019-05-04 05:51 | NUR ---
PATIENT RESTING IN BED. PATIENT DENIES ANY PAIN. PATIENT HAD COMPLAINTS OF ITCHING AT BEGINNING OF SHIFT, BENADRYL GIVEN. PATIENT HAS SLEPT MOST OF THE NIGHT. PATIENT IS NPO. CALL LIGHT WITHIN REACH.
--- NOTE | 2019-05-04 14:38 | NUR ---
Nutrition: Pt admitted with diverticulitis. H/o ESRD on HD. Currently NPO. Will get HD tomorrow. Labs: BG 84, albumin 2.8. Gradual wt loss over time, per [employer]. Currently 200#. Pt was seen for high BMI of 40.4. Advance diet to low fiber once pt is clinically able. Low nutrition risk at this time.
[2019-05-04 15:57] VITALS: BP 127/81
[2019-05-04 16:00] VITALS: BP 116/63
[2019-05-04 16:01] VITALS: BP 116/60
--- NOTE | 2019-05-04 17:48 | NUR ---
ASSESSMENT COMPLETE. PT HAD DRAIN PLACED THIS AFTERNOON WITH IR. PATIENT HAS MED DRAIN TO LEFT LOWER ABDOMEN. FLUSH ORDERS FOR Q8 HRS. PT GIVEN PRN PAIN MEDICATION. TOLERATING REGULAR DIET. IV UNASYN GIVEN ORDERED. PT DENIES N/V. PT IS UP ONE ASSIST WITH WALKER. SEE ASSESSMENT AND VITALS FOR OTHER DETAILS. CALL LIGHT WITHIN REACH, WILL CONTINUE PLAN OF CARE
[2019-05-04 21:00] VITALS: BP 106/55
--- NOTE | 2019-05-05 06:09 | NUR ---
PATIENT SLEPT PART OF THE NIGHT. IV REMAINS SALINE LOCKED. PATIENT WAS GIVEN PAIN MEDICINE TWICE THIS SHIFT WITH SOME RELIEF. MED DRAIN REMAINS INTACT TO LLQ OF ABDOMEN. WILL CONTINUE TO MONITOR.
[2019-05-05 07:57] LABS: ALBUMIN 3.1 g/dL (3.4-5.0); CALCIUM 8.7 mg/dL (8.5-10.1); PHOSPHORUS* 7.2 mg/dL (2.5-4.9); POTASSIUM 4.7 mmol/L (3.5-5.1)
[2019-05-05 07:58] LABS: CREATININE 12.8 mg/dL (0.6-1.3)
--- NOTE | 2019-05-05 16:02 | NUR ---
ASSUMMED CARE OF PT AT 1045, PT IN DIALYSIS, TOLERATED DIALYSIS WELL, DID C/O ITCHING, MEDICATED X1 WITH RELIEF, LEFT ARM FISTULA D/I ON RETURN TO ROOM FROM DIALYSIS, MED DRAIN FLUSHED X 1 WITH 5CC NS AT 1600, DRESSING REAPPLIED TO DRAIN SITE, DID C/O SOME DISCOMFORT WITH FLUSHING, AMBULATES TO BATHROOM WITH SLIGHT ASSIST, DENIES NAUSEA, ILEOSTOMY WITH BROWN STOOL OUTPUT, TAKING FOOD AND FLUIDS, SALINE LOCK PATENT IN RIGHT HAND, HOURLY ROUNDING COMPLETED, ASSESSMENT COMPLETE, WILL CONTINUE TO MONITOR.
[2019-05-05 16:47] VITALS: BP 126/70
--- NOTE | 2019-05-05 20:00 | NUR ---
PT'S IV WENT BAD WHILE UNASYN WAS BEING INFUSED. SEVERAL ATTEMPTS MADE TO START NEW IV. PT SAID SHE IS EXPECTING TO GO HOME TOMORROW AND WANTED TO BE STARTED ON PO ANTIBIOTICS. CALL PLACED TO WINDCHILL ADMINISTRATOR DR (DR CRUZ) AND ORDER RECEIVED TO RESTART IV AND FINISH ANTIBIOTICS. PT REFUSING IV AT THIS TIME. WILL CONTINUE TO MONITOR.
[2019-05-06 04:00] VITALS: BP 104/60
--- NOTE | 2019-05-06 04:47 | NUR ---
PATIENT SLEPT WELL DURING THIS SHIFT. PT REQUESTED BENEDRYL X1 FOR ANXIETY. PT REQUESTED ASSISTANCE WITH TURNS APPOX Q2H. PT DENIES PAIN/NAUSEA. PT WITH COLOSTOMY WITH BROWN STOOL. P WITH MED DRAIN WITH 25ML OUTPUT. DRAIN FLUSHED PER DR ORDER. PT WITH FISTULA IN LT UPPER ARM; DSG C/D/I. FREQUENTLY USED ITEMS AND CALL LIGHT WITHIN REACH. SIDERAILS UPX2. WILL CONTINUE TO MONITOR.
[2019-05-06 07:50] VITALS: BP 113/67
[2019-05-06 16:00] VITALS: BP 109/63
--- NOTE | 2019-05-06 17:10 | NUR ---
PATIENT RESTING IN BED. PATIENT DENIES ANY PAIN. PATIENT HAS HAD COMPLAINTS OF ITCHING, WITH RELIEF PROVIDED WITH BENADRYL. PATIENT HAS MED DRAIN TO LLQ WITH SEROSANGUINOUS DRAINAGE. PATIENT REFUSED TO HAVE IT FLUSHED TODAY. PATIENT DENIES ANY NEEDS AT THIS TIME. CALL LIGHT WITHIN REACH.
[2019-05-06 21:00] VITALS: BP 118/72
--- NOTE | 2019-05-07 05:14 | NUR ---
PATIET SLEPT WELL DURING THIS SHIFT. PT ABLE TO MOVE HERSELF AROUND IN BED AND WILL SIT ON SIDE OF BED UNATTENDED. PT IS UP WITH USE OF WALKER AND GATEBELT. PT DENIES PAIN/NAUSEA. PT HAS NO IV ACCESS. PT WITH NO DRAINAGE FROM MED DRAIN. BROWN LIQUID STOOL FROM COLOSTOMY BAG. FREQUENTLY USED ITEMS AND CALL LIGHT WITHIN REACH. SIDERAILS UPX2. WILL CONTINUE TO MONITOR.
[2019-05-07 12:25] VITALS: BP 118/70
--- NOTE | 2019-05-07 13:21 | CON ---
[address] [address] CONSULTATION Name: WALLY HAYES Room: [address] IN [facility]#: [id number] Admission: 04/30/19 Attend Phys: Jonathan Crump MD Discharge: Date of : 69 Report #: [id number] THIS REPORT FOR: //name// CC: CALDERON Crump DATE OF SERVICE: 05/06/2019 INFECTIOUS DISEASE CONSULTATION ATTENDING PHYSICIAN: Jonathan Crump MD REASON FOR EVALUATION: Acute diverticulitis and previous surgical partial colectomy with abscess associated with the rectal stump. HISTORY OF PRESENT ILLNESS: Chart reviewed, patient examined. This is a 53-year-old woman with a history of end-stage renal disease on dialysis, known history of diverticulitis, previous sigmoidectomy and Hima's pouch with biological mesh, presented with left lower quadrant pain night prior to admission, was evaluated and was felt to have a phlegmon versus abscess at the proximal aspect of the rectal stump, underwent percutaneous drainage, has been empirically placed on ampicillin and sulbactam. Clinically, she has improved. She does have some residual pain at the tube site. Denies any fevers. No pulmonary or gastrointestinal related complaints. Appetite has been good as well as the oral intake. ALLERGIES: None known. MEDICATIONS: Include Unasyn, ondansetron, guaifenesin, promethazine, ascorbic acid, cholecalciferol, cyanocobalamin, aspirin and zolpidem. PAST MEDICAL HISTORY: As described above, history of hypertension, parastomal abdominal hernia. SOCIAL HISTORY: Nonsmoker, no ethanol or illicit drug use. FAMILY HISTORY: Noncontributory. REVIEW OF SYSTEMS: Otherwise, unremarkable 10-point review of systems with exception of the above. PHYSICAL EXAMINATION: GENERAL: She is alert, cooperative, appropriate, reasonably well nourished. She is lucid. VITAL SIGNS: Temperature 98, pulse 76, respirations 16, blood pressure 113/67. SKIN: Warm, dry, [place] [address] CONSULTATION Name: WALLY HAYES Room: [address]#: [id number] Admission: 04/30/19 Attend Phys: Jonathan Crump MD Discharge: Date of : 69 Report #: [id number] HEENT: Normocephalic. Extraocular muscles intact. NECK: Supple. LUNGS: Somewhat diminished overall, generally clear. HEART: Regular. I do not appreciate a murmur. ABDOMEN: Soft, mild tenderness in the left side, slightly distended. There is a Pepe-Leon drainage catheter inside left lower quadrant. GENITOURINARY AND RECTAL: Deferred. LABORATORY DATA: Blood cultures sterile thus far. Operative cultures pending. Gram stain was fairly unremarkable. No organisms seen. Renal function panel: Sodium 139, potassium 4.7, chloride 97, bicarbonate is 24, anion gap of 18, BUN and creatinine 45 and 12.8, albumin 3.1, total protein 7.2. Liver functions otherwise unremarkable. CBC: White count of 6.2, H and H 10.0 and 30.1, platelets of 227. ASSESSMENT AND PLAN: Rectal stump abscess post percutaneous drainage. Continue therapy. I think it is reasonable to transition to oral antibiotics, Augmentin, adjusted for renal failure at 250 p.o. b.i.d. We will await those culture results. At this point, it appears that the drain will remain in place, ____ tacked the skin around it. Otherwise, monitor expectantly. <ELECTRONICALLY SIGNED> By: Silverio Schreiber MD 05/07/19 1321 1342 1402Jogarett Schreiber MD /nt
[2019-05-07 15:30] VITALS: BP 138/92
--- NOTE | 2019-05-07 17:00 | NUR ---
PATIENT RESTING IN BED. PATIENT DENIES ANY PAIN. PATIENT HAD DIALYSIS THIS AM WITHOUT INCIDENT. PATIENT HAS GOOD APPETITE. PATIENT HAS MED DRAIN WITH SMALL AMOUNT OF SEROSANGUINOUS DRAINAGE. PATIENT DENIES ANY NEEDS AT THIS TIME. CALL LIGHT WITHIN REACH.
[2019-05-07 20:10] VITALS: BP 116/77
[2019-05-08 04:15] LABS: ABSOLUTE EOSINOPHILS 0.5 thou/uL (0.0-0.7); ABSOLUTE LYMPHOCYTES 1.9 thou/uL (0.8-5.3); ABSOLUTE MONOCYTES 0.5 thou/uL (0.0-1.2); ABSOLUTE NEUTROPHILS 3.4 thou/uL (1.6-8.1); BASOPHILS 0.3 %; EOSINOPHILS 8.2 %; HEMATOCRIT 29.9 % (37.0-47.0); HEMOGLOBIN 9.8 gm/dL (12.0-15.0); LYMPHOCYTES 30.4 %; MCHC 32.9 g/dL (28.0-37.0); MCV 97.1 fL (80.0-100.0); MONOCYTES 7.4 %; MPV 8.8 fl. (7.2-11.1); NUCLEATED RBCS 0 /100WBC; PLATELET COUNT* 252 thou/uL (150-400); POLYS 53.7 %; RBC 3.07 mil/uL (4.20-5.00); RDW-CV 16.1 % (10.5-14.5); WBC 6.3 thou/uL (4.0-11.0)
[2019-05-08 04:20] LABS: CALCIUM 9.5 mg/dL (8.5-10.1)
[2019-05-08 04:39] LABS: CREATININE 7.3 mg/dL (0.6-1.3)
--- NOTE | 2019-05-08 05:41 | NUR ---
PT ALERT AND ORIENTED. VSS ON RA. ASSESSMENT DOCUMENTED. PT SLEPT MOST OF SHIFT. BENADRYL GIVEN X1 THIS SHIFT FOR ITCHING. DIALYSIS FISTULA TO AKI. LIMB ALERT TO . PT DENIES PAIN, N/V THIS SHIFT. NO IV ACCESS AT THIS TIME. DIRECTOR OF PREMIUM SEAT SALES 7.3 THIS AM. CALL LIGHT WITHIN REACH. HOURLY ROUNDINGS MADE. WILL CONTINUE PLAN OF CARE.
[2019-05-08 07:45] VITALS: BP 135/82
[2019-05-08] MEDS ORDERED: AMOX TR-K CLV1 EAC3 PO (09:48)
[2019-05-08 16:00] VITALS: BP 134/79
--- NOTE | 2019-05-08 16:01 | NUR ---
SW met with pt in preparation for possible dc soon. Pt alert, oriented, pleasant. Pt does not anticipate any dc needs and did not have any concerns or questions. Pt to dc home with family support pending CT results and final dc orders.
--- NOTE | 2019-05-08 19:28 | NUR ---
PATIENT RESTING IN BED. PATIENT IS UP WITH WALKER AND STANDBY ASSIST. PATIENT DENIES ANY PAIN. PATIENT HAS CT SCAN THIS AFTERNOON. DISCHARGE PENDING DRAIN REMOVAL BY SURGERY. DIALYSIS SCHEDULED FOR THE AM. PATIENT HAS GOOD APPETITE. PATIENT DENIES ANY NEEDS AT THIS TIME. CALL BHANU MONTIEL.
[2019-05-08 20:00] VITALS: BP 157/68
--- NOTE | 2019-05-09 05:10 | NUR ---
PT ALERT AND ORIENTED. VSS STABLE ON RA. ASSESSMENT DOCUMENTED. PT SLEPT WELL THIS SHIFT. DENIES PAIN, N/V. NO IV ACCESS. DIALYSIS FISTULA TO AKI. PT TO POSSIBLY HAVE DIALYSIS TODAY BEFORE DC PER REPORT. WILL PASS ON. SURGERY TO DC DRAIN PRIOR TO PT GOING ON HOME. PT UP TO BATHROOM WITH WALKER. CALL LIGHT WITHIN REACH. HOURLY ROUNDINGS MADE. WILL CONTINUE TO MONITOR.
[2019-05-09 11:30] VITALS: BP 102/63
--- NOTE | 2019-05-09 17:39 | NUR ---
PT A&OX4 VSS. PT DIALYZED THIS MORNING, NO COMPLICATIONS. SCHEDULED MEDS ADMINISTERED ORDERED WHEN PT RETURNED TO ROOM. BOX LUNCH PROVIDED WHILE WAITING FOR LUNCH TO ARRIVE. NO COMPLAINTS OR CONCERNS AT THIS TIME. PT ASSISTED TO ADJUST IN BED. DRAIN DC'D BY PHYSICIAN AND PT ABLE TO DC TO HOME. PT STATES UNDERSTANDING OF DC INFORMATION AND RX PROVIDED. IV DC'D WITH NO REDNESS/SWELLING AT SITE. GAUZE AND COBAN TO SITE. PT LEAVES UNIT IN WC WITH THIS NURSE, WELL HER SISTER AND MOTHER. PT ASSISTED INTO PRIVATE VEHICLE WITH ALL PERSONAL BELONGINGS.
--- NOTE | 2019-05-19 15:15 | CON ---
[address] [address] CONSULTATION Name: WALLY HAYES Room: [address]#: [id number] Admission: 04/30/19 Attend Phys: Jonathan Crump MD Discharge: 05/09/19 Date of : 69 Report #: [id number] THIS REPORT FOR: //name// CC: CALDERON Crump DATE OF SERVICE: 05/02/2019 HISTORY OF PRESENT ILLNESS: This is a pleasant 53-year-old female with past medical history significant for hypertension, end-stage renal disease, on dialysis, diverticulitis, who is presenting for evaluation of recurrent episode of diverticulitis. The patient reports abdominal pain located in the left side. The pain is severe, worse with deep inspiration and palpation. She denies any significant diarrhea or hematochezia. The patient has had multiple episodes of diverticulitis in the past and had a sigmoidectomy as a part of diverticulitis. She underwent an ostomy placement and was supposed to undergo reversal of the ostomy, but the patient's medical status and habitus prevented it. The patient underwent sigmoidectomy by Dr. Melany Stanley, who recommended that she lose weight before a takedown procedure can be performed. PAST MEDICAL HISTORY: Chronic kidney disease, on dialysis, recurrent episodes of diverticulitis, hypertension. PAST SURGICAL HISTORY: Sigmoidectomy, peristomal herniation for which she required a mesh placement, left ovarian cyst removal. SOCIAL HISTORY: The patient denies smoking, alcohol or recreational drug use. FAMILY HISTORY: No family history of colon cancer or Lovett-related neoplasia. PHYSICAL EXAMINATION: GENERAL: The patient is alert, awake, oriented x 3. HEENT: Pupils are equal, round, reactive to light and accommodation. Mucous membranes are moist. There is no congestion. LUNGS: Clear to auscultation bilaterally. CARDIOVASCULAR: Rate and rhythm regular, S1, S2 present. ABDOMEN: Soft, some tenderness to palpation around the left lower quadrant of the abdomen. The ostomy site appears healthy. No bleeding. EXTREMITIES: No obvious herniation noted. LABORATORY DATA: Hemoglobin 10.2, hematocrit 30.2, platelet count 205, WBC count 7.6. Sodium 139, potassium 3.6, BUN 29, creatinine 9.1. IMAGING: Abdomen and pelvis CT, inflammatory phlegmon demonstrated in the left anterior pelvis close approximation to the rectosigmoid stump with small fluid and gas collection with suggestion of an abscess. [place] [address] CONSULTATION Name: WALLY HAYES Room: [address]#: [id number] Admission: 04/30/19 Attend Phys: Jonathan Crump MD Discharge: 05/09/19 Date of : 69 Report #: [id number] again noted with left-sided colostomy. No evidence of bowel obstruction, evidence of cholelithiasis with possible gallbladder wall calcification, manifestation of cholecystitis. ASSESSMENT AND PLAN: Pleasant 53-year-old female with history outlined above with recurrent episodes of diverticulitis, status post sigmoidostomy, was presenting with recurrent episode of diverticulitis and diverticular abscess. We would recommend IR-guided drainage of the diverticular abscess. Continue antibiotics for now. The patient will need a colonoscopy outpatient in a few weeks' time to evaluate the colon once this resolves. She will need followup with Dr. Stanley as outpatient. Thank you for this consultation. <ELECTRONICALLY SIGNED> By: Ottoniel Auguste MD 05/19/19 1515 1559 1629Ottoniel Auguste MD /nt
== END 2019-05-09 17:30 | disposition home or self-care (01) | DRG 393 ==
LOC: M.ERS 10:05 → M.3W 12:37 → M.TBA-ER 12:37 → M.3W 15:58
PROVIDERS: Emergency Medicine; Radiology Diagnostic Radiology; Surgery; ADMIT Internal Medicine
PROC: 5A1D70Z Performance of Urinary Filtration, Intermittent, Less than 6 Hours Per Day (ICD-10-PCS; principal; 2019-05-01)
PROC: 5A1D70Z Performance of Urinary Filtration, Intermittent, Less than 6 Hours Per Day (ICD-10-PCS; 2019-05-02)
PROC: 0W9J3ZZ Drainage of Pelvic Cavity, Percutaneous Approach (ICD-10-PCS; 2019-05-04)
PROC: 5A1D70Z Performance of Urinary Filtration, Intermittent, Less than 6 Hours Per Day (ICD-10-PCS; 2019-05-07)
PROC: 5A1D70Z Performance of Urinary Filtration, Intermittent, Less than 6 Hours Per Day (ICD-10-PCS; 2019-05-09)
DX: K91.89 Other postprocedural complications and disorders of digestive system (principal); N18.6 End stage renal disease; K57.20 Diverticulitis of large intestine with perforation and abscess without bleeding; I12.0 Hypertensive chronic kidney disease with stage 5 chronic kidney disease or end stage renal disease; K61.1 Rectal abscess; N17.9 Acute kidney failure, unspecified; Z68.41 Body mass index [BMI] 40.0-44.9, adult; Y83.3 Surgical operation with formation of external stoma as the cause of abnormal reaction of the patient, or of later complication, without mention of misadventure at the time of the procedure; Y92.89 Other specified places as the place of occurrence of the external cause; E66.01 Morbid (severe) obesity due to excess calories; E03.9 Hypothyroidism, unspecified; N30.10 Interstitial cystitis (chronic) without hematuria; Z90.49 Acquired absence of other specified parts of digestive tract; Z93.3 Colostomy status; Z79.899 Other long term (current) drug therapy; Z79.82 Long term (current) use of aspirin; Z82.49 Family history of ischemic heart disease and other diseases of the circulatory system; Z99.2 Dependence on renal dialysis

== ENCOUNTER 2019-07-20 19:19 | Emergency (ER) | payer MEDICARE, MEDICAID ==
[~2019-07-20] VITALS: Ht 149.9 cm; Wt 89.8 kg
[~2019-07-20 19:19] MED LIST changes: +AMOX TR-K CLV1 EAC3 PO; +AURYXIA PO; +CALCIUM ACETAT667 MG PO; +DULCOLAX STOOL100 M1 PO; +LASIX 80 MG TAB80 MG PO; +MIACALCIN200 UNIT/1 NASAL; +SENSIPAR60 MG PO; +TRIPHROCAPS SOFT1 MG PO; +VITAMIN C500 M2 PO
[2019-07-20 20:02] LABS: URINE BILIRUBIN NEGATIVE (Negative); URINE BLOOD 3+ (Negative); URINE CLARITY HAZY; URINE COLOR YELLOW; URINE GLUCOSE-RANDOM NEGATIVE (Negative); URINE KETONES NEGATIVE (Negative); URINE LEUKOCYTES-REFLEX TRACE (Negative); URINE NITRITE-REFLEX NEGATIVE (Negative); URINE PROTEIN 3+ (Negative); URINE SPECIFIC GRAVITY 1.015 (1.005-1.030); URINE UROBILINOGEN 0.2 E.U./dl (0.2-1.0)
[2019-07-20 20:04] LABS: SQUAMOUS >10 Many /LPF (0-3); URINE RBC 3-10 Few /HPF (0-2)
[2019-07-20 20:05] LABS: CASTS None Seen /LPF (None Seen); CRYSTALS None Seen /LPF (None Seen)
[2019-07-20] MEDS ORDERED: LEVAQUIN 750 M750 MG PO (21:29)
[2019-07-20] MEDS ORDERED: LEVOFLOXACIN750 MG PO (21:32)
[2019-07-20 21:46] VITALS: BP 190/90
== END 2019-07-20 21:49 | disposition home or self-care (01) ==
LOC: M.ERS 19:19
PROVIDERS: Emergency Medicine
DX: N39.0 Urinary tract infection, site not specified (principal); I12.0 Hypertensive chronic kidney disease with stage 5 chronic kidney disease or end stage renal disease; N18.6 End stage renal disease; Z99.2 Dependence on renal dialysis

== ENCOUNTER → 2019-08-10 | Day surgery (SDC) | payer MEDICARE, MEDICAID ==
[~2019-08-10] MED LIST changes: +LEVAQUIN 750 M750 MG PO; +LEVOFLOXACIN750 MG PO
--- NOTE | ~2019-08-10 | PROC ---
[address] [address] PROCEDURE REPORT Name: WALLY HAYES Room: [facility]#: [id number] Admission: 08/10/19 Attend Phys: Ottoniel Auguste MD Discharge: Date of : 69 Report #: [id number] THIS REPORT FOR: //name// cc: Physician not on staff Physician not on staff ~ THIS REPORT FOR: //name// For GI report, please see the Provation report in Perceptive 7 content. By: [id number] Records Staff DAWNA /ROSCOE
[2019-08-10 10:44] LABS: HEMATOCRIT 35.9 % (37.0-47.0); HEMOGLOBIN 11.9 gm/dL (12.0-15.0); MCH 30.1 pg (26.0-34.0); MCHC 33.2 g/dL (28.0-37.0); MCV 90.7 fL (80.0-100.0); MPV 8.5 fl. (7.2-11.1); RBC 3.95 mil/uL (4.20-5.00); RDW-CV 18.8 % (10.5-14.5); WBC 8.2 thou/uL (4.0-11.0)
[2019-08-10 10:50] LABS: CALCIUM 9.4 mg/dL (8.5-10.1); CREATININE 8.9 mg/dL (0.6-1.3); POTASSIUM 3.8 mmol/L (3.5-5.1)
[2019-08-10 10:55] LABS: ALBUMIN 3.7 g/dL (3.4-5.0); TOTAL PROTEIN 7.6 g/dL (6.4-8.2)
== END | disposition home or self-care (01) ==
LOC: M.SUR 10:05
PROVIDERS: Internal Medicine Gastroenterology
DX: K57.92 Diverticulitis of intestine, part unspecified, without perforation or abscess without bleeding (principal); K57.30 Diverticulosis of large intestine without perforation or abscess without bleeding; I12.9 Hypertensive chronic kidney disease with stage 1 through stage 4 chronic kidney disease, or unspecified chronic kidney disease; N18.5 Chronic kidney disease, stage 5; Z87.19 Personal history of other diseases of the digestive system; Z79.82 Long term (current) use of aspirin; Z79.899 Other long term (current) drug therapy; Z98.890 Other specified postprocedural states

== ENCOUNTER 2019-08-22 09:26 | Emergency (ER) | payer MEDICARE, MEDICAID ==
[~2019-08-22] VITALS: Ht 149.9 cm; Wt 89.8 kg
[2019-08-22 09:34] VITALS: BP 155/89
[2019-08-22 09:45] LABS: URINE BILIRUBIN NEGATIVE (Negative); URINE BLOOD 2+ (Negative); URINE CLARITY CLEAR; URINE COLOR YELLOW; URINE GLUCOSE-RANDOM TRACE (Negative); URINE KETONES NEGATIVE (Negative); URINE LEUKOCYTES-REFLEX NEGATIVE (Negative); URINE NITRITE-REFLEX NEGATIVE (Negative); URINE PROTEIN 3+ (Negative); URINE UROBILINOGEN 0.2 E.U./dl (0.2-1.0)
[2019-08-22 09:56] LABS: BACTERIA-REFLEX 1-9 Few /HPF (None Seen); CASTS None Seen /LPF (None Seen); CRYSTALS None Seen /LPF (None Seen); MUCUS 0-3 Light strn/LPF (None Seen); SQUAMOUS 4-10 Moderate /LPF (0-3); URINE RBC 3-10 Few /HPF (0-2); URINE WBC-REFLEX 0-5 Rare /HPF (0-5)
[2019-08-22] MEDS ORDERED: LEVAQUIN 500 M500 MG PO (10:09)
== END 2019-08-22 10:30 | disposition home or self-care (01) ==
LOC: M.ERS 09:26
PROVIDERS: Family Medicine
DX: N39.0 Urinary tract infection, site not specified (principal); I12.0 Hypertensive chronic kidney disease with stage 5 chronic kidney disease or end stage renal disease; N18.6 End stage renal disease; Z99.2 Dependence on renal dialysis

== ENCOUNTER 2019-09-07 21:19 | Emergency (ER) | payer MEDICARE, MEDICAID ==
[~2019-09-07] VITALS: Ht 149.9 cm; Wt 89.8 kg
[~2019-09-07 21:19] MED LIST changes: +LEVAQUIN 500 M500 MG PO
[2019-09-07 21:59] LABS: INFLUENZA A ANTIGEN Negative (Negative); INFLUENZA B ANTIGEN Negative (Negative)
[2019-09-07 22:33] LABS: URINE BILIRUBIN NEGATIVE (Negative); URINE BLOOD 1+ (Negative); URINE CLARITY CLEAR; URINE COLOR YELLOW; URINE GLUCOSE-RANDOM NEGATIVE (Negative); URINE KETONES NEGATIVE (Negative); URINE LEUKOCYTES-REFLEX TRACE (Negative); URINE PROTEIN 3+ (Negative); URINE UROBILINOGEN 0.2 E.U./dl (0.2-1.0)
[2019-09-07 22:35] LABS: URINE NITRITE-REFLEX POSITIVE (Negative)
[2019-09-07 22:44] LABS: MUCUS None Seen strn/LPF (None Seen); SQUAMOUS >10 Many /LPF (0-3)
[2019-09-07 22:45] LABS: URINE WBC-REFLEX 6-15 Few /HPF (0-5)
[2019-09-07 22:47] LABS: URINE RBC 0-2 Rare /HPF (0-2)
[2019-09-07 22:48] LABS: HYALINE CASTS 0-3 Few /LPF (None Seen)
[2019-09-07 22:49] LABS: CRYSTALS None Seen /LPF (None Seen)
[2019-09-07] MEDS ORDERED: CEFDINIR300 MG PO ×2 (23:04)
[2019-09-07] MEDS ORDERED: VENTOLIN HFA 1818 GM INH ×2 (23:04)
[2019-09-07] MEDS ORDERED: PULMICORT FLEX90 MCG INH ×2 (23:04)
[2019-09-07 23:20] VITALS: BP 173/90
== END 2019-09-07 23:20 | disposition home or self-care (01) ==
LOC: M.ERS 21:19
PROVIDERS: Nurse Practitioner Family
DX: J21.9 Acute bronchiolitis, unspecified (principal); N39.0 Urinary tract infection, site not specified; I12.0 Hypertensive chronic kidney disease with stage 5 chronic kidney disease or end stage renal disease; N18.6 End stage renal disease; Z99.2 Dependence on renal dialysis

== ENCOUNTER 2019-09-12 20:57 | Inpatient (IN) | payer MEDICARE, MEDICAID ==
[~2019-09-12] VITALS: Ht 149.9 cm; Wt 89.4 kg
[~2019-09-12 20:57] MED LIST changes: +CEFDINIR300 MG PO; +PULMICORT FLEX90 MCG INH; +VENTOLIN HFA 1818 GM INH
[2019-09-12 21:02] VITALS: BP 123/69
[2019-09-12 22:14] LABS: HEMATOCRIT 37.2 % (37.0-47.0); MCH 28.8 pg (26.0-34.0); MCHC 32.3 g/dL (28.0-37.0); MCV 89.1 fL (80.0-100.0); MPV 8.6 fl. (7.2-11.1); NUCLEATED RBCS 0 /100WBC; PLATELET COUNT* 223 thou/uL (150-400); RBC 4.17 mil/uL (4.20-5.00); WBC 6.8 thou/uL (4.0-11.0)
[2019-09-12 22:23] LABS: CALCIUM 8.8 mg/dL (8.5-10.1); CREATININE 5.3 mg/dL (0.6-1.3); POTASSIUM 3.4 mmol/L (3.5-5.1)
[2019-09-12 22:28] LABS: ALBUMIN 3.2 g/dL (3.4-5.0); TOTAL BILIRUBIN 0.5 mg/dL (<0.1-1.0); TOTAL PROTEIN 7.4 g/dL (6.4-8.2)
[2019-09-12 22:30] LABS: URINE BILIRUBIN NEGATIVE (Negative); URINE BLOOD TRACE (Negative); URINE CLARITY CLEAR; URINE COLOR YELLOW; URINE GLUCOSE-RANDOM NEGATIVE (Negative); URINE KETONES NEGATIVE (Negative); URINE LEUKOCYTES NEGATIVE (Negative); URINE NITRITE POSITIVE (Negative); URINE PROTEIN 3+ (Negative); URINE UROBILINOGEN 0.2 E.U./dl (0.2-1.0)
[2019-09-12 22:38] LABS: SQUAMOUS >10 Many /LPF (0-3); URINE WBC 6-15 Few /HPF (0-5)
[2019-09-12 22:39] LABS: CASTS None Seen /LPF (None Seen); CRYSTALS None Seen /LPF (None Seen); URINE RBC 0-2 Rare /HPF (0-2)
[2019-09-12 22:44] LABS: ABSOLUTE BASOPHILS 0.1 thou/uL (0.0-0.2); ABSOLUTE EOSINOPHILS 0.9 thou/uL (0.0-0.7); ABSOLUTE MONOCYTES 0.3 thou/uL (0.0-1.2); ABSOLUTE NEUTROPHILS 4.6 thou/uL (1.6-8.1); ANISOCYTOSIS 2+; PLATELET ESTIMATE ADEQUATE; POIKILOCYTOSIS Occasional
[2019-09-13 00:45] VITALS: BP 132/81
--- NOTE | 2019-09-13 06:13 | NUR ---
PT ADMITTED TO ROOM 308 FROM ER. PT ORIENTED TO ROOM AND CALL LIGHT. ADM HX AND ASSESSMENT DOCUMENTED. AKI FISTULA FOR DIALYSIS. PT USES OWN WALKER. PER PT, ABLE TO AMBULATE WITHOUT ASSISTANCE. PT EDUCATED TO CALL IF NEEDING ASISTANCE. Brian RODRIGUEZ. TO CALL UROLOGY CONSULT THIS AM. CALL LIGHT WITHIN REACH. HOURLY ROUNDINFS MADE. WILL CONTINUE TO MONITOR.
[2019-09-13 07:15] VITALS: BP 143/88
[2019-09-13 16:08] VITALS: BP 143/88
--- NOTE | 2019-09-13 18:01 | NUR ---
PT VERBALIZED UNDERSTANDING TO DC INSTRUCTIONS AND WAS CLEARED BY ID TO DC TO HOME. IV REMOVED INTACT WITH NO COMPLICATIONS. HOURLY ROUNDING MAINTAINED THIS SHIFT. PT TAKEN OUT TO PRIVATE VEHICLE BY HOSPITAL STAFF. NO CONCERNS NOTED. WILL SIGN OFF AT THIS TIME.
== END 2019-09-13 17:45 | disposition home or self-care (01) | DRG 695 ==
LOC: M.ERS 20:57 → M.TBA-ER 23:37 → M.3W 09-13 00:37
PROVIDERS: Personal Emergency Response Attendant; ADMIT Family Medicine
DX: R82.71 Bacteriuria (principal); N18.6 End stage renal disease; I12.0 Hypertensive chronic kidney disease with stage 5 chronic kidney disease or end stage renal disease; L27.0 Generalized skin eruption due to drugs and medicaments taken internally; T50.995A Adverse effect of other drugs, medicaments and biological substances, initial encounter; L29.9 Pruritus, unspecified; Z93.3 Colostomy status; Z87.440 Personal history of urinary (tract) infections; Z79.899 Other long term (current) drug therapy; Z79.51 Long term (current) use of inhaled steroids; Y92.89 Other specified places as the place of occurrence of the external cause; Z79.82 Long term (current) use of aspirin; Z90.49 Acquired absence of other specified parts of digestive tract; Z90.6 Acquired absence of other parts of urinary tract; Z82.3 Family history of stroke; Z82.49 Family history of ischemic heart disease and other diseases of the circulatory system; Z99.2 Dependence on renal dialysis

== ENCOUNTER 2019-10-07 04:40 | Emergency (ER) | payer MEDICARE, MEDICAID ==
[~2019-10-07] VITALS: Ht 149.9 cm; Wt 88.9 kg
[2019-10-07] MEDS ORDERED: OXYCODONE HCL 55 MG PO (04:55)
[2019-10-07 05:35] LABS: URINE BILIRUBIN NEGATIVE (Negative); URINE BLOOD 1+ (Negative); URINE CLARITY CLEAR; URINE COLOR YELLOW; URINE GLUCOSE-RANDOM NEGATIVE (Negative); URINE KETONES NEGATIVE (Negative); URINE LEUKOCYTES-REFLEX NEGATIVE (Negative); URINE NITRITE-REFLEX NEGATIVE (Negative); URINE PROTEIN 3+ (Negative); URINE UROBILINOGEN 0.2 E.U./dl (0.2-1.0)
[2019-10-07 05:42] LABS: BACTERIA-REFLEX 1-9 Few /HPF (None Seen); CASTS None Seen /LPF (None Seen); MUCUS 0-3 Light strn/LPF (None Seen); SQUAMOUS 0-3 Few /LPF (0-3); URINE RBC 3-10 Few /HPF (0-2); URINE WBC-REFLEX 6-15 Few /HPF (0-5)
[2019-10-07 05:43] LABS: CRYSTALS None Seen /LPF (None Seen)
[2019-10-07] MEDS ORDERED: MACROBID 100 M100 M1 PO (05:57)
[2019-10-07] MEDS ORDERED: PERCOCET 7.5-31 EAC1 PO (05:57)
[2019-10-07 06:03] VITALS: BP 152/84
== END 2019-10-07 06:03 | disposition home or self-care (01) ==
LOC: M.ERS 04:40
PROVIDERS: Emergency Medicine
DX: N39.0 Urinary tract infection, site not specified (principal); I12.0 Hypertensive chronic kidney disease with stage 5 chronic kidney disease or end stage renal disease; N18.6 End stage renal disease; Z99.2 Dependence on renal dialysis

== ENCOUNTER 2019-10-09 09:15 | Inpatient (IN) | payer MEDICARE, MEDICAID ==
[~2019-10-09] VITALS: Ht 149.9 cm; Wt 88.9 kg
[~2019-10-09 09:15] MED LIST changes: +MACROBID 100 M100 M1 PO; +PERCOCET 7.5-31 EAC1 PO
[2019-10-09 09:28] VITALS: BP 156/90
[2019-10-09 09:49] LABS: URINE BILIRUBIN NEGATIVE (Negative); URINE BLOOD 2+ (Negative); URINE CLARITY CLEAR; URINE COLOR YELLOW; URINE GLUCOSE-RANDOM TRACE (Negative); URINE KETONES TRACE (Negative); URINE LEUKOCYTES NEGATIVE (Negative); URINE NITRITE NEGATIVE (Negative); URINE PROTEIN 3+ (Negative); URINE UROBILINOGEN 0.2 E.U./dl (0.2-1.0)
[2019-10-09 10:02] LABS: BACTERIA >30 Many /HPF (None Seen); CASTS None Seen /LPF (None Seen); CRYSTALS None Seen /LPF (None Seen); MUCUS 0-3 Light strn/LPF (None Seen); URINE RBC 3-10 Few /HPF (0-2); URINE WBC 0-5 Rare /HPF (0-5)
[2019-10-09 10:03] LABS: SQUAMOUS >10 Many /LPF (0-3)
[2019-10-09 10:50] LABS: ABSOLUTE BASOPHILS 0.1 thou/uL (0.0-0.2); ABSOLUTE EOSINOPHILS 0.2 thou/uL (0.0-0.7); ABSOLUTE LYMPHOCYTES 0.9 thou/uL (0.8-5.3); ABSOLUTE NEUTROPHILS 11.1 thou/uL (1.6-8.1); BASOPHILS 0.6 %; EOSINOPHILS 1.8 %; HEMOGLOBIN 10.3 gm/dL (12.0-15.0); LYMPHOCYTES 6.9 %; MCH 28.1 pg (26.0-34.0); MCHC 32.3 g/dL (28.0-37.0); MCV 87.2 fL (80.0-100.0); MONOCYTES 7.6 %; MPV 9.3 fl. (7.2-11.1); NUCLEATED RBCS 0 /100WBC; PLATELET COUNT* 211 thou/uL (150-400); POLYS 83.1 %; RBC 3.67 mil/uL (4.20-5.00); RDW-CV 20.3 % (10.5-14.5); WBC 13.3 thou/uL (4.0-11.0)
[2019-10-09 11:08] LABS: CALCIUM 8.6 mg/dL (8.5-10.1); CREATININE 12.6 mg/dL (0.6-1.3); POTASSIUM 5.9 mmol/L (3.5-5.1)
[2019-10-09 13:29] VITALS: BP 156/67
[2019-10-09 21:09] VITALS: BP 125/88
[2019-10-10 04:34] LABS: HEMATOCRIT 27.7 % (37.0-47.0); HEMOGLOBIN 9.1 gm/dL (12.0-15.0); MCH 28.2 pg (26.0-34.0); MCHC 32.9 g/dL (28.0-37.0); MCV 85.8 fL (80.0-100.0); RBC 3.23 mil/uL (4.20-5.00)
[2019-10-10 07:30] VITALS: BP 111/71
[2019-10-10 10:58] LABS: CALCIUM 8.6 mg/dL (8.5-10.1); POTASSIUM 4.4 mmol/L (3.5-5.1)
[2019-10-10 12:14] VITALS: BP 128/76
--- NOTE | 2019-10-10 14:53 | CON ---
[address] [address] CONSULTATION Name: WALLY HAYES Room: [address] IN [facility]#: [id number] Admission: 10/09/19 Attend Phys: Shyanne Villanueva MD Discharge: Date of : 69 Report #: [id number] THIS REPORT FOR: //name// cc: KEVIN MATHIS MD, CHADWICK MD ~ THIS REPORT FOR: //name// CC: KEVIN Villanueva DATE OF SERVICE: 10/10/2019 INFECTIOUS DISEASE CONSULTATION ATTENDING PHYSICIAN: Dr. Villanueva. REASON FOR EVALUATION: Complicated urinary tract infection. HISTORY OF PRESENT ILLNESS: Chart reviewed, patient examined. This is a 54-year-old woman with end-stage renal disease, on hemodialysis, who does urinate. She notes about 3 times per day, who noted onset of dysuria and some burning with urination on 10/06/2019, was evaluated, treated with Macrodantin. Initially thought she had response only to have increasing frequency. She was voiding every 10-30 minutes, it is not clear if she had significant systemic illness. It is notable she has had frequent urinary tract infections in the middle portion of August and did require hospitalization, was treated, felt to have a hypersensitivity reaction to cephalosporins. Initial urinalysis showed minimal pyuria, although marked bacteriuria. Culture from previous grew out 5 x 10 to the 4th Klebsiella pneumoniae, fairly susceptible except in vitro resistant to ampicillin. She was started on levofloxacin. Seemingly, she is better. Blood cultures are sterile thus far. Lactic acid was 0.8. She has not been febrile since admission. She is lucid. She has a persistent cough, she notes with some sputum production. ALLERGIES: None known. MEDICATIONS: Include furosemide, docusate sodium, ascorbic acid, cholecalciferol, aspirin, famotidine, budesonide, cinacalcet, levofloxacin 250 daily, oxycodone, levalbuterol, ondansetron. PAST MEDICAL HISTORY: As described above, hypertension, end-stage renal disease, on dialysis; history of diverticulitis. SOCIAL HISTORY: Nonsmoker, no ethanol, no illicit drug use. FAMILY HISTORY: [place] [address] CONSULTATION Name: WALLY HAYES Room: [address]#: [id number] Admission: 10/09/19 Attend Phys: Shyanne Villanueva MD Discharge: Date of : 69 Report #: [id number] REVIEW OF SYSTEMS: Does admit to some left-sided abdominal pain. PHYSICAL EXAMINATION: GENERAL: She is alert, cooperative, appropriate. She is sitting up. She is in cnxc-av-xruxhdkh distress. She is lucid. VITAL SIGNS: Temperature 98.3, pulse 85, respirations 16 and blood pressure 111/71. SKIN: Warm, dry, no rashes. HEENT: Normocephalic. Extraocular muscles intact. NECK: Supple. LUNGS: Diminished breath sounds. Diffuse crackles at the bases. HEART: Regular. I do not appreciate a murmur. ABDOMEN: Obese, soft. There are no reproducible tenderness on the left side. There are no peritoneal signs. GENITOURINARY AND RECTAL: Deferred. LABORATORY DATA: Electrolytes: Sodium 139, potassium 4.4, chloride 97, bicarbonate is 31, anion gap of 11, BUN and creatinine 28 and 9.0. Estimated GFR of 6. Blood cultures sterile thus far. CBC: White count 11.0, H and H 9.1 and 27.7, platelets of 204. Chest x-ray showed no acute process. Lactic acid 0.8. Urine cultures described above, Klebsiella pneumoniae 5 x 10 to the 4th, in vitro susceptible with the exception of ampicillin. ASSESSMENT: Complicated urinary tract infection in patient that certainly has risk factors. At this point, we would continue levofloxacin. There is a concern if she has had a hypersensitivity to cephalosporins. Try to avoid beta lactams in general if we can instead of short term. This is a persistent cough, although there is no radiographic evidence of any pneumonitis. We will have to monitor expectantly given the fact that Levaquin is a good coverage for lungs as well. We will monitor. <ELECTRONICALLY SIGNED> By: Silverio Schreiber MD 10/10/19 1453 1131 [id number] Schreiber MD /nt
[2019-10-10 17:15] VITALS: BP 149/81
[2019-10-10 19:50] VITALS: BP 124/85
[2019-10-11 07:30] VITALS: BP 116/82
[2019-10-11] MEDS ORDERED: LEVAQUIN 500 M500 M3 PO (08:25)
--- NOTE | 2019-10-11 11:45 | CON ---
[address] [address] CONSULTATION Name: WALLY HAYES Room: [address] IN [facility]#: [id number] Admission: 10/09/19 Attend Phys: Shyanne Villanueva MD Discharge: Date of : 69 Report #: [id number] THIS REPORT FOR: //name// cc: KEVIN MATHIS MD, CHADWICK MD ~ THIS REPORT FOR: //name// CC: KEVIN Villanueva CONSULTING PHYSICIAN: Dr. Villanueva. REASON FOR CONSULTATION: End-stage kidney disease. HISTORY OF PRESENT ILLNESS: A 54-year-old female admitted with nausea, vomiting in the setting of antibiotic treatment for urinary tract infection. She has been switched to IV antibiotics. Nausea and vomiting is being managed by Internal Medicine Service. She is feeling better today, has no complaints. She had her last dialysis on Saturday due to missed dialysis on . She normally dialyzes Tuesdays, and Saturdays. She has no complaints at the present time. REVIEW OF SYSTEMS: Constitutional, psych, heme, eyes, ENT, respiratory, cardiac, GI, , endocrine, all negative except as documented above. PAST MEDICAL HISTORY: End-stage kidney disease, hypertension, history of diverticulitis with sigmoidectomy and colostomy, secondary hyperparathyroidism, anemia of chronic kidney disease. FAMILY HISTORY: Not pertinent in this 54-year-old female. SOCIAL HISTORY: No tobacco. PHYSICAL EXAMINATION: VITAL SIGNS: Blood pressure is 128/76, pulse 83, respirations 16, temperature 36.8. GENERAL: No acute distress. EYES: Open. EARS: Externally normal. NECK: Supple. CARDIOVASCULAR: Regular rate. LUNGS: No crackles. ABDOMEN: Soft. MUSCULOSKELETAL: Nontender. PSYCHIATRIC: Awake and alert. LABORATORY DATA: Sodium 139, potassium 4.4, chloride 97, bicarbonate 31, [place] [address] CONSULTATION Name: WALLY HAYES Yamini Room: [address]#: [id number] Admission: 10/09/19 Attend Phys: Shyanne Villanueva MD Discharge: Date of : 69 Report #: [id number], creatinine 9, glucose 116, calcium 8.6, magnesium 2. White cell count 11, hemoglobin 9.1, platelets 204. ASSESSMENT: 1. End-stage kidney disease, hemodialysis Tuesdays, , Saturdays at the [facility]. 2. Anemia of chronic disease. 3. Secondary hyperparathyroidism, on Sensipar, PhosLo, and anorexia. 4. History of hypertension. 5. Colostomy. PLAN: 1. Hemodialysis will be done today to keep her on her regular schedule. 2. Add renal multivitamin. 3. Watch calcium. 4. We will follow for dialysis needs. Next dialysis will be on 10/12. Please call with any questions in the interim. <ELECTRONICALLY SIGNED> By: Leanne Wright MD 10/11/19 1145 1237 1323Abiivelisse Wright MD /nt
[2019-10-11 12:05] VITALS: BP 116/82
[2019-10-12] MEDS ORDERED: ACID REDUCER20 MG PO (09:09)
[2019-10-12] MEDS ORDERED: NEPHRO-VITE TA0.8 MG PO (09:10)
== END 2019-10-11 13:55 | disposition home or self-care (01) | DRG 689 ==
LOC: M.ERS 09:15 → M.2W 11:37 → M.TBA-ER 11:37 → M.2W 14:12
PROVIDERS: Personal Emergency Response Attendant; ADMIT Internal Medicine
PROC: 5A1D70Z Performance of Urinary Filtration, Intermittent, Less than 6 Hours Per Day (ICD-10-PCS; 2019-10-09)
PROC: 5A1D70Z Performance of Urinary Filtration, Intermittent, Less than 6 Hours Per Day (ICD-10-PCS; principal; 2019-10-10)
DX: N39.0 Urinary tract infection, site not specified (principal); N18.6 End stage renal disease; I12.0 Hypertensive chronic kidney disease with stage 5 chronic kidney disease or end stage renal disease; N25.81 Secondary hyperparathyroidism of renal origin; R65.10 Systemic inflammatory response syndrome (SIRS) of non-infectious origin without acute organ dysfunction; D63.1 Anemia in chronic kidney disease; B96.1 Klebsiella pneumoniae [K. pneumoniae] as the cause of diseases classified elsewhere; E87.5 Hyperkalemia; Z99.2 Dependence on renal dialysis; Z93.3 Colostomy status; Z90.49 Acquired absence of other specified parts of digestive tract; Z79.82 Long term (current) use of aspirin; Z79.899 Other long term (current) drug therapy

== ENCOUNTER 2019-10-11 20:30 | Inpatient (IN) | payer MEDICARE, MEDICAID ==
[~2019-10-11] VITALS: Ht 149.9 cm; Wt 89.4 kg
[2019-10-11 20:30] VITALS: BP 140/87
[~2019-10-11 20:30] MED LIST changes: +LEVAQUIN 500 M500 M3 PO
[2019-10-11 21:15] LABS: URINE BILIRUBIN NEGATIVE (Negative); URINE BLOOD 2+ (Negative); URINE COLOR YELLOW; URINE GLUCOSE-RANDOM NEGATIVE (Negative); URINE KETONES NEGATIVE (Negative); URINE LEUKOCYTES-REFLEX TRACE (Negative); URINE NITRITE-REFLEX NEGATIVE (Negative); URINE PROTEIN 3+ (Negative); URINE UROBILINOGEN 0.2 E.U./dl (0.2-1.0)
[2019-10-11 21:17] LABS: URINE CLARITY HAZY
[2019-10-11 21:19] LABS: SQUAMOUS 4-10 Moderate /LPF (0-3)
[2019-10-11 21:20] LABS: BACTERIA-REFLEX None Seen /HPF (None Seen); CASTS None Seen /LPF (None Seen); CRYSTALS None Seen /LPF (None Seen); URINE WBC-REFLEX 0-5 Rare /HPF (0-5)
[2019-10-11 21:35] LABS: ABSOLUTE BASOPHILS 0.1 thou/uL (0.0-0.2); ABSOLUTE EOSINOPHILS 0.2 thou/uL (0.0-0.7); ABSOLUTE LYMPHOCYTES 1.3 thou/uL (0.8-5.3); ABSOLUTE MONOCYTES 0.9 thou/uL (0.0-1.2); ABSOLUTE NEUTROPHILS 7.6 thou/uL (1.6-8.1); BASOPHILS 0.8 %; EOSINOPHILS 2.3 %; HEMATOCRIT 27.8 % (37.0-47.0); HEMOGLOBIN 9.1 gm/dL (12.0-15.0); LYMPHOCYTES 13.3 %; MCH 28.4 pg (26.0-34.0); MCHC 32.8 g/dL (28.0-37.0); MCV 86.6 fL (80.0-100.0); MONOCYTES 8.8 %; MPV 8.7 fl. (7.2-11.1); NUCLEATED RBCS 0 /100WBC; PLATELET COUNT* 207 thou/uL (150-400); POLYS 74.8 %; RBC 3.21 mil/uL (4.20-5.00); RDW-CV 20.3 % (10.5-14.5); WBC 10.2 thou/uL (4.0-11.0)
[2019-10-11 21:47] LABS: CALCIUM 8.1 mg/dL (8.5-10.1); CREATININE 9.3 mg/dL (0.6-1.3); POTASSIUM 4.6 mmol/L (3.5-5.1)
[2019-10-11 21:51] LABS: ALBUMIN 3.2 g/dL (3.4-5.0); TOTAL BILIRUBIN 0.4 mg/dL (<0.1-1.0); TOTAL PROTEIN 7.6 g/dL (6.4-8.2)
[2019-10-11 21:54] LABS: ANISOCYTOSIS 1+; MICROCYTES 1+; PLATELET ESTIMATE ADEQUATE
[2019-10-12] VITALS (7 sets, daily range): BP systolic 85–147; BP diastolic 46–78
[2019-10-12] MEDS ORDERED: ACID REDUCER20 MG PO (09:09)
[2019-10-12] MEDS ORDERED: NEPHRO-VITE TA0.8 MG PO (09:10)
[2019-10-12 11:43] LABS: AMP/METHAMP Negative (Negative); BARBITURATES Negative (Negative); BENZODIAZEPINES Negative (Negative); COCAINE Negative (Negative); METHADONE Negative (Negative); OPIATES POSITIVE (Negative); PCP Negative (Negative); THC Negative (Negative)
[2019-10-13 00:02] VITALS: BP 108/63
[2019-10-13 04:08] VITALS: BP 138/62
[2019-10-13 06:17] LABS: HEMATOCRIT 28.2 % (37.0-47.0); HEMOGLOBIN 9.3 gm/dL (12.0-15.0); MCH 28.8 pg (26.0-34.0); MCHC 33.1 g/dL (28.0-37.0); MPV 8.7 fl. (7.2-11.1); RBC 3.24 mil/uL (4.20-5.00); RDW-CV 20.4 % (10.5-14.5); WBC 9.3 thou/uL (4.0-11.0)
[2019-10-13 06:33] LABS: ALBUMIN 2.5 g/dL (3.4-5.0); CALCIUM 8.6 mg/dL (8.5-10.1); MAGNESIUM 2.6 mg/dL (1.8-2.4); PHOSPHORUS* 6.7 mg/dL (2.5-4.9); POTASSIUM 5.8 mmol/L (3.5-5.1)
[2019-10-13 06:35] LABS: CREATININE 12.5 mg/dL (0.6-1.3)
[2019-10-13 08:00] VITALS: BP 117/57
--- NOTE | 2019-10-13 09:09 | CON ---
[address] [address] CONSULTATION Name: WALLY HAYES Room: [address] IN ..#: [id number] Admission: 10/11/19 Attend Phys: Kunal Karimi Discharge: Date of : 69 Report #: [id number] THIS REPORT FOR: //name// cc: VALERIANO Huang family physician/PCP VALERIANO Huang family physician/PCP ~ THIS REPORT FOR: //name// CC: VALERIANO physician/PCP Jimmy Foss DATE OF SERVICE: 10/12/2019 NEPHROLOGY CONSULTATION CONSULTING PHYSICIAN: Jimmy Foss DO REASON FOR NEPHROLOGY CONSULTATION: ESRD, on hemodialysis every Saturday, and Saturday for maintenance hemodialysis needs. REASON FOR ADMISSION: Lower abdominal pain. HISTORY OF PRESENT ILLNESS: This is a 54-year-old female with past medical history of ESRD, on hemodialysis every Saturday, and Saturday. Her last dialysis was on Saturday here at the hospital and she was discharged yesterday, came in with lower abdominal pain. In her last admission here, she was found to have Klebsiella UTI. She was discharged on Macrobid. She was discharged yesterday afternoon and came back yesterday evening because her lower abdomen was hurting. 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 Urology is not available at the hospital, so General Surgery was consulted and they supposed to see the patient today, and she is feeling better with morphine. ALLERGIES: No known drug allergies. REVIEW OF SYSTEMS: As mentioned in history of present illness, otherwise 10-point review of systems are negative. HOME MEDICATIONS: Include albuterol, budesonide, Levaquin, Macrobid?, furosemide, calcitonin, docusate, cinacalcet, aspirin, calcium acetate, oxycodone, and cholecalciferol. Actually as mentioned above, the patient was not discharged on Macrobid, she was discharged on Levaquin couple of days ago. PAST MEDICAL AND SURGICAL HISTORY: Includes hypertension and ESRD, on hemodialysis every Saturday, and Saturday. She has history of diverticulitis with sigmoidectomy, Hima pouch formation, colostomy, right foot drop, left ovarian cyst removal, and [place] [address] CONSULTATION Name: WALLY HAYES Room: [address]#: [id number] Admission: 10/11/19 Attend Phys: Kunal Karimi Discharge: Date of : 69 Report #: [id number] FAMILY HISTORY: Reviewed. SOCIAL HISTORY: She does not smoke or drink alcohol or use illicit drugs. PHYSICAL EXAMINATION: VITAL SIGNS: Blood pressure was 85/50, pulse rate was 75, temperature was 36.5, respiratory rate was 16, and pulse ox unx374% on room air. GENERAL: She is awake, alert, and oriented x 3. HEAD AND EYES: Atraumatic, normocephalic. EARS, NOSE, AND THROAT: Normal ears and nose. Mucous membranes are moist. NECK: No JVD. CHEST: Bilaterally clear to auscultation anteriorly. No crackles or wheezing anteriorly. CARDIOVASCULAR: S1, S2 normal. No murmurs noted. ABDOMEN: Soft and nondistended. Ostomy is intact. There is no tenderness. EXTREMITIES: Lower extremities, there is no edema. DIALYSIS ACCESS: She has a left arm AV graft with good bruit. NEUROLOGICAL FUNCTION: Grossly intact. She has generalized weakness. PSYCHIATRIC: Seems to be depressed. LABORATORY DATA: Her hemoglobin is 9.1, sodium is 138, potassium is 4.6, and other labs were reviewed. IMAGING: Abdominopelvic CT scan was reviewed. ASSESSMENT: 1. End-stage renal disease, on hemodialysis every Saturday, and Saturday. 2. Recent diagnosis of Klebsiella urinary tract infection, possibility of enterovesical fistula. The patient presented with abdominal pain. General Surgery has been consulted and ____ of chronic kidney disease. 3. History of diverticulitis and has a history of sigmoidectomy and colostomy now. 4. History of hypertension. Blood pressure has been running low this morning. PLAN: 1. Surgery to see her for enterovesical fistula. 2. There is no acute need for dialysis today. She will be dialyzed tomorrow according to her regular schedule. 3. Hemoglobin 9.1. We will give her erythropoietin. 4. Please avoid morphine in the setting of end-stage renal disease [place] [address] CONSULTATION Name: WALLY HAYES Room: [address]#: [id number] Admission: 10/11/19 Attend Phys: Kunal Karimi Discharge: Date of : 69 Report #: [id number] Thank you for this consultation. We will continue to follow for dialysis needs. Discussed with the patient. <ELECTRONICALLY SIGNED> By: Sarah Song MD 10/13/19 0909 0904 0931Sarah Song MD /nt
[2019-10-13 16:00] VITALS: BP 131/68
[2019-10-13 20:00] VITALS: BP 98/61
[2019-10-14] VITALS: BP 113/65
[2019-10-14 04:00] VITALS: BP 171/58
[2019-10-14 06:36] LABS: HEMATOCRIT 28.1 % (37.0-47.0); HEMOGLOBIN 9.1 gm/dL (12.0-15.0); MCH 28.2 pg (26.0-34.0); MCHC 32.3 g/dL (28.0-37.0); MCV 87.2 fL (80.0-100.0); MPV 8.9 fl. (7.2-11.1); RBC 3.22 mil/uL (4.20-5.00); RDW-CV 20.6 % (10.5-14.5); WBC 8.1 thou/uL (4.0-11.0)
[2019-10-14 07:03] LABS: ALBUMIN 2.6 g/dL (3.4-5.0); CALCIUM 8.7 mg/dL (8.5-10.1); CREATININE 8.4 mg/dL (0.6-1.3); MAGNESIUM 2.3 mg/dL (1.8-2.4); PHOSPHORUS* 5.3 mg/dL (2.5-4.9); POTASSIUM 3.8 mmol/L (3.5-5.1)
[2019-10-14 08:01] VITALS: BP 99/62
[2019-10-14 16:12] VITALS: BP 114/66
[2019-10-14 20:00] VITALS: BP 93/60
[2019-10-15 00:47] VITALS: BP 97/54
[2019-10-15 04:00] VITALS: BP 88/53
[2019-10-15 08:00] VITALS: BP 105/61
[2019-10-15 15:47] VITALS: BP 105/61
== END 2019-10-15 17:53 | disposition home or self-care (01) | DRG 689 ==
LOC: M.ERS 20:30 → M.2W 22:25 → M.TBA-ER 22:25 → M.2W 10-12 00:31
PROVIDERS: Family Medicine; Physician Assistant; ADMIT Internal Medicine
PROC: 5A1D70Z Performance of Urinary Filtration, Intermittent, Less than 6 Hours Per Day (ICD-10-PCS; principal; 2019-10-13)
PROC: 5A1D70Z Performance of Urinary Filtration, Intermittent, Less than 6 Hours Per Day (ICD-10-PCS; 2019-10-15)
DX: N39.0 Urinary tract infection, site not specified (principal); N18.6 End stage renal disease; I12.0 Hypertensive chronic kidney disease with stage 5 chronic kidney disease or end stage renal disease; E87.1 Hypo-osmolality and hyponatremia; N25.81 Secondary hyperparathyroidism of renal origin; Z60.2 Problems related to living alone; E66.9 Obesity, unspecified; E87.5 Hyperkalemia; E83.41 Hypermagnesemia; E83.39 Other disorders of phosphorus metabolism; B96.1 Klebsiella pneumoniae [K. pneumoniae] as the cause of diseases classified elsewhere; Z99.2 Dependence on renal dialysis; Z93.3 Colostomy status; Z86.73 Personal history of transient ischemic attack (TIA), and cerebral infarction without residual deficits; Z79.899 Other long term (current) drug therapy; Z79.51 Long term (current) use of inhaled steroids; Z90.49 Acquired absence of other specified parts of digestive tract; Z68.39 Body mass index [BMI] 39.0-39.9, adult; Z82.49 Family history of ischemic heart disease and other diseases of the circulatory system

== ENCOUNTER 2019-11-09 17:20 | Emergency (ER) | payer MEDICARE, MEDICAID ==
[~2019-11-09] VITALS: Ht 149.9 cm; Wt 83.0 kg
[~2019-11-09 17:20] MED LIST changes: +ACID REDUCER20 MG PO; +NEPHRO-VITE TA0.8 MG PO
[2019-11-09 18:03] LABS: ABSOLUTE BASOPHILS 0.2 thou/uL (0.0-0.2); ABSOLUTE EOSINOPHILS 0.1 thou/uL (0.0-0.7); ABSOLUTE NEUTROPHILS 10.8 thou/uL (1.6-8.1); BASOPHILS 1.1 %; EOSINOPHILS 0.7 %; HEMATOCRIT 23.6 % (37.0-47.0); HEMOGLOBIN 7.8 gm/dL (12.0-15.0); LYMPHOCYTES 14.3 %; MCH 29.8 pg (26.0-34.0); MCV 90.2 fL (80.0-100.0); MPV 8.5 fl. (7.2-11.1); NUCLEATED RBCS 0 /100WBC; PLATELET COUNT* 200 thou/uL (150-400); POLYS 76.9 %; RBC 2.62 mil/uL (4.20-5.00); RDW-CV 20.5 % (10.5-14.5); WBC 14.1 thou/uL (4.0-11.0)
[2019-11-09 18:13] LABS: ANION GAP 11 mmol/L (7-16); BUN 63 mg/dL (7-18); CALCIUM 9.1 mg/dL (8.5-10.1); CHLORIDE 95 mmol/L (98-107); CO2 28 mmol/L (21-32); CREATININE 11.4 mg/dL (0.6-1.3); GLUCOSE 93 mg/dL (70-99); POTASSIUM 4.2 mmol/L (3.5-5.1); SODIUM 134 mmol/L (136-145)
[2019-11-09 18:17] LABS: ALBUMIN 3.3 g/dL (3.4-5.0); ALKALINE PHOSPHATASE 88 U/L (46-116); LIPASE 65 U/L (73-393); SGOT 8 U/L (15-37); SGPT < 6 U/L (30-65); TOTAL BILIRUBIN 0.4 mg/dL (<0.1-1.0); TOTAL PROTEIN 7.6 g/dL (6.4-8.2)
[2019-11-09 18:36] LABS: PLATELET ESTIMATE ADEQUATE
[2019-11-09 18:38] LABS: ANISOCYTOSIS 1+; MACROCYTES 1+
[2019-11-09 21:14] VITALS: BP 119/63
--- NOTE | 2019-11-10 15:26 | EKG ---
[place] [address] ELECTROCARDIOGRAM REPORT Name: WALLY HAYES Room: [facility]#: [id number] Admission: 11/09/19 Attend Phys: Discharge: 11/09/19 Date of : 69 Date of Service: 11/09/19 180 Report #: [id number] THIS REPORT FOR: //name// [facility] ED Test Date: 2019-11-09 Test Time: 18:01:55 Pat Name: WALLY HAYES Department: Room: Gender: Patch Sander: : 1965 Requested By: Anthony Mendoza Order Number: [id number] MD: Colin Duval Measurements Intervals [place] Rate: 77 P: 16 ME: 160 QRS: -6 QRSD: 96 T: 103 QT: 424 QTc: 480 Interpretive Statements Sinus rhythm Abnormal R-wave progression, early transition Probable left ventricular hypertrophy Nonspecific T abnormalities, lateral leads Borderline prolonged QT interval Compared to ECG 04/30/2019 10:41:43 T-wave abnormality now present Early repolarization no longer present Electronically Signed On 11-10-2019 15:24:17 CDT by Colin Duval [email or web address] <ELECTRONICALLY SIGNED> By: Colin Duval MD, FAC 11/10/19 1524 180 180 Colin Duval MD, FAC /EPI
== END 2019-11-09 21:17 | disposition short-term general hospital (02) ==
LOC: M.ERS 17:20
PROVIDERS: Emergency Medicine Emergency Medical Services
DX: N32.2 Vesical fistula, not elsewhere classified (principal); I13.11 Hypertensive heart and chronic kidney disease without heart failure, with stage 5 chronic kidney disease, or end stage renal disease; N18.6 End stage renal disease; Z99.2 Dependence on renal dialysis; Z86.73 Personal history of transient ischemic attack (TIA), and cerebral infarction without residual deficits; Z88.1 Allergy status to other antibiotic agents

== ENCOUNTER 2020-08-25 15:29 | Emergency (ER) | payer MEDICARE, MEDICAID ==
[~2020-08-25] VITALS: Ht 149.9 cm; Wt 90.7 kg
[2020-08-25 16:23] LABS: ABSOLUTE BASOPHILS 0.1 thou/uL (0.0-0.2); ABSOLUTE EOSINOPHILS 0.1 thou/uL (0.0-0.7); ABSOLUTE LYMPHOCYTES 1.4 thou/uL (0.8-5.3); ABSOLUTE MONOCYTES 1.1 thou/uL (0.0-1.2); ABSOLUTE NEUTROPHILS 9.8 thou/uL (1.6-8.1); BASOPHILS 0.5 %; EOSINOPHILS 0.9 %; HEMATOCRIT 22.8 % (37.0-47.0); HEMOGLOBIN 7.6 gm/dL (12.0-15.0); LYMPHOCYTES 11.2 %; MCH 31.3 pg (26.0-34.0); MCHC 33.4 g/dL (28.0-37.0); MCV 93.7 fL (80.0-100.0); MONOCYTES 8.6 %; MPV 7.9 fl. (7.2-11.1); NUCLEATED RBCS 0 /100WBC; PLATELET COUNT* 240 thou/uL (150-400); POLYS 78.8 %; RBC 2.44 mil/uL (4.20-5.00); RDW-CV 16.7 % (10.5-14.5); WBC 12.5 thou/uL (4.0-11.0)
[2020-08-25 16:43] LABS: CALCIUM 9.9 mg/dL (8.5-10.1)
[2020-08-25 16:48] LABS: ALBUMIN 3.8 g/dL (3.4-5.0); TOTAL BILIRUBIN 0.7 mg/dL (<0.1-1.0); TOTAL PROTEIN 8.2 g/dL (6.4-8.2)
[2020-08-25 19:45] VITALS: BP 105/65
--- NOTE | 2020-08-26 09:26 | EKG ---
[place] [address] ELECTROCARDIOGRAM REPORT Name: WALLY HAYES Room: [facility]#: [id number] Admission: 08/25/20 Attend Phys: Discharge: 08/25/20 Date of : 69 Date of Service: 08/25/20 1550 Report #: [id number] THIS REPORT FOR: //name// [facility] ED Test Date: 2020-08-25 Test Time: 15:50:15 Pat Name: WALLY HAYES Department: Room: Gender: Disease Education Specialist: [facility] : 1965 Requested By: Farhan Yeboah Order Number: [id number] MD: Colin Duval Measurements Intervals [place] Rate: 93 P: -19 [place]: 144 QRS: -23 QRSD: 85 T: 152 QT: 371 QTc: 462 Interpretive Statements Sinus rhythm Abnormal R-wave progression, late transition LVH with secondary repolarization abnormality Compared to ECG 11/09/2019 18:01:55 Early repolarization now present T-wave abnormality no longer present Electronically Signed On 08-26-2020 9:26:43 [employer] by Colin Duval [email or web address] <ELECTRONICALLY SIGNED> By: Colin Duval MD, [facility] 08/26/20 0926 1550 1550 Colin Duval MD, [facility] /EPI
== END 2020-08-25 19:45 | disposition short-term general hospital (02) ==
LOC: M.ERS 15:29
PROVIDERS: Physician Assistant
DX: L03.114 Cellulitis of left upper limb (principal); I12.0 Hypertensive chronic kidney disease with stage 5 chronic kidney disease or end stage renal disease; N18.6 End stage renal disease; D63.1 Anemia in chronic kidney disease; Z20.822 Contact with and (suspected) exposure to COVID-19; Z99.2 Dependence on renal dialysis; Z79.82 Long term (current) use of aspirin; Z79.899 Other long term (current) drug therapy; Z88.1 Allergy status to other antibiotic agents; Z93.3 Colostomy status

== ENCOUNTER 2021-06-15 10:08 | Emergency (ER) | payer MEDICARE, MEDICAID ==
[~2021-06-15] VITALS: Ht 149.9 cm; Wt 93.0 kg
[2021-06-15] MEDS ORDERED: APAP W/CODEINE1 TA2 PO (13:34)
[2021-06-15 14:04] VITALS: BP 126/77
== END 2021-06-15 14:08 | disposition home or self-care (01) ==
LOC: M.ERS 10:08
DX: M79.604 Pain in right leg (principal); I12.0 Hypertensive chronic kidney disease with stage 5 chronic kidney disease or end stage renal disease; N18.6 End stage renal disease; Z98.890 Other specified postprocedural states; Z79.899 Other long term (current) drug therapy; Z88.8 Allergy status to other drugs, medicaments and biological substances

== ENCOUNTER 2021-08-26 01:37 | Emergency (ER) | payer MEDICARE, MEDICAID ==
[~2021-08-26] VITALS: Ht 149.9 cm; Wt 93.0 kg
[~2021-08-26 01:37] MED LIST changes: +APAP W/CODEINE1 TA2 PO
[2021-08-26 02:48] LABS: ABSOLUTE BASOPHILS 0.1 thou/uL (0.0-0.2); ABSOLUTE EOSINOPHILS 0.2 thou/uL (0.0-0.7); ABSOLUTE LYMPHOCYTES 1.6 thou/uL (0.8-5.3); ABSOLUTE MONOCYTES 1.1 thou/uL (0.0-1.2); EOSINOPHILS 1.3 %; HEMATOCRIT 32.1 % (37.0-47.0); HEMOGLOBIN 10.4 gm/dL (12.0-15.0); LYMPHOCYTES 12.7 %; MCH 29.5 pg (26.0-34.0); MCHC 32.5 g/dL (28.0-37.0); MCV 90.9 fL (80.0-100.0); MONOCYTES 8.3 %; MPV 8.9 fl. (7.2-11.1); NUCLEATED RBCS 0 /100WBC; PLATELET COUNT* 303 thou/uL (150-400); POLYS 76.7 %; RBC 3.53 mil/uL (4.20-5.00); RDW-CV 17.4 % (10.5-14.5)
[2021-08-26 03:31] LABS: CALCIUM 9.1 mg/dL (8.5-10.1); CREATININE 11.6 mg/dL (0.6-1.3); POTASSIUM 4.2 mmol/L (3.5-5.1)
[2021-08-26 03:36] LABS: ALBUMIN 3.5 g/dL (3.4-5.0); TOTAL BILIRUBIN 0.4 mg/dL (<0.1-1.0); TOTAL PROTEIN 7.2 g/dL (6.4-8.2)
[2021-08-26 04:25] LABS: URINE BILIRUBIN NEGATIVE (Negative); URINE BLOOD 1+ (Negative); URINE CLARITY CLEAR; URINE COLOR YELLOW; URINE GLUCOSE-RANDOM NEGATIVE (Negative); URINE KETONES NEGATIVE (Negative); URINE LEUKOCYTES-REFLEX 1+ (Negative); URINE NITRITE-REFLEX NEGATIVE (Negative); URINE PROTEIN 2+ (Negative); URINE UROBILINOGEN 0.2 E.U./dl (0.2-1.0)
[2021-08-26 04:53] LABS: CASTS None Seen /LPF (None Seen); SQUAMOUS >10 Many /LPF (0-3)
[2021-08-26 04:54] LABS: URINE RBC 0-2 Rare /HPF (0-2); URINE WBC-REFLEX 6-15 Few /HPF (0-5)
[2021-08-26 04:55] LABS: BACTERIA-REFLEX 1-9 Few /HPF (None Seen); CRYSTALS None Seen /LPF (None Seen)
[2021-08-26] MEDS ORDERED: METRONIDAZOLE500 M4 PO (05:16)
[2021-08-26] MEDS ORDERED: CIPROFLOXACIN500 M1 PO (05:16)
[2021-08-26] MEDS ORDERED: HYDROCODON-ACE1 EAC8 PO (05:17)
[2021-08-26] MEDS ORDERED: ZOFRAN ODT4 MG PO (05:17)
[2021-08-26 05:30] VITALS: BP 160/70
== END 2021-08-26 05:30 | disposition home or self-care (01) ==
LOC: M.ERS 01:37
PROVIDERS: Emergency Medicine
DX: K57.92 Diverticulitis of intestine, part unspecified, without perforation or abscess without bleeding (principal); I12.0 Hypertensive chronic kidney disease with stage 5 chronic kidney disease or end stage renal disease; N18.6 End stage renal disease; Z99.2 Dependence on renal dialysis; Z90.721 Acquired absence of ovaries, unilateral; Z79.899 Other long term (current) drug therapy; Z79.51 Long term (current) use of inhaled steroids; Z79.82 Long term (current) use of aspirin; Z88.8 Allergy status to other drugs, medicaments and biological substances